=== PATIENT | male | born 1995 | race Caucasian/White ===

== ENCOUNTER → 2025-02-12 | Outpatient (CLI) | payer MEDICAID, SELFPAY ==
--- OUTSIDE RECORDS SUMMARY | 2025-02-12 21:30 | XMS RPT_ITS | CCD ---
Author Organization [facility] Care Team Providers Care Court Abstractor Name Role Phone Unavailable Primary Care Provider Unavailabl e Rachel SENIOR COMPLIANCE OFFICER.Jorg eLuis HANCOCK Primary Care Provide r Rachel SENIOR COMPLIANCE OFFICER.Jorge Luis HANCOCK Primary Care Provide r Rachel SENIOR COMPLIANCE OFFICER.Jorge Luis HANCOCK Primary Care Provide r JORGE LUIS STOUT Attending Unavailable JORGE LUIS STOUT Primary Care Unavailable JORGE LUIS STOUT Attending Unavailable JORGE LUIS STOUT Primary Care Unavailable JORGE LUIS STOUT Attending Unavailable JORGE LUIS STOUT Primary Care Unavailable JORGE LUIS STOUT Attending Unavailable JORGE LUIS STOUT Primary Care Unavailable JORGE LUIS STOUT Attending Unavailable Rachel SENIOR COMPLIANCE OFFICER.Jorge Luis HNACOCK Primary Care Provide r Unavailable Donna Us PA-C Primary Care Provider [phone] Donna Us PA-C Primary Care Provider [phone] Salvatore Mcgrath Attending Unavailable Town Doctor, Out of Referring Unavailable Town Doctor, Out of Primary Care Unavailable PCP, NONE Primary Care Unavailable TOMEKA RODRIGUEZ Attending Unavailable Donna Us PA-C Primary Care Provider DONNA [place] Primary Care Unavailable DONNA US Primary Care Unavailable DONNA US Attending Unavailable DONNA US R Primary Care Unavailable DONNA US R Primary Care Unavailable DONNA US R Attending Unavailable DONNA US R Primary Care Unavailable DONNA US R Primary Care Unavailable DONNA US R Primary Care Unavailable UMM MCGRATH Attending Unavailable DONNA US Primary Care Unavailable Allergies Allergy Classification Reported Allergen(s) Allergy Type Date of Onset Reaction(s) Facility (2 sources) Droperidol; Translations: [DROPERIDOL] Drug Allergy 02-09-2025 Intolerance [facility] Medications Current Medications Medication Drug Class(es) Dates Sig (Normalized) Sig (Original) ALPRAZolam 0.25 mg oral tablet (1 source) Benzodiazepine Start: 01-24-2023 End: 02-23-2023 take 1 tablet by mouth every twenty-four hours as needed ALPRAZolam (XANAX) 0.25 mg tablet Take 1 tablet by mouth at bedtime as needed (sleep) for up to 30 days. 30 tablet 0 01/24/2023 02/23/2023 Active Comment on above: Take 1 tablet by frantz th at bedtime as needed (sleep) for up to 30 days. bacitracin 0.5 unt/mg topical ointment (1 source) Start: 01-02-2025 End: 01-12-2025 bacitracin 500 unit/gram ointment Apply to affected area two times a day for 10 days. 14 g 01/02/2025 01/12/2025 Active 24 hr buPROPion hydrochloride 300 mg extended release oral tablet (20 sources) Aminoketone Start: 11-12-2023 End: 11-10-2024 take 1 tablet by mouth once daily buPROPion XL (WELLBUTRIN XL) 300 mg 24 hr tablet Indications: Depression, unspecified depression type Take 1 tablet by mouth once daily. 90 tablet 1 05/14/2024 11/10/2024 Active Start: 01-24-2023 End: 05-14-2024 buPROPion XL (WELLBUTRIN XL) 300 mg 24 hr tablet Indications: Depression, unspecified depression type Take 1 tablet by mouth once daily. Week 1 just take 1/2 tablet. Starting week 2 take a whole tablet 30 tablet 5 02/20/2023 05/14/2024 Discontinued (Other) Start: 08-09-2022 End: 12-08-2022 buPROPion XL (WELLBUTRIN XL) 150 mg 24 hr tablet Indications: Depression, unspecified depression type Take 1 tablet by mouth once daily. Week 1 just take 1/2 tablet. Starting week 2 take a whole tablet 30 tablet 5 11/08/2022 Active Comment on above: Take 1 tablet by frantz th once daily. Week 1 just take 1/2 tablet. Starting week 2 take a whole tablet Take 1 tablet by frantz once daily. clindamycin 300 mg oral capsule (1 source) Lincosamide Antibacterial Start: 05-14-20 End: 05-24-20 take 1 capsule by mouth four times daily clindamycin (CLEOCIN) 300 mg capsule Take 1 capsule by mouth four times daily for 10 days. 40 capsule 0 05/14/2023 05/24/2023 Active Comment on above: Take 1 capsule by mo [facility] four times daily for 10 days. doxepin 6 mg oral tablet (1 source) Tricyclic Antidepressant Start: 12-31-19 Doxepin 6 mg tab Indications: Chronic insomnia 1 tablet at night to help with sleep 30 tablet 2 12/30/2022 Active Start: 12-30-2022 Doxepin 6 mg t ab Indications: Chronic insomnia 1 tablet at night to help with sleep 30 tablet 2 12/30/2022 Active Comment on above: 1 tablet at night to help with sleep eszopiclone 2 mg oral tablet (5 sources) Start: 12-03-2022 End: 01-02-2023 take 1 tablet by mouth once daily at bedtime eszopiclone (LUNESTA) 2 mg Indications: Chronic insomnia Take 1 tablet by mouth daily at bedtime for 30 days. 30 tablet 0 12/03/2022 12/30/2022 Discontinued Start: 09-20-2022 End: 11-17-2022 take 1 tablet by mouth once daily at bedtime eszopiclone (LUNESTA) 2 mg Indications: Chronic insomnia Take 1 tablet by mouth daily at bedtime for 30 days. 30 tablet 0 10/18/2022 11/17/2022 Active Comment on above: Take 1 tablet by frantz daily at bedtime for 30 days. hydrOXYzine hydrochloride 25 mg oral tablet (1 source) Antihistamine Start: 08-09-20 End: 09-06-19 hydrOXYzine HCl (ATARAX) 25 mg tablet Indications: Chronic insomnia Take 1-2 tablets at night to help with sleep 60 tablet 5 08/09/2022 09/06/2022 Active Comment on above: Take 1-2 tablets at night to help with sleep methIMAzole 10 mg oral tablet (5 sources) Thyroid Hormone Synthesis Inhibitor Start: 12-04-19 take 4 tablets by mouth once daily methIMAzole (TAPAZOLE) 10 mg tablet Take 4 tablets by mouth once daily. 12/03/2024 Active 24 hr metoprolol succinate 50 mg extended release oral tablet (20 sources) beta-Adrenergic Ovidio Start: 11-12-19 take 1 tablet by mouth once daily metoprolol succinate ER (TOPROL XL) 50 mg 24 hr tablet Indications: Hypertension, essential Take 1 tablet by mouth once daily. 90 tablet 11/11/2024 Active Start: 05-08-2023 End: 11-10-2024 take 1 tablet by mouth once daily metoprolol succinate ER (TOPROL XL) 25 mg 24 hr tablet Indications: Hypertension, essential Take 1 tablet by mouth once daily. 90 tablet 1 05/14/2024 11/10/2024 Active Start: 03-19-2023 take 1 tablet by frantz th once daily metoprolol succinate ER (TOPROL XL) 25 mg 24 hr tablet Indications: Hypertension, essential TAKE 1 TABLET BY MOUTH EVERY DAY 30 tablet 5 03/19/2023 Active Start: 01-24-2023 End: 03-19-2023 take 1 tablet by mouth once daily metoprolol succinate ER (TOPROL XL) 25 mg 24 hr tablet Indications: Hypertension, essential Take 1 tablet by mouth once daily. 30 tablet 1 01/24/2023 03/19/2023 Discontinued Comment on above: Take 1 tablet by frantz th once daily. TAKE 1 TABLET BY FRANTZ TH EVERY DAY naproxen 500 mg oral tablet (3 sources) Nonsteroidal Anti-inflammatory Drug Start: 06-03-2023 End: 06-17-2023 take 1 tablet by mouth twice daily at mealtime for pain naproxen (NAPROSYN) 500 mg tablet TAKE 1 TABLET BY MOUTH TWICE DAILY WITH MEALS FOR 14 DAYS. FOR PAIN 28 tablet 0 06/03/2023 06/17/2023 Active Start: 05-14-2023 End: 05-28-2023 take 1 tablet by mouth twice daily at mealtime for pain naproxen (NAPROSYN) 500 mg tablet Take 1 tablet by mouth twice daily with meals for 14 days. For pain 28 tablet 0 05/14/2023 05/28/2023 Active Comment on above: Take 1 tablet by frantz th twice daily with meals for 14 days. For pain ondansetron 4 mg disintegrating oral tablet (1 source) Serotonin-3 Receptor Antagonist Start: 02-10-20 End: 02-17-20 take 1 tablet by mouth every six hours as needed ondansetron orally disintegrating (ZOFRAN ODT) 4 mg disintegrating tablet Take 1 tablet by mouth every 6 hours as needed for nausea/vomiting for up to 7 days. 20 tablet 02/09/2025 02/16/2025 Active pantoprazole 40 mg delayed release oral tablet (1 source) Proton Pump Inhibitor Start: 02-10-20 End: 03-11-20 take 1 tablet by mouth once daily pantoprazole DR (PROTONIX) 40 mg tablet Take 1 tablet by mouth once daily. 30 tablet 02/09/2025 03/11/2025 Active sucralfate 1000 mg oral tablet (1 source) Aluminum Complex Start: 02-10-20 End: 02-24-20 take 1 tablet by mouth four times daily sucralfate (CARAFATE) 1 gram tablet Take 1 tablet by mouth four times daily for 14 days. 56 tablet 02/09/2025 02/23/2025 Active Completed/Discontinued Medications Medication Drug Class(es) Dates Sig (Normalized) Sig (Original) bifidobacterium infantis 10.5 mg chewable tablet (10 sources) Start: 05-14-2023 End: 05-14-2024 Bifidobacterium infantis (ALIGN) 10.5 mg (10 million cell) chew 1 capsule daily 30 tablet 05/14/2023 05/14/2024 Discontinued (Other) Comment on above: 1 capsule daily famotidine 40 mg oral tablet (20 sources) Histamine-2 Receptor Antagonist Start: 06-13-2023 End: 05-02-2025 take 1 tablet by mouth once famotidine (PEPCID) 40 mg tablet Take 1 tablet by mouth every afternoon. 90 tablet 01/03/2025 01/31/2025 Discontinued Start: 01-24-2023 End: 04-24-2023 take 1 tablet by mouth once daily famotidine (PEPCID) 40 mg tablet Indications: GERD without esophagitis Take 1 tablet by mouth once daily. 90 tablet 1 01/24/2023 04/24/2023 Active Start: 10-18-2022 End: 11-17-2022 take 1 tablet by mouth twice daily famotidine (PEPCID) 40 mg tablet Take 1 tablet by mouth twice daily. 60 tablet 5 10/18/2022 11/17/2022 Active Start: 08-09-2022 End: 09-08-2022 take 1 tablet by mouth once daily famotidine (PEPCID) 40 mg tablet Indications: GERD without esophagitis Take 1 tablet by mouth once daily. 30 tablet 5 08/09/2022 09/08/2022 Active Comment on above: Take 1 tablet by frantz th once daily. Take 1 tablet by frantz th twice daily. ibuprofen/diphenhy dramine HCl (ADVIL PM LIQUI-GELS ORAL) (20 sources) End: 05-14-2024 take 1 tablet by mouth once daily at bedtime ibuprofen/diphenhydram ine HCl (ADVIL PM LIQUI-GELS ORAL) Take 1 tablet by mouth daily at bedtime. 05/14/2024 Discontinued (Other) take 1 tablet by frantz th once daily at bedtime ibuprofen/diphenhydramine HCl (ADVIL PM LIQUI-GELS ORAL) Take 1 tablet by mouth daily at bedtime. 0 Active Comment on above: Take 1 tablet by frantz th daily at bedtime. Magnesium Sulfate / potassium sulfate / sodium sulfate (7 sources) Start: 08-02-2021 End: 08-09-2022 sodium sulfate-potassium sulfate-magnesium sulfate (SUPREP BOWEL PREP KIT) 17.5-3.13-1.6 gram oral liquid Indications: RUQ pain , Right upper quadrant pain 1 bottle the night before and the second bottle 4 hours prior to the scheduled time of colonoscopy 1 Kit 0 08/02/2021 08/09/2022 Discontinued Start: 08-02-2021 sodium sulfate -potassium sulfate-magnesium sulfate (SUPREP BOWEL PREP KIT) 17.5-3.13-1.6 gram oral liquid Indications: RUQ pain , Right upper quadrant pain 1 bottle the night before and the second bottle 4 hours prior to the scheduled time of colonoscopy 1 Kit 0 08/02/2021 Active Comment on above: 1 bottle the night b efore and the second bottle 4 hours prior to the scheduled time of colonoscopy omeprazole 20 mg delayed release oral capsule (9 sources) Proton Pump Inhibitor Start: 2 End: 2 take 1 capsule by mouth once daily omeprazole (PRILOSEC) 20 mg capsule Indications: GERD without esophagitis TAKE 1 CAPSULE BY MOUTH ONCE DAILY 30 capsule 2 07/08/2022 08/09/2022 Discontinued Start: 10-10-2021 End: 02-02-2022 take 1 capsule by mouth once daily omeprazole (PRILOSEC) 20 mg capsule Indications: GERD without esophagitis TAKE 1 CAPSULE BY MOUTH ONCE DAILY 30 capsule 2 01/03/2022 Active Comment on above: TAKE 1 CAPSULE BY MO UTH ONCE DAILY Take 1 capsule by mo uth once daily. traZODone hydrochloride 100 mg oral tablet (10 sources) Serotonin Reuptake Inhibitor Start: End: take 1 tablet by mouth once daily at bedtime traZODone (DESYREL) 100 mg tablet Indications: RUQ abdominal pain , Nausea and vomiting TAKE 1 TABLET BY MOUTH EVERYDAY AT BEDTIME 30 tablet 0 07/12/2022 08/09/2022 Discontinued Start: 10-31-2021 End: 07-12-2022 take 1 tablet by mouth once daily at bedtime traZODone (DESYREL) 100 mg tablet Indications: RUQ abdominal pain , Nausea and vomiting TAKE 1 TABLET BY MOUTH EVERYDAY AT BEDTIME 30 tablet 2 04/09/2022 07/12/2022 Discontinued Comment on above: TAKE 1 TABLET BY FRANTZ TH EVERYDAY AT BEDTIME Problems Active Problems Problem Classification Problem Date Documented Da te Episodic/Chronic Abdominal pain (20 sources) Right upper quadrant pain; Translations: [Right upper quadrant pain] Onset: 1 08-02-2021 Episodic Anxiety disorders (20 sources) Mixed anxiety and depressive disorder; Translations: [Other specified anxiety disorders] Onset: 3 02-14-2023 Chronic Esophageal disorders (20 sources) Gastroesophageal reflux disease without esophagitis; Translations: [Gastro-esophageal reflux disease without esophagitis] Onset: 3 Chronic Essential hypertension (20 sources) Essential hypertension; Translations: [Essential (primary) hypertension] Onset: 3 02-14-2023 Chronic Miscellaneous mental health disorders (20 sources) Chronic insomnia; Translations: [Psychophysiologic insomnia] Onset: 3 Chronic Mood disorders (10 sources) Depressive disorder; Translations: [Depression, unspecified depression type] Onset: 3 Chronic Mood disorders (2 sources) Mood disorders; Translations: [Depression, unspecified depression type] Onset: 3 Nausea and vomiting (4 sources) Nausea and vomiting; Translations: [Nausea with vomiting, unspecified] Onset: 5 Episodic Open wounds of extremities (6 sources) Laceration of left little finger; Translations: [Laceration without foreign body of left little finger without damage to nail, initial encounter] Onset: 5 01-02-2025 Episodic Other aftercare (1 source) Encounter for removal of sutures; Translations: [Encounter for removal of sutures] Onset: 5 Episodic Other connective tissue disease (5 sources) Pain in finger of left hand; Translations: [Pain in left finger(s)] Onset: 5 01-02-2025 Episodic Other connective tissue disease (1 source) Pain in left finger(s); Translations: [Pain of finger of left hand] Onset: 5 Episodic Other gastrointestinal disorders (1 source) Diarrhea, unspecified; Translations: [Diarrhea, unspecified type] Onset: 5 Episodic Other nutritional; endocrine; and metabolic disorders (1 source) Obese class I; Translations: [Obesity, unspecified] Chronic Other nutritional; endocrine; and metabolic disorders (1 source) Body mass index 30+ - obesity; Translations: [Body mass index (BMI) 33.0-33.9, adult] Chronic Other nutritional; endocrine; and metabolic disorders (1 source) Obesity, unspecified; Translations: [Obesity, Class I, BMI 30-34.9] Onset: 3 Chronic Other nutritional; endocrine; and metabolic disorders (1 source) Weight gain; Translations: [Abnormal weight gain] Episodic Thyroid disorders (6 sources) Hyperthyroidism; Translations: [Thyrotoxicosis, unspecified without thyrotoxic crisis or storm] Onset: 5 11-12-2024 Chronic Unclassified (1 source) Transaminitis; Translations: [Transaminitis] Onset: 5 Viral infection (1 source) COVID-19; Translations: [COVID-19] Onset: 5 Past or Other Problems Problem Classification Problem Date Documented Da te Episodic/Chronic Cardiac dysrhythmias (4 sources) Palpitations; Translations: [Palpitations] Onset: 11-11-2024 11-12-2023 Episodic Immunizations and screening for infectious disease (4 sources) Patient encounter status; Translations: [Encounter for immunization] Onset: 05-14-2024 Episodic Malaise and fatigue (5 sources) Fatigue; Translations: [Other fatigue] Onset: 09-20-2022 Episodic Other nutritional; endocrine; and metabolic disorders (1 source) Abnormal weight gain; Translations: [Weight gain] Onset: 09-20-2022 Episodic Other screening for suspected conditions (not mental disorders or infectious disease) (2 sources) Other specified abnormal findings of blood chemistry; Translations: [Decreased thyroid stimulating hormone (TSH) level] Onset: 11-11-2024 Episodic Results Test Name Value Interpretation Reference Range Krysten wallis SANTIRoxane 02-10-[address] [facility] SOLOMON LAURA ([id number]) 1995 M Date Time Provider Department 02/10/25 DONNA US [facility] [place] During your visit today, we recorded the following information about you: Darlin Beck MA 02/10/2025 8:59 AM Signed Appt with Donna on 05/20 needs r/s to Zuleika's schedule. Left message for patient to call the office, number provided. Please transfer call to office. Darlin Beck MA Allergies As of Date: 02/10/2025 Noted Allergy Reaction DROPERIDOL 02/09/2025 5 - Intolerance Comments: Patient felt like skin was crawling and dizzy Date Reviewed: 02/09/2025 Reviewed by: Jurgen Cardenas, CT - Fully Assessed Reason for Visit: Appointment [[id number]] Prescriptions as of 02/10/2025 - ondansetron orally disintegrating (ZOFRAN ODT) 4 mg disintegrating tablet Take 1 tablet by mouth every 6 hours as needed for nausea/vomiting for up to 7 days. - pantoprazole DR (PROTONIX) 40 mg tablet Take 1 tablet by mouth once daily. - sucralfate (CARAFATE) 1 gram tablet Take 1 tablet by mouth four times daily for 14 days. - methIMAzole (TAPAZOLE) 10 mg tablet Take 4 tablets by mouth once daily. - metoprolol succinate ER (TOPROL XL) 50 mg 24 hr tablet Take 1 tablet by mouth once daily. Problem List As Of Date 02/10/2025 Noted Resolved RUQ pain [R10.11] 08/02/2021 Chronic insomnia [F51.04] 09/05/2022 GERD without esophagitis [K21.9] 09/05/2022 Anxiety with depression [F41.8] 09/05/2022 Hypertension, essential [I10] 02/14/2023 Pain of finger of left hand [M79.645] 01/02/2025 Laceration of left little finger without foreig*01/02/2025 Encounter Status:Closed by DARLIN BECK on 02/10/25 [facility] CBC W Auto Differential pane l (Bld)on 02-09-2025 Basophils (Bld) [#/Vol] 10*3/uL Normal <0.11 [facility] Comment on above: Order Comment: Speci men Type: BLOOD SPECIMEN Ordering Facility: [facility] [place] Address: [address] [place] [address] Performed By: #### 5 7021-8 #### [facility] CLIA [id number] [address] [place] [address] [place] Basophils/100 WBC (Bld) 0.2 % [facility] Comment on above: Order Comment: Speci men Type: BLOOD SPECIMEN Ordering Facility: [facility] [place] Address: [address] [place] [address] Performed By: #### 5 7021-8 #### [facility] CLIA [id number] [address] [place] [address] [place] Differential cell count method Nom (Bld) Auto [facility] Comment on above: Order Comment: Speci men Type: BLOOD SPECIMEN Ordering Facility: [facility] [place] Address: [address] [place] [address] Performed By: #### 5 7021-8 #### [facility] CLIA [id number] [address] [place] [address] [place] Eosinophils (Bld) [#/Vol] 10*3/uL Normal <0.46 [facility] Comment on above: Order Comment: Speci men Type: BLOOD SPECIMEN Ordering Facility: [facility] [place] Address: [address] [place] [address] Performed By: #### 5 7021-8 #### [facility] CLIA [id number] [address] [place] [address] [place] Eosinophils/100 WBC (Bld) 0.0 % Normal [facility] Comment on above: Order Comment: Speci men Type: BLOOD SPECIMEN Ordering Facility: [facility] [place] Address: [address] [place] [address] Performed By: #### 5 7021-8 #### [facility] CLIA [id number] [address] [place] [address] [place] Erythrocyte distribution width (RBC) [Ratio] 14.4 % Normal 11.5-15.0 [facility] Comment on above: Order Comment: Speci men Type: BLOOD SPECIMEN Ordering Facility: [facility] [place] Address: [address] [place] [address] Performed By: #### 5 7021-8 #### [facility] CLIA [id number] [address] [place] [address] [place] Hematocrit (Bld) [Volume fraction] 46.0 % Normal 39.0-51.0 [facility] Comment on above: Order Comment: Speci men Type: BLOOD SPECIMEN Ordering Facility: [facility] [place] Address: [address] [place] [address] Performed By: #### 5 7021-8 #### [facility] CLIA [id number] [address] [place] [address] [place] Hemoglobin (Bld) [Mass/Vol] 15.6 g/dL Normal 13.0-17.0 [facility] Comment on above: Order Comment: Speci men Type: BLOOD SPECIMEN Ordering Facility: [facility] [place] Address: [address] [place] [address] Performed By: #### 5 7021-8 #### [facility] CLIA [id number] [address] [place] [address] [place] Immature granulocytes (Bld) [#/Vol] 0.03 10*3/uL Normal <0.10 [facility] Comment on above: Order Comment: Speci men Type: BLOOD SPECIMEN Ordering Facility: [facility] [place] Address: [address] [place] [address] Performed By: #### 5 7021-8 #### [facility] CLIA [id number] [address] [place] [address] [place] Immature granulocytes/100 WBC (Bld) 0.3 % Normal [facility] Comment on above: Order Comment: Speci men Type: BLOOD SPECIMEN Ordering Facility: [facility] [place] Address: [address] [place] [address] Performed By: #### 5 7021-8 #### [facility] CLIA [id number] [address] [place] [address] [place] Lymphocytes (Bld) [#/Vol] 0.45 10*3/uL Low 1.00-4.00 [facility] Comment on above: Order Comment: Speci men Type: BLOOD SPECIMEN Ordering Facility: [facility] [place] Address: [address] [place] [address] Performed By: #### 5 7021-8 #### [facility] CLIA [id number] [address] [place] [address] [place] Lymphocytes/100 WBC (Bld) 4.8 % Normal [facility] Comment on above: Order Comment: Speci men Type: BLOOD SPECIMEN Ordering Facility: [facility] [place] Address: [address] [place] [address] Performed By: #### 5 7021-8 #### [facility] CLIA [id number] [address] [place] [address] [place] MCH (RBC) [Entitic mass] 29.7 pg Normal 26.0-34.0 [facility] Comment on above: Order Comment: Speci men Type: BLOOD SPECIMEN Ordering Facility: [facility] [place] Address: [address] [place] [address] Performed By: #### 5 7021-8 #### [facility] CLIA [id number] [address] [place] [address] [place] MCHC (RBC) [Mass/Vol] 33.9 g/dL Normal 30.5-36.0 [facility] Comment on above: Order Comment: Speci men Type: BLOOD SPECIMEN Ordering Facility: [facility] [place] Address: [address] [place] [address] Performed By: #### 5 7021-8 #### [facility] CLIA [id number] [address] [place] [address] [place] MCV (RBC) [Entitic vol] 87.6 fL Normal 80.0-100.0 [facility] Comment on above: Order Comment: Speci men Type: BLOOD SPECIMEN Ordering Facility: [facility] [place] Address: [address] [place] [address] Performed By: #### 5 7021-8 #### [facility] CLIA [id number] [address] [place] [address] [place] Monocytes (Bld) [#/Vol] 0.23 10*3/uL Normal <0.87 [facility] Comment on above: Order Comment: Speci men Type: BLOOD SPECIMEN Ordering Facility: [facility] [place] Address: [address] [place] [address] Performed By: #### 5 7021-8 #### [facility] CLIA [id number] [address] [place] [address] [place] Monocytes/100 WBC (Bld) 2.4 % Normal [facility] Comment on above: Order Comment: Speci men Type: BLOOD SPECIMEN Ordering Facility: [facility] [place] Address: [address] [place] [address] Performed By: #### 5 7021-8 #### [facility] CLIA [id number] [address] [place] [address] [place] Neutrophils (Bld) [#/Vol] 8.70 10*3/uL High 1.45-7.50 [facility] Comment on above: Order Comment: Speci men Type: BLOOD SPECIMEN Ordering Facility: [facility] [place] Address: [address] [place] [address] Performed By: #### 5 7021-8 #### [facility] CLIA [id number] [address] [place] [address] [place] Neutrophils/100 WBC (Bld) 92.3 % Normal [facility] Comment on above: Order Comment: Speci men Type: BLOOD SPECIMEN Ordering Facility: [facility] [place] Address: [address] [place] [address] Performed By: #### 5 7021-8 #### [facility] CLIA [id number] [address] [place] [address] [place] Nucleated RBC (Bld) [#/Vol] 10*3/uL Normal <0.01 [facility] Comment on above: Order Comment: Speci men Type: BLOOD SPECIMEN Ordering Facility: [facility] [place] Address: [address] [place] [address] Performed By: #### 5 7021-8 #### [facility] CLIA [id number] [address] [place] [address] [place] Nucleated RBC/100 WBC (Bld) [Ratio] 0.0 /100 WBC Normal [facility] Comment on above: Order Comment: Speci men Type: BLOOD SPECIMEN Ordering Facility: [facility] [place] Address: [address] [place] [address] Performed By: #### 5 7021-8 #### [facility] CLIA [id number] [address] [place] [address] [place] Platelet mean volume (Bld) [Entitic vol] 10.3 fL Normal 9.0-12.7 [facility] Comment on above: Order Comment: Speci men Type: BLOOD SPECIMEN Ordering Facility: [facility] [place] Address: [address] [place] [address] Performed By: #### 5 7021-8 #### [facility] CLIA [id number] [address] [place] [address] [place] Platelets (Bld) [#/Vol] 309 10*3/uL Normal 150-400 [facility] Comment on above: Order Comment: Speci men Type: BLOOD SPECIMEN Ordering Facility: [facility] [place] Address: [address] [place] [address] Performed By: #### 5 7021-8 #### [facility] CLIA [id number] [address] [place] [address] [place] RBC (Bld) [#/Vol] 5.25 10*6/uL Normal 4.20-6.00 [facility] Comment on above: Order Comment: Speci men Type: BLOOD SPECIMEN Ordering Facility: [facility] [place] Address: [address] [place] [address] Performed By: #### 5 7021-8 #### [facility] CLIA [id number] [address] [place] [address] [place] WBC (Bld) [#/Vol] 9.43 10*3/uL Normal 3.70-11.00 [facility] Comment on above: Order Comment: Speci men Type: BLOOD SPECIMEN Ordering Facility: [facility] [place] Address: [address] [place] [address] Performed By: #### 5 7021-8 #### [facility] CLIA [id number] [address] [place] [address] [place] CT ABD/PEL W IVCONon 25-[address] ABD/PEL W IVCON * * *Final Report* * * DATE OF EXAM: Feb 09 2025 8:00PM [facility] [place] ABD/PEL W IVCON / PROCEDURE REASON: Abdominal pain, acute, nonlocalized * * * * Physician Interpretation * * * * EXAMINATION: CT ABDOMEN AND PELVIS WITH IV CONTRAST CLINICAL HISTORY: Pain TECHNIQUE: CT of the abdomen and pelvis was performed using standard technique, scanning from just above the dome of the diaphragm to the symphysis pubis. MQ: CTAP_3 Contrast: IV: 100 ml of Omnipaque 350 : ml of CT Radiation dose: Integrated Dose-length product (DLP) for this visit = 507.1 mGy*cm. CT Dose Reduction Employed: Automated exposure control (AEC) COMPARISON: 12/11/2024. RESULT: Liver: No mass. Biliary: No bile duct dilation. Gallbladder is unremarkable. Spleen: No mass. No splenomegaly. Pancreas: No mass or duct dilation. Adrenals: No mass. Kidneys: No mass, calculus or hydronephrosis. GI tract: No dilation or wall thickening. Normal appendix. There is some fatty infiltration in the wall the colon, which may be related to prior inflammation or infection. Lymph nodes: No abdominal or pelvic lymphadenopathy. Mesentery/Peritoneum: No ascites or mass. Retroperitoneum: No mass. Vasculature: - Abdominal aorta and iliac arteries: No aneurysm. - Celiac and SMA: Patent without stenosis. - Portal venous system (SMV, splenic vein, portal vein and branches): Patent. - Hepatic veins: Patent. Pelvis: No mass, ascites or fluid collection. Bones/Soft Tissues: No significant finding. Lower thorax: Unremarkable. Localizer images: No additional findings. IMPRESSION: No acute findings in the abdomen or pelvis. Playground Aide: [facility] Transcribe Date/Time: Feb 09 2025 9:21P Dictated by : ELAN GEORGE MD This examination was interpreted and the report reviewed and electronically signed by: ELAN GEORGE MD on Feb 09 2025 9:33PM EST [id number] Normal [facility] Comprehensive metabolic 2000 panelon 02-09-2025 Albumin [Mass/Vol] 4.8 g/dL Normal 3.9-4.9 [facility] Comment on above: Order Comment: Yo will Type: BLOOD SPECIMEN Ordering Facility: [facility] [place] Address: [address] [place] [address] Performed By: #### 5 7021-8 #### [facility] CLIA [id number] [address] [place] [address] [place] ALP [Catalytic activity/Vol] 128 U/L High 38-113 [facility] Comment on above: Order Comment: Yo will Type: BLOOD SPECIMEN Ordering Facility: [facility] [place] Address: [address] [place] [address] Performed By: #### 5 7021-8 #### [facility] CLIA [id number] [address] [place] [address] [place] ALT [Catalytic activity/Vol] 44 U/L Normal 10-54 [facility] Comment on above: Order Comment: Speci men Type: BLOOD SPECIMEN Ordering Facility: [facility] [place] Address: [address] [place] [address] Performed By: #### 5 7021-8 #### [facility] CLIA [id number] [address] [place] [address] [place] Anion gap [Moles/Vol] 14 mmol/L Normal 8-15 [facility] Comment on above: Order Comment: Speci men Type: BLOOD SPECIMEN Ordering Facility: [facility] [place] Address: [address] [place] [address] Performed By: #### 5 7021-8 #### [facility] CLIA [id number] [address] [place] [address] [place] AST [Catalytic activity/Vol] 26 U/L Normal 14-40 [facility] Comment on above: Order Comment: Speci men Type: BLOOD SPECIMEN Ordering Facility: [facility] [place] Address: [address] [place] [address] Performed By: #### 5 7021-8 #### [facility] CLIA [id number] [address] [place] [address] [place] Bilirubin [Mass/Vol] 0.9 mg/dL Normal 0.2-1.3 [facility] Comment on above: Order Comment: Speci men Type: BLOOD SPECIMEN Ordering Facility: [facility] [place] Address: [address] [place] [address] Performed By: #### 5 7021-8 #### [facility] CLIA [id number] [address] [place] [address] [place] Calcium [Mass/Vol] 10.0 mg/dL Normal 8.5-10.2 [facility] Comment on above: Order Comment: Speci men Type: BLOOD SPECIMEN Ordering Facility: [facility] [place] Address: [address] [place] [address] Performed By: #### 5 7021-8 #### [facility] CLIA [id number] [address] [place] [address] [place] Chloride [Moles/Vol] 105 mmol/L Normal 98-107 [facility] Comment on above: Order Comment: Speci men Type: BLOOD SPECIMEN Ordering Facility: [facility] [place] Address: [address] [place] [address] Performed By: #### 5 7021-8 #### [facility] CLIA [id number] [address] [place] [address] [place] CO2 [Moles/Vol] 24 mmol/L Normal 22-30 [facility] Comment on above: Order Comment: Speci men Type: BLOOD SPECIMEN Ordering Facility: [facility] [place] Address: [address] [place] [address] Performed By: #### 5 7021-8 #### [facility] CLIA [id number] [address] [place] [address] [place] Creatinine [Mass/Vol] 1.01 mg/dL Normal 0.73-1.22 [facility] Comment on above: Order Comment: Speci men Type: BLOOD SPECIMEN Ordering Facility: [facility] [place] Address: [address] [place] [address] Performed By: #### 5 7021-8 #### [facility] CLIA [id number] [address] [place] [address] [place] Creatinine and Glomerular filtration rate.predicted panel (S/P/Bld) 102 mL/min/1.73m??? Normal >=60 [facility] Comment on above: Order Comment: Speci men Type: BLOOD SPECIMEN Ordering Facility: [facility] [place] Address: [address] [place] [address] Result Comment: Elsie mated Glomerular Filtration Rate (eGFR) is calculated using the 2020 CKD-EPI creatinine equation. This equation utilizes serum creatinine, sex, and age as parameters. The creatinine assay has traceable calibration to isotope dilution-mass spectrometry. Refer to KDIGO guidelines for clinical interpretation. In patients with unstable renal function, e.g. those with acute kidney injury, the eGFR may not accurately reflect actual GFR. Performed By: #### 5 7021-8 #### [facility] CLIA [id number] [address] [place] [address] [place] Glucose [Mass/Vol] 137 mg/dL High 74-99 [facility] Comment on above: Order Comment: Yo will Type: BLOOD SPECIMEN Ordering Facility: [facility] [place] Address: [address] [place] [address] Result Comment: The [place] Diabetes Association (ADA) provides guidance for cutoff values for fasting glucose and random glucose. The ADA defines fasting as no caloric intake for at least 8 hours. Fasting plasma glucose results between 100 to 125 mg/dL indicate increased risk for diabetes (prediabetes). Fasting plasma glucose results greater than or equal to 126 mg/dL meet the criteria for diagnosis of diabetes. In the absence of unequivocal hyperglycemia, results should be confirmed by repeat testing. In a patient with classic symptoms of hyperglycemia or hyperglycemic crisis, random plasma glucose results greater than or equal to 200 mg/dL meet the criteria for diagnosis of diabetes. Reference: Standards of Medical Care in Diabetes 2016, [place] [employer] Association. Diabetes Care. 2016.39(Suppl 1). Performed By: #### 5 7021-8 #### [facility] CLIA [id number] [address] [place] [address] [place] Potassium [Moles/Vol] 4.6 mmol/L Normal 3.7-5.1 [facility] Comment on above: Order Comment: Yo will Type: BLOOD SPECIMEN Ordering Facility: [facility] [place] Address: [address] [place] [address] Performed By: #### 5 7021-8 #### [facility] CLIA [id number] [address] [place] [address] [place] Protein [Mass/Vol] 8.0 g/dL Normal 6.3-8.0 [facility] Comment on above: Order Comment: Yo will Type: BLOOD SPECIMEN Ordering Facility: [facility] [place] Address: [address] [place], [place] [address] Performed By: #### 5 7021-8 #### [facility] CLIA [id number] [address] Sodium [Moles/Vol] 143 mmol/L Normal 136-144 [facility] Comment on above: Order Comment: Speci men Type: BLOOD SPECIMEN Ordering Facility: [facility] [place] Address: [address] [place], [place] [address] Performed By: #### 5 7021-8 #### [facility] CLIA [id number] [address] [place] [address] [place] Urea nitrogen [Mass/Vol] 10 mg/dL Normal 9-24 [facility] Comment on above: Order Comment: Speci men Type: BLOOD SPECIMEN Ordering Facility: [facility] [place] Address: [address] [place] [address] Performed By: #### 5 7021-8 #### [facility] CLIA [id number] [address] [place] [address] [place] [facility] ECG COMPLETEon 02-09-2025 ECG COMPLETE Ventricular Rate : 6 0 BPM Atrial Rate : 60 BPM P-R Interval : 130 ms QRS Duration : 90 ms Q-T Interval : 370 ms QTC Calculation(Bazett) : 370 ms Calculated P Barnhart : 32 degrees Calculated R Barnhart : -4 degrees Calculated T Barnhart : 16 degrees Normal sinus rhythm Normal ECG When compared with ECG of 11-Dec-2024 11:57, No significant change was found Confirmed by HUMBERTO WRIGHT MD ([id number]) on 02/11/2025 12:50:34 PM NAME : SOLOMON LAURA PID : [id number] : 1995 Gender : Male Race : ORD : [id number] Procedure Date : Feb 09 2025 18:13:08 Edit Date : Feb 11 2025 12:50:37 Diagnosis: Normal sinus rhythm Normal ECG When compared with ECG of 11-Dec-2024 11:57, No significant change was found Confirmed by HUMBERTO WRIGHT MD ([id number]) on 02/11/2025 12:50:34 PM Test Reason : HCS Location : 3 : ED ED Overread By : HUMBERTO WRIGHT MD Edited By : HUMBERTO WRIGHT MD Referred By : , Acquired by : MILLIE [facility] ED NOTEon 02-09-2025 ED NOTE HNO ID: [id number] Author: ADY VALVERDE RN Service: ? Author Type: Registered Nurse Type: ED Notes Filed: 02/09/2025 22:56 Note Text: Patient tolerated PO fine and wants to go home. [facility] ED NOTE HNO ID: [id number] Author: BETTINA CAMPBELL CT Service: ? Author Type: Clinical [employer] Spray Supervisor Type: ED Notes Filed: 02/09/2025 22:30 Note Text: Gave pt a glass of water per nurse for PO Challenge. STACIA Anderson [facility] ED NOTE HNO ID: [id number] Author: ADY VALVERDE, RN Service: ? Author Type: Registered Nurse Type: ED Notes Filed: 02/09/2025 20:05 Note Text: Patient requested ice chips - I provided him with them. [facility] ED NOTE HNO ID: [id number] Author: ADY VALVERDE RN Service: ? Author Type: Registered Nurse Type: ED Notes Filed: 02/09/2025 18:37 Note Text: Patient vomiting after PO meds. [facility] ED PROV NOTEon 02-09-2025 ED PROV NOTE HNO ID: [id number] Author: ESTELA SAM APRN.SANTI Service: Emergency Medicine Author Type: Nurse Practitioner Type: ED Provider Notes Filed: 02/09/2025 23:30 Note Text: ED Provider Note Patient Name: Solomon Laura : 1995 SERVICE DATE: 02/09/25 History Patient presents with: Abdominal Pain Nausea AND Vomiting: SINCE THIS AM Patient is a 29-year-old male with a history of GERD and hyperthyroidism who presents to the ER with 2-3 days of generalized abdominal pain, associated with nausea and vomiting. He reports approximately 20 episodes of emesis today, including dry heaving and vomiting of stomach acid and bile. He also endorses some diarrhea. Abdominal pain is most prominent in the left lower quadrant and epigastric region. He is prescribed Pepcid but has not been taking it for the past three weeks. History provided by: Patient PAST MEDICAL HISTORY Diagnosis Date RUQ pain PAST SURGICAL HISTORY Procedure Laterality Date COLONOSCOPY SCREENING 10/09/2021 Dr. Otto EGD 10/09/2021 Dr. Otto No family history on file. Social History Tobacco Use Smoking status: Never Smokeless tobacco: Never Vaping Use Vaping status: current everyday user Substances: Nicotine, THC Substance and Sexual Activity Alcohol use: Yes Comment: occasional Drug use: Never Sexual activity: Not on file ALLERGIES Allergen Reactions Droperidol Intolerance Patient felt like skin was crawling and dizzy Review of Systems Gastrointestinal: Positive for abdominal distention, abdominal pain, diarrhea, nausea and vomiting. All other systems reviewed and are negative. Physical Exam Vitals [02/09/25 1710] BP Pulse Temp Temp src Resp SpO2 Weight Height 146/88 60 36.2 ?C (97.2 ?F) Oral 20 98 % 94.9 kg (209 lb 3.5 oz) 1.803 m (5' 11) Physical Exam General: Well-appearing, in no acute distress. HEENT: Mucous membranes moist, no scleral icterus. Cardiovascular: Regular rate and rhythm, no murmurs. Respiratory: Lungs clear to auscultation bilaterally, no increased work of breathing. Abdomen: Soft, non-distended. Mild diffuse tenderness to palpation, most prominent in the epigastric and left lower quadrant. No rebound or guarding. Bowel sounds present. Neuro: Alert and oriented x3, no focal deficits. Skin: Warm, dry, no rash. Diagnostic Testing ED Labs Ordered and Reviewed URINALYSIS (WITH MICROSCOPIC) WITH CULTURE IF INDICATED - Abnormal; Notable for the following components: Result Value Ref Range Bilirubin, Urine 1+ (*) Negative Ketones, Urine Trace (*) Negative Protein, Urine 1+ (*) Negative Bacteria Rare (*) None Seen /HPF All other components within normal limits COMPLETE BLOOD COUNT AND DIFFERENTIAL - Abnormal; Notable for the following components: Abs Neut 8.70 (*) 1.45 - 7.50 k/uL Abs Lymph 0.45 (*) 1.00 - 4.00 k/uL All other components within normal limits COMPREHENSIVE METABOLIC PANEL - Abnormal; Notable for the following components: Alkaline Phosphatase 128 (*) 38 - 113 U/L Glucose 137 (*) 74 - 99 mg/dL All other components within normal limits LIPASE Procedures ED Course / Clinical Impression ED Course as of 02/09/252216 Estela Sam's Documentation FriFeb 09, [id number] Patient re-evaluated at bedside. Resting comfortably on his side, reports improved pain and resolution of nausea. Denies needing anything further at this time, requests lights off to rest. Awaiting CT results. Clinical Impressions as of 02/09/25 2217 Abdominal pain, unspecified abdominal location Nausea and vomiting, unspecified vomiting type MDM / Disposition / Plan 29-year-old male with history of GERD and hyperthyroidism presented with several days of diffuse abdominal pain, nausea, vomiting, and diarrhea. Symptoms were most pronounced in the epigastric and left lower quadrant regions. Patient experienced significant vomiting today, including bile and dry heaving. He had not been taking his prescribed Pepcid for several weeks. Labs revealed a normal CBC, normal lipase, and a reassuring CMP. Urinalysis was unremarkable aside from trace ketones and mild proteinuria. CT abdomen/pelvis showed no acute findings. ECG showed normal sinus rhythm without significant changes from prior. Patient was treated with IV fluids, antiemetics, and GI cocktail in the ED with some improvement. He was able to tolerate ice chips and remained hemodynamically stable. Given stable vital signs, reassuring imaging and labs, and symptom improvement, he is safe for discharge. Discharged home in stable condition with prescriptions for ondansetron, pantoprazole, and sucralfate. Advised to resume acid suppression therapy, avoid NSAIDs, and maintain oral hydration. Return precautions discussed. Follow up with primary care or GI as needed. Management Radiology Reports CT ABD/PEL W IVCON Final Result IMPRESSION: No acute findings in the abdomen or (more content not included)... Normal [facility] Lipase SerPl-cCncon 02-10-20 Lipase [Catalytic activity/Vol] 18 U/L Normal 16-61 [facility] Comment on above: Order Comment: Yo will Type: BLOOD SPECIMEN Ordering Facility: [facility] [place] Address: [address] [place] [address] Performed By: #### 5 7021-8 #### [facility] CLIA [id number] [address] [place] [address] [place] Urinalysis complete panel (U )on 02-09-2025 Bacteria LM.HPF (Urine sed) [#/Area] Rare Abnormal None Seen [facility] Comment on above: Order Comment: Speci men Type: URINE SPECIMENOrdering Facility: [facility] [place] Address: [address] [place] [address] Performed By: #### 2 4356-8 ####[facility] [id number] [place] [address] [place] Bilirubin Ql (U) 1+ Abnormal Negative [facility] Comment on above: Order Comment: Speci men Type: URINE SPECIMENOrdering Facility: [facility] [place] Address: [address] [place] [address] Result Comment: Sugg est correlation with clinical findings and serum bilirubin if clinically indicated. Performed By: #### 2 4356-8 ####[facility] [id number] [address] [place] Clarity (Unsp spec) Clear Normal Clear [facility] Comment on above: Order Comment: Speci men Type: URINE SPECIMENOrdering Facility: [facility] [place] Address: [address] [place] [address] Performed By: #### 2 4356-8 ####[facility] [id number] [place] [address] [place] Color (U) Yellow Normal Yellow [facility] Comment on above: Order Comment: Speci men Type: URINE SPECIMENOrdering Facility: [facility] [place] Address: [address] [place] [address] Performed By: #### 2 4356-8 ####[facility] [id number] [address] [place] Epithelial cells LM.HPF (Urine sed) [#/Area] Few Normal [facility] Comment on above: Order Comment: Speci men Type: URINE SPECIMENOrdering Facility: [facility] [place] Address: [address] [place] [address] Performed By: #### 2 4356-8 ####[facility] [id number] [place] [address] [place] Glucose Test strip (U) [Mass/Vol] Negative Normal Negative [facility] Comment on above: Order Comment: Speci men Type: URINE SPECIMENOrdering Facility: [facility] [place] Address: [address] [place] [address] Performed By: #### 2 4356-8 ####[facility] [id number] [place] [address] [place] Hemoglobin Ql (U) Negative Normal Negative [facility] Comment on above: Order Comment: Speci men Type: URINE SPECIMENOrdering Facility: [facility] [place] Address: [address] [place] [address] Performed By: #### 2 4356-8 ####[facility] [id number] [place] [address] [place] Ketones Ql (U) Trace Abnormal Negative [facility] Comment on above: Order Comment: Speci men Type: URINE SPECIMENOrdering Facility: [facility] [place] Address: [address] [place] [address] Performed By: #### 2 4356-8 ####[facility] [id number] [address] [place] Leukocyte esterase Test strip Ql (U) Negative Normal Negative [facility] Comment on above: Order Comment: Speci men Type: URINE SPECIMENOrdering Facility: [facility] [place] Address: [address] [place] [address] Performed By: #### 2 4356-8 ####[facility] [id number] [place] [address] [place] Nitrite Ql (U) Negative Normal Negative [facility] Comment on above: Order Comment: Speci men Type: URINE SPECIMENOrdering Facility: [facility] [place] Address: [address] [place] [address] Performed By: #### 2 4356-8 ####[facility] [id number] [place] [address] [place] pH (U) 7.0 [pH] Normal 5.0-8.0 [facility] Comment on above: Order Comment: Speci men Type: URINE SPECIMENOrdering Facility: [facility] [place] Address: [address] [place] [address] Performed By: #### 2 4356-8 ####[facility] [id number] [place] [address] [place] Protein (U) [Mass/Vol] 1+ Abnormal Negative [facility] Comment on above: Order Comment: Speci men Type: URINE SPECIMENOrdering Facility: [facility] [place] Address: [address] [place] [address] Performed By: #### 2 4356-8 ####[facility] [id number] [place] [address] [place] RBC LM.HPF (Urine sed) [#/Area] 0-3 /HPF Normal 0-3 /HPF [facility] Comment on above: Order Comment: Speci men Type: URINE SPECIMENOrdering Facility: [facility] [place] Address: [address] [place] [address] Performed By: #### 2 4356-8 ####[facility] [id number] [place] [address] [place] Specific gravity (U) [Rel density] 1.020 Normal 1.005-1.030 [facility] Comment on above: Order Comment: Speci men Type: URINE SPECIMENOrdering Facility: [facility] [place] Address: [address] [place] [address] Performed By: #### 2 4356-8 ####[facility] [id number] [address] [place] Urobilinogen Ql (U) 0.2 EU/dL Normal 0.2-1.0 EU/dL [facility] Comment on above: Order Comment: Speci men Type: URINE SPECIMENOrdering Facility: [facility] [place] Address: [address] [place] [address] Performed By: #### 2 4356-8 ####[facility] [id number] [place] [address] [place] WBC LM.HPF (Urine sed) [#/Area] 0-5 /HPF Normal 0-5 /HPF [facility] Comment on above: Order Comment: Speci men Type: URINE SPECIMENOrdering Facility: [facility] [place] Address: [address] [place] [address] Performed By: #### 2 4356-8 ####[facility] LABIA [id number] [place] [address] [facility] CNNURSEon 01-24-2025 [facility] (UPCN) SOLOMON LAURA ([id number]) 1995 M Date Time Provider Department 01/24/25 10:40 AM NURSE JULIAN LU [facility] During your visit today, we recorded the following information about you: Loren Mendez MA 01/24/2025 10:46 AM Signed Venipuncture performed to right antecubital. Number of tubes collected: 1 gold and 1 mint. Allergies As of Date: 01/24/2025 (No Known Allergies) Date Reviewed: 01/02/2025 Reviewed by: Duarte Jacinto, MIREILLE.PIANO STRINGER - Fully Assessed Reason for Visit: Phlebotomy [1172] Primary Visit Diagnosis:Hyperthyroidi sm [E05.90] Prescriptions as of 01/24/2025 - famotidine (PEPCID) 40 mg tablet Take 1 tablet by mouth every afternoon. - methIMAzole (TAPAZOLE) 10 mg tablet Take 4 tablets by mouth once daily. - metoprolol succinate ER (TOPROL XL) 50 mg 24 hr tablet Take 1 tablet by mouth once daily. Problem List As Of Date 01/24/2025 Noted Resolved RUQ pain [R10.11] 08/02/2021 Chronic insomnia [F51.04] 09/05/2022 GERD without esophagitis [K21.9] 09/05/2022 Anxiety with depression [F41.8] 09/05/2022 Hypertension, essential [I10] 02/14/2023 Pain of finger of left hand [M79.645] 01/02/2025 Laceration of left little finger without foreig*01/02/2025 Encounter Status:Closed by LOREN MENDEZ on 01/24/25 [facility] Free T3 [Mass/Vol]on 025 Interpretation and review of laboratory results Normal [facility] No Panel Informationon 01-24 [facility] T3, FREEon 01-24-2025 Free T3 [Mass/Vol] 3.4 pg/mL 2.3 - 4.1 pg/mL [facility] T3Free SerPl-mCncon 01-25-20 25 Free T3 [Mass/Vol] 3.4 pg/mL Normal 2.3-4.1 [facility] Comment on above: Order Comment: Specdannie will Type: BLOOD SPECIMENOrdering Facility: [facility] [place] Address: [address] [place] [address] Performed By: #### 3 051-0, 3024-7, 3016-3 ####[facility] [id number] [place] [address] [place] T4 Free [facility] 025 Free T4 [Mass/Vol] 0.4 ng/dL Low 0.9-1.7 [facility] Comment on above: Order Comment: Yo will Type: BLOOD SPECIMENOrdering Facility: [facility] [place] Address: [address] [place] [address] Performed By: #### 3 051-0, 3024-7, 3016-3 ####[facility] [id number] [place] [address] [place] THYROID PEROXIDASE ANTIBODYo n 01-24-2025 TPO Ab Qn 248.2 [IU]/mL High <5.6 [facility] Comment on above: Order Comment: Yo will Type: BLOOD SPECIMEN Ordering Facility: [facility] [place] Address: [address] [place] [address] Result Comment: Thyr oid Peroxidase Antibody test is used as an aid in diagnosis of autoimmune thyroid disease. Clinical correlation is required. Performed By: #### M ICRO #### [facility] CLIA [id number] [address] [place] [address] [place] THYROID STIMULATING HORMONEo n 01-24-2025 TSH Qn 25.16 m[IU]/L High [facility] TSH Qnon 01-24-2025 Interpretation and review of laboratory results Abnormal [facility] TSH SerPl-aCncon 01-24-2025 TSH Qn 25.160 m[IU]/L High 0.270-4.200 [facility] Comment on above: Order Comment: Speci men Type: BLOOD SPECIMENOrdering Facility: [facility] [place] Address: [address] [place] [address] [place] [address] Performed By: #### 3 051-0, 3024-7, 3016-3 ####[facility] [id number] [place] [address] [facility] ED NOTEon 01-02-2025 ED NOTE HNO ID: [id number] Author: JAZMÍN DASILVA Medic Service: ? Author Type: Travel Money Advisor and [employer] Spray Supervisor Type: ED Notes Filed: 01/03/2025 08:39 Note Text: Emergency Services: ED Call Back Questionnaire SERVICE DATE: 01/02/2025 Are you feeling better? Yes Any questions about discharge instructions and follow-up care? No Were you able to make a follow up appointment? Yes Do you have any further questions? No Is there anything that we could have done differently to improve your ED visit? No No there is no one I want to recognize that was involved with my care. SIGNATURE: Matti Chua PATIENT NAME: Solomon Laura DATE: January 03, 2025 TIME: 8:38 AM Normal [facility] ED PROV NOTEon 01-02-2025 ED PROV NOTE HNO ID: [id number] Author: DUARTE JACINTO APRN.CNP Service: Emergency Medicine Author Type: Nurse Practitioner Type: ED Provider Notes Filed: 01/02/2025 20:10 Note Text: ED Provider Note Patient Name: Solomon Laura : 1995 SERVICE DATE: 01/02/25 History Patient presents with: Laceration: L pinky. History provided by: Patient official court interpreter used: No 29-year-old male presented to the ED for evaluation of laceration to the left pinky finger which he sustained today while fishing. Patient states that he was trying to cut zip ties from his fishing gear when he accidentally cut his left pinky with a knife. States that the knife was brand-new. He is not up-to-date on tetanus vaccination. He complains of pain to the affected finger which is worsened by movements. He denies numbness or tingling to the left pinky finger. PAST MEDICAL HISTORY Diagnosis Date RUQ pain PAST SURGICAL HISTORY Procedure Laterality Date COLONOSCOPY SCREENING 10/09/2021 Dr. Otto EGD 10/09/2021 Dr. Otto No family history on file. Social History Tobacco Use Smoking status: Never Smokeless tobacco: Never Vaping Use Vaping status: current everyday user Substances: Nicotine, THC Substance and Sexual Activity Alcohol use: Yes Comment: occasional Drug use: Never Sexual activity: Not on file ALLERGIES No Known Allergies Review of Systems Musculoskeletal: Pain to the left pinky finger Skin: Positive for wound. Laceration to the left pinky finger. All other systems reviewed and are negative. Physical Exam Vitals [01/02/25 1643] BP Pulse Temp Temp src Resp SpO2 Weight Height 121/69 89 36.5 ?C (97.7 ?F) Temporal 16 99 % 100.3 kg (221 lb 1.9 oz) -- Physical Exam Vitals and nursing note reviewed. Constitutional: General: He is not in acute distress. Cardiovascular: Rate and Rhythm: Normal rate. Pulmonary: Effort: Pulmonary effort is normal. Musculoskeletal: Left wrist: Normal. Left hand: Tenderness present. Normal range of motion. Normal sensation. Normal capillary refill. Normal pulse. Comments: Small laceration to the lateral aspect of the left pinky finger. Full extension and flexion of the left pinky finger without difficulty. 5/5 strength of the left pinky finger. The left hand is neurovascularly intact. Neurological: Mental Status: He is alert and oriented to person, place, and time. Diagnostic Testing ED Labs Ordered and Reviewed - No data to display LAC REPAIR Date/Time: 01/02/2025 5:36 PM Performed by: Duarte Jacinto APRN.PIANO STRINGER Authorized by: Duarte Jacinto APRN.PIANO STRINGER Risks discussed: Infection, pain and poor wound healing Anesthesia (see MAR for exact dosages): Anesthesia method: Nerve block Block location: Digital block of left little finger Block needle gauge: 27 G Block anesthetic: Lidocaine 1% w/o epi Block technique: 3 sided block Block outcome: Anesthesia achieved Laceration details: Location: Finger Finger location: L small finger Length (cm): 1 Depth (mm): 3 Repair type: Repair type: Simple Pre-procedure details: Preparation: Patient was prepped and draped in usual sterile fashion Exploration: Hemostasis achieved with: Direct pressure Wound exploration: wound explored through full range of motion and entire depth of wound probed and visualized Wound extent: no foreign body, no tendon damage and no underlying fracture Contaminated: no Treatment: Area cleansed with: Betadine and saline Amount of cleaning: Standard Irrigation solution: Sterile saline Irrigation volume: 20 cc Irrigation method: Syringe Skin repair: Repair method: Sutures Suture size: 4-0 Suture material: Nylon (Ethilon) Suture technique: Simple interrupted Number of sutures: 5 Approximation: Approximation: Close Post-procedure details: Dressing: Antibiotic ointment (Band aid) Patient tolerance of procedure: Tolerated well, no immediate complications ED Course / Clinical Impression Clinical Impressions as of 01/02/252006 Laceration of left little finger without foreign body without damage to nail, initial encounter Pain of finger of left hand MDM / Disposition / Plan Management Meds Given During Visit ED Medication Administration from 01/02/2025 1630 to 01/02/2025 1832 Date/Time Order Dose Route Action 01/02/2025 1727 EDT lidocaine 10 mg/mL (1 %) 50 mg injection (XYLOCAINE) 50 mg INTRADERMAL Given 01/02/2025 1727 EDT bacitracin 500 unit/gram 1 packet 1 packet TOPICAL Given 01/02/2025 1726 EDT tetanus diphtheria pertussis Tdap vaccine (PF) 0.5 mL injection (ADACEL) 0.5 mL INTRAMUSCULAR Given Disposition The patient was discharged. 29-year-old male presented to the ED for evaluation of laceration to the left pinky finger. On exam, patient is noted to be in no acute distress. Differentials include but are not limited to laceration and fracture. Low suspicion for tendon involv (more content not included)... Normal [facility] XR DIGIT 3V FRONTAL/LAT/OBL LTon 01-02-2025 XR DIGIT 3V FRONTAL/LAT/OBL LT * * *Final Report* * * DATE OF EXAM: Jan 02 2025 5:40PM UDX 5318 - XR DIGIT 3V FRONTAL/LAT/OBL LT / PROCEDURE REASON: Other * * * * Physician Interpretation * * * * LEFT FIFTH FINGER X-RAY SERIES HISTORY: Other pain TECHNIQUE: AP, lateral and oblique. COMPARISON: None available. RESULT: No fracture, dislocation or radiopaque foreign body. Joint spaces and articular surfaces are preserved. No destructive or erosive changes. IMPRESSION: No acute fracture or dislocation. Playground Aide: FRANKLIN Transcribe Date/Time: Jan 02 2025 6:47P Dictated by : ELAN GEORGE MD This examination was interpreted and the report reviewed and electronically signed by: ELAN GEORGE MD on Jan 02 2025 6:48PM EST [id number] Normal [facility] CBC W Auto Differential pane l (Bld)on 12-11-2024 Basophils (Bld) [#/Vol] 0.03 10*3/uL Normal <0.11 [facility] Comment on above: Order Comment: Speci men Type: BLOOD SPECIMEN Ordering Facility: [facility] [place] Address: [address] [place] [address] Performed By: #### 3 024-7, 3016-3 #### [facility] CLIA [id number] [address] [place] [address] [place] Basophils/100 WBC (Bld) 0.3 % Normal [facility] Comment on above: Order Comment: Speci men Type: BLOOD SPECIMEN Ordering Facility: [facility] [place] Address: [address] [place] [address] Performed By: #### 3 024-7, 3016-3 #### [facility] CLIA [id number] [address] [place] [address] [place] Differential cell count method Nom (Bld) Auto Normal [facility] Comment on above: Order Comment: Speci men Type: BLOOD SPECIMEN Ordering Facility: [facility] [place] Address: [address] [place] [address] Performed By: #### 3 024-7, 3016-3 #### [facility] CLIA [id number] [address] [place] [address] [place] Eosinophils (Bld) [#/Vol] 0.04 10*3/uL Normal <0.46 [facility] Comment on above: Order Comment: Speci men Type: BLOOD SPECIMEN Ordering Facility: [facility] [place] Address: [address] [place] [address] Performed By: #### 3 024-7, 3016-3 #### [facility] CLIA [id number] [address] [place] [address] [place] Eosinophils/100 WBC (Bld) 0.4 % Normal [facility] Comment on above: Order Comment: Speci men Type: BLOOD SPECIMEN Ordering Facility: [facility] [place] Address: [address] [place] [address] Performed By: #### 3 024-7, 3016-3 #### [facility] CLIA [id number] [address] [place] [address] [place] Erythrocyte distribution width (RBC) [Ratio] 11.9 % Normal 11.5-15.0 [facility] Comment on above: Order Comment: Speci men Type: BLOOD SPECIMEN Ordering Facility: [facility] [place] Address: [address] [place] [address] Performed By: #### 3 024-7, 3016-3 #### [facility] CLIA [id number] [address] [place] [address] [place] Hematocrit (Bld) [Volume fraction] 45.1 % Normal 39.0-51.0 [facility] Comment on above: Order Comment: Speci men Type: BLOOD SPECIMEN Ordering Facility: [facility] [place] Address: [address] [place] [address] Performed By: #### 3 024-7, 3016-3 #### [facility] CLIA [id number] [address] [place] [address] [place] Hemoglobin (Bld) [Mass/Vol] 15.3 g/dL Normal 13.0-17.0 [facility] Comment on above: Order Comment: Speci men Type: BLOOD SPECIMEN Ordering Facility: [facility] [place] Address: [address] [place] [address] Performed By: #### 3 024-7, 3016-3 #### [facility] CLIA [id number] [address] [place] [address] [place] Immature granulocytes (Bld) [#/Vol] 0.03 10*3/uL Normal <0.10 [facility] Comment on above: Order Comment: Speci men Type: BLOOD SPECIMEN Ordering Facility: [facility] [place] Address: [address] [place] [address] Performed By: #### 3 024-7, 3016-3 #### [facility] CLIA [id number] [address] [place] [address] [place] Immature granulocytes/100 WBC (Bld) 0.3 % Normal [facility] Comment on above: Order Comment: Speci men Type: BLOOD SPECIMEN Ordering Facility: [facility] [place] Address: [address] [place] [address] Performed By: #### 3 024-7, 3016-3 #### [facility] CLIA [id number] [address] [place] [address] [place] Lymphocytes (Bld) [#/Vol] 1.21 10*3/uL Normal 1.00-4.00 [facility] Comment on above: Order Comment: Speci men Type: BLOOD SPECIMEN Ordering Facility: [facility] [place] Address: [address] [place] [address] Performed By: #### 3 024-7, 3016-3 #### [facility] CLIA [id number] [address] [place] [address] [place] Lymphocytes/100 WBC (Bld) 12.8 % Normal [facility] Comment on above: Order Comment: Speci men Type: BLOOD SPECIMEN Ordering Facility: [facility] [place] Address: [address] [place] [address] Performed By: #### 3 024-7, 3016-3 #### [facility] CLIA [id number] [address] [place] [address] [place] MCH (RBC) [Entitic mass] 28.9 pg Normal 26.0-34.0 [facility] Comment on above: Order Comment: Speci men Type: BLOOD SPECIMEN Ordering Facility: [facility] [place] Address: [address] [place] [address] Performed By: #### 3 024-7, 3016-3 #### [facility] CLIA [id number] [address] [place] [address] [place] MCHC (RBC) [Mass/Vol] 33.9 g/dL Normal 30.5-36.0 [facility] Comment on above: Order Comment: Speci men Type: BLOOD SPECIMEN Ordering Facility: [facility] [place] Address: [address] [place] [address] Performed By: #### 3 024-7, 3016-3 #### [facility] CLIA [id number] [address] [place] [address] [place] MCV (RBC) [Entitic vol] 85.3 fL Normal 80.0-100.0 [facility] Comment on above: Order Comment: Speci men Type: BLOOD SPECIMEN Ordering Facility: [facility] [place] Address: [address] [place] [address] Performed By: #### 3 024-7, 6-3 #### [facility] CLIA [id number] [address] [place] [address] [place] Monocytes (Bld) [#/Vol] 0.42 10*3/uL Normal <0.87 [facility] Comment on above: Order Comment: Speci men Type: BLOOD SPECIMEN Ordering Facility: [facility] [place] Address: [address] [place] [address] Performed By: #### 3 024-7, 3016-3 #### [facility] CLIA [id number] [address] [place] [address] [place] Monocytes/100 WBC (Bld) 4.5 % Normal [facility] Comment on above: Order Comment: Speci men Type: BLOOD SPECIMEN Ordering Facility: [facility] [place] Address: [address] [place] [address] Performed By: #### 3 024-7, 3016-3 #### [facility] CLIA [id number] [address] [place] [address] [place] Neutrophils (Bld) [#/Vol] 7.69 10*3/uL High 1.45-7.50 [facility] Comment on above: Order Comment: Speci men Type: BLOOD SPECIMEN Ordering Facility: [facility] [place] Address: [address] [place] [address] Performed By: #### 3 024-7, 301-3 #### [facility] CLIA [id number] [address] [place] [address] [place] Neutrophils/100 WBC (Bld) 81.7 % Normal [facility] Comment on above: Order Comment: Speci men Type: BLOOD SPECIMEN Ordering Facility: [facility] [place] Address: [address] [place] [address] Performed By: #### 3 024-7, 3015-3 #### [facility] CLIA [id number] [address] [place] [address] [place] Nucleated RBC (Bld) [#/Vol] 10*3/uL Normal <0.01 [facility] Comment on above: Order Comment: Speci men Type: BLOOD SPECIMEN Ordering Facility: [facility] [place] Address: [address] [place] [address] Performed By: #### 3 024-7, 3015-3 #### [facility] CLIA [id number] [address] [place] [address] [place] Nucleated RBC/100 WBC (Bld) [Ratio] 0.0 /100 WBC Normal [facility] Comment on above: Order Comment: Speci men Type: BLOOD SPECIMEN Ordering Facility: [facility] [place] Address: [address] [place] [address] Performed By: #### 3 024-7, 3015-3 #### [facility] CLIA [id number] [address] [place] [address] [place] Platelet mean volume (Bld) [Entitic vol] 10.0 fL Normal 9.0-12.7 [facility] Comment on above: Order Comment: Speci men Type: BLOOD SPECIMEN Ordering Facility: [facility] [place] Address: [address] [place] [address] Performed By: #### 3 024-7, 6-3 #### [facility] CLIA [id number] [address] [place] [address] [place] Platelets (Bld) [#/Vol] 282 10*3/uL Normal 150-400 [facility] Comment on above: Order Comment: Speci men Type: BLOOD SPECIMEN Ordering Facility: [facility] [place] Address: [address] [place] [address] Performed By: #### 3 024-7, 3016-3 #### [facility] CLIA [id number] [address] [place] [address] [place] RBC (Bld) [#/Vol] 5.29 10*6/uL Normal 4.20-6.00 [facility] Comment on above: Order Comment: Speci men Type: BLOOD SPECIMEN Ordering Facility: [facility] [place] Address: [address] [place] [address] Performed By: #### 3 024-7, 3016-3 #### [facility] CLIA [id number] [address] [place] [address] [place] WBC (Bld) [#/Vol] 9.42 10*3/uL Normal 3.70-11.00 [facility] Comment on above: Order Comment: Speci men Type: BLOOD SPECIMEN Ordering Facility: [facility] [place] Address: [address] [place] [address] Performed By: #### 3 024-7, 3016-3 #### [facility] CLIA [id number] [address] [place] [address] ABD/PEL W IVCONon 025 CT ABD/PEL W IVCON * * *Final Report* * * DATE OF EXAM: Dec 11 2024 2:35PM [facility] ABD/PEL W IVCON / PROCEDURE REASON: Abdominal abscess/infection suspected * * * * Physician Interpretation * * * * EXAMINATION: CT ABD/PEL W IVCON CLINICAL HISTORY: Abdominal abscess/infection suspected. Additional history of abdominal pain, vomiting and COVID positive. TECHNIQUE: CT of the abdomen and pelvis was performed using standard technique, scanning from just above the dome of the diaphragm to the symphysis pubis. MQ: CTAP_3 Contrast: IV: 100 ml of Omnipaque 350 CT Radiation dose: Integrated Dose-length product (DLP) for this visit = 523.6 mGy*cm. CT Dose Reduction Employed: Automated exposure control(AEC) and iterative recon COMPARISON: 07/18/2021 CT abdomen/pelvis. RESULT: Assessment of the solid abdominal organs show unremarkable appearance of the spleen, pancreas, adrenal glands, and kidneys. No visible hepatic mass. Grossly unremarkable appearance of the gallbladder in this modality. Under-distended urinary bladder, limiting assessment, but with possible nonspecific minimal circumferential wall thickening. Assessment of the gastrointestinal tract shows: Limited wall assessment (better assessed with endoscopy if any concern). Nonspecific upper normal caliber of a couple of small bowel loops (such as 6:57, jejunal) without abrupt caliber transition, and mild-moderate fluid and gaseous distention of some loops elsewhere. Suggested minimal colonic diverticulosis, without visible acute inflammatory signs. Overall minimal colorectal stool burden, and nonspecific, mostly moderate gaseous distention. Mild-moderate gas and fluid in the stomach. Unremarkable appendix (such as reference 6:105), with mild gaseous distention. Assessment of the vascular structures show a non-aneurysmal abdominal aorta. The celiac axis and SMA are patent. The portal vein and branches, splenic vein, and SMV appear patent. The hepatic veins are patent. Izzy assessment shows no lymphadenopathy by imaging size criteria. Subcentimeter in short axis lymph nodes are nonspecific, including in the mesentery, retroperitoneum and inguinal stations. Abdominopelvic wall assessment shows no sizable acute abnormality. Osseous assessment shows no gross acute abnormality or aggressive/destructive osseous lesion. Incidental transitional lumbosacral anatomy. Occasional degenerative spine changes with up to moderate-severe facet arthropathy on the RIGHT inferiorly, and probable minimal disc bulging, as well as few small Schmorl nodes, about couple of mild neural foraminal narrowings, and no visible high-grade spinal canal stenosis. The included lung bases show no significant focal consolidation. Suggested minimal small airways wall thickening/possible small airways disease-bronchitis. Office Machine Installer (topogram) images: Non-diagnostic. IMPRESSION: Contrast-enhanced abdominopelvic CT shows no clear evidence of an acute abdominopelvic abnormality. Underdistended urinary bladder, with suggested nonspecific mild circumferential wall thickening (amenable to clinical/urinalysis correlation). Nonspecific moderate gaseous distention of the colon and some small bowel loops. Other details above. Playground Aide: PSCB Transcribe Date/Time: Dec 11 2024 2:39P Dictated by : HUMAIRA JEFFERS MD This examination was interpreted and the report reviewed and electronically signed by: HUMAIRA JEFFERS MD on Dec 11 2024 2:51PM EST [id number] Normal [facility] Comprehensive metabolic 2000 panelon 12-11-2024 Albumin [Mass/Vol] 4.5 g/dL Normal 3.9-4.9 [facility] Comment on above: Order Comment: Speci men Type: BLOOD SPECIMEN Ordering Facility: [facility] [place] Address: [address] [place] [address] Performed By: #### 2 4323-8, , 3039-3 #### [facility] CLIA [id number] [address] [place] [address] [place] ALP [Catalytic activity/Vol] 114 U/L High 38-113 [facility] Comment on above: Order Comment: Speci men Type: BLOOD SPECIMEN Ordering Facility: [facility] [place] Address: [address] [place] [address] Performed By: #### 2 4323-8, , 3039-3 #### [facility] CLIA [id number] [address] [place] [address] [place] ALT [Catalytic activity/Vol] 282 U/L High 10-54 [facility] Comment on above: Order Comment: Speci men Type: BLOOD SPECIMEN Ordering Facility: [facility] [place] Address: [address] [place] [address] Performed By: #### 2 4323-8, , 3039-3 #### [facility] CLIA [id number] [address] [place] [address] [place] Anion gap [Moles/Vol] 9 mmol/L Normal 8-15 [facility] Comment on above: Order Comment: Speci men Type: BLOOD SPECIMEN Ordering Facility: [facility] [place] Address: [address] [place] [address] Performed By: #### 2 4323-8, , 3 #### [facility] CLIA [id number] [address] [place] [address] [place] AST [Catalytic activity/Vol] 148 U/L High 14-40 [facility] Comment on above: Order Comment: Speci men Type: BLOOD SPECIMEN Ordering Facility: [facility] [place] Address: [address] [place] [address] Performed By: #### 2 4323-8, , 3 #### [facility] CLIA [id number] [address] [place] [address] [place] Bilirubin [Mass/Vol] 1.0 mg/dL Normal 0.2-1.3 [facility] Comment on above: Order Comment: Speci men Type: BLOOD SPECIMEN Ordering Facility: [facility] [place] Address: [address] [place] [address] Performed By: #### 2 4328, , 3 #### [facility] CLIA [id number] [address] [place] [address] [place] Calcium [Mass/Vol] 9.3 mg/dL Normal 8.5-10.2 [facility] Comment on above: Order Comment: Speci men Type: BLOOD SPECIMEN Ordering Facility: [facility] [place] Address: [address] [place] [address] Performed By: #### 2 4323-8, , 3 #### [facility] CLIA [id number] [address] [place] [address] [place] Chloride [Moles/Vol] 103 mmol/L Normal 98-107 [facility] Comment on above: Order Comment: Speci men Type: BLOOD SPECIMEN Ordering Facility: [facility] [place] Address: [address] [place] [address] Performed By: #### 2 4323-8, , 3 #### [facility] CLIA [id number] [address] [place] [address] [place] CO2 [Moles/Vol] 26 mmol/L Normal 22-30 [facility] Comment on above: Order Comment: Speci men Type: BLOOD SPECIMEN Ordering Facility: [facility] [place] Address: [address] [place] [address] Performed By: #### 2 4323-8, , 3039-3 #### [facility] CLIA [id number] [address] [place] [address] [place] Creatinine [Mass/Vol] 1.11 mg/dL Normal 0.73-1.22 [facility] Comment on above: Order Comment: Speci men Type: BLOOD SPECIMEN Ordering Facility: [facility] [place] Address: [address] [place] [address] Performed By: #### 2 4323-8, , 3 #### [facility] CLIA [id number] [address] [place] [address] [place] Creatinine and Glomerular filtration rate.predicted panel (S/P/Bld) 91 mL/min/1.73m??? Normal >=60 [facility] Comment on above: Order Comment: Speci men Type: BLOOD SPECIMEN Ordering Facility: [facility] [place] Address: [address] [place] [address] Result Comment: Elsie mated Glomerular Filtration Rate (eGFR) is calculated using the 2020 CKD-EPI creatinine equation. This equation utilizes serum creatinine, sex, and age as parameters. The creatinine assay has traceable calibration to isotope dilution-mass spectrometry. Refer to KDIGO guidelines for clinical interpretation. In patients with unstable renal function, e.g. those with acute kidney injury, the eGFR may not accurately reflect actual GFR. Performed By: #### 2 4323-8, 30609-8, 3039-3 #### [facility] CLIA [id number] [address] [place] [address] [place] Glucose [Mass/Vol] 108 mg/dL High 74-99 [facility] Comment on above: Order Comment: Speci men Type: BLOOD SPECIMEN Ordering Facility: [facility] [place] Address: [address] [place] [address] Result Comment: The [place] Diabetes Association (ADA) provides guidance for cutoff values for fasting glucose and random glucose. The ADA defines fasting as no caloric intake for at least 8 hours. Fasting plasma glucose results between 100 to 125 mg/dL indicate increased risk for diabetes (prediabetes). Fasting plasma glucose results greater than or equal to 126 mg/dL meet the criteria for diagnosis of diabetes. In the absence of unequivocal hyperglycemia, results should be confirmed by repeat testing. In a patient with classic symptoms of hyperglycemia or hyperglycemic crisis, random plasma glucose results greater than or equal to 200 mg/dL meet the criteria for diagnosis of diabetes. Reference: Standards of Medical Care in Diabetes 2016, [place] [employer] Association. Diabetes Care. 2016.39(Suppl 1). Performed By: #### 2 4323-8, , 0-3 #### [facility] CLIA [id number] [address] [place] [address] [place] Potassium [Moles/Vol] 4.3 mmol/L Normal 3.7-5.1 [facility] Comment on above: Order Comment: Yo will Type: BLOOD SPECIMEN Ordering Facility: [facility] [place] Address: [address] [place] [address] Performed By: #### 2 4323-8, , 3039-3 #### [facility] CLIA [id number] [address] [place] [address] [place] Protein [Mass/Vol] 7.4 g/dL Normal 6.3-8.0 [facility] Comment on above: Order Comment: Earlenei nicolette Type: BLOOD SPECIMEN Ordering Facility: [facility] [place] Address: [address] [place] [address] Performed By: #### 2 4323-8, , 0-3 #### [facility] CLIA [id number] [address] [place] [address] [place] Sodium [Moles/Vol] 138 mmol/L Normal 136-144 [facility] Comment on above: Order Comment: Speci men Type: BLOOD SPECIMEN Ordering Facility: [facility] [place] Address: [address] [place] [address] Performed By: #### 2 4323-8, , 0-3 #### [facility] CLIA [id number] [address] [place] [address] [place] Urea nitrogen [Mass/Vol] 11 mg/dL Normal 05-11 [facility] Comment on above: Order Comment: Speci men Type: BLOOD SPECIMEN Ordering Facility: [facility] [place] Address: [address] [place] [address] Performed By: #### 2 4323-8, 35244-1, 3040-3 #### [facility] CLIA [id number] [address] [place] [address] [place] ECG COMPLETEon 12-11-2024 ECG COMPLETE Ventricular Rate : 5 3 BPM Atrial Rate : 53 BPM P-R Interval : 152 ms QRS Duration : 92 ms Q-T Interval : 410 ms QTC Calculation(Bazett) : 384 ms Calculated P Barnhart : 21 degrees Calculated R Barnhart : -11 degrees Calculated T Barnhart : 20 degrees Sinus bradycardia Otherwise normal ECG When compared with ECG of 03-Dec-2023 11:45, No significant change was found Confirmed by ROM TRINH MD ([id number]) on 12/13/2024 9:40:01 AM NAME : SOLOMON LAURA PID : [id number] : 1995 Gender : Male Race : ORD : [id number] Procedure Date : Dec 11 2024 11:57:22 Edit Date : Dec 13 2024 09:40:03 Diagnosis: Sinus bradycardia Otherwise normal ECG When compared with ECG of 03-Dec-2023 11:45, No significant change was found Confirmed by ROM TRINH MD ([id number]) on 12/13/2024 9:40:01 AM Test Reason : HCS Location : 3 : ED ED Overread By : ROM TRINH MD Edited By : ROM TRINH MD Referred By : , Acquired by : PR, [facility] ED NOTEon 12-11-2024 ED NOTE HNO ID: [id number] Author: GERMAINE DOLL, MARIANO Service: ? Author Type: Registered Nurse Type: ED Notes Filed: 12/11/2024 10:34 Note Text: NVD, sore throat, cough, fatigued, and body aches since before [place]. [facility] ED PROV NOTEon 12-11-2024 ED PROV NOTE HNO ID: [id number] Author: UMM MCGRATH MD Service: Emergency Medicine Author Type: Physician Type: ED Provider Notes Filed: 12/11/2024 14:59 Note Text: ED Provider Note Patient Name: Solomon Laura : 1995 SERVICE DATE: 12/11/24 History Patient presents with: Flu Like Symptoms 29-year-old male presents emergency department for evaluation of nausea vomiting abdominal pain. Patient states symptoms began 7 or 8 days ago initially as some myalgias and congestion. He reportedly was running fevers as well had a fever of 101.9 at urgent care last Friday. States that since this time he is had progressive nausea vomiting multiple episodes of loose watery diarrhea. He states in the last 24 hours he has had approximately 6 episodes of diarrhea. He has noted some blood whenever he wipes. He reports 4 episodes of vomiting has been unable to keep anything down. He states that he has diffuse abdominal pain seems to come and go in waves. He additionally endorses mild cough with sputum production and mild headache. He denies any sick contacts at home but states that what ever is affecting him his now has but to a lesser extent. He has a remote history of thyroid issues. He did previously have a colonoscopy and EGD done by Dr. Keller's 3 or 4 years ago was told that he had acid buildup. He denies any prior abdominal surgeries. History provided by: Patient official court interpreter used: No PAST MEDICAL HISTORY Diagnosis Date RUQ pain PAST SURGICAL HISTORY Procedure Laterality Date COLONOSCOPY SCREENING 10/09/2021 Dr. Otto EGD 10/09/2021 Dr. Otto No family history on file. Social History Tobacco Use Smoking status: Never Smokeless tobacco: Never Vaping Use Vaping status: current everyday user Substances: Nicotine, THC Substance and Sexual Activity Alcohol use: Yes Comment: occasional Drug use: Never Sexual activity: Not on file ALLERGIES No Known Allergies Review of Systems Constitutional: Positive for appetite change, chills, fatigue and fever. HENT: Positive for congestion and rhinorrhea. Eyes: Negative for visual disturbance. Respiratory: Positive for cough. Negative for chest tightness and shortness of breath. Cardiovascular: Negative for chest pain. Gastrointestinal: Positive for abdominal pain, diarrhea, nausea and vomiting. Endocrine: Negative for polyuria. Genitourinary: Negative for difficulty urinating. Musculoskeletal: Positive for arthralgias and myalgias. Negative for neck pain and neck stiffness. Skin: Negative for rash. Neurological: Positive for headaches. Negative for dizziness, light-headedness and numbness. Psychiatric/Behavioral: Negative for behavioral problems. Physical Exam Vitals [12/11/24 1034] BP Pulse Temp Temp src Resp SpO2 Weight Height 135/80 78 37.1 ?C (98.7 ?F) Oral 18 96 % 99.8 kg (220 lb 0.3 oz) 1.803 m (5' 11) Physical Exam Vitals and nursing note reviewed. Constitutional: General: He is not in acute distress. Appearance: He is well-developed. He is not diaphoretic. HENT: Head: Normocephalic and atraumatic. Right Ear: External ear normal. Left Ear: External ear normal. Nose: Congestion and rhinorrhea present. Mouth/Throat: Mouth: Mucous membranes are dry. Pharynx: No oropharyngeal exudate. Eyes: General: Right eye: No discharge. Left eye: No discharge. Conjunctiva/sclera: Conjunctivae normal. Pupils: Pupils are equal, round, and reactive to light. Neck: Thyroid: No thyromegaly. Trachea: No tracheal deviation. Cardiovascular: Rate and Rhythm: Normal rate and regular rhythm. Heart sounds: Normal heart sounds. No murmur heard. No friction rub. No gallop. Pulmonary: Effort: Pulmonary effort is normal. No respiratory distress. Breath sounds: Normal breath sounds. No stridor. Abdominal: General: There is no distension. Palpations: Abdomen is soft. There is no mass. Tenderness: There is abdominal tenderness. There is no guarding or rebound. Comments: Mild diffuse tenderness to palpation, no rebound or guarding. Musculoskeletal: General: No swelling or tenderness. Cervical back: Normal range of motion and neck supple. Right lower leg: No edema. Left lower leg: No edema. Lymphadenopathy: Cervical: No cervical adenopathy. Skin: General: Skin is warm. Capillary Refill: Capillary refill takes less than 2 seconds. Findings: No rash. Neurological: Mental Status: He is alert and oriented to person, place, and time. Diagnostic Testing ED Labs Ordered and Reviewed COMPREHENSIVE METABOLIC PANEL - Abnormal; Notable for the following components: Result Value Ref Range Alkaline Phosphatase 114 (*) 38 - 113 U/L AST 148 (*) 14 - 40 U/L ALT 282 (*) 10 - 54 U/L Glucose 108 (*) 74 - 99 mg/dL All other components within normal limits COMPLETE BLOOD COUNT AND DIFFERENTIAL - Abnormal; Notable for the following components: Abs Ne (more content not included)... Normal [facility] Lipase SerPl-cCncon 12-12-19 25 Lipase [Catalytic activity/Vol] 17 U/L Normal 16-61 [facility] Comment on above: Order Comment: Specdannie will Type: BLOOD SPECIMENOrdering Facility: [facility] [place] Address: [address] [place] [address] Performed By: #### 2 4323-8, 75777-5, 3040-3 ####[facility] [id number] [place] [address] [place] Magnesium SerPl-mCncon 12-11 Magnesium [Mass/Vol] 2.1 mg/dL Normal 1.7-2.3 [facility] Comment on above: Order Comment: Yo will Type: BLOOD SPECIMEN Ordering Facility: [facility] [place] Address: [address] [place] [address] Performed By: #### 2 4323-8, 07790-2, 3040-3 #### [facility] CLIA [id number] [address] [place] [address] [place] XR CHEST 1V FRONTAL PORTon 0 12-11-2024 XR CHEST 1V FRONTAL PORT * * *Final Report* * * DATE OF EXAM: Dec 11 2024 1:56PM UDX 5376 - XR CHEST 1V FRONTAL PORT / PROCEDURE REASON: Shortness of breath * * * * Physician Interpretation * * * * EXAMINATION: XR CHEST 1V FRONTAL PORT EXAM DATE/TIME: 12/11/2024 1:56 PM CLINICAL HISTORY: Shortness of breath. COMPARISON: None available. RESULT: Lines, tubes, and devices: Lungs and pleura: No visible focal airspace consolidation. No visible significant pleural effusion. No visible pneumothorax. Cardiomediastinal silhouette: Normal cardiomediastinal silhouette. IMPRESSION: No plain radiographic evidence of an acute cardiopulmonary abnormality. Other details above. Playground Aide: FRANKLIN Transcribe Date/Time: Dec 11 2024 1:58P Dictated by : HUMAIRA JEFFERS MD This examination was interpreted and the report reviewed and electronically signed by: HUMAIRA JEFFERS MD on Dec 11 2024 1:58PM EST [id number] [facility] Endocrinology Visit Reporton 12-03-2024 Endocrinology Visit Report [facility] [address] [place] [address] OFFICE VISIT Date of Service: 12/03/24 MR#: [id number] Acct: [id number] Name: SOLOMON LAURA Rep #: [id number] : 1995 Provider: Ute Martinez Age/Sex: 29/M Location: [facility] Status: Signed Intake Vital Signs 12/03/24 09:12 Height 5 ft 11 in Weight: 224 lb 8 oz BMI 31.3 BP 118/65 Blood Pressure Location Rt brachial Position Sitting Pulse 66 Pulse Source Monitor Pulse Oximetry (%) 95 Oxygen Delivery Method room air Intake Visit Reasons: Thyroid Chief Complaint: thyroid Is patient in pain?: No Allergies No Known Allergies Allergy (Verified 12/03/24 09:13) Medications ???Medication ???Instructions ???Recorded ???Confirmed ???Type famotidine 40 mg tablet 40 mg PO QDAY 12/03/24 12/03/24 Hi story methimazole 10 mg tablet 40 mg (4 x 10 mg) PO QDAY #120 tab s 12/03/24 12/03/24 Rx metoprolol succinate 25 mg 25 mg PO BID #60 tabs 12/03/24 Rx tablet,extended release 24 hr PFSH Medical History Thyrotoxicosis Family History Father Aneurysm Mother Liver failure Cancer Social History Electronic Cigarette Use: with nicotine alcohol intake: current substance use type: marijuana what type of physical activity do you participate in: none HPI HPI Chief Complaint: thyroid Details: SOLOMON CUTSHALL, is a 29 M who presents to the office today for evaluation and management of thyroid. He reports not feeling his best for 2 years. He started gaining weight and has had reduced exercise intolerance. It seems symptoms escalated about 3-4 months ago. Symptoms include palpitations, LOVE, trouble sleeping, short temper, body aches. No FMH of thyroid disease. July, TSH 1.36 November 04, 2024 TSH 0.07 T3 259 Free T4 2.9 He is taking metoprolol 25 mg daily, he doesn't notice a difference. ROS Const Constitutional: Positive for fatigue, weight change and abnormal sleep pattern; No change in appetite Eyes Eyes: No change in vision ENT ENT: Positive for dizziness/vertigo and sinus pressure; No difficulty swallowing Cardio Cardiology: Positive for chest pain at rest, chest pain with exertion, shortness of breath and palpitations Musc Musculoskeletal: Positive for myalgias; No abnormal gait, joint pain, numbness or tingling Neuro Neurology: No abnormal gait, memory loss, numbness or tingling Psych Psychiatric: Positive for abnormal sleep pattern, No change in appetite, Positive for irritability, No memory loss and No Thoughts of harming yourself/Others Resp Respiratory: No cough, chest congestion or shortness of breath Gastro GI: No abdominal pain, constipation, diarrhea or difficulty swallowing Genitourinary Male: No burning urination Skin Skin: No itchy eyes or wounds Endo Endocrine: Positive for fatigue and weight change Aller/Imm Allergy/Immunologic: No itchy eyes Exam Const General: cooperative, healthy appearing, comfortable, no acute distress, well developed and not cushingoid Nutritional Appearance: well nourished Orientation: alert, awake and oriented x3 HENMT Head: normal to inspection Ears: hearing grossly normal bilaterally Nose: external nose normal Mouth: oral mucosae normal Eyes General: appearance normal, both eyes and all related structures Alignment and Position: alignment normal Periorbital: periorbital findings normal Eyelids: eyelids normal Conjunctivae: conjunctivae normal Neck Neck: normal visual inspection Neck mass: No Thyroid: diffusely enlarged Carotids: no bruits Lymphatic: no lymphadenopathy noted Chest Chest palpation inspection: normal inspection of the chest Resp Effort Inspection: normal respiratory effort, able to speak in complete sentences, symmetric chest movement, no audible wheezes and no cough Auscultation: Bilateral: Clear to Auscultation Cardio Rate: regular rate Rhythm: regular rhythm Pulses: posterior tibial pulses present Skin General: no rashes or lesions noted Neuro General: patient alert, patient awake and patient oriented x3 Cranial Nerves: CN's II-XI intact bilaterally Cognition: normal cognition Speech: speech normal Gait: normal gait Motor: muscle tone normal throughout Extrem General: no edema Psych Appearance: grossly normal Mental Status: mental status grossly normal Mood: congruent mood Affect: normal affect Speech and Movement: speech and movement normal Attitude: cooperative Thought Process: normal Thought Content: normal Judgment: judgment good Assessment and Plan Assessme (more content not included)... Normal [facility] CNOVon 11-11-2024 CNOV Office Visit (FMUPCN ) SOLOMON LAURA ([id number]) 1995 M Date Time Provider Department 11/11/24 10:00 AM DONNA US [facility] During your visit today, we recorded the following information about you: Temperature Pulse Respiration Blood pressure 98.6 degrees 116/minute 16/minute 121/81 Weight Height 100 kg 1.727 m Loren Mendez MA 11/11/2024 11:32 AM Signed Venipuncture performed to right antecubital. Number of tubes collected: 2 mint. Donna Us PA-C 11/11/2024 11:30 AM Signed - Complete the scheduled blood work today to check T3 and T4 levels. - Increase Metoprolol dosage as prescribed to help manage heart rate and blood pressure. - Obtain a blood pressure cuff from a pharmacy or store and monitor your blood pressure twice daily. Record the readings and send them to your clinician through clickTRUE or by phone. - Wear the heart monitor for 2 weeks as scheduled. Follow the instructions provided for its use. - Follow up with an blister pack operator if your thyroid levels are high; your clinician will arrange this based on your blood work results. - Next follow-up appointment is scheduled for 6 months. Contact your clinician if symptoms do not improve or worsen before then. Donna Us PA-C 11/11/2024 11:32 AM Signed Tea Hauser is a 29-year-old male with a history of HTN, presenting for evaluation of fatigue, tachycardia, and weight gain. Fatigue: - Persistent fatigue impacting daily activities and quality of life. - Difficulty falling asleep; previously tried multiple sleep medications but discontinued due to excessive daytime somnolence. - Denies current use of sleep medications. Palpitations: - Reports episodes of tachycardia with minimal exertion, such as light jogging or walking. - Heart rate reached 185 bpm during a brisk walk. - Experiences palpitations, chest pain, and cephalic pulsations during episodes. - Describes irregular heartbeats, with quick thumps in a row or like two quick ones and then one pauses. - Episodes also occur at rest, with heart rate reaching 119-120 bpm. - Associated dyspnea with minimal exertion, such as climbing stairs. - Taking metoprolol but reports no significant difference in symptoms with or without medication. Weight Gain: - Unable to lose weight despite dietary modifications and exercise. - Weight has remained at 220 lbs for almost a year. - Gained 50 lbs over the course of a year, going from 170 lbs to 220 lbs. Decreased TSH: - Recent lab work showed low TSH levels. - Reports heat intolerance, keeping the house temperature between 55-60 degreeF. Elevated Testosterone: - Recent lab work showed elevated testosterone levels. - Previously suspected low testosterone due to fatigue. - Denies current use of testosterone supplements. Anxiety: - Discontinued Wellbutrin in May due to irritability. - Denies current anxiety or depression, stating he feels good other than issues with weight and exercise intolerance. Constitutional: (+) fatigue, (+) sleep disturbance Head: (+) headache Cardiovascular: (+) palpitations, (+) chest pain, (+) tachycardia Respiratory: (+) shortness of breath Psychiatric: (-) anxiety, (-) depression Endocrine: (+) heat intolerance Objective Blood pressure 121/81, pulse 116, temperature 37 ?C (98.6 ?F), temperature source Temporal, resp. rate 16, height 172.7 cm (5' 8), weight 100 kg (220 lb 6.4 oz), SpO2 96%. GENERAL: NAD, alert and oriented. SKIN: Unremarkable, no rash or skin lesions. HEAD: Normocephalic. EYES: PERRLA, EOMI, conjunctiva clear. EARS: External ears normal, canals clear, TM's normal. NOSE/SINUSES: Nares normal. Septum midline. OROPHARYNX: Lips, mucosa, and tongue normal, good dentition. No oral lesions noted. NECK: Supple, no lymphadenopathy, normal thyroid, no carotid bruits. LUNGS: Clear to auscultation bilaterally, no wheezes/rhonchi/rales. HEART: Regular rate and rhythm, no murmurs. No ectopy. EXTREMITIES: Normal, no deformities, no skin discoloration, no edema. NEURO: Awake, alert and oriented x3, cranial nerves II-XII grossly intact, normal gait, no involuntary motions. Labs: - TSH: Low - Testosterone: Elevated 1. Decreased thyroid stimulating hormone (TSH) level (R79.89) - Recent lab results indicate low TSH levels, suggestive of hyperthyroidism. - Ordered additional blood work to assess T3 and T4 levels. - Discussed potential symptoms of hyperthyroidism, including heat intolerance, sleep disturbances, and increased anxiety. - If T3 and T4 levels are elevated, will refer to endocrinology in [place] for further management. - Educated on potential treatments for hyperthyroidism, including medication and surgical options. - Follow-up in 6 months, but advised to report any worsening symptoms. 2. Hypertension, essential (I10) - Blood pressure initia (more content not included)... Normal [facility] T3 [Mass/Vol] 259 ng/dL High 79-165 [facility] Comment on above: Order Comment: Yo will Type: BLOOD SPECIMENOrdering Facility: [facility] [place] Address: [address] [place] [address] Performed By: #### 3 053-6 ####[facility] [id number] [place] [address] [place] T4 [facility] 025 Free T4 [Mass/Vol] 2.9 ng/dL High 0.9-1.7 [facility] Comment on above: Order Comment: Yo will Type: BLOOD SPECIMEN Ordering Facility: [facility] [place] Address: [address] [place] [address] Performed By: #### 3 024-7, 3016-3 #### [facility] CLIA [id number] [address] [place], [place] [address] [place] TSH SerPl-aCncon 11-11-2024 TSH Qn 0.005 m[IU]/L Low 0.270-4.200 [facility] Comment on above: Order Comment: Speci men Type: BLOOD SPECIMEN Ordering Facility: [facility] [place] Address: [address] [place] [address] Performed By: #### 3 024-7, 3016-3 #### [facility] CLIA [id number] [address] [place], [place] [address] [place] 25(OH)D3 SerPl-mCncon 2024 25-hydroxyvitamin D3 [Mass/Vol] 31.1 ng/mL Normal 31.0-80.0 [facility] Comment on above: Order Comment: Speci men Type: BLOOD SPECIMEN Ordering Facility: [facility] [place] Address: [address] [place] [address] Performed By: #### 5 7021-8 #### [facility] CLIA [id number] [address] [place], [place] [address] [place] Basic metabolic 2000 panelon 11-04-2024 Anion gap [Moles/Vol] 7 mmol/L Low 8 - 15 mmol/L [facility] Calcium [Mass/Vol] 9.8 mg/dL 8.5 - 10. 2 mg/dL [facility] Chloride [Moles/Vol] 107 mmol/L 98 - 107 mmol/L [facility] CO2 [Moles/Vol] 27 mmol/L 22 - 30 mmol/L [facility] Creatinine [Mass/Vol] 0.82 mg/dL 0.73 - 1.22 mg/dL [facility] GFR/1.73 sq M.predicted among non-blacks MDRD (S/P/Bld) [Vol rate/Area] 120 mL/min/{1.73_m2} - PINF [facility] Comment on above: Estimated Glomerular Filtration Rate (eGFR) is calculated using the 2020 CKD-EPI creatinine equation. This equation utilizes serum creatinine, sex, and age as parameters. The creatinine assay has traceable calibration to isotope dilution-mass spectrometry. Refer to KDIGO guidelines for clinical interpretation. In patients with unstable renal function, e.g. those with acute kidney injury, the eGFR may not accurately reflect actual GFR. Glucose [Mass/Vol] 101 mg/dL High 74 - 99 mg/dL [facility] Comment on above: The [place] Diabete s Association (ADA) provides guidance for cutoff values for fasting glucose and random glucose. The ADA defines fasting as no caloric intake for at least 8 hours. Fasting plasma glucose results between 100 to 125 mg/dL indicate increased risk for diabetes (prediabetes). Fasting plasma glucose results greater than or equal to 126 mg/dL meet the criteria for diagnosis of diabetes. In the absence of unequivocal hyperglycemia, results should be confirmed by repeat testing. In a patient with classic symptoms of hyperglycemia or hyperglycemic crisis, random plasma glucose results greater than or equal to 200 mg/dL meet the criteria for diagnosis of diabetes. Reference: Standards of Medical Care in Diabetes 2016, [place] Diabetes Association. Diabetes Care. 2016.39(Suppl 1). Interpretation and review of laboratory results Abnormal [facility] Potassium [Moles/Vol] 4.5 mmol/L 3.7 - 5.1 mmol/L [facility] Sodium [Moles/Vol] 141 mmol/L 136 - 144 mmol/L [facility] Urea nitrogen [Mass/Vol] 16 mg/dL 9 - 24 mg/dL [facility] Anion gap [Moles/Vol] 7 mmol/L Low 8-15 [facility] Comment on above: Order Comment: Yo will Type: BLOOD SPECIMEN Ordering Facility: [facility] [place] Address: [address] [place] [address] Performed By: #### 5 7021-8 #### [facility] CLIA [id number] [address] [place] [address] [place] Calcium [Mass/Vol] 9.8 mg/dL Normal 8.5-10.2 [facility] Comment on above: Order Comment: Yo will Type: BLOOD SPECIMEN Ordering Facility: [facility] [place] Address: [address] [place] [address] Performed By: #### 5 7021-8 #### [facility] CLIA [id number] [address] [place] [address] [place] Chloride [Moles/Vol] 107 mmol/L Normal 98-107 [facility] Comment on above: Order Comment: Speci men Type: BLOOD SPECIMEN Ordering Facility: [facility] [place] Address: [address] [place] [address] Performed By: #### 5 7021-8 #### [facility] CLIA [id number] [address] [place] [address] [place] CO2 [Moles/Vol] 27 mmol/L Normal 22-30 [facility] Comment on above: Order Comment: Speci men Type: BLOOD SPECIMEN Ordering Facility: [facility] [place] Address: [address] [place] [address] Performed By: #### 5 7021-8 #### [facility] CLIA [id number] [address] [place] [address] Creatinine [Mass/Vol] 0.82 mg/dL Normal 0.73-1.22 [facility] Comment on above: Order Comment: Speci men Type: BLOOD SPECIMEN Ordering Facility: [facility] [place] Address: [address] [place] [address] Performed By: #### 5 7021-8 #### [facility] CLIA [id number] [address] [place] [address] Creatinine and Glomerular filtration rate.predicted panel (S/P/Bld) 120 mL/min/1.73m??? Normal >=60 [facility] Comment on above: Order Comment: Speci men Type: BLOOD SPECIMEN Ordering Facility: [facility] [place] Address: [address] [place] [address] Result Comment: Elsie mated Glomerular Filtration Rate (eGFR) is calculated using the 2020 CKD-EPI creatinine equation. This equation utilizes serum creatinine, sex, and age as parameters. The creatinine assay has traceable calibration to isotope dilution-mass spectrometry. Refer to KDIGO guidelines for clinical interpretation. In patients with unstable renal function, e.g. those with acute kidney injury, the eGFR may not accurately reflect actual GFR. Performed By: #### 5 7021-8 #### [facility] CLIA [id number] [address] [place] [address] [place] Glucose [Mass/Vol] 101 mg/dL High 74-99 [facility] Comment on above: Order Comment: Yo will Type: BLOOD SPECIMEN Ordering Facility: [facility] [place] Address: [address] [place] [address] Result Comment: The [place] Diabetes Association (ADA) provides guidance for cutoff values for fasting glucose and random glucose. The ADA defines fasting as no caloric intake for at least 8 hours. Fasting plasma glucose results between 100 to 125 mg/dL indicate increased risk for diabetes (prediabetes). Fasting plasma glucose results greater than or equal to 126 mg/dL meet the criteria for diagnosis of diabetes. In the absence of unequivocal hyperglycemia, results should be confirmed by repeat testing. In a patient with classic symptoms of hyperglycemia or hyperglycemic crisis, random plasma glucose results greater than or equal to 200 mg/dL meet the criteria for diagnosis of diabetes. Reference: Standards of Medical Care in Diabetes 2016, [place] Diabetes Association. Diabetes Care. 2016.39(Suppl 1). Performed By: #### 5 7021-8 #### [facility] CLIA [id number] [address] [place] [address] [place] Potassium [Moles/Vol] 4.5 mmol/L Normal 3.7-5.1 [facility] Comment on above: Order Comment: Yo will Type: BLOOD SPECIMEN Ordering Facility: [facility] [place] Address: [address] [place], [place] [id number] Performed By: #### 5 7021-8 #### [facility] CLIA [id number] [address] [place] [address] [place] Sodium [Moles/Vol] 141 mmol/L Normal 136-144 [facility] Comment on above: Order Comment: Earlenei nicolette Type: BLOOD SPECIMEN Ordering Facility: [facility] [place] Address: [address] [place] [address] Performed By: #### 5 7021-8 #### [facility] CLIA [id number] [address] [place] [address] [place] Urea nitrogen [Mass/Vol] 16 mg/dL Normal 9-24 [facility] Comment on above: Order Comment: Earlenei men Type: BLOOD SPECIMEN Ordering Facility: [facility] [place] Address: [address] [place] [address] Performed By: #### 5 7021-8 #### [facility] CLIA [id number] [address] [place] [address] [place] CBC panel Auto (Bld)on 11-04 Erythrocyte distribution width (RBC) [Ratio] 12 % 11.5 - 15.0 % [facility] Hematocrit (Bld) [Volume fraction] 41.4 % 39.0 - 51.0 % [facility] Hemoglobin (Bld) [Mass/Vol] 13.9 g/dL 13.0 - 17.0 g/dL [facility] Interpretation and review of laboratory results Normal [facility] MCH (RBC) [Entitic mass] 29.6 pg 26.0 - 34.0 pg [facility] MCHC (RBC) [Mass/Vol] 33.6 g/dL 30.5 - 36.0 g/dL [facility] MCV (RBC) [Entitic vol] 88.3 fL 80.0 - 100.0 fL [facility] Nucleated RBC (Bld) [#/Vol] NINF [facility] Platelet mean volume (Bld) [Entitic vol] 10.1 fL 9.0 - 12.7 fL [facility] Platelets (Bld) [#/Vol] 303 10*3/uL [facility] RBC (Bld) [#/Vol] 4.69 10*6/uL 4.20 - 6.0 0 m/uL [facility] WBC (Bld) [#/Vol] 4.63 10*3/uL [facility] Erythrocyte distribution width (RBC) [Ratio] 12.0 % Normal 11.5-15.0 [facility] Comment on above: Order Comment: Speci men Type: BLOOD SPECIMEN Ordering Facility: [facility] [place] Address: [address] [place] [address] Performed By: #### 5 8410-2 #### [facility] CLIA [id number] [address] [place], [place] [address] [place] Hematocrit (Bld) [Volume fraction] 41.4 % Normal 39.0-51.0 [facility] Comment on above: Order Comment: Speci men Type: BLOOD SPECIMEN Ordering Facility: [facility] [place] Address: [address] [place] [address] Performed By: #### 5 8410-2 #### [facility] CLIA [id number] [address] [place] [address] [place] Hemoglobin (Bld) [Mass/Vol] 13.9 g/dL Normal 13.0-17.0 [facility] Comment on above: Order Comment: Speci men Type: BLOOD SPECIMEN Ordering Facility: [facility] [place] Address: [address] [place] [address] Performed By: #### 5 8410-2 #### [facility] CLIA [id number] [address] [place] [address] [place] MCH (RBC) [Entitic mass] 29.6 pg Normal 26.0-34.0 [facility] Comment on above: Order Comment: Speci men Type: BLOOD SPECIMEN Ordering Facility: [facility] [place] Address: [address] [place] [address] Performed By: #### 5 8410-2 #### [facility] CLIA [id number] [address] [place] [address] [place] MCHC (RBC) [Mass/Vol] 33.6 g/dL Normal 30.5-36.0 [facility] Comment on above: Order Comment: Speci men Type: BLOOD SPECIMEN Ordering Facility: [facility] [place] Address: [address] [place] [address] Performed By: #### 5 8410-2 #### [facility] CLIA [id number] [address] [place] [address] [place] MCV (RBC) [Entitic vol] 88.3 fL Normal 80.0-100.0 [facility] Comment on above: Order Comment: Speci men Type: BLOOD SPECIMEN Ordering Facility: [facility] [place] Address: [address] [place] [address] Performed By: #### 5 8410-2 #### [facility] CLIA [id number] [address] [place] [address] [place] Nucleated RBC (Bld) [#/Vol] 10*3/uL Normal <0.01 [facility] Comment on above: Order Comment: Speci men Type: BLOOD SPECIMEN Ordering Facility: [facility] [place] Address: [address] [place] [address] Performed By: #### 5 8410-2 #### [facility] CLIA [id number] [address] [place] [address] [place] Platelet mean volume (Bld) [Entitic vol] 10.1 fL Normal 9.0-12.7 [facility] Comment on above: Order Comment: Speci men Type: BLOOD SPECIMEN Ordering Facility: [facility] [place] Address: [address] [place] [address] Performed By: #### 5 8410-2 #### [facility] CLIA [id number] [address] [place] [address] [place] Platelets (Bld) [#/Vol] 303 10*3/uL Normal 150-400 [facility] Comment on above: Order Comment: Speci men Type: BLOOD SPECIMEN Ordering Facility: [facility] [place] Address: [address] [place] [address] Performed By: #### 5 8410-2 #### [facility] CLIA [id number] [address] [place] [address] [place] RBC (Bld) [#/Vol] 4.69 10*6/uL Normal 4.20-6.00 [facility] Comment on above: Order Comment: Speci men Type: BLOOD SPECIMEN Ordering Facility: [facility] [place] Address: [address] [place] [address] Performed By: #### 5 8410-2 #### [facility] CLIA [id number] [address] [place] [address] [place] WBC (Bld) [#/Vol] 4.63 10*3/uL Normal 3.70-11.00 [facility] Comment on above: Order Comment: Speci men Type: BLOOD SPECIMEN Ordering Facility: [facility] [place] Address: [address] [place] [address] Performed By: #### 5 8410-2 #### [facility] CLIA [id number] [address] [place] [address] [place] CNNURSEon 11-04-2024 [facility] Nurse Visit (UPCN) SOLOMON LAURA L ([id number]) 1995 M Date Time Provider Department 11/04/24 9:20 AM NURSE JULIAN LU [facility] During your visit today, we recorded the following information about you: Loren Mendez MA 11/04/2024 9:22 AM Signed Venipuncture performed to right antecubital. Number of tubes collected: 1 gold, 1 lavender, and 2 mint. Allergies As of Date: 11/04/2024 (No Known Allergies) Date Reviewed: 05/14/2024 Reviewed by: Darlin Beck MA - Fully Assessed Reason for Visit: Phlebotomy [1172] Visit Diagnosis:Fatigue, unspecified type [R53.83] Order(s):COMPLETE BLOOD COUNT [SQCBC] Order #: [id number]. #:[id number] BASIC METABOLIC PANEL [SQBMP] Order #: [id number]. #:[id number] FERRITIN [SQFERR] Order #: [id number]. #:[id number] IRON AND TIBC [SQIRON] Order #: [id number]. #:[id number] THYROID STIMULATING HORMONE [SQTSH] Order #: [id number]. #:[id number] TESTOSTERONE, TOTAL [SQTESTO] Order #: [id number]. #:[id number] LIPID PANEL BASIC [SQLIPB] Order #: [id number]. #:[id number] VITAMIN B12 [SQB12] Order #: [id number]. #:[id number] VITAMIN D 25 HYDROXY [SQVITD] Order #: [id number]. #:[id number] Prescriptions as of 11/04/2024 - famotidine (PEPCID) 40 mg tablet Take 1 tablet by mouth every afternoon. - buPROPion XL (WELLBUTRIN XL) 300 mg 24 hr tablet Take 1 tablet by mouth once daily. - metoprolol succinate ER (TOPROL XL) 25 mg 24 hr tablet Take 1 tablet by mouth once daily. Problem List As Of Date 11/04/2024 Noted Resolved RUQ pain [R10.11] 08/02/2021 Chronic insomnia [F51.04] 09/05/2022 GERD without esophagitis [K21.9] 09/05/2022 Anxiety with depression [F41.8] 09/05/2022 Hypertension, essential [I10] 02/14/2023 Encounter Status:Closed by LOREN MENDEZ on 11/04/24 Normal [facility] Cobalamin (Vitamin B12) [Mas s/Vol]on 11-04-2024 Interpretation and review of laboratory results Normal [facility] FERRITINon 11-04-2024 Ferritin [Mass/Vol] 253.1 ng/mL 30.3 - 5 65.7 ng/mL [facility] Ferritin SerPl-mCncon 2024 Ferritin [Mass/Vol] 253.1 ng/mL Normal 30.3-565.7 [facility] Comment on above: Order Comment: Speci men Type: BLOOD SPECIMEN Ordering Facility: [facility] [place] Address: [address] [place] [address] Performed By: #### 5 7021-8 #### [facility] CLIA [id number] [address] [place] [address] [place] Ferritin [Mass/Vol]on 2024 Interpretation and review of laboratory results Normal [facility] Iron and Iron binding capaci ty panelon 11-04-2024 Iron [Mass/Vol] 137 ug/dL Normal 41-186 [facility] Comment on above: Order Comment: Speci men Type: BLOOD SPECIMENOrdering Facility: [facility] [place] Address: [address] [place] [address] Performed By: #### 5 0190-8, 2131-9, 53756-2, 3016-3 ####[facility] [id number] [place] [address] [place] Iron binding capacity [Mass/Vol] 240 ug/dL Normal 232-386 [facility] Comment on above: Order Comment: Speci men Type: BLOOD SPECIMENOrdering Facility: [facility] [place] Address: [address] [place] [address] Performed By: #### 5 0190-8, 9, 30983-3, 3016-3 ####[facility] [id number] [place] [address] [facility] Iron/TIBC [Molar ratio] 57.1 % High 15.0-57.0 [facility] Comment on above: Order Comment: Speci men Type: BLOOD SPECIMENOrdering Facility: [facility] [place] Address: [address] [place] [address] Performed By: #### 5 0190-8, 9, 20307-8, 3016-3 ####[facility] [id number] [place] [address] [facility] [place] Lipid 1996 panelon 5 Cholesterol [Mass/Vol] 127 mg/dL NINF - 200 mg/dL [facility] Comment on above: <200 mg/dL, Desirabl e 200-239 mg/dL, Borderline high >239 mg/dL, High Cholesterol in HDL [Mass/Vol] 30 mg/dL Low 39 - PINF mg/dL [facility] Comment on above: 40-59 mg/dL, Accepta ble >59 mg/dL, High: Negative risk factor for coronary heart disease <40 mg/dL, Low: Positive risk factor for coronary heart disease Cholesterol in LDL [Mass/Vol] 81 mg/dL NINF - 100 mg/dL [facility] Comment on above: <100 mg/dL, Optimal 100-129 mg/dL, Near optimal/above optimal 130-159 mg/dL, Borderline high 160-189 mg/dL, High >189 mg/dL, Very high Secondary prevention optimal LDL Cholesterol levels are recommended to be < 70 mg/dL Cholesterol in LDL/Cholesterol in HDL [Mass ratio] 2.7 {ratio} High NINF - 2.54 [facility] Comment on above: Reference: 1. National Cholesterol Education Program ATP III Guideline At-A-Glance Quick Desk Reference: National Heart, Lung, [facility] [place] [facility]. National Institutes of Health. 2001: NIH Publication No. 01-3305. 2. An International Atherosclerosis Society position paper: global recommendations for the management of dyslipidemia: executive summary, Atherosclerosis. 2014: 232(2):410-413. Cholesterol in VLDL [Mass/Vol] 16 mg/dL NINF - 30 mg/dL [facility] Cholesterol non HDL [Mass/Vol] 97 mg/dL NINF - 130 mg/dL [facility] Comment on above: <130 mg/dL, Optimal 130-159 mg/dL, Near optimal/above optimal 160-189 mg/dL, Borderline high 190-219 mg/dL, High >219 mg/dL, Very high Secondary prevention optimal non HDL Cholesterol levels are recommended to be <100 mg/dL Cholesterol.total/C holesterol in HDL [Mass ratio] 4.23 {ratio} NINF - 5.10 [facility] Fasting Time yes hrs [facility] Interpretation and review of laboratory results Abnormal [facility] Triglyceride [Mass/Vol] 79 mg/dL NINF - 150 mg/dL [facility] Comment on above: <150 mg/dL, Normal 150-199 mg/dL, Borderline high 200-499 mg/dL, High >499 mg/dL, Very high Cholesterol [Mass/Vol] 127 mg/dL Normal <200 [facility] Comment on above: Order Comment: Yo will Type: BLOOD SPECIMENOrdering Facility: [facility] [place] Address: [address] [place] [address] Result Comment: <200 mg/dL, Desirable 200-239 mg/dL, Borderline high >239 mg/dL, High Performed By: #### 5 0190-8, 2132-9, 24185-3, 3016-3 ####[facility] LAB[facility]IA [id number] [address] STATES OF [facility] Cholesterol in HDL [Mass/Vol] 30 mg/dL Low >39 [facility] Comment on above: Order Comment: Yo will Type: BLOOD SPECIMENOrdering Facility: [facility] [place] Address: [address] [place] [address] Result Comment: 40-5 9 mg/dL, Acceptable >59 mg/dL, High: Negative risk factor for coronary heart disease <40 mg/dL, Low: Positive risk factor for coronary heart disease Performed By: #### 5 0190-8, 9, 17911-5, 3016-3 ####[facility] LABCLIA [id number] [place] [address] [place] Cholesterol in LDL [Mass/Vol] 81 mg/dL Normal <100 [facility] Comment on above: Order Comment: Speci men Type: BLOOD SPECIMENOrdering Facility: [facility] [place] Address: [address] [place] [address] Result Comment: <100 mg/dL, Optimal 100-129 mg/dL, Near optimal/above optimal 130-159 mg/dL, Borderline high 160-189 mg/dL, High >189 mg/dL, Very high Secondary prevention optimal LDL Cholesterol levels are recommended to be < 70 mg/dL Performed By: #### 5 0190-8, 9, 91710-1, 6-3 ####[facility] LABCLIA [id number] [place] [address] [place] Cholesterol in LDL/Cholesterol in HDL [Mass ratio] 2.70 {ratio} High <2.54 [facility] Comment on above: Order Comment: Speci men Type: BLOOD SPECIMENOrdering Facility: [facility] [place] Address: [address] [place] [address] Result Comment: Refe rence: 1. National Cholesterol Education Program ATP III Guideline At-A-Glance Quick Desk Reference: National Heart, Lung, [facility] [place] [facility]. National Institutes of Health. 2001: NIH Publication No. 01-3305. 2. An International Atherosclerosis Society position paper: global recommendations for the management of dyslipidemia: executive summary, Atherosclerosis. 2014: 232(2):410-413. Performed By: #### 5 0190-8, 9, 55449-2, 3016-3 ####[facility] LABCLIA [id number] [place] [address] [place] Cholesterol in VLDL [Mass/Vol] 16 mg/dL Normal <30 [facility] Comment on above: Order Comment: Speci men Type: BLOOD SPECIMENOrdering Facility: [facility] [place] Address: [address] [place] [address] Performed By: #### 5 0190-8, 2132-04, 77750-5, 3016-3 ####[facility]CLIA [id number] [place] [address] [place] Cholesterol non HDL [Mass/Vol] 97 mg/dL Normal <130 [facility] Comment on above: Order Comment: Speci men Type: BLOOD SPECIMENOrdering Facility: [facility] [place] Address: [address] [place] [address] Result Comment: <130 mg/dL, Optimal 130-159 mg/dL, Near optimal/above optimal 160-189 mg/dL, Borderline high 190-219 mg/dL, High >219 mg/dL, Very high Secondary prevention optimal non HDL Cholesterol levels are recommended to be <100 mg/dL Performed By: #### 5 0190-8, 2132-04, 72449-7, 6-3 ####[facility] LABIA [id number] [place] [address] [place] Cholesterol.total/C holesterol in HDL [Mass ratio] 4.23 {ratio} Normal <5.10 [facility] Comment on above: Order Comment: Speci men Type: BLOOD SPECIMENOrdering Facility: [facility] [place] Address: [address] [place] [address] Performed By: #### 5 0190-8, 2132-04, 96974-4, 3015-3 ####[facility] LABCLIA [id number] [place] [address] [place] FASTING TIME yes Normal [facility] Comment on above: Order Comment: Speci men Type: BLOOD SPECIMENOrdering Facility: [facility] [place] Address: [address] [place] [address] Performed By: #### 5 0190-8, 2132-04, 50534-8, 6-3 ####[facility] LABCLIA [id number] [place] [address] [place] Triglyceride [Mass/Vol] 79 mg/dL Normal <150 [facility] Comment on above: Order Comment: Speci men Type: BLOOD SPECIMENOrdering Facility: [facility] [place] Address: [address] [place] [address] Result Comment: <150 mg/dL, Normal 150-199 mg/dL, Borderline high 200-499 mg/dL, High >499 mg/dL, Very high Performed By: #### 5 0190-8, 9, 74235-8, 3016-3 ####[facility] LABCLIA [id number] [place] [address] [place] No Panel Informationon 11-04 [facility] THYROID STIMULATING HORMONEo n 11-04-2024 TSH Qn 0.007 m[IU]/L Low [facility] TSH Qnon 11-04-2024 Interpretation and review of laboratory results Abnormal [facility] TSH SerPl-aCncon 11-04-2024 TSH Qn 0.007 m[IU]/L Low 0.270-4.200 [facility] Comment on above: Order Comment: Speci men Type: BLOOD SPECIMENOrdering Facility: [facility] [place] Address: [address] [place] [address] Performed By: #### 5 0190-8, 9, 55847-6, 3016-3 ####[facility] LABIA [id number] [place] [address] [place] Testost SerPl-mCncon 025 Testosterone [Mass/Vol] 1023 ng/dL High 193-824 [facility] Comment on above: Order Comment: Speci men Type: BLOOD SPECIMEN Ordering Facility: [facility] [place] Address: [address] [place] [address] Result Comment: A te stosterone level in the 193-320 ng/dL range with associated clinical symptoms is considered low and may indicate hypogonadism (from [facility] 2010 363:123-135). Results >320 ng/dL are considered normal. Performed By: #### 2 986-8 #### [facility] CLIA [id number] [address] [place] [address] [place] [id number] [place] VITAMIN B12on 11-04-2024 Cobalamin (Vitamin B12) [Mass/Vol] 444 pg/mL 232 - 1245 pg/mL [facility] Vit B12 SerPl-mCncon 11-04-2 025 Cobalamin (Vitamin B12) [Mass/Vol] 444 pg/mL Normal 232-1245 [facility] Comment on above: Order Comment: Speci men Type: BLOOD SPECIMENOrdering Facility: [facility] [place] Address: [address] [place] [address] Performed By: #### 5 0190-8, 2132-9, 66569-6, 3016-3 ####[facility] LABCLIA [id number] [place] [id number] [place] CNOVon 05-14-2024 [facility] SOLOMON LAURA ([id number]) 1995 M Date Time Provider Department 05/14/24 10:00 AM DONNA US [facility] During your visit today, we recorded the following information about you: Temperature Pulse Respiration Blood pressure 98.4 degrees 94/minute 16/minute 122/80 Weight Height 100.7 kg 1.727 m Donna Us PA-C 05/14/2024 11:51 AM Signed Solomon Laura is a 29 year old male here today for an annual physical. I reviewed his past medical, surgical, social, and family histories today and updated chart. Allergies, chronic medications, and supplements were also reviewed and his list in the chart is now up to date. Concern(s) today include: Hypertension - BP 122/80 in clinic today. On metoprolol 25mg. Does not do home BP checks. States he gets short of breath and feels like his heart is pounding when he is lightly exercising. Has not been able to do much exercising due to the heat this summer. Goes for a few walks every week. Occasionally goes to the gym. No chest pain, dizziness, changes in vision. Anxiety and Depression - On wellbutrin 300mg daily. States this works well for him. States he feels his mood is where it needs to be. States he can focus better when he is off of it. Sleeping well, tried sleeping medications and made him too drowsy the next day. No SI/HI His medications were reviewed today and his list is now up to date. He is compliant on taking his medications :Yes He is tolerating his medication(s) without side effects: Yes He is following an appropriate diet for his medical problems: Yes He is getting some exercise in? Yes ACTIVE PROBLEM LIST Ruq Pain Chronic Insomnia Gerd Without Esophagitis Anxiety With Depression Hypertension, Essential PAST SURGICAL HISTORY Procedure Laterality Date COLONOSCOPY SCREENING 10/09/2021 Dr. Otto EGD 10/09/2021 Dr. Otto Social History Tobacco Use Smoking status: Never Smokeless tobacco: Never Vaping Use Vaping status: current everyday user Substance Use Topics Alcohol use: Yes Comment: occasional Drug use: Never Current Outpatient Medications on File Prior to Visit Medication Sig famotidine (PEPCID) 40 mg tablet Take 1 tablet by mouth every afternoon. Bifidobacterium infantis (ALIGN) 10.5 mg (10 million cell) chew 1 capsule daily buPROPion XL (WELLBUTRIN XL) 300 mg 24 hr tablet Take 1 tablet by mouth once daily. Week 1 just take 1/2 tablet. Starting week 2 take a whole tablet (Patient taking differently: Take 300 mg by mouth once daily.) ibuprofen/diphenhydrami ne HCl (ADVIL PM LIQUI-GELS ORAL) Take 1 tablet by mouth daily at bedtime. No current facility-administered medications on file prior to visit. History reviewed. No pertinent family history. ALLERGIES No Known Allergies Review of Systems Constitutional: Positive for fatigue. Negative for chills and fever. HENT: Negative for congestion and rhinorrhea. Eyes: Negative. Respiratory: Negative for cough, shortness of breath and wheezing. Cardiovascular: Negative for chest pain, palpitations and leg swelling. Gastrointestinal: Negative for diarrhea, nausea and vomiting. Endocrine: Negative. Genitourinary: Negative. Musculoskeletal: Negative for arthralgias and myalgias. Skin: Negative. Allergic/Immunologic: Negative. Neurological: Negative. Hematological: Negative. Psychiatric/Behavioral: Negative. BP 122/80 (BP Site: Left Arm, BP Position: Sitting, BP Cuff Size: Regular Adult) Pulse 94 Temp 36.9 ?C (98.4 ?F) (Temporal) Resp 16 Ht 172.7 cm (5' 8) Wt 100.7 kg (221 lb 14.4 oz) SpO2 97% BMI 33.74 kg/m? BMI 33.74 kg/(m2) Physical Exam Constitutional: General: He is not in acute distress. Appearance: Normal appearance. He is normal weight. He is not ill-appearing. HENT: Head: Normocephalic and atraumatic. Right Ear: External ear normal. Left Ear: External ear normal. Nose: Nose normal. No congestion or rhinorrhea. Mouth/Throat: Mouth: Mucous membranes are moist. Pharynx: Oropharynx is clear. Eyes: General: No scleral icterus. Right eye: No discharge. Left eye: No discharge. Extraocular Movements: Extraocular movements intact. Conjunctiva/sclera: Conjunctivae normal. Pupils: Pupils are equal, round, and reactive to light. Cardiovascular: Rate and Rhythm: Normal rate and regular rhythm. Pulses: Normal pulses. Heart sounds: Normal heart sounds. No murmur heard. No gallop. Pulmonary: Effort: Pulmonary effort is normal. No respiratory distress. Breath sounds: Normal breath sounds. No wheezing. Abdominal: General: Abdomen is flat. Palpations: Abdomen is soft. Skin: General: Skin is warm and dry. Neurological: General: No focal deficit present. Mental Status: He is alert and oriented to person, place, and time. Mental status is at baseline. Psychiatric: Mood and Affe (more content not included)... Normal [facility] CBC W Auto Differential pane l (Bld)on 11-12-2023 Basophils (Bld) [#/Vol] 0.05 10*3/uL <0.11 k/uL [facility] Basophils/100 WBC (Bld) 0.7 % [facility] Differential cell count method Nom (Bld) Auto [facility] Eosinophils (Bld) [#/Vol] 0.13 10*3/uL <0.46 k/uL [facility] Eosinophils/100 WBC (Bld) 1.8 % [facility] Erythrocyte distribution width (RBC) [Ratio] 12.2 % 11.5 - 15.0 % [facility] Hematocrit (Bld) [Volume fraction] 46.4 % 39.0 - 51.0 % [facility] Hemoglobin (Bld) [Mass/Vol] 16.1 g/dL 13.0 - 17.0 g/dL [facility] Immature granulocytes (Bld) [#/Vol] 0.03 10*3/uL <0.10 k/uL [facility] Immature granulocytes/100 WBC (Bld) 0.4 % [facility] Lymphocytes (Bld) [#/Vol] 1.84 10*3/uL 1.00 - 4.00 k/uL [facility] Lymphocytes/100 WBC (Bld) 25.6 % [facility] MCH (RBC) [Entitic mass] 31.0 pg 26.0 - 34.0 pg [facility] MCHC (RBC) [Mass/Vol] 34.7 g/dL 30.5 - 36.0 g/dL [facility] MCV (RBC) [Entitic vol] 89.2 fL 80.0 - 100.0 fL [facility] Monocytes (Bld) [#/Vol] 0.59 10*3/uL <0.87 k/uL [facility] Monocytes/100 WBC (Bld) 8.2 % [facility] Neutrophils (Bld) [#/Vol] 4.55 10*3/uL 1.45 - 7.50 k/uL [facility] Neutrophils/100 WBC (Bld) 63.3 % [facility] Nucleated RBC (Bld) [#/Vol] <0.01 k/uL [facility] Nucleated RBC/100 WBC (Bld) [Ratio] 0.0 /100 WBC [facility] Platelet mean volume (Bld) [Entitic vol] 10.4 fL 9.0 - 12.7 fL [facility] Platelets (Bld) [#/Vol] 301 10*3/uL 150 - 400 k/uL [facility] RBC (Bld) [#/Vol] 5.20 10*6/uL 4.20 - 6.0 0 m/uL [facility] WBC (Bld) [#/Vol] 7.19 10*3/uL 3.70 - 11. 00 k/uL [facility] Comprehensive metabolic 2000 panelon 11-12-2023 Albumin [Mass/Vol] 4.6 g/dL 3.9 - 4.9 g/dL [facility] ALP [Catalytic activity/Vol] 100 U/L 38 - 113 U/L [facility] ALT [Catalytic activity/Vol] 26 U/L 10 - 54 U/L [facility] Anion gap [Moles/Vol] 10 mmol/L 9 - 18 mmol/L [facility] AST [Catalytic activity/Vol] 23 U/L 14 - 40 U/L [facility] Bilirubin [Mass/Vol] 0.9 mg/dL 0.2 - 1.3 mg/dL [facility] Calcium [Mass/Vol] 9.6 mg/dL 8.5 - 10. 2 mg/dL [facility] Chloride [Moles/Vol] 104 mmol/L 97 - 105 mmol/L [facility] CO2 [Moles/Vol] 27 mmol/L 22 - 30 mmol/L [facility] Creatinine [Mass/Vol] 1.18 mg/dL 0.73 - 1.22 mg/dL [facility] Estimated Glomerular Filtration Rate 85 mL/min/1.73m >=60 mL/min/1.73m [facility] Glucose [Mass/Vol] 106 mg/dL High 74 - 99 mg/dL [facility] Potassium [Moles/Vol] 4.9 mmol/L 3.7 - 5.1 mmol/L [facility] Protein [Mass/Vol] 7.5 g/dL 6.3 - 8.0 g/dL [facility] Sodium [Moles/Vol] 141 mmol/L 136 - 144 mmol/L [facility] Urea nitrogen [Mass/Vol] 15 mg/dL 9 - 24 mg/dL [facility] Lipid 1996 panelon Cholesterol [Mass/Vol] 167 mg/dL <200 mg/dL [facility] Cholesterol in HDL [Mass/Vol] 40 mg/dL >39 mg/dL [facility] Cholesterol in LDL [Mass/Vol] 110 mg/dL High <100 mg/dL [facility] Cholesterol in LDL/Cholesterol in HDL [Mass ratio] 2.75 {ratio} High <2.54 [facility] Cholesterol in VLDL [Mass/Vol] 17 mg/dL <30 mg/dL [facility] Cholesterol non HDL [Mass/Vol] 127 mg/dL <130 mg/dL [facility] Cholesterol.total/C holesterol in HDL [Mass ratio] 4.18 {ratio} <5.10 [facility] Fasting Time yes [facility] Triglyceride [Mass/Vol] 84 mg/dL <150 mg/dL [facility] CNOVon 01-24-2023 CNOV Office Visit ([facility] ) SOLOMON LAURA ([id number]) 1995 M Date Time Provider Department 01/24/23 10:00 AM JORGE LUIS STOUT [facility] During your visit today, we recorded the following information about you: Pulse Blood pressure Weight Height 70/minute 152/104 97.1 kg 1.727 m Jorge Luis Stout APRN.[employer]O [employer]ER 01/24/2023 10:23 AM Signed Solomon Avril Laura is a 27 year old male who presents Patient presents with: Insomnia GERD Overview Notes of Problems Addressed This Visit Neurology Chronic insomnia - Primary Failed hydroxyzine, lunesta, and trazodone. Doxepin not approved by insurance. 01/03/2023 ambien was started. He is compliant with taking it every night before bed, and he denies side effects to it. States he has been able to fall asleep and stay asleep. However, this makes him very drowsy the next day. He even tried taking 1/2 tablet. States he did try taking a xanax natural extract and he did sleep good and it did not make hims sleepy the next day. Sleep hygiene reviewed: avoiding caffeine and alcohol. Negative sleep apnea questionnaire. Gastrointestinal GERD without esophagitis History of being on omeprazole. Was switched to pepcid earlier this year due to symptoms being well controlled. Today states symptoms continue to be good. Symptoms not including acid reflux or heartburn as long as he takes medication daily and avoids trigger foods. denies acid brash sensation, belching, blood in stool, painful swallowing, difficulty swallowing, or hoarseness. Patient is not taking NSAID's. Patient does not eat late, avoids caffeine intake. Relevant Medications famotidine (PEPCID) 40 mg tablet Psychiatry Depression Earlier this year patient had an appointment for initial complaints of fatigue, depression, low motivation, weight gain of 50 pounds in 7 months. Lab work up was all negative. I started him on wellbutrin. He declined counseling. Today patient states he is tolerating medication without side effects and states it seems to be helping all symptoms. He has been feeling happier, more motivation. He has felt less hungry. No longer going to the gym. Less fatigue. Has been feeling more irritable. Snapping easier. No SI. No anxiety. Relevant Medications buPROPion XL (WELLBUTRIN XL) 300 mg 24 hr tablet Other Visit Diagnoses Obesity, Class I, BMI 30-34.9 BMI 32.0-32.9,adult Hypertension, essential Relevant Medications metoprolol succinate ER (TOPROL XL) 25 mg 24 hr tablet Anxiety REVIEW OF SYSTEMS See HPI BP 152/104[manual[ Pulse 70 Ht 5' 8 (1.73m) Wt 214 lb (97.1kg) SpO2 98% BMI 32.55 kg/(m2). Physical Exam General: Cooperative, no acute distress, alert, well nourished, well developed. Integumentary: No rashes, color normal, normal moisture. Head and Neck: No lymphadenopathy, neck supple, no thyroid enlargement or nodules, non-tender. Chest and Lungs: Respirations easy and non-labored. No use of accessory muscles. Auscultation reveals clear lung sounds: no wheezes, rhonchi, or crackles Cardiovascular: Normal heart sounds, regular rate and rhythm, no murmurs. No carotid bruit bilaterally. Psychosocial: mood and affect normal. ASSESSMENT/PLAN: 1. Chronic insomnia - ICD9: 780.52, ICD10: F51.04 (primary diagnosis) Failed ambien. Try xanax. PDMP website checked and validated. All prescriptions have been APPROPRIATELY filled. No suspicious activity was identified. 01/24/2023 by Jorge Luis Stout APRN.[employer]ER Discussed the risk of long-term benzodiazepine use which includes: risk of sedation, dependency, cognitive impairment, cognitive decline, falls, motor vehicle accidents, rebound insomnia, worsening anxiety, overdose, (especially when used in conjunction with narcotics.) 2. GERD without esophagitis - ICD9: 530.81, ICD10: K21.9 - Discussed lifestyle modifications including losing weight, limiting caffeine, no meals three hours before sleep, and head of bed elevation - FAMOTIDINE 40 MG TABLET 3. Depression, unspecified depression type - ICD9: 311, ICD10: F32.A Increase wellbutrin - BUPROPION XL 300 MG 24 HR TAB 4. Obesity, Class I, BMI 30-34.9 - ICD9: 278.00, ICD10: E66.9 Diet and exercise education given. Patient aware of importance of maintaining a healthy weight. 5. BMI 32.0-32.9,adult - ICD9: V85.32, ICD10: Z68.32 6. Hypertension, essential - ICD9: 401.9, ICD10: I10 - New diagnosis - Start metoprolol succinate - Newly diagnosed hypertension workup ordered: CBC, BMP (fasting), TSH, and Lipid profile-all done in July - Recommend home blood pressure monitoring, to bring results to next visit - Encouraged sodium restriction, DASH or Mediterranean diet - Recommend regular aerobic exercise - METOPROLOL SUCCINATE ER 25 MG TABLET,EXTENDED RELEASE 24 HR 7. Anxiety - ICD9: 300.00, ICD10: F41.9 Increase wellbutrin, add xanax to night Jorge Luis Morales (more content not included)... Normal [facility] 01-02-[address] [facility] SOLOMON LAURA ([id number]) 1995 M Date Time Provider Department 01/02/23 JORGE LUIS STOUT [facility] During your visit today, we recorded the following information about you: Martin Samson 01/02/2023 7:31 AM Signed Received e-mail from [facility] that auth needs completed; Auth has been completed and is pending Martin Samson 01/03/2023 9:34 AM Signed Per fax from [facility], the request has been denied. The patient must first try and fail the preferred medications: Estazolam, Temazepam 15 and 30 mg, Zaleplon, and Zolpidem Martin Stout, MIREILLE.PI[employer]O STRINGER 01/03/2023 11:23 AM Signed Please let patient know insurance not approving doxepin. Need to try ambien first. Sent it in Cesia Cohn MA 01/03/2023 12:01 PM Signed LMOM for patient to call the office back. Cesia Cohn MA Chica Castilloacho 01/03/2023 12:04 PM Signed Patient had called in and was notified of Jorge Luis's message. Allergies As of Date: 01/02/2023 (No Known Allergies) Date Reviewed: 10/18/2022 Reviewed by: Chastity Agee MA - Fully Assessed Reason for Visit: Doxepin prior auth [Other] Primary Visit Diagnosis:Chronic insomnia [F51.04] Order(s):zolpidem (AMBIEN) 5 mg tabletTake 1 tablet by mouth at bedtime as needed for up to 30 days. For sleep.Disp: 30 tabletRfl: 0 Prescriptions as of 01/03/2023 - zolpidem (AMBIEN) 5 mg tablet Take 1 tablet by mouth at bedtime as needed for up to 30 days. For sleep. - buPROPion XL (WELLBUTRIN XL) 150 mg 24 hr tablet Take 1 tablet by mouth once daily. Week 1 just take 1/2 tablet. Starting week 2 take a whole tablet - ibuprofen/diphenhydrami ne HCl (ADVIL PM LIQUI-GELS ORAL) Take 1 tablet by mouth daily at bedtime. Problem List As Of Date 01/02/2023 Noted Resolved RUQ pain [R10.11] 08/02/2021 Chronic insomnia [F51.04] 09/05/2022 GERD without esophagitis [K21.9] 09/05/2022 Depression [F32.A] 09/05/2022 Prescriptions ordered this encounter Disp Refills Start End ZOLPIDEM 5 MG TABLET 30 t* 0 01/03/2023 02/02/2023 Route: ORAL Sig: Take 1 tablet by mouth at bedtime as needed for up to 30 days. For sleep. Medications Discontinued During This Encounter Prescriptions - Doxepin 6 mg tab (Discontinued) 1 tablet at night to help with sleep Encounter Status:Closed by CHICA RODRIGUEZ on 01/03/23 Normal [facility] CNOVon 10-18-2022 CNOV Office Visit ([facility] ) SOLOMON LAURA ([id number]) 1995 M Date Time Provider Department 10/18/22 10:00 AM JORGE LUIS STOUT [facility] During your visit today, we recorded the following information about you: Pulse Blood pressure Weight Height 82/minute 135/72 95.3 kg 1.727 m Jorge Luis Stout APRN.[employer]ER 10/18/2022 10:22 AM Signed Solomon Laura is a 27 year old male who presents Patient presents with: Insomnia Overview Notes of Problems Addressed This Visit Neurology Chronic insomnia - Primary Failed hydroxyzine and trazodone in the past. 1 month ago patient was started on lunesta. He is compliant with taking it every night before bed, and he denies side effects to it. States he has been able to fall asleep and stay asleep. No daytime drowsiness or fatigue the next day as long as he takes it 8 hours before he plans to wake up. Sleep hygiene reviewed: avoiding caffeine and alcohol. Negative sleep apnea questionnaire. Relevant Medications eszopiclone (LUNESTA) 2 mg REVIEW OF SYSTEMS See HPI BP 135/72 Pulse 82 Ht 5' 8 (1.73m) Wt 210 lb (95.3kg) SpO2 98% BMI 31.94 kg/(m2). Physical Exam General: Cooperative, no acute distress, alert, well nourished, well developed. Integumentary: No rashes, color normal, normal moisture. Head and Neck: No lymphadenopathy, neck supple, no thyroid enlargement or nodules, non-tender. Chest and Lungs: Respirations easy and non-labored. No use of accessory muscles. Auscultation reveals clear lung sounds: no wheezes, rhonchi, or crackles Cardiovascular: Normal heart sounds, regular rate and rhythm, no murmurs. No carotid bruit bilaterally. ASSESSMENT/PLAN: 1. Chronic insomnia - ICD9: 780.52, ICD10: F51.04 Doing very well with lunesta. Sleep hygiene reviewed. PDMP website checked and validated. All prescriptions have been APPROPRIATELY filled. No suspicious activity was identified. 10/18/2022 by Jorge Luis Stout APRN.PIANO STRINGER - ESZOPICLONE 2 MG TABLET Jorge Luis Stout I reviewed his past medical, surgical, social, and family histories today and updated chart. Allergies, chronic medications, and supplements were also reviewed and the list is now up to date. Health maintenance has been discussed. Referring Provider: SELF [[id number]] Allergies As of Date: 10/18/2022 (No Known Allergies) Date Reviewed: 10/18/2022 Reviewed by: Chastity Agee MA - Fully Assessed Reason for Visit: Insomnia [3844] Primary Visit Diagnosis:Chronic insomnia [F51.04] Order(s):famotidine (PEPCID) 40 mg tabletTake 1 tablet by mouth twice daily.Disp: 60 tabletRfl: 5 eszopiclone (LUNESTA) 2 mgTake 1 tablet by mouth daily at bedtime for 30 days.Disp: 30 tabletRfl: 0 Prescriptions as of 10/18/2022 - famotidine (PEPCID) 40 mg tablet Take 1 tablet by mouth twice daily. - eszopiclone (LUNESTA) 2 mg Take 1 tablet by mouth daily at bedtime for 30 days. - buPROPion XL (WELLBUTRIN XL) 150 mg 24 hr tablet Take 1 tablet by mouth once daily. Week 1 just take 1/2 tablet. Starting week 2 take a whole tablet - ibuprofen/diphenhydrami ne HCl (ADVIL PM LIQUI-GELS ORAL) Take 1 tablet by mouth daily at bedtime. Problem List As Of Date 10/18/2022 Noted Resolved RUQ pain [R10.11] 08/02/2021 Chronic insomnia [F51.04] 09/05/2022 GERD without esophagitis [K21.9] 09/05/2022 Depression [F32.A] 09/05/2022 Prescriptions ordered this encounter Disp Refills Start End FAMOTIDINE 40 MG TABLET 60 t* 5 10/18/2022 11/17/2022 Route: ORAL Sig: Take 1 tablet by mouth twice daily. ESZOPICLONE 2 MG TABLET 30 t* 0 10/18/2022 11/17/2022 Route: ORAL Sig: Take 1 tablet by mouth daily at bedtime for 30 days. Medications Discontinued During This Encounter Prescriptions - famotidine (PEPCID) 40 mg tablet (Discontinued) Take 1 tablet by mouth once daily. - eszopiclone (LUNESTA) 2 mg (Discontinued) Take 1 tablet by mouth daily at bedtime for 30 days. Disposition: Return in about 3 months (around 01/18/2023). Follow-up and Disposition History for Encounter Date Provider Department Center 10/18/2022 [id number][facility] Status:Closed by JORGE LUIS STOUT on 10/18/22 [facility] CNOVon 09-20-2022 [facility] Office Visit (UPC[facility] ) SOLOMON LAURA ([id number]) 1995 M Date Time Provider Department 09/20/22 10:00 AM JORGE LUIS STOUT [facility] During your visit today, we recorded the following information about you: Pulse Blood pressure Weight Height 83/minute 126/83 97.1 kg 1.727 m Jorge Luis Stout APRN.[facility] 09/20/2022 10:32 AM Addendum Solomon Laura is a 27 year old male who presents Patient presents with: GERD Insomnia Overview Notes of Problems Addressed This Visit Neurology Chronic insomnia 6 weeks ago trazodone was discontinued due to weight gain. Hydroxyzine was started instead. No improvement in sleep with hydroxyzine. Negative sleep apnea questionnaire. Relevant Medications eszopiclone (LUNESTA) 2 mg Gastrointestinal GERD without esophagitis - Primary History of being on omeprazole. Was switched to pepcid 6 weeks ago due to symptoms being well controlled. Today states symptoms continue to be good. Symptoms not including acid reflux or heartburn as long as he takes medication daily and avoids trigger foods. denies acid brash sensation, belching, blood in stool, painful swallowing, difficulty swallowing, or hoarseness. Patient is not taking NSAID's. Patient does not eat late, avoids caffeine intake. Psychiatry Depression Patient had an appointment 6 weeks ago for complaints of fatigue, depression, low motivation, weight gain of 50 pounds in 7 months. Lab work up was all negative. I started him on wellbutrin. He declined counseling. Today patient states he is tolerating medication without side effects and states it seems to be helping all symptoms. He has been feeling happier, more motivation. He has felt less hungry. Has been going to the gym and eating healthier. Is down some weight: 5 pounds. Less fatigue. No SI. No anxiety. Other Visit Diagnoses Weight gain Fatigue, unspecified type REVIEW OF SYSTEMS See HPI BP 126/83 Pulse 83 Ht 5' 8 (1.73m) Wt 214 lb (97.1kg) SpO2 98% BMI 32.55 kg/(m2). Physical Exam General: Cooperative, no acute distress, alert, well nourished, well developed. Integumentary: No rashes, color normal, normal moisture. Head and Neck: No lymphadenopathy, neck supple, no thyroid enlargement or nodules, non-tender. Chest and Lungs: Respirations easy and non-labored. No use of accessory muscles. Auscultation reveals clear lung sounds: no wheezes, rhonchi, or crackles Cardiovascular: Normal heart sounds, regular rate and rhythm, no murmurs. No carotid bruit bilaterally. Psychosocial: mood and affect normal. ASSESSMENT/PLAN: 1. GERD without esophagitis - ICD9: 530.81, ICD10: K21.9 (primary diagnosis) - Discussed lifestyle modifications including losing weight, limiting caffeine, no meals three hours before sleep, and head of bed elevation 2. Chronic insomnia - ICD9: 780.52, ICD10: F51.04 Failed OTC agents, trazodone, and hydroxyzine. Try lunesta. Controlled substance contract signed. PDMP website checked and validated. All prescriptions have been APPROPRIATELY filled. No suspicious activity was identified. 09/20/2022 by Jorge Luis Stout APRN.PIANO STRINGER - ESZOPICLONE 2 MG TABLET 3. Weight gain - ICD9: 783.1, ICD10: R63.5 4. Depression, unspecified depression type - ICD9: 311, ICD10: F32.A Doing well 5. Fatigue, unspecified type - ICD9: 780.79, ICD10: R53.83 Improved. Continue plan to go to gym at least 3 days a week. Make healthier food choices. Jorge Luis Stout I reviewed his past medical, surgical, social, and family histories today and updated chart. Allergies, chronic medications, and supplements were also reviewed and the list is now up to date. Health maintenance has been discussed. Referring Provider: SELF [200] Allergies As of Date: 09/20/2022 (No Known Allergies) Date Reviewed: 09/20/2022 Reviewed by: Chastity Agee MA - Fully Assessed Reason for Visit: GERD [548] Insomnia [3844] Primary Visit Diagnosis:GERD without esophagitis [K21.9] Other Visit Diagnoses:Chronic insomnia [F51.04] Weight gain [R63.5] Depression, unspecified depression type [F32.A] Fatigue, unspecified type [R53.83] Order(s):eszopiclone (LUNESTA) 2 mgTake 1 tablet by mouth daily at bedtime for 30 days.Disp: 30 tabletRfl: 0 Prescriptions as of 09/20/2022 - eszopiclone (LUNESTA) 2 mg Take 1 tablet by mouth daily at bedtime for 30 days. - famotidine (PEPCID) 40 mg tablet Take 1 tablet by mouth once daily. - buPROPion XL (WELLBUTRIN XL) 150 mg 24 hr tablet Take 1 tablet by mouth once daily. Week 1 just take 1/2 tablet. Starting week 2 take a whole tablet - ibuprofen/diphenhydrami ne HCl (ADVIL PM LIQUI-GELS ORAL) Take 1 tablet by mouth daily at bedtime. Problem List As Of Date 09/20/2022 Noted Resolved RUQ pain [R10.11] 08/02/2021 Chronic insomnia [F51.04] 09/05/2022 GERD without esophagitis [K21.9] 09/05/2022 Depression [F32.A] 0 (more content not included)... Normal [facility] NATALIE REFLEXon 08-14-2022 NATALIE REFLEX Negative Normal . [facility] Comment on above: Result Comment: Nega tive <1:80 Borderline 1:80 Positive >1:80 ICAP nomenclature: AC-0 For more information about Hep-2 cell patterns use ANApatterns.org, the official website for the International Consensus on Antinuclear Antibody (NATALIE) Patterns (ICAP). Performed at: [facility] [address] [id number] Cattle Sprayer: Tono Jiang PhD, Phone: [phone] Performed By: #### L 100.0005, L304.0297, L100.0040, L304.0162, L100.0470, L304.0200, L304.0140, L304.0480 #### [facility] [address] [place], [place] [id number] NATALIE W/REFLEX ([facility])on NATALIE REFLEX Negative [facility] HCV ANTIBODY RFX TO QUANT PC Stan 08-14-2022 HCV Ab IA Ql [facility] HCV Ab Signal/Cutoff IA [Rel units/Vol] 0.2 s/co% 0.0 - 0.9 s/co% [facility] HCV Ab Rflxon 08-14-2022 HCV AB 0.2 s/co% Normal 0.0-0.9 [facility] Comment on above: Result Comment: INFC E Result Units: s/co ratio Performed By: #### L 100.0005, L304.0297, L100.0040, L304.0162, L100.0470, L304.0200, L304.0140, L304.0480 #### [facility] [address] [place] [address] Interpretation Normal [facility] Comment on above: Result Comment: Nega tive Not infected with HCV, unless recent infection is suspected or other evidence exists to indicate HCV infection. Performed at: [facility] [address] [id number] Cattle Sprayer: Tono Jiang PhD, Phone: [phone] THIS IS A CORRECTED REPORT 08/14/22 0306: Interpretation previously reported as: Performed By: #### L 100.0005, L304.0297, L100.0040, L304.0162, L100.0470, L304.0200, L304.0140, L304.0480 #### ML [facility] [address] [place] [address]185 HIV RAPIDon 08-10-2022 RAPID HIV Non-Reactive Normal NONREACTIVE [facility] Comment on above: Result Comment: NEGA TIVE FOR HIV-1 AND HIV-2 ANTIBODIES. A NON-REACTIVE RESULT DOES NOT PRECLUDE THE POSSIBILITY OF EXPOSURE TO HIV OR INFECTION WITH HIV. AN ANTIBODY RESPONSE TO RECENT EXPOSURE MAY TAKE SEVERAL WEEKS TO REACH DETECTABLE LEVELS WITH THIS ASSAY. Performed By: #### L 300.0500 #### [facility] [address] [place] [address]241 25-hydroxyvitamin D3 [Mass/V ol]on 08-09-2022 VITAMIN D 30.6 ng/mL 30 - 100 ng/mL [facility] C-REACTIVE PROTon 08-09-2022 C-REACTIVE PROT <0.30 Normal 0.00-0.90 [facility] Comment on above: Result Comment: STAT ED NORMAL RANGE IS FOR ADULTS ONLY. NO NORMAL RANGE HAS BEEN ESTABLISHED FOR CHILDREN. Performed By: #### L 100.0005, L304.0297, L100.0040, L304.0162, L100.0470, L304.0200, L304.0140, L304.0480 #### [facility] [address] [place] [address] 88804 CBCon 08-09-2022 BASO# 0.20 x10(3) High 0.00-0.10 [facility] Comment on above: Performed By: #### L 200.0010, L200.1500 #### [facility] - [facility] [address] [place] [address] 07592 Basophils/100 WBC (Bld) 2.2 % High 0.0-1.0 [facility] Comment on above: Performed By: #### L 200.0010, L200.1500 #### [facility] [address] [place] [address] 74353 EOS# 0.10 x10(3) Normal 0.00-0.54 [facility] Comment on above: Performed By: #### L 200.0010, L200.1500 #### [facility] [address] [place] [address] 50689 Eosinophils/100 WBC (Bld) 1.0 % Normal 0.5-4.9 [facility] Comment on above: Performed By: #### L 200.0010, L200.1500 #### [facility] [address] [place] [address] 70366 Erythrocyte distribution width (RBC) [Ratio] 13.2 % Normal 12.7-15.3 [facility] Comment on above: Performed By: #### L 200.0010, L200.1500 #### [facility] [address] [place] [address] 35420 Hematocrit (Bld) [Volume fraction] 47.3 % Normal 42.0-51.0 [facility] Comment on above: Performed By: #### L 200.0010, L200.1500 #### [facility] [address] [place] [address] 76381 Hemoglobin (Bld) [Mass/Vol] 15.8 g/dL Normal 14.0-17.2 [facility] Comment on above: Performed By: #### L 200.0010, L200.1500 #### [facility] [address] [place] [address] 92651 LYMPH# 1.10 x10(3) Normal 1.00-3.50 [facility] Comment on above: Performed By: #### L 200.0010, L200.1500 #### [facility] [address] [place] [address] 26681 Lymphocytes/100 WBC (Bld) 13.9 % Low 16.0-48.0 [facility] Comment on above: Performed By: #### L 200.0010, L200.1500 #### [facility] [address] [place] [address] 49391 MCH (RBC) [Entitic mass] 30.5 pg Normal 28.8-32.2 [facility] Comment on above: Performed By: #### L 200.0010, L200.1500 #### [facility] [address] [place] [address] 25446 MCHC (RBC) [Mass/Vol] 33.4 g/dL Normal 33.0-36.0 [facility] Comment on above: Performed By: #### L 200.0010, L200.1500 #### [facility] [address] [place] [address] 78340 MCV (RBC) [Entitic vol] 91.3 fL Normal 80.0-94.0 [facility] Comment on above: Performed By: #### L 200.0010, L200.1500 #### [facility] [address] [place] [address] 02606 MONO# 0.50 x10(3) Normal 0.30-0.80 [facility] Comment on above: Performed By: #### L 200.0010, L200.1500 #### [facility] [address] [place] [address] 55225 Monocytes/100 WBC (Bld) 6.0 % Normal 4.3-11.2 [facility] Comment on above: Performed By: #### L 200.0010, L200.1500 #### [facility] [address] [place] [address] 65263 NEUT# 6.00 x10(3) Normal 1.40-6.50 [facility] Comment on above: Performed By: #### L 200.0010, L200.1500 #### [facility] [address] [place] [address] 48504 Neutrophils/100 WBC (Bld) 76.9 % High 45.0-73.0 [facility] Comment on above: Performed By: #### L 200.0010, L200.1500 #### [facility] [address] [place] [address] 00572 Platelet mean volume (Bld) [Entitic vol] 8.7 fL Normal 7.4-9.2 [facility] Comment on above: Performed By: #### L 200.0010, L200.1500 #### [facility] [address] [place] [address] 54039 PLT 272 X10(3) Normal 150-450 [facility] Comment on above: Performed By: #### L 200.0010, L200.1500 #### [facility] [address] [place] [address] 83944 RBC 5.18 x10(6) Normal 4.80-5.50 [facility] Comment on above: Performed By: #### L 200.0010, L200.1500 #### [facility] [address] [place] [address] 03310 WBC 7.9 x10(3) Normal 4.5-10.0 [facility] Comment on above: Performed By: #### L 200.0010, L200.1500 #### [facility] [address] [place] [address] 83980 CBC W Auto Differential pane l (Bld)on 08-09-2022 BASO ABS 0.20 x10(3) High 0.00 - 0.10 x10(3) [facility] Basophils/100 WBC (Bld) 2.2 % High 0.0 - 1.0 % [facility] EOS ABS 0.10 x10(3) 0.00 - 0.54 x10(3) [facility] Eosinophils/100 WBC (Bld) 1.0 % 0.5 - 4.9 % [facility] Erythrocyte distribution width (RBC) [Ratio] 13.2 % 12.7 - 15.3 % [facility] Hematocrit (Bld) [Volume fraction] 47.3 % 42.0 - 51.0 % [facility] Hemoglobin (Bld) [Mass/Vol] 15.8 g/dL 14.0 - 17.2 g/dL [facility] LYMPH ABS 1.10 x10(3) 1.00 - 3.50 x10(3) [facility] Lymphocytes/100 WBC (Bld) 13.9 % Low 16.0 - 48.0 % [facility] MCH (RBC) [Entitic mass] 30.5 pg 28.8 - 32.2 pg [facility] MCHC (RBC) [Mass/Vol] 33.4 g/dL 33.0 - 36.0 g/dL [facility] MCV (RBC) [Entitic vol] 91.3 fL 80.0 - 94.0 fl [facility] MONO ABS 0.50 x10(3) 0.30 - 0.80 x10(3) [facility] Monocytes/100 WBC (Bld) 6.0 % 4.3 - 11.2 % [facility] Neutrophil Ab 6.00 x10(3) 1.40 - 6.50 x10(3) [facility] Neutrophils/100 WBC (Bld) 76.9 % High 45.0 - 73.0 % [facility] Platelet mean volume (Bld) [Entitic vol] 8.7 fL 7.4 - 9.2 fl [facility] Platelets (Bld) [#/Vol] 272 X10(3) 150 - 450 X10(3) [facility] RBC (Bld) [#/Vol] 5.18 x10(6) 4.80 - 5.5 0 x10(6) [facility] WBC (Bld) [#/Vol] 7.9 x10(3) 4.5 - 10.0 x10(3) [facility] CMPon 08-09-2022 A:G RATIO 2.08 Normal 1.1-2.5 [facility] Comment on above: Performed By: #### L 100.0005, L304.0297, L100.0040, L304.0162, L100.0470, L304.0200, L304.0140, L304.0480 #### [facility] [address] [place] [address] 17460 Albumin [Mass/Vol] 5.2 g/dL Normal 3.5-5.2 [facility] Comment on above: Performed By: #### L 100.0005, L304.0297, L100.0040, L304.0162, L100.0470, L304.0200, L304.0140, L304.0480 #### [facility] [address] [place] [address] 72457 ALK. PHOS 84 U/L Normal 40-130 [facility] Comment on above: Performed By: #### L 100.0005, L304.0297, L100.0040, L304.0162, L100.0470, L304.0200, L304.0140, L304.0480 #### [facility] [address] [place] [address] 90376 ALT [Catalytic activity/Vol] 27 U/L Normal 5-41 [facility] Comment on above: Performed By: #### L 100.0005, L304.0297, L100.0040, L304.0162, L100.0470, L304.0200, L304.0140, L304.0480 #### [facility] [address] [place] [address] 41194 Anion gap [Moles/Vol] 13.7 mmol/L Low 15-22 [facility] Comment on above: Performed By: #### L 100.0005, L304.0297, L100.0040, L304.0162, L100.0470, L304.0200, L304.0140, L304.0480 #### [facility] [address] [place] [address] 30683 AST [Catalytic activity/Vol] 19 U/L Normal 5-40 [facility] Comment on above: Performed By: #### L 100.0005, L304.0297, L100.0040, L304.0162, L100.0470, L304.0200, L304.0140, L304.0480 #### [facility] [address] [place] [address] 71226 Bilirubin [Mass/Vol] 0.8 mg/dL Normal 0.2-1.2 [facility] Comment on above: Performed By: #### L 100.0005, L304.0297, L100.0040, L304.0162, L100.0470, L304.0200, L304.0140, L304.0480 #### - [facility] [address] [place] [address] 64613 Calcium [Mass/Vol] 9.6 mg/dL Normal 8.6-10.0 [facility] Comment on above: Performed By: #### L 100.0005, L304.0297, L100.0040, L304.0162, L100.0470, L304.0200, L304.0140, L304.0480 #### [facility] [address] [place] [address] 96589 Chloride [Moles/Vol] 102 mmol/L Normal 98-107 [facility] Comment on above: Performed By: #### L 100.0005, L304.0297, L100.0040, L304.0162, L100.0470, L304.0200, L304.0140, L304.0480 #### [facility] [address] [place] [address] 34220 CO2 [Moles/Vol] 28 mmol/L Normal 22-29 [facility] Comment on above: Performed By: #### L 100.0005, L304.0297, L100.0040, L304.0162, L100.0470, L304.0200, L304.0140, L304.0480 #### [facility] [address] [place] [address] 35778 Creatinine [Mass/Vol] 0.93 mg/dL Normal 0.70-1.20 [facility] Comment on above: Performed By: #### L 100.0005, L304.0297, L100.0040, L304.0162, L100.0470, L304.0200, L304.0140, L304.0480 #### [facility] [address] [place] [address] 42126 eGFR if AFR MASHA > 60 ml/min/1.73m2 Normal U [facility] Comment on above: Result Comment: eGFR >= 60 Indicates normal kidney function. * eGFR IS AN ESTIMATE * (AFR MASHA = ) (non-AFR AM = NON-) MDRD calculation used in the eGFR should not be used to dose medications. For further limitations of the eGFR please refer to the Physician Website or the National Kidney Disease Education Program website (www.nkdep.nih.gov). Performed By: #### L 100.0005, L304.0297, L100.0040, L304.0162, L100.0470, L304.0200, L304.0140, L304.0480 #### - [facility] [address] [place] [address] 40136 eGFR nonAFR Masha > 60 ml/Min/1.73m2 Normal U [facility] Comment on above: Performed By: #### L 100.0005, L304.0297, L100.0040, L304.0162, L100.0470, L304.0200, L304.0140, L304.0480 #### [facility] [address] [place] [address] 44271 Globulin (S) [Mass/Vol] 2.5 g/dL Normal 1.5-4.5 [facility] Comment on above: Performed By: #### L 100.0005, L304.0297, L100.0040, L304.0162, L100.0470, L304.0200, L304.0140, L304.0480 #### [facility] [address] [place] [address] 05317 Glucose [Mass/Vol] 95 mg/dL Normal 74-106 [facility] Comment on above: Performed By: #### L 100.0005, L304.0297, L100.0040, L304.0162, L100.0470, L304.0200, L304.0140, L304.0480 #### [facility] - [facility] [address] [place] [address] 17537 Potassium [Moles/Vol] 4.7 mmol/L Normal 3.5-5.0 [facility] Comment on above: Performed By: #### L 100.0005, L304.0297, L100.0040, L304.0162, L100.0470, L304.0200, L304.0140, L304.0480 #### [facility] [address] [place] [address] 47088 Protein [Mass/Vol] 7.7 g/dL Normal 6.4-8.3 [facility] Comment on above: Performed By: #### L 100.0005, L304.0297, L100.0040, L304.0162, L100.0470, L304.0200, L304.0140, L304.0480 #### [facility] [address] [place] [address] 05609 Sodium [Moles/Vol] 139 mmol/L Normal 135-145 [facility] Comment on above: Performed By: #### L 100.0005, L304.0297, L100.0040, L304.0162, L100.0470, L304.0200, L304.0140, L304.0480 #### [facility] [address] [place] [address] 31580 Urea nitrogen [Mass/Vol] 18 mg/dL Normal 6-20 [facility] Comment on above: Performed By: #### L 100.0005, L304.0297, L100.0040, L304.0162, L100.0470, L304.0200, L304.0140, L304.0480 #### [facility] [address] [place] [address] 53049 Jack 08-09-2022 CNOV Office Visit ([facility] ) SOLOMON LAURA ([id number]) 1995 M Date Time Provider Department 08/09/22 10:40 AM JORGE LUIS STOUT UPCN During your visit today, we recorded the following information about you: Temperature Pulse Blood pressure Weight 98.6 degrees 83/minute 138/88 99.3 kg Jorge Luis Stout APRN.[facility] 08/09/2022 11:30 AM Signed Solomon Laura is a 27 year old male here today for an annual physical. Concern(s) today include: none. Takes trazodone every night to help him sleep. He is able to fall asleep but not maintain sleep. He has been very tired during the day. Takes omeprazole for GERD. He did stop this due to weight gain. He thought it might have been causing his weight gain. As long as he avoids trigger foods he has no symptoms. Was seeing general surgeon in the past for this. States he has gained a significant amount of weight the past 7 months has put on 50 pounds. He did start exercising without success. Sometimes feels down, low motivation. Overview Notes of Problems Addressed This Visit None Visit Diagnoses Wellness examination - Primary Relevant Orders CBC + DIFF COMP METABOLIC PANEL LIPID PANEL BASIC TSH BLD VITAMIN D 25 HYDROXY VITAMIN B12 BLOOD T3 FREE BLD T4 FREE/FREE THYROX HIV-1/0/2 AG/AB 4TH GEN ([facility]) HEP C AB IA W/CONF SCRN TESTOSTERONE TOTAL GERD without esophagitis Relevant Medications famotidine (PEPCID) 40 mg tablet Chronic insomnia Relevant Medications hydrOXYzine HCl (ATARAX) 25 mg tablet Encounter for immunization Relevant Orders INFLUENZA VACCINE QUADRIVALENT 6 MO - 64 YRS IM Weight gain Relevant Orders TESTOSTERONE TOTAL Depression, unspecified depression type Relevant Medications buPROPion XL (WELLBUTRIN XL) 150 mg 24 hr tablet Fatigue, unspecified type Relevant Orders SED RATE WESTERGREN C-REACTIVE PROTEIN (CRP) NATALIE BLOOD TESTOSTERONE TOTAL Obesity, Class I, BMI 30-34.9 BMI 33.0-33.9,adult His medications were reviewed today and his list is now up to date. He is following an appropriate diet for his medical problems: No He is getting some exercise in? Yes Social History Tobacco Use Smoking status: Never Smokeless tobacco: Never Substance Use Topics Alcohol use: Yes Comment: occasional Drug use: Never Review of Systems General: Denies fever. Positive weight gain and fatigue. Skin: Denies rashes, itching, lesions HEENT: Denies visual disturbances, sore throat, runny nose, congestion, ear pain Respiratory: Denies cough, wheezing, SOB Cardiovascular: Denies chest pain, edema, heart palpitations Gastrointestinal: Denies abdominal pain, nausea, vomiting, diarrhea, constipation, blood in stools Genitourinary: Negative for dysuria, frequency and incontinence. No testicular pain, lumps, or swelling. No penile discharge. Musculoskeletal: Denies joint pain, joint swelling, or muscle pain Neurological: Denies dizziness, confusion, vision changes, headache Endocrine: Denies cold intolerance, excessive sweating, excessive thirst, excessive urination, hair changes BP 138/88 (BP Site: Right Arm, BP Position: Sitting, BP Cuff Size: Extra Large Adult) Pulse 83 Temp 37 ?C (98.6 ?F) (Oral) Wt 99.3 kg (219 lb) SpO2 97% BMI 33.30 kg/m? BMI 33.30 kg/(m2) Physical Exam General: Cooperative, no acute distress, alert, well nourished, well developed. Integumentary: No rashes, color normal, normal moisture. Head and Neck: No lymphadenopathy, neck supple, no thyroid enlargement or nodules, non-tender. Chest and Lungs: Respirations easy and non-labored. No use of accessory muscles. Auscultation reveals clear lung sounds: no wheezes, rhonchi, or crackles Cardiovascular: Normal heart sounds, regular rate and rhythm, no murmurs. No carotid bruit bilaterally. Abdomen: Inspection normal. Palpation: soft, non-tender. No rebound tenderness, rigidity, or guarding. No masses. No hepatosplenomegaly. Auscultation reveals normal bowel sounds in all 4 quadrants. Musculoskeletal: Strength 5/5 to upper and lower extremities. No swelling, deformity, erythema, warmth, or tenderness to joints. Peripheral Vascular: Inspection to bilateral lower extremities normal. Palpation: bilateral posterior tibial pulses 2+. Temperature normal. No edema bilaterally. Neurologic: Oriented x 3. Extraocular eye movements intact. Pupils round, equal, reactive to light, and accomodation. Patellar reflexes 2+ bilaterally. ASSESSMENT/PLAN: 1. Wellness examination - ICD9: V70.0, ICD10: Z00.00 (primary diagnosis) - Counseled on healthy diet and regular exercise - Discussed need for and benefit of weight loss. BMI 33.30 kg/(m2) - CBC + DIFF - COMP METABOLIC PANEL - LIPID PANEL BASIC - TSH BLD - VITAMIN D 25 HYDROXY - VITAMIN B12 BLOOD - T3 FREE BLD - T4 FREE/FREE THYROX - HIV-1/0/2 AG/AB 4TH GEN ([facility]) - (more content not included)... Normal [facility] CRP [Mass/Vol]on 08-09-2022 CRP High sensitivity method (Bld) [Mass/Vol] <0.30 0.00 - 0.90 mg/dL [facility] Comprehensive metabolic 2000 panelon 08-09-2022 Albumin [Mass/Vol] 5.2 g/dL 3.5 - 5.2 g/dL [facility] Albumin/Globulin [Mass ratio] 2.08 {ratio} 1.1 - 2.5 [facility] ALP [Catalytic activity/Vol] 84 U/L 40 - 130 U/L [facility] ALT [Catalytic activity/Vol] 27 U/L 5 - 41 U/L [facility] Anion gap [Moles/Vol] 13.7 mmol/L Low 15 - 22 mmol/L [facility] AST [Catalytic activity/Vol] 19 U/L 5 - 40 U/L [facility] Bilirubin [Mass/Vol] 0.8 mg/dL 0.2 - 1.2 mg/dL [facility] Calcium [Mass/Vol] 9.6 mg/dL 8.6 - 10. 0 mg/dL [facility] Chloride [Moles/Vol] 102 mmol/L 98 - 107 mmol/L [facility] CO2 [Moles/Vol] 28 mmol/L 22 - 29 mmol/L [facility] Creatinine [Mass/Vol] 0.93 mg/dL 0.70 - 1.20 mg/dL [facility] eGFR-All Other Races > 60 ml/Min/1.73m2 [facility] GFR/1.73 sq M.predicted among blacks MDRD (S/P/Bld) [Vol rate/Area] mL/min/{1.73_m2} [facility] Globulin (S) [Mass/Vol] 2.5 g/dL 1.5 - 4.5 g/dL [facility] Glucose [Mass/Vol] 95 mg/dL 74 - 106 mg/dL [facility] Potassium [Moles/Vol] 4.7 mmol/L 3.5 - 5.0 mmol/L [facility] Protein [Mass/Vol] 7.7 g/dL 6.4 - 8.3 g/dL [facility] Sodium [Moles/Vol] 139 mmol/L 135 - 145 mmol/L [facility] Urea nitrogen [Mass/Vol] 18 mg/dL 6 - 20 mg/dL [facility] ESRon 08-09-2022 ESR (Bld) [Velocity] 2 mm/h Normal 0-15 [facility] Comment on above: Performed By: #### L 100.0005, L304.0297, L100.0040, L304.0162, L100.0470, L304.0200, L304.0140, L304.0480 #### [facility] - LABORATORY [address] [place] [address] ESR Westergren method (Bld) [Velocity]on 08-09-2022 Erythro Sed Rate 2 MM/HR 0 - 15 MM/HR [facility] FREE T3on 08-09-2022 Free T3 [Mass/Vol] 3.8 pg/mL Normal 2.0-4.4 [facility] Comment on above: Performed By: #### L 100.0005, L304.0297, L100.0040, L304.0162, L100.0470, L304.0200, L304.0140, L304.0480 #### [facility] - [facility] [address] [place] [address] Free T4on 08-09-2022 Free T4 [Mass/Vol] 1.12 ng/dL Normal 0.93-1.7 [facility] Comment on above: Performed By: #### L 100.0005, L304.0297, L100.0040, L304.0162, L100.0470, L304.0200, L304.0140, L304.0480 #### [facility] - [facility] [address] [place] [address] 58374 HIV RAPID (ALMOND)on 08-09-20 Rapid HIV Ab Non-Reactive NONREACTIVE [facility] LIPID PANELon 08-09-2022 Cholesterol [Mass/Vol] 180 mg/dL Normal 130-200 [facility] Comment on above: Performed By: #### L 100.0005, L304.0297, L100.0040, L304.0162, L100.0470, L304.0200, L304.0140, L304.0480 #### [facility] - LABORATORY [address] [place] [address] Cholesterol in HDL [Mass/Vol] 46 mg/dL Normal [facility] Comment on above: Result Comment: Luly onal Cholesterol Education Program (NCEP) guidelines: <40 mg/dL: Low HDL-Cholesterol(major risk factor for CHD) > or = 60 mg/dL: High HDL-Cholesterol(negative risk factor for CHD) HDL-cholesterol is affected by a number of factors, e.g., smoking, exercise, hormones, sex, and age. 4th Generation Test; Results may be approximately 7% lower than previous values. Performed By: #### L 100.0005, L304.0297, L100.0040, L304.0162, L100.0470, L304.0200, L304.0140, L304.0480 #### [facility] [address] [place] [address] Cholesterol in LDL [Mass/Vol] 89 mg/dL Normal [facility] Comment on above: Result Comment: LDL: OPTIMAL FOR PEOPLE AT VERY HIGH RISK <70 OPTIMAL <100 NEAR OPTIMAL 100-129 BORDERLINE HIGH 130-159 HIGH 160-189 VERY HIGH >=190 Source: 2009 NCEP ATP III, ADA Guidelines Reviewed: November, Performed By: #### L 100.0005, L304.0297, L100.0040, L304.0162, L100.0470, L304.0200, L304.0140, L304.0480 #### [facility] - LABORATORY [address] [place] [address] Cholesterol in VLDL [Mass/Vol] 45 mg/dL High 6-40 [facility] Comment on above: Performed By: #### L 100.0005, L304.0297, L100.0040, L304.0162, L100.0470, L304.0200, L304.0140, L304.0480 #### [facility] - [facility] [address] [place] [address] 27625 LDL/HDL RATIO 1.9 Normal [facility] Comment on above: Performed By: #### L 100.0005, L304.0297, L100.0040, L304.0162, L100.0470, L304.0200, L304.0140, L304.0480 #### [facility] - [facility]ORY [address] [place] [address] Triglyceride [Mass/Vol] 226 mg/dL Normal [facility] Comment on above: Result Comment: TRIG : DESIRABLE: <150 mg/dL Performed By: #### L 100.0005, L304.0297, L100.0040, L304.0162, L100.0470, L304.0200, L304.0140, L304.0480 #### [facility] [address] [place] [address] 48603 Lipid 1996 panelon Cholesterol [Mass/Vol] 180 mg/dL 130 - 200 mg/dL [facility] Cholesterol in HDL [Mass/Vol] 46 mg/dL [facility] Cholesterol in LDL [Mass/Vol] 89 mg/dL [facility] LDL:HDL Ratio 1.9 [facility] Triglyceride [Mass/Vol] 226 mg/dL [facility] VLDL Cholesterol 45 mg/dL High 6 - 40 mg/dL [facility] T3 FREE BLDon 08-09-2022 Free T3 [Mass/Vol] 3.8 pg/mL 2.0 - 4.4 pg/mL [facility] T4 FREE/FREE THYROXon 2021 Free T4 [Mass/Vol] 1.12 ng/dL 0.93 - 1. 7 ng/dL [facility] TESTOSTERONE TOon 08-09-2022 TESTOSTERONE TO 458.4 ng/dL Normal 249-836 [facility] Comment on above: Performed By: #### L 100.0005, L304.0297, L100.0040, L304.0162, L100.0470, L304.0200, L304.0140, L304.0480 #### [facility] [address] [place] [address] 68058 TESTOSTERONE TOTALon 022 Testosterone [Mass/Vol] 458.4 ng/dL 249 - 836 ng/dL [facility] TSHon 08-09-2022 TSH 1.36 uIU/mL Normal 0.270-4.200 [facility] Comment on above: Performed By: #### L 100.0005, L304.0297, L100.0040, L304.0162, L100.0470, L304.0200, L304.0140, L304.0480 #### [facility] - [facility] [address] [place] [address] 81880 TSH BLDon 08-09-2022 TSH Qn 1.36 uIU/mL 0.270 - 4.200 uIU/mL [facility] VIT. B12on 08-09-2022 Cobalamin (Vitamin B12) [Mass/Vol] 542.0 pg/mL Normal 232-1245 [facility] Comment on above: Performed By: #### L 100.0005, L304.0297, L100.0040, L304.0162, L100.0470, L304.0200, L304.0140, L304.0480 #### [facility] [address] [place] [address] 48399 VITAMIN B12 BLOODon 08-09-20 22 Cobalamin (Vitamin B12) [Mass/Vol] 542.0 pg/mL 232 - 1,245 pg/mL [facility] VITAMIN Don 08-09-2022 VITAMIN D 30.6 ng/mL Normal 30-100 [facility] Comment on above: Performed By: #### L 100.0005, L304.0297, L100.0040, L304.0162, L100.0470, L304.0200, L304.0140, L304.0480 #### [facility] - [facility] [address] [place] [address] OPERATIVE REPORT[place] [address] HEALTH INFORMATION MANAGEMENT OPERATIVE REPORT Patient: SOLOMON LAURA PHOENIX OTTO M.D. [id number] 93 28 M Status: [facility] DATE OF SURGERY: 10/09/2021 SURGEON: Phoenix Otto MD PREOPERATIVE DIAGNOSES: Abdominal pain, nausea, vomiting. POSTOPERATIVE DIAGNOSES: Gastritis and duodenitis. PROCEDURE: Esophagogastroduodenosc opy with biopsies of the duodenum and antrum. ANESTHESIA: IV general. PROCEDURE SUMMARY: The patient was brought to the endoscopy room and placed on the table in the left lateral position. Given IV general anesthetic. Bite block was put in place. The endoscope advanced through the oropharynx, esophagus and the gastric lumen. There was erythema and linear erosions in the pre-pyloric antrum that also extended down into the duodenal bulb and second portion of the duodenum. The mucosa appeared to have some loss of microvilli. Multiple biopsies were obtained of the duodenum. Biopsies were obtained of the antrum for pathology and for CLOtest. There was no magen ulceration, no mass. The gastric body, cardia and fundus were normal. The EG junction was normal. Esophagus was normal. Scope was removed. He tolerated the procedure well. OPERATIVE FINDINGS: Gastritis, duodenitis. RECOMMENDATION: Review biopsy results. Resume Prilosec and we will add Carafate. Avoid nonsteroidal anti- inflammatories and alcohol. Follow up with me in the office to review biopsy results. Report#: Dict ID [id number] / Int ID [id number] 10/13/21 0800 PHOENIX OTTO M.D. cc: PHOENIX OTTO M.D. << Signature on File>> Reported By: PHOENIX OTTO M.D. Signed By: PHOENIX OTTO M.D. Tests performed at: [address] [id number] Normal [facility] [place] [address] HEALTH INFORMATION MANAGEMENT OPERATIVE REPORT Patient: SOLOMON LAURA PHOENIX OTTO M.D. [id number] M Status: [facility] AMB DATE OF SURGERY: 10/09/2021 SURGEON: Phoenix Otto MD PREOPERATIVE DIAGNOSES: Abdominal pain, diarrhea. POSTOPERATIVE DIAGNOSIS: Grossly normal colonoscopy to the terminal ileum. PROCEDURE: Colonoscopy with random biopsies. ANESTHESIA: IV general. PROCEDURE SUMMARY: The patient was brought to the endoscopy room and placed on the table in the left lateral position under IV general anesthetic. Digital rectal exam was performed. There were no masses in the anal canal, distal rectum. Colonoscope advanced to the cecum. Cecal position confirmed, identification of appendiceal orifice and ileocecal junction. The terminal ileum was then entered. This grossly appeared normal. Biopsy of the terminal ileum was obtained as the scope was withdrawn. Random biopsies were obtained in the ascending, transverse, descending, and rectosigmoid area. There was no ulceration, mass, or inflammatory change grossly. The scope was removed. He tolerated the procedure well. OPERATIVE FINDINGS: Grossly normal colonoscopy. RECOMMENDATION: Follow up with me in the office to review biopsy results. Report#: Dict ID [id number] / Int ID [id number] 10/13/21 0800 PHOENIX OTTO M.D. cc: PHOENIX OTTO M.D. << Signature on File>> Reported By: PHOENIX OTTO M.D. Signed By: PHOENIX OTTO M.D. Tests performed at: [address] [address] Normal [facility] SURGICALon 10-09-2021 SURGICAL OTHER - H PYLORI BX ANTRUM - Duodenum - TERMINAL ILEUM - COLON, RANDOM BIOPSY - FINAL DIAGNOSIS: A. DESIGNATED H. PYLORI, BIOPSY: MILD CHRONIC GASTRITIS, SEE COMMENT. Comment: An immunohistochemical stain performed and interpreted at [facility] is negative for Helicobacter organisms. No ulceration, intestinal metaplasia, or malignancy identified. B. STOMACH, ANTRUM, BIOPSY: GASTRIC ANTRAL MUCOSA WITH MILD CHRONIC GASTRITIS, SEE COMMENT. Comment: No intestinal metaplasia, ulceration, or malignancy is identified. C. DUODENUM, BIOPSY: DUODENAL MUCOSA, NO PATHOLOGICAL DIAGNOSIS, SEE COMMENT. Comment: Villous architecture is preserved; no parasites are identified. D. TERMINAL ILEUM, BIOPSY: ILEAL MUCOSA, NO PATHOLOGICAL DIAGNOSIS, SEE COMMENT. Comment: Villous architecture is preserved. No ulceration, active inflammation, or granulomas identified. E. COLON, RANDOM BIOPSIES: COLONIC MUCOSA, NO PATHOLOGICAL DIAGNOSIS, SEE COMMENT. Comment: No microscopic colitis, granulomas, cryptitis or crypt abscess identified. Known positive results were tested with each antibody and examined to ensure positivity. Internal positive controls react appropriately, when present. The performance characteristics of the immunohistochemical stains were determined by the testing laboratory. They may not have been cleared or approved by the U. S. Food and Drug Administration (FDA). The FDA has determined that such clearance or approval is not necessary. These tests are used for clinical purposes. They should not be regarded as investigational or for research. This laboratory is certified under the Clinical Laboratory Improvement Amendments of 1988 (CLIA) as qualified to perform highly complex clinical laboratory testing. Dictated by: KING SYLVESTER M.D. MICROSCOPIC DESCRIPTION: SLIDE(S) EXAMINED. [facility] 10/11/2021 GROSS DESCRIPTION: A. Labeled Helicobacter pylori. Received in formalin is a single biopsy measuring 0.3 x 0.2 x 0.2 cm. The specimen is submitted in toto in one cassette. B. Labeled antral biopsy. Received in formalin is a single biopsy measuring 0.3 x 0.3 x GROSS DESCRIPTION: (Continued) 0.2 cm. The specimen is submitted in toto in one cassette. C. Labeled biopsy of duodenum. Received in formalin are multiple biopsies consisting of three fragments measuring 0.4 x 0.4 x 0.2 cm in aggregate. The specimen is submitted in toto in one cassette. D. Labeled biopsy terminal ileum. Received in formalin is a single biopsy measuring 0.4 x 0.3 x 0.2 cm. The specimen is submitted in toto in one cassette. E. Labeled random colon biopsy. Received in formalin are multiple biopsies consisting of four fragments measuring 0.6 x 0.6 x 0.2 cm in aggregate. The specimen is submitted in toto in one cassette. [facility] 10/10/2021 CLINICAL DATA: PROCEDURE: EGD with biopsy, Colonoscopy with biopsy PRE-OP: RUQ pain POST-OP: Gastritis, duodenitis, normal colon HISTORY: N/A Signed *Electronically Signed* KING SYLVESTER M.D. 10/11/21 1321 [facility] Comment on above: Performed By: #### P -S #### [facility] [address] [place] [address] ED REPORTon 09-15-2021 [place] [address] HEALTH INFORMATION MANAGEMENT EMERGENCY DEPARTMENT REPORT Patient: SOLOMON LAURA ETTA NAIR as dictated by VINCE GRANADOS [id number] 89 28 M Status: DEP ER ED Date of Service: 07/18/21 ADDENDUM: REVIEW OF SYSTEMS: 10-point organ review of systems completed and negative other than stated in previous. SOCIAL HISTORY: He is single. He does admit to smoking marijuana with rare use of alcohol. PAST SURGICAL HISTORY: None reported. PAST MEDICAL HISTORY: None reported. MEDICATIONS: No home medications. There is no family physician. ALLERGIES: He has no known drug allergies. PHYSICAL EXAMINATION: VITAL SIGNS: Blood pressure is 158/77, temperature is 99.5, pulse 76, respirations 20, and oxygen saturation 98%. GENERAL: The patient is alert and oriented, he is in no distress. He is non toxic, non-ill appearing. HEENT: Head is atraumatic and normocephalic. Sclerae are white. Pupils are equal and round. He has moist oral mucosa. Trachea midline. Good facial symmetry. No rhinorrhea. LUNGS: Clear to auscultation bilaterally. No wheezes, rales, or rhonchi noted. No cough. No dyspnea. HEART: Regular rate and rhythm. No murmurs, rubs, or gallops noted. No lower extremity edema. ABDOMEN: Nondistended. Positive bowel sounds. MUSCULOSKELETAL: He has good overall strength that is symmetrical. He ambulates with a steady gait. NEUROLOGIC: No focal deficits noted. SKIN: Warm, dry, normal color for ethnicity. EMERGENCY DEPARTMENT COURSE: We did discuss his symptoms with his abdominal concerns have been off and on for the last 8 months, and from the patient's standpoint he has seen other providers for this in specialty that he has followed up with. He did have a CAT scan done about 4 months ago, but he was unclear about the findings of that, so with that in his visit here tonight in the ER due to the severity, we did go ahead and order a CT of the abdomen and pelvis along with blood work. He is aware that there are no rooms available in the ER, and he will be evaluated and seen here in triage. He verbalizes understanding of this and is in agreement to go ahead and get the process started despite not having a room in the ER. Addendum to follow. Report#: Dict ID [id number] / Int ID [id number] 09/15/21 2244 ETTA MCGREGOR cc: ETTA MCGREGOR; No Physician << Signature on File>> Reported By: ETTA MCGREGOR Signed By: ETTA MCGREGOR Tests performed at: [address] [address] [facility] EMERGENCY DEPARTMENTon 08-08 EMERGENCY DEPARTMENT [place] [id number] HEALTH INFORMATION MANAGEMENT EMERGENCY DEPARTMENT : [id number] Signed Patient: SOLOMON LAURA Acct:[id number] MRUN: [id number] : 1995 Sex: M Loc: ED ADM Date: Room/Bed: DISC Date: 08/06/21 History of Present Illness - General Chief Complaint: Vomiting Stated Complaint: VOMITING NAUSEA DIARRHEA DEHYDRATED Symptom onset: ongoing abdominal pain vomiting for a few months HPI: has been seen here [facility] for this pain and nausea , was supposed to have an upper and lower scope tomorrow but cancelled due to not being able to do the prep. stated he had a normal gall bladder scan , normal scan of rt kidney and of pancreas last week . pt stated he has had chills no fever , has had decreased output and intermittent diarrhea. Denies any travelling history/sick contacts/recent use of antibiotics/Covid exposure. No cough/congestion/fever/ rash. No blood in stool/vomitus or urine. NO LOC/Dizziness/Syncope. No headache/neck pain/dyspnea/chest pain. No speech or vision problems. No numbness/tingling or paresthesia. No unilateral weakness in face or extremities Time Seen by Provider: 08/06/21 14:39 Mode of Transport: Ambulatory - Related Data Home Medications Medication Instructions Recorded Confirmed NK 07/20/21 07/20/21 Allergies Allergy/AdvReac Type Severity Reaction Status Date / Time No Known Allergies Allergy Verified 07/20/21 09:59 Review of System - Constitutional Constitutional: Present: see HPI, Well developed, Well nourished, Non-toxic, chills. Absent: fever, malaise, weakness, Lethargic - Nose,Throat,Mouth Nose (ROS): Present: no symptoms reported. Absent: pain Throat: Present: no symptoms reported. Absent: pain, swelling, discharge Mouth: Present: no symptoms reported. Absent: pain, swelling - Respiratory Respiratory: Present: no symptoms reported. Absent: cough, short of breath, wheezing - CV Cardiology: Present: no symptoms reported. Absent: chest pain, edema - GI Gastrointestinal/Abdomi nal: Present: see HPI, abdominal pain, diarrhea, nausea, vomiting - Genitourinary Symptoms: Present: no symptoms reported. Absent: dysuria - Neuro Neurological: Present: no symptoms reported. Absent: headache, weakness - Muskuloskeletal Musculoskeletal: Present: no symptoms reported. Absent: back pain, joint pain, joint swelling - Integumentary Skin: Present: no symptoms reported. Absent: lesions, rash - Allergic/Immunologic Immunological/Allergic: Present: no symptoms reported - Hematologic Hematologic/Lymphatic: Absent: easy bleeding, easy bruising, swollen glands - Endocrine Endocrine: Present: no symptoms reported - Psychiatric Psychiatric: Present: Normal Affect, Normal Mood. Absent: Depressed - All Others/Exceptions All Other Systems: Reviewed and Negative Except Where Noted in Documentation ED PMH/Social HX/Family HX - Respiratory Hx Respiratory Disorders: No - Cardiovascular Hx Cardiac Disorders: No - Neurological Hx Neurological Disorder: No - Endocrine Hx Endocrine Disorders: No - Gastrointestinal Hx Gastrointestinal Disorders: No - Genitourinary Hx Genitourinary Disorders: No - Musculoskeletal Hx Musculoskeletal Disorders: No - Reproductive Hx Reproductive Disorders: No - Psychological Hx Psychosocial Problems: No - HEENT Hx Ear, Nose Throat Disorders: No - Cancer Hx Cancer: No - Communicable Diseases Other Communicable Diseases PMH: Strep - Social History Highest Educational Level: High School Able to Read: Yes Able to Write: Yes Smoking Status: Never Smoked Hx Chewing Tobacco Use: No Alcohol Use: Rarely Any recreational drug use reported?: Yes (marijuanna) Feels Threatened In Home Environment: No Feels Threatened In a Relationship: No - [place]/Gender ID What is your current Gender Identity? Choose all that Apply: Male Define your Sexual Orientation?: Straight/Heterosexual - [place]-Suicide Severity Rating Scale 1) Wish to be :: No 2) Suicidal Thoughts:: No 6) Suicidal Behavior Question (A): LIFETIME: No 6) Suicidal Behavior Question (B): PAST 3 MONTHS: No General Exam - General Limitations: Complains of: no limitations Constitutional: Present: Well developed, Well nourished, well hydrated, Non-toxic. Absent: chills, diaphoresis, fever, malaise, weakness, Lethargic - Head Head exam: Present: atraumatic, normocephalic, normal inspection - Eye Eye exam: Present: normal apperance, normal accomodation, EOMI Pupils: Present: PERRL - ENT ENT exam: Present: normal orophraynx, mucous membranes moist, TMs clear w/ good light reflex, normal external ear exam, No Nasal Dis (more content not included)... Normal [facility] Amylaseon 08-06-2021 Amylase [Catalytic activity/Vol] 61 U/L Normal 25-115 [facility] Comment on above: Performed By: #### A MY #### [place] [id number] [place] [address] CBC w/Auto Differentialon Basophils Abs. # 0.04 K/uL Normal 0.00-0.10 [facility] Comment on above: Performed By: #### C BCS #### [facility] [address] [place] [address] Basophils/100 WBC (Bld) 0.3 % Normal 0.2-1.0 [facility] Comment on above: Performed By: #### C BCS #### [facility] [address] [place] [address] Eosinophils (Bld) [#/Vol] 0.00 10*3/uL Normal 0.00-0.20 [facility] Comment on above: Performed By: #### C BCS #### [facility] [address] [place] [address] Eosinophils/100 WBC (Bld) 0.1 % Low 0.9-2.9 [facility] Comment on above: Performed By: #### C BCS #### [facility] [address] [place] [address] Erythrocyte distribution width (RBC) [Ratio] 12.8 % Normal 11.5-14.5 [facility] Comment on above: Performed By: #### C BCS #### [facility] [address] [place] [address] Hematocrit (Bld) [Volume fraction] 48.6 % Normal 36.7-50.6 [facility] Comment on above: Performed By: #### C BCS #### [facility] [address] [place] [address] Hemoglobin (Bld) [Mass/Vol] 16.2 g/dL Normal 12.4-17.3 [facility] Comment on above: Performed By: #### C BCS #### [id number] [place] [address] Imm Grans % 0.20 % Normal 0.00-1.00 [facility] Comment on above: Performed By: #### C BCS #### [facility] [address] [place] [address] Imm Grans Absolute # 0.02 K/uL Normal 0.00-0.10 [facility] Comment on above: Performed By: #### C BCS #### [id number] [place] [id number] Lymphocytes (Bld) [#/Vol] 0.90 10*3/uL Low 1.30-2.90 [facility] Comment on above: Performed By: #### C BCS #### [address] [place] [address] Lymphocytes/100 WBC (Bld) 7.0 % Low 17.0-45.5 [facility] Comment on above: Performed By: #### C BCS #### [address] [place] [address] MCH (RBC) [Entitic mass] 30.7 pg Normal 27.0-31.0 [facility] Comment on above: Performed By: #### C BCS #### [facility] [address] [place] [address] MCHC (RBC) [Mass/Vol] 33.3 g/dL Normal 33.0-37.0 [facility] Comment on above: Performed By: #### C BCS #### [facility] [address] [place] [address] MCV (RBC) [Entitic vol] 92.0 fL Normal 80.0-94.0 [facility] Comment on above: Performed By: #### C BCS #### [facility] [address] [place] [address] Monocytes (Bld) [#/Vol] 0.50 10*3/uL Normal 0.30-0.80 [facility] Comment on above: Performed By: #### C BCS #### [facility] [address] [place] [address] Monocytes/100 WBC (Bld) 3.6 % Low 5.5-11.7 [facility] Comment on above: Performed By: #### C BCS #### [facility] [address] [place] [address] Neutrophils Abs. # 10.96 K/uL High 2.20-4.80 [facility] Comment on above: Performed By: #### C BCS #### [facility] [address] [place] [address] Neutrophils/100 WBC (Bld) 88.8 % High 43.0-65.0 [facility] Comment on above: Performed By: #### C BCS #### [facility] [address] [place] [address] Platelet mean volume (Bld) [Entitic vol] 10.0 fL Normal 7.4-10.4 [facility] Comment on above: Performed By: #### C BCS #### [facility] [address] [place] [address] Platelets (Bld) [#/Vol] 314 10*3/uL Normal 148-402 [facility] Comment on above: Performed By: #### C BCS #### [facility] [address] [place] [address] RBC (Bld) [#/Vol] 5.28 10*6/uL Normal 4.13-5.69 [facility] Comment on above: Performed By: #### C BCS #### [facility] [address] [place] [address] WBC (Bld) [#/Vol] 12.3 10*3/uL High 3.6-10.8 [facility] Comment on above: Performed By: #### C BCS #### [facility] [address] [place] [address] CT ABD/PELVIS Won 08-06-2021 CT ABD/PELVIS W EXAMINATION: CT OF THE ABDOMEN AND PELVIS WITH CONTRAST 08/06/2021 4:40 pm TECHNIQUE: CT of the abdomen and pelvis was performed with the administration of intravenous contrast. Multiplanar reformatted images are provided for review. Dose modulation, iterative reconstruction, and/or weight based adjustment of the mA/kV was utilized to reduce the radiation dose to as low as reasonably achievable. COMPARISON: CT abdomen and pelvis 03/02/2021 HISTORY: ORDERING SYSTEM PROVIDED HISTORY: abd pain/vomiting FINDINGS: The liver, spleen, pancreas, adrenal glands, and kidneys are unremarkable. The gallbladder is intact without evidence of biliary ductal dilatation. There is no evidence of bowel obstruction, pneumoperitoneum, or ascites. Again noted is mild thickening of urinary bladder wall, stable. The appendix is unremarkable in appearance. The lung bases are clear. IMPRESSION: No acute abnormality. RECOMMENDATIONS: Unavailable Normal [facility] Comprehensive Metabolic Pane bessy 08-06-2021 Albumin [Mass/Vol] 4.8 g/dL Normal 3.4-5.0 [facility] Comment on above: Performed By: #### C MP #### [facility] [address] [place] [address] Albumin/Globulin [Mass ratio] 1.4 {ratio} Normal 1.1-2.5 [facility] Comment on above: Performed By: #### C MP #### [facility] [address] [place] [address] ALP [Catalytic activity/Vol] 79 U/L Normal 54-112 [facility] Comment on above: Performed By: #### C MP #### [facility] [address] [place] [address] ALT [Catalytic activity/Vol] 26 U/L Normal 13-66 [facility] Comment on above: Performed By: #### C MP #### [facility] [address] [place] [address] Anion gap [Moles/Vol] 16.2 mmol/L High 8.0-16.0 [facility] Comment on above: Performed By: #### C MP #### [facility] [address] [place] [address] AST [Catalytic activity/Vol] 15 U/L Normal 3-39 [facility] Comment on above: Performed By: #### C MP #### [facility] [address] [place] [address] Bilirubin [Mass/Vol] 1.35 mg/dL High 0.00-0.99 [facility] Comment on above: Performed By: #### C MP #### [facility] [address] [place] [address] Calcium [Mass/Vol] 9.2 mg/dL Normal 8.2-10.0 [facility] Comment on above: Performed By: #### C MP #### [facility] [address] [place] [address] Chloride [Moles/Vol] 103 mmol/L Normal 94-110 [facility] Comment on above: Performed By: #### C MP #### [facility] [address] [place] [address] CO2 [Moles/Vol] 26 mmol/L Normal 21-34 [facility] Comment on above: Performed By: #### C MP #### [facility] [address] [place] [address] Creatinine [Mass/Vol] 0.90 mg/dL Normal 0.50-1.17 [facility] Comment on above: Performed By: #### C MP #### [facility] [address] [place] [address] EGFR Other Races >60 Normal >60 [facility] Comment on above: Performed By: #### C MP #### [facility] [address] [place] [address] GFR/1.73 sq M.predicted among blacks MDRD (S/P/Bld) [Vol rate/Area] mL/min/{1.73_m2} Normal >60 [facility] Comment on above: Result Comment: Tightener danika Kidney Disease less than 60 mL/min/1.73 m2 Kidney Failure less than 15 mL/min/1.73 m2 Average estimated GFR by age: 20-29 years 116 mL/min/1.73 m2 Performed By: #### C MP #### [facility] [place] [address] [facility] [place] [address] Globulin (S) [Mass/Vol] 3.4 g/dL Normal 1.5-4.5 [facility] Comment on above: Performed By: #### C MP #### [facility] [place] [address] [facility] [place] [address] Glucose [Mass/Vol] 98 mg/dL Normal 65-100 [facility] Comment on above: Performed By: #### C MP #### [facility] [place] [address] [facility] [place] [address] Potassium [Moles/Vol] 4.2 mmol/L Normal 3.3-5.1 [facility] Comment on above: Performed By: #### C MP #### [facility] [place] [address] [facility] [place] [address] Protein [Mass/Vol] 8.2 g/dL Normal 6.1-8.2 [facility] Comment on above: Performed By: #### C MP #### [facility] [place] [address] [place] [address] Sodium [Moles/Vol] 141 mmol/L Normal 132-145 [facility] Comment on above: Performed By: #### C MP #### [facility] [place] [address] [facility] [place] [address] Urea nitrogen [Mass/Vol] 20.1 mg/dL Normal 3.2-26.9 [facility] Comment on above: Performed By: #### C MP #### [facility] [place] [address] [facility] [place] [address] Urea nitrogen/Creatinine [Mass ratio] 22 mg/mg High 6-20 [facility] Comment on above: Performed By: #### C MP #### [facility] [address] [place] [address] High Sensitivity TNIon 08-06 High Sensitivity TNI <4 Normal 0-76 [facility] Comment on above: Result Comment: Inte rpretation comment: High-sensitivity troponin I (hsTnI) assay can reliably detect low troponin concentrations relative to conventional troponin assays. It is the preferred marker of myocardial necrosis as recommended by the Fourth [place] Definition of Myocardial Infarction Guidelines. The diagnosis of acute myocardial infarction (AMI) is made based on a rise or fall of troponin with at least one measurement exceeding the laboratory's upper limit of normal (indicating myocardial injury), in the context of reasonable suspicion for coronary ischemia (e.g. typical symptoms, changes on ECG, evidence for loss of myocardial infarction or demonstration of obstructive coronary artery disease). Note: Although abnormal hsTnI values reflect injury to myocardial cells, an elevated hsTnI does not indicate the cause of injury (i.e. ischemia versus non-ischemic disease). In some cases, myocardial injury is chronic and relatively stable such that hsTnI values remain elevated but do not change substantially over hours to days (examples include chronic kidney disease, heart failure or advanced patient age). When determining whether there has been a significant rise or fall of troponin on serial sampling, absolute change in troponin concentration has greater diagnostic accuracy for AMI then relative change criteria. A change of >7 ng/L over a 2-hour interval or a change of >10 ng/L over a 3-hour interval is suggested as a significant change. If the initial hsTnI is below or at the 99th percentile upper reference limit, a 50% change from the baseline is considered significant. If the initial hsTnI is above the 99th percentile upper reference limit, a 20% change from the baseline value is considered significant. Performed By: #### C BCS #### [facility] [address] [place], [place] [id number] Lipaseon 5 Lipase [Catalytic activity/Vol] 78 U/L Normal 65-230 [facility] Comment on above: Performed By: #### L IPAS #### [facility] [address] [place] [address] US ABD LTD SINGLE ORGANon US ABD LTD SINGLE ORGAN [address] [address] Name: SOLOMON LAURA Phys: STOUTJORGE LUIS BARROSO Avril Smith : [birth year] Age: 26 Sex: M Acct: [id number] Loc: RAD US Exam Date: 08/02/21 Status: REG CLI Radiology No.: Unit Number: [id number] Exam # Type/Exam [id number] US / US ABD LTD SINGLE ORGAN EXAMINATION: RIGHT UPPER QUADRANT ULTRASOUND 08/02/2021 9:09 am COMPARISON: CT abdomen pelvis 07/18/2021. HISTORY: ORDERING SYSTEM PROVIDED HISTORY: TECHNOLOGIST PROVIDED HISTORY: Reason for Exam: RUQ ABD PAIN FINDINGS: LIVER: The liver demonstrates normal echogenicity without evidence of intrahepatic biliary ductal dilatation. No parenchymal mass is evident. A normal hepatic contour is demonstrated. BILIARY SYSTEM: Gallbladder is unremarkable without evidence of pericholecystic fluid, wall thickening or stones. Sonographic Osuna sign was stated as negative. Common bile duct is within normal limits measuring 3 mm. RIGHT KIDNEY: The right kidney is grossly unremarkable without evidence of hydronephrosis. Right kidney measures 10.3 x 4.3 x 4.0 cm. PANCREAS: Visualized portions of the pancreas are unremarkable, with the tail not well visualized due to overlying bowel gas. OTHER: No evidence of right upper quadrant ascites. IMPRESSION: 1. Unremarkable examination. Electronically signed By Sergei Dunn DO 08/02/2021 9:43:38 AM EST Workstation ID : [id number] < > Reported By: SERGEI DUNN D.O. Signed In Fluency By: SERGEI DUNN D.O. << Signature on File>> Reported By: SERGEI DUNN D.O. Signed By: SERGEI DUNN D.O. Tests performed at: [address] [address] Normal [facility] CBC w/Auto Differentialon Basophils Abs. # 0.10 K/uL Normal 0.00-0.10 [facility] Comment on above: Result Comment: CO RRECTED REPORT: Previous result was 0.03 at 12:44 on 07/20/21 Performed By: #### C BCS #### [facility] [place] [address] [facility] [place] [address] Basophils/100 WBC (Bld) 1.0 % Normal 0.2-1.0 [facility] Comment on above: Result Comment: CO RRECTED REPORT: Previous result was 0.3 at 11:12 on 07/20/21 Performed By: #### C BCS #### [facility] [place] [address] [facility] [place] [address] Eosinophils (Bld) [#/Vol] 0.00 10*3/uL Normal 0.00-0.20 [facility] Comment on above: Performed By: #### C BCS #### [facility] [place] [address] [facility] [place] [address] Eosinophils/100 WBC (Bld) 0.0 % Low 0.9-2.9 [facility] Comment on above: Result Comment: CO RRECTED REPORT: Previous result was 0.1 at 11:12 on 07/20/21 Performed By: #### C BCS #### [facility] [address] [facility] [place] [address] Erythrocyte distribution width (RBC) [Ratio] 12.5 % Normal 11.5-14.5 [facility] Comment on above: Performed By: #### C BCS #### [facility] [place] [address] [facility] [place] [address] Hematocrit (Bld) [Volume fraction] 43.3 % Normal 36.7-50.6 [facility] Comment on above: Performed By: #### C BCS #### [facility] [address] [facility] [place] [address] Hemoglobin (Bld) [Mass/Vol] 14.6 g/dL Normal 12.4-17.3 [facility] Comment on above: Performed By: #### C BCS #### [facility] [address] [place] [address] Imm Grans % 0.00 % Normal 0.00-1.00 [facility] Comment on above: Result Comment: CO RRECTED REPORT: Previous result was 0.10 at 12:44 on 07/20/21 Performed By: #### C BCS #### [facility] [address] [place] [address] Imm Grans Absolute # 0.00 K/uL Normal 0.00-0.10 [facility] Comment on above: Result Comment: CO RRECTED REPORT: Previous result was 0.01 at 12:44 on 07/20/21 Performed By: #### C BCS #### [facility] [address] [place] [address] Lymphocytes (Bld) [#/Vol] 0.40 10*3/uL Low 1.30-2.90 [facility] Comment on above: Result Comment: CO RRECTED REPORT: Previous result was 0.50 at 12:44 on 07/20/21 Performed By: #### C BCS #### [facility] [address] [place] [address] Lymphocytes/100 WBC (Bld) 4.0 % Low 17.0-45.5 [facility] Comment on above: Result Comment: CO RRECTED REPORT: Previous result was 4.6 at 11:12 on 07/20/21 Performed By: #### C BCS #### [facility] [address] [place] [address] MCH (RBC) [Entitic mass] 30.6 pg Normal 27.0-31.0 [facility] Comment on above: Performed By: #### C BCS #### [facility] [place] [address] [facility] [place] [address] MCHC (RBC) [Mass/Vol] 33.7 g/dL Normal 33.0-37.0 [facility] Comment on above: Performed By: #### C BCS #### [facility] [address] [facility] [place] [address] MCV (RBC) [Entitic vol] 90.8 fL Normal 80.0-94.0 [facility] Comment on above: Performed By: #### C BCS #### [facility] [address] [facility] [place] [address] Monocytes (Bld) [#/Vol] 0.40 10*3/uL Normal 0.30-0.80 [facility] Comment on above: Result Comment: CO RRECTED REPORT: Previous result was 0.30 at 11:12 on 07/20/21 Performed By: #### C BCS #### [facility] [address] [place] [address] Monocytes/100 WBC (Bld) 4.0 % Low 5.5-11.7 [facility] Comment on above: Result Comment: CO RRECTED REPORT: Previous result was 3.4 at 11:12 on 07/20/21 Performed By: #### C BCS #### [facility] [address] [facility] [place] [address] Neutrophils Abs. # 8.92 K/uL High 2.20-4.80 [facility] Comment on above: Result Comment: CO RRECTED REPORT: Previous result was 8.97 at 12:44 on 07/20/21 Performed By: #### C BCS #### [facility] [address] [facility] [place] [address] Neutrophils/100 WBC (Bld) 91.0 % High 43.0-65.0 [facility] Comment on above: Result Comment: CO RRECTED REPORT: Previous result was 91.5 at 11:12 on 07/20/21 Performed By: #### C BCS #### [facility] [address] [place] [address] Platelet mean volume (Bld) [Entitic vol] 10.0 fL Normal 7.4-10.4 [facility] Comment on above: Performed By: #### C BCS #### [facility] [address] [facility] [place] [address] Platelets (Bld) [#/Vol] 256 10*3/uL Normal 148-402 [facility] Comment on above: Performed By: #### C BCS #### [facility] [address] [facility] [place] [address] RBC (Bld) [#/Vol] 4.77 10*6/uL Normal 4.13-5.69 [facility] Comment on above: Performed By: #### C BCS #### [facility] [address] [facility] [place] [address] WBC (Bld) [#/Vol] 9.8 10*3/uL Normal 3.6-10.8 [facility] Comment on above: Performed By: #### C BCS #### [facility] [address] [place] [address] Comprehensive Metabolic Pane bessy 07-20-2021 Albumin [Mass/Vol] 4.2 g/dL Normal 3.4-5.0 [facility] Comment on above: Performed By: #### C MP #### [facility] [address] [facility] [place] [address] Albumin/Globulin [Mass ratio] 1.4 {ratio} Normal 1.1-2.5 [facility] Comment on above: Performed By: #### C MP #### [facility] [place] [address] [facility] [place] [address] ALP [Catalytic activity/Vol] 74 U/L Normal 54-112 [facility] Comment on above: Performed By: #### C MP #### [facility] [address] [facility] [place] [address] ALT [Catalytic activity/Vol] 20 U/L Normal 13-66 [facility] Comment on above: Performed By: #### C MP #### [facility] [place] [address] [facility] [place] [address] Anion gap [Moles/Vol] 13.6 mmol/L Normal 8.0-16.0 [facility] Comment on above: Performed By: #### C MP #### [facility] [address] [facility] [place] [address] AST [Catalytic activity/Vol] 9 U/L Normal 3-39 [facility] Comment on above: Performed By: #### C MP #### [facility] [place] [address] [facility] [place] [address] Bilirubin [Mass/Vol] 1.24 mg/dL High 0.00-0.99 [facility] Comment on above: Performed By: #### C MP #### [facility] [place] [address] [facility] [place] [address] Calcium [Mass/Vol] 8.2 mg/dL Normal 8.2-10.0 [facility] Comment on above: Performed By: #### C MP #### [facility] [place] [address] [facility] [place] [address] Chloride [Moles/Vol] 109 mmol/L Normal 94-110 [facility] Comment on above: Performed By: #### C MP #### [facility] [address] [place] [address] CO2 [Moles/Vol] 28 mmol/L Normal 21-34 [facility] Comment on above: Performed By: #### C MP #### [facility] [address] [place] [address] Creatinine [Mass/Vol] 0.92 mg/dL Normal 0.50-1.17 [facility] Comment on above: Performed By: #### C MP #### [facility] [address] [place] [address] EGFR Other Races >60 Normal >60 [facility] Comment on above: Performed By: #### C MP #### [facility] [address] [place] [address] GFR/1.73 sq M.predicted among blacks MDRD (S/P/Bld) [Vol rate/Area] mL/min/{1.73_m2} Normal >60 [facility] Comment on above: Result Comment: Tightener danika Kidney Disease less than 60 mL/min/1.73 m2 Kidney Failure less than 15 mL/min/1.73 m2 Average estimated GFR by age: 20-29 years 116 mL/min/1.73 m2 Performed By: #### C MP #### [facility] [address] [place] [address] Globulin (S) [Mass/Vol] 3.0 g/dL Normal 1.5-4.5 [facility] Comment on above: Performed By: #### C MP #### [facility] [address] [place] [address] Glucose [Mass/Vol] 104 mg/dL High 65-100 [facility] Comment on above: Performed By: #### C MP #### [facility] [address] [place] [address] Potassium [Moles/Vol] 4.6 mmol/L Normal 3.3-5.1 [facility] Comment on above: Performed By: #### C MP #### [facility] [address] [place] [address] Protein [Mass/Vol] 7.2 g/dL Normal 6.1-8.2 [facility] Comment on above: Performed By: #### C MP #### [facility] [address] [place] [address] Sodium [Moles/Vol] 146 mmol/L High 132-145 [facility] Comment on above: Performed By: #### C MP #### [facility] [address] [place] [address] Urea nitrogen [Mass/Vol] 15.0 mg/dL Normal 3.2-26.9 [facility] Comment on above: Performed By: #### C MP #### [facility] [address] [place] [address] Urea nitrogen/Creatinine [Mass ratio] 16 mg/mg Normal 6-20 [facility] Comment on above: Performed By: #### C MP #### [facility] [address] [place] [address] Differential Manualon 2020 Anisocytosis ROSIN BARREL FILLER Normal [facility] Comment on above: Performed By: #### L IPAS #### [facility] [address] [place] [address] Basophilic Stippling ROSIN BARREL FILLER Normal [facility] Comment on above: Performed By: #### L IPAS #### [facility] [address] [place] [address] Basophils 1 % Normal 0-1 [facility] Comment on above: Performed By: #### L IPAS #### [facility] [place] [address] [place] [address] Blast. ROSIN BARREL FILLER Normal 0-0 [facility] Comment on above: Performed By: #### L IPAS #### [facility] [place] [address] [place] [address] [place] Cell ROSIN BARREL FILLER [facility] Comment on above: Performed By: #### L IPAS #### [facility] [place] [address] [place] [address] [place] Rings ROSIN BARREL FILLER [facility] Comment on above: Performed By: #### L IPAS #### [facility] [place] [address] [place] [address] Crenated Cells ROSIN BARREL FILLER Normal [facility] Comment on above: Performed By: #### L IPAS #### [facility] [place] [address] [place] [address] Dohle Bodies ROSIN BARREL FILLER [facility] Comment on above: Performed By: #### L IPAS #### [facility] [place] [address] [place] [address] Eosinophils 0 % Low 1-3 [facility] Comment on above: Performed By: #### L IPAS #### [facility] [place] [address] [place] [address] Fragmented Cells ROSIN BARREL FILLER Normal [facility] Comment on above: Performed By: #### L IPAS #### [facility] [place] [address] [place] [address] [place] Bodies ROSIN BARREL FILLER [facility] Comment on above: Performed By: #### L IPAS #### [facility] [place] [address] [place] [address] [place] Bodies ROSIN BARREL FILLER Normal [facility] Comment on above: Performed By: #### L IPAS #### [facility] [place] [address] [place] [address] Hyperchromia ROSIN BARREL FILLER Normal [facility] Comment on above: Performed By: #### L IPAS #### [facility] [place] [address] [place] [address] Hypochromia ROSIN BARREL FILLER Normal [facility] Comment on above: Performed By: #### L IPAS #### [facility] [place] [address] [facility] [place] [address] Immature Cells ROSIN BARREL FILLER Normal [facility] Comment on above: Performed By: #### L IPAS #### [facility] [place] [address] [facility] [place] [address] Lymphocytes 4 % Low 17-46 [facility] Comment on above: Performed By: #### L IPAS #### [facility] [place] [address] [facility] [place] [address] Lymphocytes Atypical ROSIN BARREL FILLER Normal [facility] Comment on above: Performed By: #### L IPAS #### [facility] [place] [address] [facility] [place] [address] Lymphocytes Reactive ROSIN BARREL FILLER [facility] Comment on above: Performed By: #### L IPAS #### [facility] [place] [address] [place] [address] Macrocytosis ROSIN BARREL FILLER [facility] Comment on above: Performed By: #### L IPAS #### [facility] [place] [address] [place] [address] Metamyelocytes ROSIN BARREL FILLER Normal 0-0 [facility] Comment on above: Performed By: #### L IPAS #### [facility] [place] [address] [place] [address] Microcytic ROSIN BARREL FILLER [facility] Comment on above: Performed By: #### L IPAS #### [facility] [place] [address] [place] [address] Monoblasts ROSIN BARREL FILLER [facility] Comment on above: Performed By: #### L IPAS #### [facility] [place] [address] [place] [address] Monocytes 4 % Low 6-12 [facility] Comment on above: Performed By: #### L IPAS #### [facility] [place] [address] [place] [address] Myeloblasts ROSIN BARREL FILLER [facility] Comment on above: Performed By: #### L IPAS #### [facility] [place] [address] [place] [address] Myelocytes ROSIN BARREL FILLER Normal 0-0 [facility] Comment on above: Performed By: #### L IPAS #### [facility] [place] [address] [place] [address] Neutrophils 91 % High 43-65 [facility] Comment on above: Performed By: #### L IPAS #### [facility] [place] [address] [place] [address] Nucleated RBC ROSIN BARREL FILLER Normal 0-0 [facility] Comment on above: Performed By: #### L IPAS #### [facility] [place] [address] [place] [address] Ovalocytes ROSIN BARREL FILLER [facility] Comment on above: Performed By: #### L IPAS #### [facility] [place] [address] [place] [address] Platelet Slide Review ROSIN BARREL FILLER [facility] Comment on above: Performed By: #### L IPAS #### [facility] [place] [address] [place] [address] Poikilocytosis ROSIN BARREL FILLER [facility] Comment on above: Performed By: #### L IPAS #### [facility] [place] [address] [place] [address] Polychromasia ROSIN BARREL FILLER [facility] Comment on above: Performed By: #### L IPAS #### [facility] [place] [address] [place] [address] Promyelocyte ROSIN BARREL FILLER Normal 0-0 [facility] Comment on above: Performed By: #### L IPAS #### [facility] [place] [address] [place] [address] Schistocytes ROSIN BARREL FILLER [facility] Comment on above: Performed By: #### L IPAS #### [facility] [place] [address] [place] [address] Sickle Cells ROSIN BARREL FILLER [facility] Comment on above: Performed By: #### L IPAS #### [facility] [place] [address] [place] [address] Smudge Cells ROSIN BARREL FILLER [facility] Comment on above: Performed By: #### L IPAS #### [facility] [place] [address] [place] [address] Spherocytes ROSIN BARREL FILLER [facility] Comment on above: Performed By: #### L IPAS #### [facility] [place] [address] [place] [address] Target Cells ROSIN BARREL FILLER [facility] Comment on above: Performed By: #### L IPAS #### [facility] [place] [address] [place] [address] Tear Drop Cells ROSIN BARREL FILLER [facility] Comment on above: Performed By: #### L IPAS #### [facility] [address] [place], [place] [id number] Toxic Granulation ROSIN BARREL FILLER Normal [facility] Comment on above: Performed By: #### L IPAS #### [facility] [address] [place], [place] [id number] EMERGENCY DEPARTMENTon 07-20 [place] [address] HEALTH INFORMATION MANAGEMENT EMERGENCY DEPARTMENT : [phone] Signed Patient: SOLOMON LAURA Acct:[id number] MRUN: [id number] : 1995 Sex: M Loc: ED ADM Date: Room/Bed: DISC Date: History of Present Illness - General Chief complaint: Vomiting Stated complaint: vomiting Symptom onset: 3 days HPI: [facility] with vomting and abdomen pain. they did some testing from triage but he was unable to wait and went home. he is still vomiting. Time Seen by Provider: 07/20/21 09:47 Mode of Transport: Ambulatory - History of Present Illness Initial comments: Patient presents with nausea vomiting abdominal pain that began 3 days ago. He states that he gets that is once every few months. He admits to smoking marijuana at least 3-4 times a week. No other modifying factors. He denies any chest pain, shortness of breath, fevers. No other associated symptoms. Mild severity. - Related Data Home Medications Medication Instructions Recorded Confirmed NK 07/20/21 07/20/21 Allergies Allergy/AdvReac Type Severity Reaction Status Date / Time No Known Allergies Allergy Verified 07/20/21 09:59 Review of System - All Others/Exceptions All Other Systems: Reviewed and Negative Except Where Noted in Documentation ED PMH/Social HX/Family HX - Respiratory Hx Respiratory Disorders: No - Cardiovascular Hx Cardiac Disorders: No - Neurological Hx Neurological Disorder: No - Endocrine Hx Endocrine Disorders: No - Gastrointestinal Hx Gastrointestinal Disorders: No - Genitourinary Hx Genitourinary Disorders: No - Musculoskeletal Hx Musculoskeletal Disorders: No - Reproductive Hx Reproductive Disorders: No - Psychological Hx Psychosocial Problems: No - HEENT Hx Ear, Nose Throat Disorders: No - Cancer Hx Cancer: No - Communicable Diseases Other Communicable Diseases PMH: Strep - Social History Highest Educational Level: High School Able to Read: Yes Able to Write: Yes Smoking Status: Never Smoked Hx Chewing Tobacco Use: No Alcohol Use: Never Any recreational drug use reported?: No Feels Threatened In Home Environment: No Feels Threatened In a Relationship: No - [place]/Gender ID What is your current Gender Identity? Choose all that Apply: Male Define your Sexual Orientation?: Straight/Heterosexual - [place]-Suicide Severity Rating Scale 1) Wish to be :: No 2) Suicidal Thoughts:: No 6) Suicidal Behavior Question (A): LIFETIME: No 6) Suicidal Behavior Question (B): PAST 3 MONTHS: No General Exam - General Limitations: Complains of: no limitations Constitutional: Present: Well developed, Well nourished, well hydrated, Non-toxic - Head Head exam: Present: atraumatic, normocephalic, normal inspection - Eye Eye exam: Present: normal apperance, normal accomodation, EOMI Pupils: Present: PERRL - ENT ENT exam: Present: normal orophraynx, mucous membranes moist, TMs clear w/ good light reflex, normal external ear exam, No Nasal Discharge, Posterior Pharynx Non-erethemetous - Expanded ENT Exam Ear exam: Present: normal external inspection Mouth exam: Present: normal external inspection Teeth exam: Present: normal inspection Throat exam: normal inspection - Neck Neck exam: Present: full ROM, Supple. Absent: tenderness, meningismus, Posterior Lymphadenopathy, Anterior Lymphadenopathy - Respiratory Respiratory exam: Present: lungs clear and equal bilaterally. Absent: respiratory distress, wheezes, rales, rhonchi, accessory muscle use - Cardiovascular Cardiovascular Exam: Present: regular rate, normal rhythm, normal heart sounds. Absent: murmur, rubs, gallop, clicks - GI/Abdominal GI/Abdominal exam: Present: soft, non tender, normal bowel sounds. Absent: guarding, rebound, rigid, mass, bruit - Extremities Exam Extremities exam: Present: normal inspection, full ROM, neurovascularly intact - Back Exam Back exam: Present: normal inspection, full ROM. Absent: tenderness - Neurological Exam Neurological exam: Present: alert, oriented X3, CN II-XII intact - Expanded Neurological Exam Patient oriented to: Present: person, place, time Speech: Present: fluid speech - Psychiatric Psychiatric exam: Present: normal affect, normal mood - Skin Skin Color: Present: Normal, Ai Skin exam: Present: warm, dry - Expanded Skin Exam Type of lesion: Absent: rash - Vital Signs Vital Signs 07/20/21 09:43 Temperature 98.6 F Pulse Rate [ 80 Pulse Ox] Respiratory 16 Rate Blood Pressure 159/57 [Left Arm Sitting] O2 Sat by Pulse 96 Oximetry(%) Med (more content not included)... [facility] Lipaseon 07-20-2021 Lipase [Catalytic activity/Vol] 174 U/L Normal 65-230 [facility] Comment on above: Performed By: #### L IPAS #### [facility] [address] [address] EMERGENCY DEPARTMENT REPORTo n 07-19-2021 [place] [address] HEALTH INFORMATION MANAGEMENT EMERGENCY DEPARTMENT REPORT Patient: SOLOMON LAURA NASRINAIDA Flex LABOY [id number] [age] M Status: DEP ER ED Date of Service: 07/18/21 Please see Etta Mcgregor nurse practitioner's original dictation for this patient. I am following up with him. Unfortunately, the patient is still unable to be seen in our traditional emergency department room and so I am reviewing him in triage. The patient's lab work results show a mild elevation in his white blood cell count, but the patient states that is not unusual for him during these episodes. The rest of his lab work and CT of his abdomen and pelvis are unremarkable. The patient states he has taken Zofran in the past that has been beneficial. I explained that ideally we would like to see him placed in an emergency department room so that he could receive IV fluids, but I do not know when that is going to happen. I have concerned that he has been here for 7-1/2 hours and it could be just as long until he could see a room. The patient states he would like to go home at this time, try Zofran which has helped in the past and try to see if he can tolerate fluids and slowly advance his diet. He has been seen at a number of different hospitals for this, but never followed up with a GI specialist. I strongly urged him to make an appointment. He is from [place] and would prefer [facility], which is closer to him, so I am going to give him a referral for GI specialist closer to home. He will call tomorrow. The patient admits to marijuana use, so I am giving him information on discharge regarding nausea, vomiting, but also cyclic vomiting syndrome as that is a potential cause here. The patient is encouraged to return to the emergency department if Zofran is not helping and he feels the IV fluids are going to be the only way he can get some fluids and keep his medications down, but at this time, his heart rate is within normal limits. The patient is stable and going to be discharged home. IMPRESSION: Nausea, vomiting. Report#: Dict ID [id number] / Int ID [id number] 07/31/21 1823 AIDA ALEXANDRA PA-C cc: No Physician; AIDA ALEXANDRA PA-C << Signature on File>> Reported By: AIDA ALEXANDRA PA-C Signed By: AIDA ALEXANDRA PA-C Tests performed at: [address] [address] Normal [facility] CBCon 07-18-2021 BASO# 0.00 x10(3) Normal 0.00-0.10 [facility] Comment on above: Performed By: #### L 200.0010 #### [facility] [address] [place] [address] Basophils/100 WBC (Bld) 0.1 % Normal 0.0-1.0 [facility] Comment on above: Performed By: #### L 200.0010 #### [facility] [address] [place] [address] EOS# 0.00 x10(3) Normal 0.00-0.54 [facility] Comment on above: Performed By: #### L 200.0010 #### [facility] [address] [place] [address] Eosinophils/100 WBC (Bld) 0.0 % Low 0.5-4.9 [facility] Comment on above: Performed By: #### L 200.0010 #### [facility] [address] [place] [address] Erythrocyte distribution width (RBC) [Ratio] 13.3 % Normal 12.7-15.3 [facility] Comment on above: Performed By: #### L 200.0010 #### [facility] [address] [place] [address] Hematocrit (Bld) [Volume fraction] 44.8 % Normal 42.0-51.0 [facility] Comment on above: Performed By: #### L 200.0010 #### [facility] [address] [place] [address] Hemoglobin (Bld) [Mass/Vol] 15.1 g/dL Normal 14.0-17.2 [facility] Comment on above: Performed By: #### L 200.0010 #### [facility] [address] [place] [address] LYMPH# 0.40 x10(3) Low 1.00-3.50 [facility] Comment on above: Performed By: #### L 200.0010 #### [facility] [address] [place] [address] Lymphocytes/100 WBC (Bld) 2.7 % Low 16.0-48.0 [facility] Comment on above: Performed By: #### L 200.0010 #### [facility] [address] [place] [address]642 MCH (RBC) [Entitic mass] 30.8 pg Normal 28.8-32.2 [facility] Comment on above: Performed By: #### L 200.0010 #### [facility] [address] [place] [address]10 MCHC (RBC) [Mass/Vol] 33.7 g/dL Normal 33.0-36.0 [facility] Comment on above: Performed By: #### L 200.0010 #### [facility] [address] [place] [address]27 MCV (RBC) [Entitic vol] 91.4 fL Normal 80.0-94.0 [facility] Comment on above: Performed By: #### L 200.0010 #### [facility] [address] [place] [address] MONO# 0.30 x10(3) Normal 0.30-0.80 [facility] Comment on above: Performed By: #### L 200.0010 #### [facility] [address] [place] [address] 135[address] Monocytes/100 WBC (Bld) 1.9 % Low 4.3-11.2 [facility] Comment on above: Performed By: #### L 200.0010 #### [facility] [address] [place] [address] 7[address]67 NEUT# 14.30 x10(3) High 1.40-6.50 [facility] Comment on above: Performed By: #### L 200.0010 #### [facility] [address] [place] [address] 8[address] Neutrophils/100 WBC (Bld) 95.3 % High 45.0-73.0 [facility] Comment on above: Performed By: #### L 200.0010 #### [facility] [address] [place] [address]49 Platelet mean volume (Bld) [Entitic vol] 8.5 fL Normal 7.4-9.2 [facility] Comment on above: Performed By: #### L 200.0010 #### [facility] [address] [place] [address] PLT 275 X10(3) Normal 150-450 [facility] Comment on above: Performed By: #### L 200.0010 #### [facility] [address] [place] [address] RBC 4.90 x10(6) Normal 4.80-5.50 [facility] Comment on above: Performed By: #### L 200.0010 #### [facility] [address] [place] [address] WBC 15.0 x10(3) High 4.5-10.0 [facility] Comment on above: Performed By: #### L 200.0010 #### [facility] [address] [place] [address] CBC W Auto Differential pane l (Bld)on 07-18-2021 BASO ABS 0.00 x10(3) 0.00 - 0.10 x10(3) [facility] Basophils/100 WBC (Bld) 0.1 % 0.0 - 1.0 % [facility] EOS ABS 0.00 x10(3) 0.00 - 0.54 x10(3) [facility] Eosinophils/100 WBC (Bld) 0.0 % Low 0.5 - 4.9 % [facility] Erythrocyte distribution width (RBC) [Ratio] 13.3 % 12.7 - 15.3 % [facility] Hematocrit (Bld) [Volume fraction] 44.8 % 42.0 - 51.0 % [facility] Hemoglobin (Bld) [Mass/Vol] 15.1 g/dL 14.0 - 17.2 g/dL [facility] LYMPH ABS 0.40 x10(3) Low 1.00 - 3.50 x10(3) [facility] Lymphocytes/100 WBC (Bld) 2.7 % Low 16.0 - 48.0 % [facility] MCH (RBC) [Entitic mass] 30.8 pg 28.8 - 32.2 pg [facility] MCHC (RBC) [Mass/Vol] 33.7 g/dL 33.0 - 36.0 g/dL [facility] MCV (RBC) [Entitic vol] 91.4 fL 80.0 - 94.0 fl [facility] MONO ABS 0.30 x10(3) 0.30 - 0.80 x10(3) [facility] Monocytes/100 WBC (Bld) 1.9 % Low 4.3 - 11.2 % [facility] Neutrophil Ab 14.30 x10(3) High 1.40 - 6.50 x10(3) [facility] Neutrophils/100 WBC (Bld) 95.3 % High 45.0 - 73.0 % [facility] Platelet Count 275 X10(3) 150 - 450 X10(3) [facility] Platelet mean volume (Bld) [Entitic vol] 8.5 fL 7.4 - 9.2 fl [facility] RBC 4.90 x10(6) 4.80 - 5.50 x10(6) [facility] WBC 15.0 x10(3) High 4.5 - 10.0 x10(3) [facility] CMPon 07-18-2021 A:G RATIO 1.71 Normal 1.1-2.5 [facility] Comment on above: Performed By: #### M 500.0000 #### [place] [address] Albumin [Mass/Vol] 5.5 g/dL High 3.5-5.2 [facility] Comment on above: Performed By: #### M 500.0000 #### [place] [address] ALK. PHOS 78 U/L Normal 40-130 [facility] Comment on above: Performed By: #### M 500.0000 #### [place] [address] ALT [Catalytic activity/Vol] 13 U/L Normal 5-41 [facility] Comment on above: Performed By: #### M 500.0000 #### [place] [address] Anion gap [Moles/Vol] 19.3 mmol/L Normal 15-22 [facility] Comment on above: Performed By: #### M 500.0000 #### [place] [address] AST [Catalytic activity/Vol] 17 U/L Normal 5-40 [facility] Comment on above: Performed By: #### M 500.0000 #### [place] [address] Bilirubin [Mass/Vol] 1.1 mg/dL Normal 0.2-1.2 [facility] Comment on above: Performed By: #### M 500.0000 #### [place] [address] Calcium [Mass/Vol] 10.0 mg/dL Normal 8.6-10.0 [facility] Comment on above: Performed By: #### M 500.0000 #### [place] [address] Chloride [Moles/Vol] 99 mmol/L Normal 98-107 [facility] Comment on above: Performed By: #### M 500.0000 #### [place] [address] CO2 [Moles/Vol] 23 mmol/L Normal 22-29 [facility] Comment on above: Performed By: #### M 500.0000 #### [place] [address] Creatinine [Mass/Vol] 0.83 mg/dL Normal 0.70-1.20 [facility] Comment on above: Performed By: #### M 500.0000 #### [place] [address] eGFR if AFR MASHA > 60 ml/min/1.73m2 Normal U [facility] Comment on above: Result Comment: eGFR >= 60 Indicates normal kidney function. * eGFR IS AN ESTIMATE * (AFR MASHA = ) (non-AFR AM = NON-) MDRD calculation used in the eGFR should not be used to dose medications. For further limitations of the eGFR please refer to the Physician Website or the National Kidney Disease Education Program website (www.nkdep.nih.gov). Performed By: #### M 500.0000 #### [place] [address] eGFR nonAFR Masha > 60 ml/Min/1.73m2 Normal U [facility] Comment on above: Performed By: #### M 500.0000 #### [place] [address] Globulin (S) [Mass/Vol] 3.2 g/dL Normal 1.5-4.5 [facility] Comment on above: Performed By: #### M 500.0000 #### [place] [address] Glucose [Mass/Vol] 121 mg/dL High 74-106 [facility] Comment on above: Performed By: #### M 500.0000 #### [place] [address] Potassium [Moles/Vol] 4.3 mmol/L Normal 3.5-5.0 [facility] Comment on above: Performed By: #### M 500.0000 #### [place] [address] Protein [Mass/Vol] 8.7 g/dL High 6.4-8.3 [facility] Comment on above: Performed By: #### M 500.0000 #### [place] [address] Sodium [Moles/Vol] 137 mmol/L Normal 135-145 [facility] Comment on above: Performed By: #### M 500.0000 #### [place] [address] Urea nitrogen [Mass/Vol] 16 mg/dL Normal 6-20 [facility] Comment on above: Performed By: #### M 500.0000 #### [place] [address] CT ABD/PEL WO CONTRASTon CT ABD/PEL WO CONTRAST [place] [address] Name: SOLOMON LAURA Phys: MCGREGOR ROSIN BARREL FILLER-C : [birth year] Age: 26 Sex: M Acct: [id number] Loc: ED Exam Date: 07/18/21 Status: REG ER Radiology No.: [id number] Unit Number: [id number] Exam # Type/Exam [id number] CT / CT ABD/PEL WO CONTRAST EXAMINATION: CT OF THE ABDOMEN AND PELVIS WITHOUT QEUAKGAM49/1/2021 4:[address] ABDOMEN/PELVIS WITHOUT CONTRAST EXAM DESCRIPTION: TECHNIQUE: CT of the abdomen and pelvis was performed without the administration of intravenous contrast. Multiplanar reformatted images are provided for review. Dose modulation, iterative reconstruction, and/or weight based adjustment of the mA/kV was utilized to reduce the radiation dose to as low as reasonably achievable. Routine helical CT images were obtained from the lung bases through the pelvis without the use of IV or oral contrast. Coronal and sagittal reformats were obtained. Dose lowering techniques were utilized to include automated exposure control, adjustment of the mA and/or kV according to patient size, and use of iterative reconstruction technique. HISTORY: ORDERING SYSTEM PROVIDED HISTORY: TECHNOLOGIST PROVIDED HISTORY: Reason for Exam: VOMITING FINDINGS: The size, density, and morphology of the liver, spleen, adrenals, kidneys, pancreas and unopacified loops of bowel are unremarkable. The unopacified aorta demonstrates normal size and morphology without aneurysmal dilation or dissection. There are no enlarged lymph nodes by pathologic size criteria. Appendix is normal. There is no free fluid within the pelvis. The bladder and pelvic organs have an unremarkable CT appearance. The osseous structures are without gross lytic or sclerotic lesion. The lung bases are clear. IMPRESSION: No acute intra-abdominal or intrapelvic pathology. Electronically signed By Mely Barton MD 07/18/2021 6:38:21 PM EST Workstation ID : [id number] < > Reported By: MELY BARTON M.D. Signed In Fluency By: MELY BARTON M.D. << Signature on File>> Reported By: MELY BARTON M.D. Signed By: MELY BARTON M.D. Tests performed at: [address] [address] Normal [facility] CT ABD/PEL WO IVCONon 2020 [facility] Comprehensive metabolic 2000 panelon 07-18-2021 Albumin [Mass/Vol] 5.5 g/dL High 3.5 - 5.2 g/dL [facility] Albumin/Globulin [Mass ratio] 1.71 {ratio} 1.1 - 2.5 [facility] ALP [Catalytic activity/Vol] 78 U/L 40 - 130 U/L [facility] ALT [Catalytic activity/Vol] 13 U/L 5 - 41 U/L [facility] Anion gap [Moles/Vol] 19.3 mmol/L 15 - 22 mmol/L [facility] AST [Catalytic activity/Vol] 17 U/L 5 - 40 U/L [facility] Bilirubin [Mass/Vol] 1.1 mg/dL 0.2 - 1.2 mg/dL [facility] Calcium [Mass/Vol] 10.0 mg/dL 8.6 - 10. 0 mg/dL [facility] Chloride [Moles/Vol] 99 mmol/L 98 - 107 mmol/L [facility] CO2 [Moles/Vol] 23 mmol/L 22 - 29 mmol/L [facility] Creatinine [Mass/Vol] 0.83 mg/dL 0.70 - 1.20 mg/dL [facility] eGFR-All Other Races > 60 ml/Min/1.73m2 [facility] GFR/1.73 sq M.predicted among blacks MDRD (S/P/Bld) [Vol rate/Area] mL/min/{1.73_m2} [facility] Globulin (S) [Mass/Vol] 3.2 g/dL 1.5 - 4.5 g/dL [facility] Glucose [Mass/Vol] 121 mg/dL High 74 - 106 mg/dL Cl [facility] Potassium [Moles/Vol] 4.3 mmol/L 3.5 - 5.0 mmol/L [facility] Protein [Mass/Vol] 8.7 g/dL High 6.4 - 8.3 g/dL Cl [facility] Sodium [Moles/Vol] 137 mmol/L 135 - 145 mmol/L [facility] Urea nitrogen [Mass/Vol] 16 mg/dL 6 - 20 mg/dL [facility] ED REPORTon 07-18-2021 ED REPORT [place] [place] [address] HEALTH INFORMATION MANAGEMENT EMERGENCY DEPARTMENT REPORT Patient: SOLOMON LAURA ETTA NAIR as dictated by VNICE GRANADOS [id number] [age] M Status: DEP ER ED Date of Service: 07/18/21 This is a triage note. The patient comes in to the ER today with reports of having abdominal pain and vomiting and diarrhea intermittently for the last 8 to 9 months. He states 4 months ago, he had a CAT scan and he was very unclear and vague with the findings. He has not had any followup with that and states that since 2 o'clock this morning, he cannot keep anything down. He states that he sometimes will have black stools and that it is soft. He states his pain is epigastric area to the left upper quadrant and some in the left lower quadrant for his pain. He states the intensity is what brought him to the ER today. He has no fever, chills. He has not done anything different. No injury. He denies alcohol use. He states even if he has 2 or 3 beers that it will cause his epigastric and left-sided pain to get worse, so he states that he just does not drink anymore. I will go ahead and order blood work that has been drawn in triage. A CBC, CMP, lipase, and a urinalysis as well as a CT abdomen and pelvis as the patient is waiting for a room in the ER due to the critical nursing shortage that we have with staff. The patient will get started with these tests and then we will continue to evaluate as test results return. The patient is aware that if he has any worsening symptoms or questions, he is to let staff know. Addendum to follow. Report#: Dict ID [id number] / Int ID [id number] 07/19/21 1405 ETTA MCGREGOR ROSIN BARREL FILLER-C cc: ETTA MCGREGOR ROSIN BARREL FILLER-C; No Physician << Signature on File>> Reported By: ETTA MCGREGOR ROSIN BARREL FILLER-C Signed By: ETTA MCGREGOR ROSIN BARREL FILLERErik Tests performed at: [address] [address] Normal [facility] LIPASEon 07-18-2021 Lipase [Catalytic activity/Vol] 21 U/L Normal 13-60 [facility] Comment on above: Performed By: #### M 500.0000 #### [place] [address] LIPASE BLDon 07-18-2021 Lipase [Catalytic activity/Vol] 21 U/L 13 - 60 U/L [facility] UA W/C&Son 07-18-2021 Bilirubin Ql (U) SMALL Normal NEGATIVE [facility] Comment on above: Order Comment: Urine Specimen Source+ CLEAN CATCH Performed By: #### L 200.3001, L200.3190 #### [facility] [address] [place] [address] Color (U) YELLOW Normal YELLOW [facility] Comment on above: Order Comment: Urine Specimen Source+ CLEAN CATCH Performed By: #### L 200.3001, L200.3190 #### [facility] - [facility] [address] [place] [address] Glucose Ql (U) Negative Normal NEGATIVE [facility] Comment on above: Order Comment: Urine Specimen Source+ CLEAN CATCH Performed By: #### L 200.3001, L200.3190 #### [facility] - [facility] [address] [place] [address] 66869 Hemoglobin Ql (U) Negative Normal NEGATIVE [facility] Comment on above: Order Comment: Urine Specimen Source+ CLEAN CATCH Performed By: #### L 200.3001, L200.3190 #### [facility] - [facility] [address] [place] [address]457 Leukocyte esterase Test strip Ql (U) Negative Normal NEGATIVE [facility] Comment on above: Order Comment: Urine Specimen Source+ CLEAN CATCH Performed By: #### L 200.3001, L200.3190 #### [facility] - [facility] [address] [place] [address] Nitrite Ql (U) Negative Normal NEGATIVE [facility] Comment on above: Order Comment: Urine Specimen Source+ CLEAN CATCH Performed By: #### L 200.3001, L200.3190 #### [facility] - [facility] [address] [place] [address]81 pH (U) 5.5 [pH] Normal 5.0-8.0 [facility] Comment on above: Order Comment: Urine Specimen Source+ CLEAN CATCH Performed By: #### L 200.3001, L200.3190 #### [facility] - [facility] [address] [place] [address] Protein Ql (U) TRACE Normal NEGATIVE [facility] Comment on above: Order Comment: Urine Specimen Source+ CLEAN CATCH Performed By: #### L 200.3001, L200.3190 #### [facility] - [facility] [address] [place] [address] URINE APPEARANC SL CLOUDY Normal CLEAR [facility] Comment on above: Order Comment: Urine Specimen Source+ CLEAN CATCH Performed By: #### L 200.3001, L200.3190 #### [facility] - [facility] [address] [place] [address] URINE KETONE 40 MG/DL Normal NEGATIVE [facility] Comment on above: Order Comment: Urine Specimen Source+ CLEAN CATCH Performed By: #### L 200.3001, L200.3190 #### [facility] - LABORATORY [address] [place] [address] URINE SPECIFIC >=1.030 Normal 1.001-1.035 [facility] Comment on above: Order Comment: Urine Specimen Source+ CLEAN CATCH Performed By: #### L 200.3001, L200.3190 #### [facility] - LABORATORY [address] [place] [address] URINE UROBILINO 0.2 EU/DL Normal 0.2-1.0 [facility] Comment on above: Order Comment: Urine Specimen Source+ CLEAN CATCH Performed By: #### L 200.3001, L200.3190 #### [facility] - [facility] [address] [place] [address] UA WITH CULTURE IF INDICATED on 07-18-2021 Appearance (U) SL CLOUDY CLEAR [facility] Bilirubin, Urine SMALL NEGATIVE [facility] Blood, Urine Negative NEGATIVE [facility] Color (U) YELLOW YELLOW [facility] Glucose Ql (U) Negative NEGATIVE MG/DL [facility] Ketones Ql (U) 40 MG/DL NEGATIVE MG/DL [facility] Leukocytes [facility] Nitrites Urine Negative NEGATIVE [facility] pH (U) 5.5 [pH] 5.0 - 8.0 [facility] Protein.monoclonal (U) [Mass/Vol] TRACE NEGATIVE MG/DL [facility] Specific [place], Ur >=1.030 1.001 - 1.035 [facility] Urobilinogen, Urine 0.2 EU/DL 0.2 - 1.0 EU/DL [facility] URINE CULTUREon 07-18-2021 Bacteria identified Cx Nom (U) Final report Mixed urogenital landen 10,000-25,000 colony forming units per mL Performed at: [facility] [address] [id number] Cattle Sprayer: Tono Jiang PhD, Phone: [phone] [facility] Comment on above: Performed By: #### M 500.0000 #### [place] [address] URINE MICROSCOPon 07-18-2021 Mucus Ql (Urine sed) 4+ Normal NEGATIVE [facility] Comment on above: Order Comment: Urine Specimen Source+ CLEAN CATCH Performed By: #### L 200.3001, L200.3190 #### [facility] - [facility] [address] [place] [address] SQUAMOUS RARE Normal NEGATIVE [facility] Comment on above: Order Comment: Urine Specimen Source+ CLEAN CATCH Performed By: #### L 200.3001, L200.3190 #### [facility] - [facility] [address] [place] [address] URINE RBC 1-3 Normal 0-2 [facility] Comment on above: Order Comment: Urine Specimen Source+ CLEAN CATCH Performed By: #### L 200.3001, L200.3190 #### [facility] [address] [place] [address] URINE WBC 1-3 Normal 0-5 [facility] Comment on above: Order Comment: Urine Specimen Source+ CLEAN CATCH Performed By: #### L 200.3001, L200.3190 #### [facility] [address] [place] [address]26 Urinalysis complete panel (U )on 07-18-2021 RBC, Urine 1-3 0 - 2 [facility] Squamous Epithelial Cells RARE NEGATIVE [facility] Ur Mucous 4+ NEGATIVE [facility] WBC, Urine 1-3 0 - 5 [facility] ACUTE ABDOMENon 05-17-2021 ACUTE ABDOMEN EXAMINATION: TWO XRAY VIEWS OF THE ABDOMEN AND SINGLE XRAY VIEW OF THE CHEST 05/17/2021 4:57 pm COMPARISON: None. HISTORY: ORDERING SYSTEM PROVIDED HISTORY: Nausea vomiting, COVID-19 test positive sore throa FINDINGS: Supine and upright AP views the abdomen were obtained as well as PA view of the chest on 4 images. Heart, mediastinum, and pulmonary vasculature are within normal limits. Lungs and pleural spaces are clear. There is no evidence of free intraperitoneal air. There is no abnormal gaseous intestinal distention. Soft tissue planes are preserved. No evidence of organomegaly. No evidence of abnormal calcification along the expected course of the biliary or urinary tracts. A calcification in the right hemipelvis likely represents phlebolith. IMPRESSION: 1. No active cardiopulmonary disease. 2. No significant intra-abdominal plain film abnormality. Normal [facility] CBC w/Auto Differentialon Basophils Abs. # 0.01 K/uL Normal 0.00-0.10 [facility] Comment on above: Performed By: #### C BCS #### [facility] [address] [place] [address] Basophils/100 WBC (Bld) 0.2 % Normal 0.2-1.0 [facility] Comment on above: Performed By: #### C BCS #### [facility] [address] [place] [address] Eosinophils (Bld) [#/Vol] 0.00 10*3/uL Normal 0.00-0.20 [facility] Comment on above: Performed By: #### C BCS #### [facility] [address] [place] [address] Eosinophils/100 WBC (Bld) 0.0 % Low 0.9-2.9 [facility] Comment on above: Performed By: #### C BCS #### [facility] [address] [place] [address] Erythrocyte distribution width (RBC) [Ratio] 11.8 % Normal 11.5-14.5 [facility] Comment on above: Performed By: #### C BCS #### [facility] [address] [place] [address] Hematocrit (Bld) [Volume fraction] 49.9 % Normal 36.7-50.6 [facility] Comment on above: Performed By: #### C BCS #### [facility] [address] [place] [address] Hemoglobin (Bld) [Mass/Vol] 16.7 g/dL Normal 12.4-17.3 [facility] Comment on above: Performed By: #### C BCS #### [facility] [address] [place] [address] Imm Grans % 0.00 % Normal 0.00-1.00 [facility] Comment on above: Performed By: #### C BCS #### [facility] [address] [place] [address] Imm Grans Absolute # 0.00 K/uL Normal 0.00-0.10 [facility] Comment on above: Performed By: #### C BCS #### [facility] [address] [place] [address] Lymphocytes (Bld) [#/Vol] 0.90 10*3/uL Low 1.30-2.90 [facility] Comment on above: Performed By: #### C BCS #### [facility] [address] [place] [address] Lymphocytes/100 WBC (Bld) 16.5 % Low 17.0-45.5 [facility] Comment on above: Performed By: #### C BCS #### [facility] [address] [place] [address] MCH (RBC) [Entitic mass] 30.8 pg Normal 27.0-31.0 [facility] Comment on above: Performed By: #### C BCS #### [facility] [address] [place] [address] MCHC (RBC) [Mass/Vol] 33.5 g/dL Normal 33.0-37.0 [facility] Comment on above: Performed By: #### C BCS #### [facility] [address] [place] [address] MCV (RBC) [Entitic vol] 91.9 fL Normal 80.0-94.0 [facility] Comment on above: Performed By: #### C BCS #### [facility] [place] [address] [place] [address] Monocytes (Bld) [#/Vol] 0.80 10*3/uL Normal 0.30-0.80 [facility] Comment on above: Performed By: #### C BCS #### [facility] [place] [address] [facility] [address] Monocytes/100 WBC (Bld) 15.8 % High 5.5-11.7 [facility] Comment on above: Performed By: #### C BCS #### [facility] [place] [address] [facility] [place] [address] Neutrophils Abs. # 3.47 K/uL Normal 2.20-4.80 [facility] Comment on above: Performed By: #### C BCS #### [facility] [place] [address] [facility] [place] [address] Neutrophils/100 WBC (Bld) 67.5 % High 43.0-65.0 [facility] Comment on above: Performed By: #### C BCS #### [facility] [place] [address] [facility] [place] [address] Platelet mean volume (Bld) [Entitic vol] 10.6 fL High 7.4-10.4 [facility] Comment on above: Performed By: #### C BCS #### [facility] [place] [address] [facility] [place] [address] Platelets (Bld) [#/Vol] 271 10*3/uL Normal 148-402 [facility] Comment on above: Performed By: #### C BCS #### [facility] [place] [address] [place] [address] RBC (Bld) [#/Vol] 5.43 10*6/uL Normal 4.13-5.69 [facility] Comment on above: Performed By: #### C BCS #### [address] [address] WBC (Bld) [#/Vol] 5.1 10*3/uL Normal 3.6-10.8 [facility] Comment on above: Performed By: #### C BCS #### [address] [id number] CBLDon 05-17-2021 CBLD Patient: SOLOMON LAURAUN [id number] Location: [facility] Aount: [id number] : 1995 Age: 26 Sex M Lab NumbEr [id number] Requested by: KRISTI RESENDIZ Admitdate: 05/17/21 Source: BLOOD Collected: 05/17/21 17:25 Site: [facility] Received : 05/17/21 22:13 OE C O M M E N T S LAB.PORT; Does the Patient have a central line to draw blood from?; N; SHANNAN.SITE1; Shannan Site; blood Culture, Blood FINAL 05/18/21 06:41 05/18/21 Sent to [place] for workup Culture, Blood (ELOH Workup) PLATED Normal [facility] Comment on above: Performed By: #### M IC2 #### [address] [id number] CBLD Patient: SOLOMON LAURA MRUN [id number] Location: [facility] Aount: [id number] : 1995 Age: 26 Sex M Lab NumbEr [id number] Requested by: KRISTI RESENDIZ Admitdate: 05/17/21 Source: BLOOD Collected: 05/17/21 15:38 Site: [facility] Received : 05/17/21 22:12 OE C O Ute Unger E N T S LAB.PORT; Does the Patient have a central line to draw blood from?; N; SHANNAN.SITE1; Shannan Site; blood Culture, Blood FINAL 05/18/21 06:40 05/18/21 Sent to [place] for workup Culture, Blood (ELOH Workup) PLATED Normal [facility] Comment on above: Performed By: #### C BCS #### [address] [address] CXBLPon 05-17-2021 CXBLP Patient: SOLOMON LAURA [id number] Location: [facility] Aount: [id number] : 1995 Age: 26 Sex M Lab NumbEr [id number] Requested by: KRISTI RESENDIZ Admitdate: 05/17/21 Source: BLOOD Collected: 05/17/21 17:25 Site: [facility] Received : 05/17/21 22:13 OE Ashlyn O Ute M E N T S LAB.PORT; Does the Patient have a central line to draw blood from?; N; SHANNAN.SITE1; Shannan Site; blood Culture, Blood FINAL 05/18/21 06:41 05/18/21 Sent to [place] for workup Culture, Blood (ELOH Workup) FINAL 05/23/21 11:32 05/20/21 AEROBIC CULTURE RESULTS: NO BACTERIAL GROWTH ANAEROBIC CULTURE RESULT: NO BACTERIAL GROWTH Normal [facility] Comment on above: Performed By: #### C MP #### [address] [address] CXBLP Patient: SOLOMON LAURA MRUN [id number] Location: [facility] Aount: [id number] : 1995 Age: 26 Sex M Lab NumbEr [id number] Requested by: KRISTI RESENDIZ Admitdate: 05/17/21 Source: BLOOD Collected: 05/17/21 15:38 Site: [facility] Received : 05/17/21 22:12 GILBERTO Goldberg O M M E N T S LAB.PORT; Does the Patient have a central line to draw blood from?; N; SHANNAN.SITE1; Shannan Site; blood Culture, Blood FINAL 05/18/21 06:40 05/18/21 Sent to [place] for workup Culture, Blood (ELOH Workup) FINAL 05/23/21 11:32 05/20/21 AEROBIC CULTURE RESULTS: NO BACTERIAL GROWTH ANAEROBIC CULTURE RESULT: NO BACTERIAL GROWTH Normal [facility] Comment on above: Performed By: #### C BCS #### [place] [address] Comprehensive Metabolic Pane bessy 05-17-2021 Albumin [Mass/Vol] 4.7 g/dL Normal 3.4-5.0 [facility] Comment on above: Performed By: #### C BCS #### [address] [place] [address] Albumin/Globulin [Mass ratio] 1.2 {ratio} Normal 1.1-2.5 [facility] Comment on above: Performed By: #### C BCS #### [address] [place] [address] ALP [Catalytic activity/Vol] 95 U/L Normal 54-112 [facility] Comment on above: Performed By: #### C BCS #### [address] [place] [address] ALT [Catalytic activity/Vol] 37 U/L Normal 13-66 [facility] Comment on above: Performed By: #### C BCS #### [address] [place] [address] Anion gap [Moles/Vol] 12.8 mmol/L Normal 8.0-16.0 [facility] Comment on above: Performed By: #### C BCS #### [facility] [place] [address] [place] [address] AST [Catalytic activity/Vol] 36 U/L Normal 3-39 [facility] Comment on above: Performed By: #### C BCS #### [facility] [place] [address] [place] [address] Bilirubin [Mass/Vol] 1.04 mg/dL High 0.00-0.99 [facility] Comment on above: Performed By: #### C BCS #### [facility] [place] [address] [place] [address] Calcium [Mass/Vol] 9.0 mg/dL Normal 8.2-10.0 [facility] Comment on above: Performed By: #### C BCS #### [facility] [place] [address] [place] [address] Chloride [Moles/Vol] 101 mmol/L Normal 94-110 [facility] Comment on above: Performed By: #### C BCS #### [facility] [place] [address] [place] [address] CO2 [Moles/Vol] 31 mmol/L Normal 21-34 [facility] Comment on above: Performed By: #### C BCS #### [facility] [place] [address] [place] [address] Creatinine [Mass/Vol] 0.86 mg/dL Normal 0.50-1.17 [facility] Comment on above: Performed By: #### C BCS #### [facility] [place] [address] [place] [address] EGFR Other Races >60 Normal >60 [facility] Comment on above: Performed By: #### C BCS #### [facility] [address] [place] [address] GFR/1.73 sq M.predicted among blacks MDRD (S/P/Bld) [Vol rate/Area] mL/min/{1.73_m2} Normal >60 [facility] Comment on above: Result Comment: Tightener danika Kidney Disease less than 60 mL/min/1.73 m2 Kidney Failure less than 15 mL/min/1.73 m2 Average estimated GFR by age: 20-29 years 116 mL/min/1.73 m2 Performed By: #### C BCS #### [facility] [address] [place] [address] Globulin (S) [Mass/Vol] 3.8 g/dL Normal 1.5-4.5 [facility] Comment on above: Performed By: #### C BCS #### [facility] [address] [place] [address] Glucose [Mass/Vol] 96 mg/dL Normal 65-100 [facility] Comment on above: Performed By: #### C BCS #### [facility] [address] [place] [address] Potassium [Moles/Vol] 3.8 mmol/L Normal 3.3-5.1 [facility] Comment on above: Performed By: #### C BCS #### [facility] [address] [place] [address] Protein [Mass/Vol] 8.5 g/dL High 6.1-8.2 [facility] Comment on above: Performed By: #### C BCS #### [facility] [address] [place] [address] Sodium [Moles/Vol] 141 mmol/L Normal 132-145 [facility] Comment on above: Performed By: #### C BCS #### [facility] [address] [place], [place] [id number] Urea nitrogen [Mass/Vol] 11.3 mg/dL Normal 3.2-26.9 [facility] Comment on above: Performed By: #### C BCS #### [facility] [address] [place], [place] [id number] Urea nitrogen/Creatinine [Mass ratio] 13 mg/mg Normal 6-20 [facility] Comment on above: Performed By: #### C BCS #### [facility] [address] [place], [place] [id number] EMERGENCY DEPARTMENTon 05-17 EMERGENCY DEPARTMENT [place] [id number] HEALTH INFORMATION MANAGEMENT EMERGENCY DEPARTMENT : [phone] Signed Patient: SOLOMON LAURA Acct:[id number] MRUN: [id number] : 1995 Sex: M Loc: ED ADM Date: Room/Bed: DISC Date: History of Present Illness - General Chief Complaint: Vomiting Stated Complaint: VOMITING COVID + Symptom onset: 2 DAYS HPI: PATIENT STATES FOR 2 DAYS HE HAS NOT BEEN ABLE TO KEEP ANYTHING DOWN DUE TO NAUSEA AND VOMITING. PATIENT TESTED POSITIVE FOR COVID AT [facility] ON 05/15/21. PATIENT WAS GIVEN DECADRON PO FOR 7 DAYS AND 4 ZOFRAN TABS BUT IT HAS NOT HELPED AT ALL. Emergency room physician note: History of present illness: Patient with COVID-19 positive diagnosed on 05/15/2021 has been having nausea vomiting unable to keep anything down and decided come to ER for evaluation. Denies any chest pain or short of breath. Denies vomiting blood blood in stool or black stool. Patient feels feverish. Time Seen by Provider: 05/17/21 15:23 Nurses Notes Reviewed and Agreed With?: Yes EMS Run Sheet Reviewed: Not available @ present Source: Patient Mode of Transport: Ambulatory - History of Present Illness MD Complaint: other (Nausea and vomiting) -: days(s) Improves With: nothing Associated Symptoms: nausea, vomiting, chills. denies: diarrhea, fever, constipation, steatorrhea, mucous, dysuria, hematemesis, hematochezia, melena, hematuria, anorexia - Related Data Home Medications Medication Instructions Recorded Confirmed Dexamethasone 1.5 tab PO QAM 05/17/21 05/17/21 Allergies Allergy/AdvReac Type Severity Reaction Status Date / Time No Known Allergies Allergy Verified 05/17/21 14:56 Review of System - Constitutional Constitutional: Present: see HPI, Well developed, Well nourished, chills, malaise, weakness. Absent: Non-toxic, diaphoresis, fever, Obese, Morbidly Obese, other, Cachectic, Malnourished, Lethargic, Dry/Cracked lips, Dry Mucous Membranes, Poor Skin Turgor, Sunken Eyes - Nose,Throat,Mouth Nose (ROS): Present: no symptoms reported Throat: Present: no symptoms reported Mouth: Present: no symptoms reported - Respiratory Respiratory: Present: no symptoms reported, cough. Absent: short of breath, stridor, night sweats - CV Cardiology: Present: no symptoms reported, see HPI. Absent: chest pain, edema, palpitations, syncope, pleuritic CP - GI Gastrointestinal/Abdomi nal: Present: nausea, vomiting. Absent: abdominal pain, constipation, diarrhea, rectal urgency, incontinent of stool - Genitourinary Symptoms: Present: no symptoms reported. Absent: burning, discharge, frequency, flank pain, hematuria, incontinence, urgency - Neuro Neurological: Present: no symptoms reported - Muskuloskeletal Musculoskeletal: Present: no symptoms reported, muscle pain, muscle stiffness. Absent: back pain, gout, joint pain, joint swelling, neck pain - Integumentary Skin: Present: no symptoms reported. Absent: change in color, lesions, rash - Allergic/Immunologic Immunological/Allergic: Present: no symptoms reported - Hematologic Hematologic/Lymphatic: Present: no symptoms reported - Endocrine Endocrine: Present: no symptoms reported - Psychiatric Psychiatric: Present: SEE HPI ED PMH/Social HX/Family HX - Respiratory Hx Respiratory Disorders: No - Cardiovascular Hx Cardiac Disorders: No - Neurological Hx Neurological Disorder: No - Endocrine Hx Endocrine Disorders: No - Gastrointestinal Hx Gastrointestinal Disorders: No - Genitourinary Hx Genitourinary Disorders: No - Musculoskeletal Hx Musculoskeletal Disorders: No - Reproductive Hx Reproductive Disorders: No - Psychological Hx Psychosocial Problems: No - HEENT Hx Ear, Nose Throat Disorders: No - Cancer Hx Cancer: No - Communicable Diseases Other Communicable Diseases PMH: Strep - Social History Highest Educational Level: High School Able to Read: Yes Able to Write: Yes Smoking Status: Never Smoked Hx Chewing Tobacco Use: No Alcohol Use: Never Any recreational drug use reported?: Yes (MARIJUANA) Feels Threatened In Home Environment: No Feels Threatened In a Relationship: No - [place]/Gender ID What is your current Gender Identity? Choose all that Apply: Male Define your Sexual Orientation?: Straight/Heterosexual - [place]-Suicide Severity Rating Scale 1) Wish to be :: No 2) Suicidal Thoughts:: No 6) Suicidal Behavior Question (A): LIFETIME: No 6) Suicidal Behavior Question (B): PAST 3 MONTHS: No General Exam - General Limitations: Complains of: no limitations Constitutional: Present: see HPI, Well developed, Well nourished, Non-toxic, malaise, weakness. Absent: chills, sridevi (more content not included)... Normal [facility] Lipaseon 05-17-2021 Lipase [Catalytic activity/Vol] 75 U/L Normal 65-230 [facility] Comment on above: Performed By: #### C MP #### [facility] [address] [place] [address] PTTon 05-17-2021 aPTT Coag (Bld) [Time] 27.2 s Normal 19.5-32.1 [facility] Comment on above: Result Comment: New Reference Ranges effective 2018. Performed By: #### C MP #### [facility] [address] [place] [address] Prothrombin Timeon INR Coag (PPP) [Relative time] 0.94 {INR} Normal [facility] Comment on above: Result Comment: 2.0 - 3.0 Group A 2.5 - 3.5 Group B Group A indications: Prophylaxis and treatment of venous thrombosis. Treatment of pulmonary embolism. Prevention of systemic embolism. Tissue heart valves. Acute myocardial infarction. Valvular heart disease. Atrial fibrillation. Group B indications: Mechanical prosthetic valves. . Performed By: #### C BCS #### [facility] [address] [place] [address] PT Coag (PPP) [Time] 9.5 s Normal 8.9-12.2 [facility] Comment on above: Result Comment: New Reference Ranges effective 2018. Performed By: #### C BCS #### [facility] [address] [place] [address] PHYSICIAN NOTEon 03-04-2021 PHYSICIAN NOTE [address] [id number] HEALTH INFORMATION MANAGEMENT PHYSICIAN NOTE : [phone] Signed Patient: SOLOMON LAURA Acct:[id number] MRUN: [id number] : 1995 Sex: M Loc: 4TH FLOOR ADM Date: 03/02/21 Room/Bed: 432-B DISC Date: Progress Note Date of Service: 03/04/21 Discharge progress note S/ Patient reports that his pain is remarkably less, no nausea, urinating well O/ afebrile WBC normalized awake, alert, non-toxic abdomen soft, non-distended non-tender A/P Abdominal pain, gastroenteritis, resolving Dehydration resolved advance diet Decrease IV fluids Home today No medications needed at home other than Tylenol prn Electronically Generated By: ADELITA WOODS MD Generated Date/Time: 03/04/21 0941 Electronically Signed By: ADELITA WOODS MD Signed Date/Time 03/04/21943 Co Signed Electronically By: Co Signed Date/Time: CC: Normal [facility] 2019 Novel Coronavirus (CoVI D-19), NAAon 03-03-2021 SARS-CoV-2 (COVID-19) RNA MILES+probe Ql (Unsp spec) Not detected Normal Not Detected [facility] Comment on above: Result Comment: This nucleic acid amplification test was developed and its performance characteristics determined by [employer]. Nucleic acid amplification tests include RT-PCR and TMA. This test has not been FDA cleared or approved. This test has been authorized by FDA under an Emergency Use Authorization (EUA). This test is only authorized for the duration of time the declaration that circumstances exist justifying the authorization of the emergency use of in vitro diagnostic tests for detection of SARS-CoV-2 virus and/or diagnosis of COVID-19 infection under section 564(b)(1) of the Act, 21 U.S.C. 360bbb-3(b) (1), unless the authorization is terminated or revoked sooner. When diagnostic testing is negative, the possibility of a false negative result should be considered in the context of a patient's recent exposures and the presence of clinical signs and symptoms consistent with COVID-19. An individual without symptoms of COVID-19 and who is not shedding SARS-CoV-2 virus would expect to have a negative (not detected) result in this assay. Performed at: [address] [id number] Cattle Sprayer: Tono Jiang PhD, Phone: [phone] Performed By: #### C BCS #### [facility] [address] Bilirubin Confirmationon Bilirubin Confirmation Negative Normal Negative [facility] Comment on above: Performed By: #### C BCS #### [facility] [address] CBC No Differentialon 2020 Erythrocyte distribution width (RBC) [Ratio] 13.4 % Normal 11.5-14.5 [facility] Comment on above: Performed By: #### C P #### [facility] [address] [place] [address] Hematocrit (Bld) [Volume fraction] 38.5 % Normal 36.7-50.6 [facility] Comment on above: Performed By: #### C P #### [facility] [address] [place] [address] Hemoglobin (Bld) [Mass/Vol] 13.2 g/dL Normal 12.4-17.3 [facility] Comment on above: Performed By: #### C P #### [facility] [address] [place] [address] MCH (RBC) [Entitic mass] 31.1 pg High 27.0-31.0 [facility] Comment on above: Performed By: #### C P #### [facility] [address] [place] [address] MCHC (RBC) [Mass/Vol] 34.3 g/dL Normal 33.0-37.0 [facility] Comment on above: Performed By: #### C P #### [facility] [address] [place] [address] MCV (RBC) [Entitic vol] 90.6 fL Normal 80.0-94.0 [facility] Comment on above: Performed By: #### C P #### [facility] [address] [place] [address] Platelet mean volume (Bld) [Entitic vol] 9.9 fL Normal 7.4-10.4 [facility] Comment on above: Performed By: #### C P #### [facility] [address] [place] [address] Platelets (Bld) [#/Vol] 206 10*3/uL Normal 148-402 [facility] Comment on above: Performed By: #### C P #### [facility] [address] [place] [address] RBC (Bld) [#/Vol] 4.25 10*6/uL Normal 4.13-5.69 [facility] Comment on above: Performed By: #### C P #### [facility] [address] [place] [address] WBC (Bld) [#/Vol] 9.5 10*3/uL Normal 3.6-10.8 [facility] Comment on above: Performed By: #### C P #### [facility] [address] [place] [address] CT ABD/PELVIS Won 03-03-2021 CT ABD/PELVIS W EXAMINATION: CT of the abdomen/pelvis with IV contrast. 03/02/2021 8:44 pm TECHNIQUE: After the intravenous administration of Omnipaque 300 iodinated contrast, contiguous axial CT images were obtained through the abdomen/pelvis. Sagittal and coronal reformats were created. Osseous structures of the abdomen/pelvis are intact. Dose modulation, iterative reconstruction, and/or weight based adjustment of the mA/kV was utilized to reduce the radiation dose to as low as reasonably achievable. COMPARISON: None. HISTORY: Right lower quadrant pain, nausea and vomiting. FINDINGS: The heart is not enlarged. No sizable pericardial effusion. The abdominal aorta is normal in caliber, without evidence of dissection. The kidneys are symmetric in size and enhancement. No solid renal mass or evidence of obstructive uropathy. There is moderate fluid density in the stomach. No calcified gallstones or secondary findings of acute cholecystitis. No abnormal dilation of the biliary tree. The portal vein is patent. The included lower lungs are clear. The adrenal glands, spleen, pancreas, and liver are unremarkable. There is mild diffuse wall thickening of the urinary bladder. No abnormally dilated bowel segments or free intraperitoneal air. No abdominal/pelvic ascites or adenopathy. Small bilateral scrotal hydroceles, nonspecific. Scattered patchy wall thickening of the colon may be due to lack of distention. No convincing evidence of acute appendicitis. There are scattered fluid-filled segments of small bowel in the abdomen/pelvis. Moderate fluid is present in the proximal duodenum, which may be due to peristalsis or contraction. There is a small bowel/small bowel intussusception in a proximal upper right abdominal small bowel segment on image 82 series 3 and image 36 of the coronal reformats, without evidence of bowel obstruction or discrete mass. IMPRESSION: There are few scattered fluid-filled small bowel segments in the abdomen/pelvis. This could be due to nonspecific viral gastroenteritis. There is also patchy scattered wall thickening of the colon, which may be due to peristalsis/contraction , with early/mild colitis not entirely excluded. There is a small bowel/small bowel intussusception involving a proximal small bowel segment in the right upper abdomen. These are typically transient in an adult patient, without evidence of bowel obstruction at this time. No convincing evidence of acute appendicitis. Non-specific mild diffuse wall thickening of the urinary bladder. No radiopaque bladder calculus. Suggest correlation with urinalysis. Nonspecific small bilateral scrotal hydroceles. Normal [facility] EMERGENCY DEPARTMENTon 03-03 EMERGENCY DEPARTMENT [place] [id number] HEALTH INFORMATION MANAGEMENT EMERGENCY DEPARTMENT : [id number] Signed Patient: SOLOMON LAURA Acct:[id number] MRUN: [id number] : 1995 Sex: M Loc: ED ADM Date: Room/Bed: DISC Date: History of Present Illness - General Chief Complaint: Abdominal/GI Complaints Stated Complaint: ABD PAIN Symptom onset: 0900 HPI: PT HAS A FEW BEERS LAST NIGHT AND HITS GROIN AREA ON GAS TANK OF 4 HUNTER, PT WAKES UP THIS MORNING WITH LOWER ABDOMINAL PAIN, NAUSEA AND VOMITING AND DIARRHEA. Time Seen by Provider: 03/02/21 19:32 Nurses Notes Reviewed and Agreed With?: Yes Source: Patient Mode of Transport: Ambulatory - History of Present Illness Initial Comments: Woke up with lower abdominal pain this morning and has been vomiting off and on all day, and sweating. Feels dehydrated as a result. Occasional loose nonbloody diarrhea. He states last night he ate tacos, then he drank some beers and went riding around on a 4 hunter. At one point he had a bump really hard that forced him up into the gas tank, injuring his inguinal area bilaterally as well as his genitalia although he states it was relatively mild and he does not have any genital p ain or bleeding when he urinates or other urinary issues this morning, but he did not know if this w as related to his abdominal pain and vomiting today. MD Complaint: abdominal pain - Related Data Home Medications Medication Instructions Recorded Confirmed Cyclobenzaprine HCl [Flexeril 10 10 mg PO TID 10 Days #30 tablet 12/30/20 mg Tablet] Hydrocodone Bit/Acetaminophen 1 each PO Q6H 3 Days #12 tablet 12/30/20 [[place] 5/325 mg Tablet] Allergies Allergy/AdvReac Type Severity Reaction Status Date / Time No Known Allergies Allergy Verified 03/02/21 17:26 Review of System - Recent travel Recent travel outside [place] No reported travel outside [place] (Also denies any recent sick contacts, suspicious undercooked foods or those sitting out in the sun, antibiotics recently, or history of C. difficile) - Constitutional Constitutional: Present: malaise. Absent: chills, fever - Nose,Throat,Mouth Nose (ROS): Absent: congestion, pain Throat: Absent: pain, swelling, discharge Mouth: Absent: pain, swelling - Respiratory Respiratory: Absent: cough, short of breath, wheezing - CV Cardiology: Absent: chest pain, edema, palpitations - GI Gastrointestinal/Abdomi nal: Present: see HPI, abdominal pain, diarrhea, nausea, vomiting - Genitourinary Symptoms: Absent: dysuria - Neuro Neurological: Absent: headache, numbness, weakness - Muskuloskeletal Musculoskeletal: Absent: back pain, joint pain, joint swelling - Integumentary Skin: Absent: lesions, rash - Allergic/Immunologic Immunological/Allergic: Present: no symptoms reported - Hematologic Hematologic/Lymphatic: Absent: easy bleeding, easy bruising, swollen glands - Endocrine Endocrine: Present: no symptoms reported - Psychiatric Psychiatric: Absent: Depressed, Suicidal Thoughts - All Others/Exceptions All Other Systems: Reviewed and Negative Except Where Noted in Documentation ED PMH/Social HX/Family HX - Respiratory Hx Respiratory Disorders: No - Cardiovascular Hx Cardiac Disorders: No - Neurological Hx Neurological Disorder: No - Endocrine Hx Endocrine Disorders: No - Gastrointestinal Hx Gastrointestinal Disorders: No - Genitourinary Hx Genitourinary Disorders: No - Musculoskeletal Hx Musculoskeletal Disorders: No - Reproductive Hx Reproductive Disorders: No - Psychological Hx Psychosocial Problems: No - HEENT Hx Ear, Nose Throat Disorders: No - Cancer Hx Cancer: No - Social History Able to Read: Yes Able to Write: Yes Smoking Status: Never Smoked Hx Chewing Tobacco Use: No Alcohol Use: Occasionally Any recreational drug use reported?: Yes (MARIJUANA) Hx Substance Use Treatment: No Feels Threatened In Home Environment: No Feels Threatened In a Relationship: No Hx Physical Abuse: No Hx Emotional Abuse: No Hx Suspected Abuse: No - [place]/Gender ID What is your current Gender Identity? Choose all that Apply: Male - [place]-Suicide Severity Rating Scale 1) Wish to be :: No 2) Suicidal Thoughts:: No 6) Suicidal Behavior Question (A): LIFETIME: No 6) Suicidal Behavior Question (B): PAST 3 MONTHS: No General Exam - General Limitations: Complains of: no limitations Constitutional: Present: Well developed, Well nourished, well hydrated, Non-toxic - Head Head exam: Present: atraumatic, normocephalic, normal inspection - Eye Eye exam: Present: normal apperance, normal accomodation, EOMI Pupils: Present: PERRL (more content not included)... Normal [facility] PHYSICIAN NOTEon 03-03-2021 PHYSICIAN NOTE [place] [id number] HEALTH INFORMATION MANAGEMENT PHYSICIAN NOTE : [id number] Signed Patient: SOLOMON LAURA Acct:[id number] MRUN: [id number] : 1995 Sex: M Loc: 4TH FLOOR ADM Date: 03/02/21 Room/Bed: 432-B DISC Date: Progress Note Date of Service: 03/03/21 General Surgery Chief complaint: Abdominal pain, nausea/vomiting HxPI: Patient is a otherwise healthy 25 year old gentleman with a 24 history of crampy lower abdominal pain associated with nausea and vomiting. He vomited multiple times yesterday. Bowels have worked but less often over the past day. He has not experienced fevers/chills. Urination has been somewhat decreased. He notes that he has had prior symptoms in this area almost on a monthly basis, but this has been the most severe. He also relates striking his lower abdomen on an object on when moving around a 4-hunter. ER evaluation included labs and a CT that showed leukocytosis and small bowel loops that are fluid-filled, patchy colon thickening in ascending region, bladder thickening, bilateral hydroceles as well as a small bowel intussusception. Images were reviewed. This morning, he feels better. He's not nauseated. Pain is better. 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 Family Hx: Father with possible abdominal aortic aneurysm Review of systems: General: slight weight loss recently, no night sweats/fevers CV: no cardiac problems Resp: no asthma/emphysema GI: no known problems Liver: no known disease : no known kidney/bladder disease Neuro: no strokes/seizures Heme: no bleeding disorders Exam Temp 97.3 Resp 16 BP 123/65 HR 66 Gen: healthy-appearing 25 year old male, non-toxic Skin: multiple tattoos, no jaundice CV: regular, no murmurs Resp: clear bilaterally Abd: soft, non-distended, no hernias liver/spleen not palpable non-tender Ext: no edema, warm, well-perfused Labs: H/H 16.5/48.2 WBC 21.7 BUN/Cr 17/1.1 Impression: Crampy abdominal pain, nausea, vomiting that's improved Intussusception likely transient and a non-issue Hydroceles asymptomatic Patient clinically dehydrated likely from vomiting Suspect gastroenteritis Plan: Will rehydrate Observe Electronically Generated By: ADELITA WOODS MD Generated Date/Time: 03/03/21 1031 Electronically Signed By: ADELITA WOODS MD Signed Date/Time 03/03/21 1049 Co Signed Electronically By: Co Signed Date/Time: CC: Normal [facility] SARS Antigen (Rapid)on 03-03 SARS Antigen Negative Normal Negative [facility] Comment on above: Result Comment: The Mulu 2 SARS Antigen SHAMA is a lateral flow immunofluorescent sandwich assay that is used with the Mulu 2 instrument intended for the qualitative detection of the nucleocapsid protein antigen from SARS-CoV-2 in nasopharyngeal (ROSIN BARREL FILLER) and nasal (NS) swab specimens directly or after the swabs have been added to viral transport media from individuals who are suspected of COVID-19 by their healthcare provider. Testing is limited to laboratories certified under the Clinical Laboratory Improvement Amendments of 1988 (CLIA), 42 U.S.C. ?263a, that meet the requirements to perform moderate, high or waived complexity tests. This test is authorized for use at the Point of Care (POC), i.e., in patient care settings operating under a CLIA Certificate of Waiver, Certificate of Compliance, or Certificate of Accreditation. The SARS Antigen SHAMA does not differentiate between SARS-CoV and SARS-CoV-2. Results are for the identification of SARS-CoV-2 nucleocapsid protein antigen. Antigen is generally detectable in upper respiratory specimens during the acute phase of infection. Positive results indicate the presence of viral antigens, but clinical correlation with patient history and other diagnostic information is necessary to determine infection status. Positive results do not rule out bacterial infection or co-infection with other viruses. The agent detected may not be the definite cause of disease. Negative results should be treated as presumptive and confirmed with a molecular assay, if necessary for patient management. Negative results do not rule out COVID-19 and should not be used as the sole basis for treatment or patient management decisions, including infection control decisions. Negative results should be considered in the context of a patient?s recent exposures, history and the presence of clinical signs and symptoms consistent with COVID-19. Performed By: #### C BCS #### [facility] [place] [address] [place] [place] [address] UA w/reflex microscopic exam inationon 03-03-2021 Appearance (U) CLEAR Normal Clear [facility] Comment on above: Performed By: #### C MP #### [facility] [place] [address] [place] [place] [address] Bilirubin Ql (U) 1 Abnormal Negative [facility] Comment on above: Performed By: #### C MP #### [facility] [place] [address] [place] [place] [address] Color (U) rylee Normal Yellow [facility] Comment on above: Performed By: #### C MP #### [facility] [place] [address] [place] [place] [address] Glucose Ql (U) NORMAL Normal Negative [facility] Comment on above: Performed By: #### C MP #### [facility] [place] [address] [place] [place] [address] Hemoglobin Ql (U) Negative Normal Negative [facility] Comment on above: Performed By: #### C MP #### [facility] [place] [address] [place] [place] [address] Ketones Ql (U) 3+ Abnormal Negative [facility] Comment on above: Performed By: #### C MP #### [facility] [place] [address] [place] [place] [address] Leukocytes Esterase TRACE Abnormal Negative [facility] Comment on above: Performed By: #### C MP #### [facility] [place] [address] [facility] [place] [address] Nitrite Ql (U) Negative Normal Negative [facility] Comment on above: Performed By: #### C MP #### [facility] [place] [address] [place] [place] [address] pH (U) 5 [pH] Normal [facility] Comment on above: Performed By: #### C MP #### [facility] [place] [address] [place] [place] [address] Protein Ql (U) 75 Normal Negative [facility] Comment on above: Performed By: #### C MP #### [facility] [place] [address] [facility] [place] [address] Specific gravity (U) [Rel density] 1.010 Low 1.015-1.025 [facility] Comment on above: Performed By: #### C MP #### [facility] [place] [address] [facility] [place] [address] Urobilinogen NORMAL Normal Normal-1.0 [facility] Comment on above: Performed By: #### C MP #### [facility] [place] [address] [facility] [place] [address] Urine Microscopicon 03-03-20 21 Bacteria ROSIN BARREL FILLER Normal 0 - 1+ [facility] Comment on above: Performed By: #### C BCS #### [facility] [place] [address] [facility] [place] [address] Casts ROSIN BARREL FILLER Normal [facility] Comment on above: Performed By: #### C BCS #### [facility] [place] [address] [place] [place] [address] Casts. ROSIN BARREL FILLER Normal [facility] Comment on above: Performed By: #### C BCS #### [facility] [place] [address] [place] [place] [address] Crystals LM Nom (Urine sed) ROSIN BARREL FILLER Normal [facility] Comment on above: Performed By: #### C BCS #### [facility] [place] [address] [place] [address] Crystals. ROSIN BARREL FILLER Normal [facility] Comment on above: Performed By: #### C BCS #### [facility] [place] [address] [place] [address] Epithelial cells LM Ql (Urine sed) 0-2 Normal 0 - [address] [place] [address] Comment on above: Performed By: #### C BCS #### [facility] [place] [address] [place] [address] Mucus Ql (Urine sed) 1+ /lpf Normal [facility] Comment on above: Performed By: #### C BCS #### [facility] [place] [address] [place] [address] RBC None Seen Normal 0 - 2 [facility] Comment on above: Performed By: #### C BCS #### [facility] [place] [address] [place] [address] Trichomonas ROSIN BARREL FILLER Normal [facility] Comment on above: Performed By: #### C BCS #### [facility] [place] [address] [place] [address] WBC None Seen Normal 0 - 6 [facility] Comment on above: Performed By: #### C BCS #### [facility] [place] [address] [place] [address] Yeast ROSIN BARREL FILLER Normal [facility] Comment on above: Performed By: #### C BCS #### [facility] [place] [address] [place] [address] Other ROSIN BARREL FILLER Normal [facility] Comment on above: Performed By: #### C BCS #### [facility] [place] [address] [place] [address] CBC w/Auto Differentialon Basophils Abs. # 0.00 K/uL Normal 0.00-0.10 [facility] Comment on above: Result Comment: CO RRECTED REPORT: Previous result was 0.03 at 22:24 on 03/02/21 Performed By: #### C BCS #### [facility] [address] [place] [address] Basophils/100 WBC (Bld) 0.0 % Low 0.2-1.0 [facility] Comment on above: Result Comment: CO RRECTED REPORT: Previous result was 0.1 at 20:04 on 03/02/21 Performed By: #### C BCS #### [facility] [address] [place] [address] Eosinophils (Bld) [#/Vol] 0.00 10*3/uL Normal 0.00-0.20 [facility] Comment on above: Performed By: #### C BCS #### [facility] [address] [place] [address] Eosinophils/100 WBC (Bld) 0.0 % Low 0.9-2.9 [facility] Comment on above: Performed By: #### C BCS #### [facility] [address] [place] [address] Erythrocyte distribution width (RBC) [Ratio] 13.0 % Normal 11.5-14.5 [facility] Comment on above: Performed By: #### C BCS #### [facility] [place] [address] Hematocrit (Bld) [Volume fraction] 48.2 % Normal 36.7-50.6 [facility] Comment on above: Performed By: #### C BCS #### [facility] [address] [place] [address] Hemoglobin (Bld) [Mass/Vol] 16.5 g/dL Normal 12.4-17.3 [facility] Comment on above: Performed By: #### C BCS #### [facility] [address] [place] [address] Imm Grans % 0.00 % Normal 0.00-1.00 [facility] Comment on above: Result Comment: CO RRECTED REPORT: Previous result was 0.20 at 22:24 on 03/02/21 Performed By: #### C BCS #### [facility] [address] [place] [address] Imm Grans Absolute # 0.00 K/uL Normal 0.00-0.10 [facility] Comment on above: Result Comment: CO RRECTED REPORT: Previous result was 0.05 at 22:24 on 03/02/21 Performed By: #### C BCS #### [facility] [address] [place] [address] Lymphocytes (Bld) [#/Vol] 1.30 10*3/uL Normal 1.30-2.90 [facility] Comment on above: Result Comment: CO RRECTED REPORT: Previous result was 0.50 at 22:24 on 03/02/21 Performed By: #### C BCS #### [facility] [address] [place] [address] Lymphocytes/100 WBC (Bld) 6.0 % Low 17.0-45.5 [facility] Comment on above: Result Comment: CO RRECTED REPORT: Previous result was 2.2 at 20:04 on 03/02/21 Performed By: #### C BCS #### [facility] [address] [place] [address] MCH (RBC) [Entitic mass] 30.6 pg Normal 27.0-31.0 [facility] Comment on above: Performed By: #### C BCS #### [facility] [address] [place] [address] MCHC (RBC) [Mass/Vol] 34.2 g/dL Normal 33.0-37.0 [facility] Comment on above: Performed By: #### C BCS #### [facility] [address] [place] [address] MCV (RBC) [Entitic vol] 89.4 fL Normal 80.0-94.0 [facility] Comment on above: Performed By: #### C BCS #### [facility] [address] [place] [address] Monocytes (Bld) [#/Vol] 0.00 10*3/uL Low 0.30-0.80 [facility] Comment on above: Result Comment: CO RRECTED REPORT: Previous result was 1.00 at 20:04 on 03/02/21 Performed By: #### C BCS #### [facility] [address] [place] [address] Monocytes/100 WBC (Bld) 0.0 % Low 5.5-11.7 [facility] Comment on above: Result Comment: CO RRECTED REPORT: Previous result was 4.6 at 20:04 on 03/02/21 Performed By: #### C BCS #### [facility] [address] [place] [address] Neutrophils Abs. # 20.40 K/uL High 2.20-4.80 [facility] Comment on above: Result Comment: CO RRECTED REPORT: Previous result was 20.14 at 22:24 on 03/02/21 Performed By: #### C BCS #### [facility] [place] [address] [facility] [place] [address] Neutrophils/100 WBC (Bld) 94.0 % High 43.0-65.0 [facility] Comment on above: Result Comment: CO RRECTED REPORT: Previous result was 92.9 at 20:04 on 03/02/21 Performed By: #### C BCS #### [facility] [place] [address] [facility] [place] [address] Platelet mean volume (Bld) [Entitic vol] 9.7 fL Normal 7.4-10.4 [facility] Comment on above: Performed By: #### C BCS #### [facility] [place] [address] [facility] [place] [address] Platelets (Bld) [#/Vol] 308 10*3/uL Normal 148-402 [facility] Comment on above: Performed By: #### C BCS #### [facility] [place] [address] [facility] [place] [address] RBC (Bld) [#/Vol] 5.39 10*6/uL Normal 4.13-5.69 [facility] Comment on above: Performed By: #### C BCS #### [facility] [place] [address] [facility] [place] [address] WBC (Bld) [#/Vol] 21.7 10*3/uL High 3.6-10.8 [facility] Comment on above: Performed By: #### C BCS #### [facility] [place] [address] [place] [address] Comprehensive Metabolic Pane bessy 03-02-2021 Albumin [Mass/Vol] 5.5 g/dL High 3.4-5.0 [facility] Comment on above: Performed By: #### C MP #### [facility] [place] [address] [facility] [place] [address] Albumin/Globulin [Mass ratio] 1.4 {ratio} Normal 1.1-2.5 [facility] Comment on above: Performed By: #### C MP #### [facility] [place] [address] [facility] [place] [address] ALP [Catalytic activity/Vol] 119 U/L High 54-112 [facility] Comment on above: Performed By: #### C MP #### [facility] [place] [address] [facility] [place] [address] ALT [Catalytic activity/Vol] 28 U/L Normal 13-66 [facility] Comment on above: Performed By: #### C MP #### [facility] [address] [facility] [place] [address] Anion gap [Moles/Vol] 16.3 mmol/L High 8.0-16.0 [facility] Comment on above: Performed By: #### C MP #### [facility] [address] [facility] [place] [address] AST [Catalytic activity/Vol] 18 U/L Normal 3-39 [facility] Comment on above: Performed By: #### C MP #### [facility] [place] [address] [facility] [place] [address] Bilirubin [Mass/Vol] 2.68 mg/dL High 0.00-0.99 [facility] Comment on above: Performed By: #### C MP #### [facility] [place] [address] [facility] [place] [address] Calcium [Mass/Vol] 9.8 mg/dL Normal 8.2-10.0 [facility] Comment on above: Performed By: #### C MP #### [facility] [place] [address] [facility] [place] [address] Chloride [Moles/Vol] 99 mmol/L Normal 94-110 [facility] Comment on above: Performed By: #### C MP #### [facility] [address] [place] [address] CO2 [Moles/Vol] 29 mmol/L Normal 21-34 [facility] Comment on above: Performed By: #### C MP #### [facility] [address] [place] [address] Creatinine [Mass/Vol] 1.11 mg/dL Normal 0.50-1.17 [facility] Comment on above: Performed By: #### C MP #### [facility] [address] [place] [address] EGFR Other Races >60 Normal >60 [facility] Comment on above: Performed By: #### C MP #### [facility] [address] [place] [address] GFR/1.73 sq M.predicted among blacks MDRD (S/P/Bld) [Vol rate/Area] mL/min/{1.73_m2} Normal >60 [facility] Comment on above: Result Comment: Tightener danika Kidney Disease less than 60 mL/min/1.73 m2 Kidney Failure less than 15 mL/min/1.73 m2 Average estimated GFR by age: 20-29 years 116 mL/min/1.73 m2 Performed By: #### C MP #### [facility] [address] [place] [address] Globulin (S) [Mass/Vol] 3.8 g/dL Normal 1.5-4.5 [facility] Comment on above: Performed By: #### C MP #### [facility] [address] [place] [address] Glucose [Mass/Vol] 163 mg/dL High 65-100 [facility] Comment on above: Performed By: #### C MP #### [facility] [place] [address] [facility] [place] [address] Potassium [Moles/Vol] 4.3 mmol/L Normal 3.3-5.1 [facility] Comment on above: Performed By: #### C MP #### [facility] [place] [address] [facility] [place] [address] Protein [Mass/Vol] 9.3 g/dL High 6.1-8.2 [facility] Comment on above: Performed By: #### C MP #### [facility] [place] [address] [facility] [place] [address] Sodium [Moles/Vol] 140 mmol/L Normal 132-145 [facility] Comment on above: Performed By: #### C MP #### [facility] [address] [facility] [place] [address] Urea nitrogen [Mass/Vol] 17.1 mg/dL Normal 3.2-26.9 [facility] Comment on above: Performed By: #### C MP #### [facility] [place] [address] [facility] [place] [address] Urea nitrogen/Creatinine [Mass ratio] 15 mg/mg Normal 6-20 [facility] Comment on above: Performed By: #### C MP #### [facility] [place] [address] [facility] [place] [address] Differential Manualon 2020 Anisocytosis ROSIN BARREL FILLER Normal [facility] Comment on above: Performed By: #### L IPAS #### [facility] [place] [address] [facility] [place] [address] Basophilic Stippling ROSIN BARREL FILLER Normal [facility] Comment on above: Performed By: #### L IPAS #### [facility] [place] [address] [place] [address] Basophils 0 % Normal 0-1 [facility] Comment on above: Performed By: #### L IPAS #### [facility] [place] [address] [place] [address] Blast. ROSIN BARREL FILLER Normal 0-0 [facility] Comment on above: Performed By: #### L IPAS #### [facility] [place] [address] [place] [address] [place] Cell ROSIN BARREL FILLER [facility] Comment on above: Performed By: #### L IPAS #### [facility] [place] [address] [place] [address] [place] Rings ROSIN BARREL FILLER Normal [facility] Comment on above: Performed By: #### L IPAS #### [facility] [place] [address] [place] [address] Crenated Cells ROSIN BARREL FILLER Normal [facility] Comment on above: Performed By: #### L IPAS #### [facility] [place] [address] [place] [address] Dohle Bodies ROSIN BARREL FILLER Normal [facility] Comment on above: Performed By: #### L IPAS #### [facility] [place] [address] [place] [address] Eosinophils 0 % Low 1-3 [facility] Comment on above: Performed By: #### L IPAS #### [facility] [place] [address] [place] [address] Fragmented Cells ROSIN BARREL FILLER Normal [facility] Comment on above: Performed By: #### L IPAS #### [facility] [place] [address] [place] [address] [place] Bodies ROSIN BARREL FILLER Normal [facility] Comment on above: Performed By: #### L IPAS #### [facility] [place] [address] [facility] [place] [address] [place] Bodies ROSIN BARREL FILLER Normal [facility] Comment on above: Performed By: #### L IPAS #### [facility] [place] [address] [facility] [place] [address] Hyperchromia ROSIN BARREL FILLER Normal [facility] Comment on above: Performed By: #### L IPAS #### [facility] [place] [address] [facility] [place] [address] Hypochromia ROSIN BARREL FILLER Normal [facility] Comment on above: Performed By: #### L IPAS #### [facility] [place] [address] [facility] [place] [address] Immature Cells ROSIN BARREL FILLER Normal [facility] Comment on above: Performed By: #### L IPAS #### [facility] [place] [address] [facility] [place] [address] Lymphocytes 6 % Low 17-46 [facility] Comment on above: Performed By: #### L IPAS #### [facility] [place] [address] [facility] [place] [address] Lymphocytes Atypical ROSIN BARREL FILLER Normal [facility] Comment on above: Performed By: #### L IPAS #### [facility] [place] [address] [facility] [place] [address] Lymphocytes Reactive ROSIN BARREL FILLER Normal [facility] Comment on above: Performed By: #### L IPAS #### [facility] [place] [address] [facility] [place] [address] Macrocytosis ROSIN BARREL FILLER Normal [facility] Comment on above: Performed By: #### L IPAS #### [facility] [place] [address] [place] [address] Metamyelocytes ROSIN BARREL FILLER Normal 0-0 [facility] Comment on above: Performed By: #### L IPAS #### [facility] [place] [address] [place] [address] Microcytic ROSIN BARREL FILLER Normal [facility] Comment on above: Performed By: #### L IPAS #### [facility] [place] [address] [place] [address] Monoblasts ROSIN BARREL FILLER Normal [facility] Comment on above: Performed By: #### L IPAS #### [facility] [place] [address] [place] [address] Monocytes 0 % Low 6-12 [facility] Comment on above: Performed By: #### L IPAS #### [facility] [place] [address] [place] [address] Myeloblasts ROSIN BARREL FILLER Normal [facility] Comment on above: Performed By: #### L IPAS #### [facility] [place] [address] [place] [address] Myelocytes ROSIN BARREL FILLER Normal 0-0 [facility] Comment on above: Performed By: #### L IPAS #### [facility] [place] [address] [place] [address] Neutrophils 94 % High 43-65 [facility] Comment on above: Performed By: #### L IPAS #### [facility] [place] [address] [place] [address] Nucleated RBC ROSIN BARREL FILLER Normal 0-0 [facility] Comment on above: Performed By: #### L IPAS #### [facility] [place] [address] [place] [address] Ovalocytes ROSIN BARREL FILLER Normal [facility] Comment on above: Performed By: #### L IPAS #### [facility] [place] [address] [place] [address] Platelet Slide Review ROSIN BARREL FILLER Normal [facility] Comment on above: Performed By: #### L IPAS #### [facility] [place] [address] [place] [address] Poikilocytosis ROSIN BARREL FILLER [facility] Comment on above: Performed By: #### L IPAS #### [facility] [place] [address] [facility] [place] [address] Polychromasia ROSIN BARREL FILLER [facility] Comment on above: Performed By: #### L IPAS #### [facility] [place] [address] [facility] [place] [address] Promyelocyte ROSIN BARREL FILLER Normal 0-0 [facility] Comment on above: Performed By: #### L IPAS #### [facility] [place] [address] [facility] [place] [address] Schistocytes ROSIN BARREL FILLER [facility] Comment on above: Performed By: #### L IPAS #### [facility] [place] [address] [place] [address] Sickle Cells ROSIN BARREL FILLER [facility] Comment on above: Performed By: #### L IPAS #### [facility] [place] [address] [facility] [place] [address] Smudge Cells ROSIN BARREL FILLER [facility] Comment on above: Performed By: #### L IPAS #### [facility] [place] [address] [facility] [place] [address] Spherocytes ROSIN BARREL FILLER [facility] Comment on above: Performed By: #### L IPAS #### [facility] [place] [address] [place] [address] Target Cells ROSIN BARREL FILLER Normal [facility] Comment on above: Performed By: #### L IPAS #### [facility] [place] [address] [facility] [address] Tear Drop Cells ROSIN BARREL FILLER Normal [facility] Comment on above: Performed By: #### L IPAS #### [facility] [place] [address] [place] [address] Toxic Granulation ROSIN BARREL FILLER Normal [facility] Comment on above: Performed By: #### L IPAS #### [facility] [place] [address] [facility] [place] [address] Vital Signs Date Time Vital Sign Value Performing Clinician Facility 05-14-2024 10:10-0400 Body height 172.7 cm Donna FireBlade PA-C Work Phone: [facility] 05-14-2024 10:10-0400 Body mass index (BMI) [Ratio] 33.74 kg/m2 Donna FireBlade PA-C Work Phone: [facility] 05-14-2024 10:10-0400 Body temperature 98.4 [degF] Donna FireBlade PA-C Work Phone: [facility] 05-14-2024 10:10-0400 Body weight 100.65 kg Donna Us PA-C Work Phone: [facility] 05-14-2024 10:10-0400 Diastolic blood pressure 80 mm[Hg] Donna FireBlade PA-C Work Phone: [facility] Comment on above: manual 05-14-2024 10:10-0400 Heart rate 94 /min Donna FireBlade PA-C Work Phone: [facility] 05-14-2024 10:10-0400 Respiratory rate 16 /min Donna FireBlade PA-C Work Phone: [facility] 05-14-2024 10:10-0400 SaO2% (BldA) [Mass fraction] 97 % Donna FERNANDEZ-C Work Phone: [facility] 05-14-2024 10:10-0400 Systolic blood pressure 122 mm[Hg] Donna Us PA-C Work Phone: [facility] Comment on above: manual 11-12-2023 08:59-0400 Body height 172.7 cm Ella Gisel SENIOR COMPLIANCE OFFICER.PIANO STRINGER Work Phone: [facility] 11-12-2023 08:59-0400 Body weight 99.34 kg Ella Gisel SENIOR COMPLIANCE OFFICER.PIANO STRINGER Work Phone: [facility] 11-12-2023 08:59-0400 Diastolic blood pressure 81 mm[Hg] Ella Gisel SENIOR COMPLIANCE OFFICER.PIANO STRINGER Work Phone: [facility] 11-12-2023 08:59-0400 Heart rate 76 /min Ella Gisel SENIOR COMPLIANCE OFFICER.PIANO STRINGER Work Phone: [facility] 11-12-2023 08:59-0400 SaO2% (BldA) [Mass fraction] 97 % Ella Gisel SENIOR COMPLIANCE OFFICER.PIANO STRINGER Work Phone: [facility] 11-12-2023 08:59-0400 Systolic blood pressure 127 mm[Hg] Ella Gisel SENIOR COMPLIANCE OFFICER.PIANO STRINGER Work Phone: [facility] 10-18-2022 10:05-0500 Body height 172.7 cm Jorge Luis Stout SENIOR COMPLIANCE OFFICER.PIANO STRINGER Work Phone: [facility] 10-18-2022 10:05-0500 Body weight 95.25 kg Jorge Luis Stout SENIOR COMPLIANCE OFFICER.PIANO STRINGER Work Phone: [facility] 10-18-2022 10:05-0500 Diastolic blood pressure 72 mm[Hg] Jorge Luis Amayaler SENIOR COMPLIANCE OFFICER.PIANO STRINGER Work Phone: [facility] 10-18-2022 10:05-0500 Heart rate 82 /min Jorge Luis Stout SENIOR COMPLIANCE OFFICER.PIANO STRINGER Work Phone: [facility] 10-18-2022 10:05-0500 SaO2% (BldA) [Mass fraction] 98 % Jorge Luis Stout APRN.PIANO STRINGER Work Phone: [facility] 10-18-2022 10:05-0500 Systolic blood pressure 135 mm[Hg] Jorge Luis Stout APRN.PIANO STRINGER Work Phone: [facility] 08-09-2022 10:29-0500 Body temperature 98.6 [degF] Jorge Luis Stout APRN.PIANO STRINGER Work Phone: [facility] 08-09-2022 10:29-0500 Body weight 99.34 kg Jorge Luis Stout APRN.PIANO STRINGER Work Phone: [facility] 08-09-2022 10:29-0500 Diastolic blood pressure 88 mm[Hg] Jorge Luis Stout APRN.PIANO STRINGER Work Phone: [facility] 08-09-2022 10:29-0500 Heart rate 83 /min Jorge Luis Stout APRN.PIANO STRINGER Work Phone: [facility] 08-09-2022 10:29-0500 SaO2% (BldA) [Mass fraction] 97 % Jorge Luis Stout APRN.PIANO STRINGER Work Phone: [facility] 08-09-2022 10:29-0500 Systolic blood pressure 138 mm[Hg] Jorge Luis Stout APRN.PIANO STRINGER Work Phone: [facility] Encounters Encounter Date Encounter Type Care Provider Facility Start: 02-10-2025 End: 02-10-2025 Telephone encounter Donna Us PA-C [facility] Comment on above: Appointment Start: 02-09-2025 End: 02-09-2025 Emergency department patient visit DONNA US Facility:[id number] Start: 01-31-2025 End: 02-01-2025 Refill Donna sU PA-C Work Phone: [facility] Comment on above: Refill Request Start: 01-24-2025 End: 01-24-2025 Transcribe Orders Salvatore Mcgrath MD Work Phone: [facility] Comment on above: Pretibial myxedema ( Primary Dx) Hyperthyroidism (Yojana jim Dx) Start: 01-11-2025 End: 01-11-2025 ambulatory NONE [facility] Start: 01-03-2025 End: 01-03-2025 Refill Donna Us PA-C Work Phone: [facility] Comment on above: Refill Request Start: 01-02-2025 End: 01-02-2025 Emergency department patient visit DONNA R NADIRA Facility:[id number] Start: 12-11-2024 End: 12-11-2024 Emergency department patient visit DONNA Kate NADIRA Facility:[id number] Start: 12-03-2024 End: 12-03-2024 ambulatory Salvatore Mcgrath Facility:[facility] Start: 11-22-2024 End: 11-22-2024 Refill Donna Us PA-C Work Phone: [facility] Comment on above: Refill Request Start: 11-16-2024 ambulatory DONNA US Facility: [id number] Start: 11-16-2024 End: 11-16-2024 Subsequent hospital visit by physician Holter/Event Monitor [facility] Comment on above: Arrived Start: 11-12-2024 End: 11-12-2024 Follow-up encounter Donna Us PA-C Work Phone: [facility] Start: 11-11-2024 End: 11-11-2024 ambulatory DONNA Kate US Facility:[id number] Start: 11-04-2024 End: 11-04-2024 Nursing evaluation of patient and report Nurse Julian Lu Work Phone: [facility] Comment on above: Fatigue, unspecified type Start: 11-04-2024 End: 11-04-2024 ambulatory DONNA Kate US Facility:[id number] Start: 05-14-2024 End: 05-14-2024 Patient encounter procedure Donna Us PA-C Work Phone: [facility] Comment on above: Wellness examination (Primary Dx); Depression, unspecified depression type; Hypertension, essential; Fatigue, unspecified type Start: 05-14-2024 End: 05-14-2024 Patient encounter status Donna Us PA-C Work Phone: [facility] Start: 05-14-2024 End: 05-14-2024 ambulatory DONNA US Facility:[id number] Start: 12-09-2023 Telephone encounter Jorge Luis Stout APRN.SANTI [facility] Comment on above: Appointment Start: 12-03-2023 Telephone encounter Jorge Luis Stout APRN.CNP [facility] Comment on above: Results Start: 12-03-2023 End: 12-03-2023 Nursing evaluation of patient and report Nurse Julian Lu Work Phone: [facility] Comment on above: Palpitations (Primar y Dx) Start: 11-18-2023 Telephone encounter Ella salas APRN.CNP Work Phone: [facility] Comment on above: Results Start: 11-12-2023 End: 11-12-2023 Office outpatient visit 15 minutes Ella Barragan APRN.PIANO STRINGER Work Phone: [facility] Comment on above: Hypertension, essent ial (Primary Dx); Palpitations; Depression, unspecified depression type; GERD without esophagitis; Screening for lipid disorders Start: 11-11-2023 Refill Jorge Luis Reyna But ler SENIOR COMPLIANCE OFFICER.PIANO STRINGER Work Phone: [facility] Comment on above: Refill Request Start: 06-13-2023 Refill Jorge Luiskodi Barnesn But ler SENIOR COMPLIANCE OFFICER.PIANO STRINGER Work Phone: [facility] Start: 06-03-2023 Refill Jorge Luis Reyna But ler SENIOR COMPLIANCE OFFICER.PIANO STRINGER Work Phone: [facility] Comment on above: Refill Request Start: 05-16-2023 Telephone encounter Jorge Luis Stout APRN.PIANO STRINGER Work Phone: [facility] Comment on above: Missed Appointment ( 05/16/23) Start: 03-19-2023 Refill Jorge Luis Reyna But ler SENIOR COMPLIANCE OFFICER.PIANO STRINGER Work Phone: [facility] Comment on above: Refill Request Start: 02-15-2023 Refill Jorge Luis Orellana But ler SENIOR COMPLIANCE OFFICER.PIANO STRINGER Work Phone: [facility] Comment on above: Refill Request Start: 01-24-2023 End: 01-24-2023 ambulatory JORGE LUIS STOUT Facility:[facility] Start: 12-30-2022 Orders Only Jorge Luis Reyna But ler SENIOR COMPLIANCE OFFICER.PIANO STRINGER Work Phone: [facility] Comment on above: Chronic insomnia (Pr imary Dx) Start: 12-09-2022 Refill Jorge Luis Orellana But ler SENIOR COMPLIANCE OFFICER.PIANO STRINGER Work Phone: [facility] Start: 11-08-2022 Refill Jorge Luis Orellana But ler SENIOR COMPLIANCE OFFICER.PIANO STRINGER Work Phone: [facility] Start: 10-18-2022 End: 10-18-2022 ambulatory JORGE LUIS STOUT Facility:[facility] Start: 10-18-2022 End: 10-18-2022 Patient encounter procedure Jorge Luis Stout SENIOR COMPLIANCE OFFICER.PIANO STRINGER Work Phone: [facility] Comment on above: Chronic insomnia (Pr imary Dx) Start: 09-20-2022 End: 09-20-2022 ambulatory JORGE LUIS STOUT Facility:[facility] Start: 08-09-2022 End: 08-09-2022 ambulatory JORGE LUIS STOUT Facility:[facility] Start: 08-09-2022 Encounter for genera l adult medical examination without abnormal findings JORGE LUIS STOUT [facility] Start: 08-09-2022 End: 08-09-2022 Subsequent hospital visit by physician Provider [facility] Start: 08-09-2022 End: 08-09-2022 Patient encounter procedure Jorge Luis Stout SENIOR COMPLIANCE OFFICER.PIANO STRINGER Work Phone: [facility] Comment on above: Wellness examination (Primary Dx); GERD without esophagitis; Chronic insomnia; Encounter for immunization; Weight gain; Depression, unspecified depression type; Fatigue, unspecified type; Obesity, Class I, BMI 30-34.9; BMI 33.0-33.9,adult; Need for influenza vaccination Start: 08-09-2022 End: 08-09-2022 Patient encounter status Jorge Luis Barnesnoel Stout SENIOR COMPLIANCE OFFICER.PIANO STRINGER Work Phone: [facility] Start: 07-11-2022 Refill Jorge Luis Barnesn But ler SENIOR COMPLIANCE OFFICER.PIANO STRINGER Work Phone: [facility] Comment on above: Refill Request Start: 07-08-2022 Refill Gege Wong SENIOR COMPLIANCE OFFICER.PIANO STRINGER Work Phone: [facility] Comment on above: Refill Request (Omep razole ) Start: 04-09-2022 Refill Jorge Luis Barnesn But ler SENIOR COMPLIANCE OFFICER.PIANO STRINGER Work Phone: [facility] Comment on above: Refill Request Start: 04-06-2022 Refill Jorge Luis Reyna But ler SENIOR COMPLIANCE OFFICER.PIANO STRINGER Work Phone: [facility] Comment on above: Refill Request Start: 02-06-2022 Refill Gege Warneres SENIOR COMPLIANCE OFFICER.PIANO STRINGER Work Phone: [facility] Comment on above: Refill Request Start: 01-03-2022 Refill Jorge Luis Barnesn But ler SENIOR COMPLIANCE OFFICER.PIANO STRINGER Work Phone: [facility] Comment on above: Refill Request Start: 07-18-2021 End: 07-18-2021 Subsequent hospital visit by physician Provider [facility] Comment on above: VOMITING Procedures Date Procedure Procedure Detail Performing Clinician Start: 11-04-2024 Basic metabolic pane l calcium total Donna Us PA-C Work Phone: Start: 11-04-2024 Lipid panel Donna love PA-C Work Phone: Start: 12-03-2023 Ecg routine ecg w/le ast 12 lds i&r only Ella Barragan APRN.PIANO STRINGER Work Phone: Start: 11-12-2023 Blood count complete auto&auto difrntl wbc Ella Barragan APRN.PIANO STRINGER Work Phone: Start: 11-12-2023 Lipid panel Ella Q uillen SENIOR COMPLIANCE OFFICER.PIANO STRINGER Work Phone: Start: 08-09-2022 C-reactive protein Dasha e Reyna Stout APRN.PIANO STRINGER Work Phone: Start: 08-09-2022 CBC + DIFF Jorge Luis Stout APRN.PIANO STRINGER Work Phone: Start: 08-09-2022 Comprehensive metabo lic 2000 panel - Serum or Plasma Jorge Luis Stout APRN.PIANO STRINGER Work Phone: Start: 08-09-2022 HCV ANTIBODY RFX TO QUANT PCR Jorge Luis Stout APRN.PIANO STRINGER Work Phone: Start: 08-09-2022 HIV RAPID (UNION) Jorge Luis Stout APRN.PIANO STRINGER Work Phone: Start: 08-09-2022 LIPID PANEL BASIC Jorge Luis Stout APRN.PIANO STRINGER Work Phone: Start: 08-09-2022 Nuclear Ab [Presence ] in Serum Jorge Luis Stout APRN.[employer]O [employer]ER Work Phone: Start: 08-09-2022 SED RATE WESTERGREN Rey kodi Stout APRN.PIANO STRINGER Work Phone: Start: 08-09-2022 T3 FREE BLD Jorge Luis Stout APRN.[employer]O [employer]INGER Work Phone: Start: 08-09-2022 T4 FREE/FREE THYROX Rey kodi Stout APRN.[employer]O [employer]ER Work Phone: Start: 08-09-2022 Testosterone [Mass/v olume] in Serum or Plasma Jorge Luis Stout APRN.[employer]O [employer]INGER Work Phone: Start: 08-09-2022 TSH BLD Jorge Luis Stout APRN.[employer]O [employer]INGER Work Phone: Start: 08-09-2022 VITAMIN B12 BLOOD Jorge Luis Stout APRN.[employer]O [employer]INGER Work Phone: Start: 08-09-2022 VITAMIN D 25 HYDROXY Ja justin Stout SENIOR COMPLIANCE OFFICER.[employer] Work Phone: Start: 08-09-2022 INFLUENZA VAC 4 DORY NT PSRV FREE 6 MO-64 YRS IM Jorge Luis Stout SENIOR COMPLIANCE OFFICER.[employer] Work Phone: Start: 07-26-2021 Adult depression scr eening assessment Jorge Luis Stout SENIOR COMPLIANCE OFFICER.[employer] Work Phone: Start: 07-18-2021 Ct abdomen & pelvis w/o contrast material November Mcgregor SENIOR COMPLIANCE OFFICER.[employer] Work Phone: Start: 07-18-2021 UA WITH CULTURE IF INDICATED November Puma SENIOR COMPLIANCE OFFICER.[employer] Work Phone: Start: 07-18-2021 URINALYSIS, WITH MICROSCOPIC November Puma SENIOR COMPLIANCE OFFICER.[employer] Work Phone: Start: 07-18-2021 CBC + DIFF November Luis Alfredo nazario SENIOR COMPLIANCE OFFICER.[employer] Work Phone: Start: 07-18-2021 Comprehensive metabo lic 2000 panel - Serum or Plasma November Puma SENIOR COMPLIANCE OFFICER.[employer] Work Phone: Start: 07-18-2021 LIPASE BLD November Luis Alfredo nazario SENIOR COMPLIANCE OFFICER.[employer]O [employer]ER Work Phone: Plan of Treatment Date Care Activity Detail Author Start: 01-02-2035 Urine microalbumin profile DTa P,Tdap,Td Vaccine (7 - Td or Tdap) [facility] Start: 11-11-2025 Annual PCP Team Tightener danika Disease Visit Annual PCP Team Chronic Disease Visit [facility] Start: 05-20-2025 End: 05-20-2025 Patient encounter procedure 05/20/2025 8:00 AM EDT Office Visit [facility] [address] [place] [address] Donna Us PA-C [address] [place], [place] [id number] 6 month follow up [facility] Comment on above: 6 month follow up Start: 05-14-2025 Annual PCP Team Tightener danika Disease Visit Annual PCP Team Chronic Disease Visit [facility] Start: 05-14-2025 Covid-19 Vaccine ( season) Covid-19 Vaccine ( season) [facility] Comment on above: Postponed from 04/18 (Declined at this time) Start: 04-18-2025 Influenza vaccination Influenz a Vaccine (Season Ended) [facility] Start: 03-03-2025 Urine microalbumin profile [facility] Start: 02-14-2025 Influenza vaccination Influenza Vacc ine (#1) [facility] Comment on above: Postponed from 04/18 (Declined at this time) Start: 01-24-2025 End: 04-25-2025 THYROID PEROXIDASE ANTIBODY [facility] Work Phone: Comment on above: Expected: 01/24/2025 , Expires: 04/25/2025 Start: 11-16-2024 End: 11-16-2024 Patient encounter procedure 11/16/2024 1:00 PM EDT Appointment [facility] [address] [place] [id number] 14 days duration [facility] Comment on above: 14 days duration Start: 11-11-2024 End: 02-10-2025 25-hydroxyvitamin D3 [Mass/volume] in Serum or Plasma VITAMIN D 25 HYDROXY Lab Routine Fatigue, unspecified type Expected: 11/11/2024 (Approximate), Expires: 02/10/2025 [facility] Comment on above: Expected: 11/11/2024 (Approximate), Expires: 02/10/2025 Start: 11-11-2024 Annual PCP Team Tightener danika Disease Visit Annual PCP Team Chronic Disease Visit [facility] Start: 11-11-2024 End: 02-10-2025 Basic metabolic 2000 panel - Serum or Plasma BASIC METABOLIC PANEL Lab Routine Fatigue, unspecified type Expected: 11/11/2024 (Approximate), Expires: 02/10/2025 [facility] Comment on above: Expected: 11/11/2024 (Approximate), Expires: 02/10/2025 Start: 11-11-2024 End: 02-10-2025 CBC panel - Blood by Automated count COMPLETE BLOOD COUNT Lab Routine Fatigue, unspecified type Expected: 11/11/2024 (Approximate), Expires: 02/10/2025 [facility] Work Phone: Comment on above: Expected: 11/11/2024 (Approximate), Expires: 02/10/2025 Start: 11-11-2024 End: 02-10-2025 Cobalamin (Vitamin B12) [Mass/volume] in Serum or Plasma VITAMIN B12 Lab Routine Fatigue, unspecified type Expected: 11/11/2024 (Approximate), Expires: 02/10/2025 [facility] Comment on above: Expected: 11/11/2024 (Approximate), Expires: 02/10/2025 Start: 11-11-2024 Covid-19 Vaccine () Covid-19 Vaccine () [facility] Comment on above: Postponed from 04/18 (Declined at this time) Start: 11-11-2024 End: 02-10-2025 Ferritin [Mass/volume] in Serum or Plasma FERRITIN Lab Routine Fatigue, unspecified type Expected: 11/11/2024 (Approximate), Expires: 02/10/2025 [facility] Comment on above: Expected: 11/11/2024 (Approximate), Expires: 02/10/2025 Start: 11-11-2024 End: 02-10-2025 Iron and Iron binding capacity panel - Serum or Plasma IRON AND TIBC Lab Routine Fatigue, unspecified type Expected: 11/11/2024 (Approximate), Expires: 02/10/2025 [facility] Comment on above: Expected: 11/11/2024 (Approximate), Expires: 02/10/2025 Start: 11-11-2024 End: 02-10-2025 Lipid 1996 panel - Serum or Plasma LIPID PANEL BASIC Lab Routine Fatigue, unspecified type Expected: 11/11/2024 (Approximate), Expires: 02/10/2025 [facility] Comment on above: Expected: 11/11/2024 (Approximate), Expires: 02/10/2025 Start: 11-11-2024 End: 02-10-2025 Testosterone [Mass/volume] in Serum or Plasma TESTOSTERONE, TOTAL Lab Routine Fatigue, unspecified type Expected: 11/11/2024 (Approximate), Expires: 02/10/2025 [facility] Comment on above: Expected: 11/11/2024 (Approximate), Expires: 02/10/2025 Start: 11-11-2024 End: 02-10-2025 Thyrotropin [Units/volume] in Serum or Plasma THYROID STIMULATING HORMONE Lab Routine Fatigue, unspecified type Expected: 11/11/2024 (Approximate), Expires: 02/10/2025 [facility] Comment on above: Expected: 11/11/2024 (Approximate), Expires: 02/10/2025 Start: 11-11-2024 End: 11-11-2024 Patient encounter procedure [facility] Comment on above: 6 month follow up Start: 11-04-2024 End: 11-04-2024 Nursing evaluation of patient and report 11/04/2024 9:20 AM EDT Nurse Visit [facility] [address] [place], [place] [phone] [place], Nurse [facility] [address] [place], [place] [phone] labs [facility] Comment on above: labs Start: 05-14-2024 End: 05-14-2024 Patient encounter procedure 05/14/2024 10:00 AM EDT Office Visit [facility] [address] [place], [place] [phone] Donna Us PA-C [address] [place], [place] [id number] 6 month follow up [facility] Comment on above: 6 month follow up Start: 04-18-2024 Influenza vaccination [facility] Start: 02-15-2024 Influenza vaccination Influenza Vacc ine (#1) [facility] Comment on above: Postponed from 04/18 (Declined at this time) Start: 01-25-2024 ANNUAL PCP TEAM SAMPLE EXAMINER DANIKA DISEASE VISIT ANNUAL PCP TEAM CHRONIC DISEASE VISIT [facility] Start: 08-09-2023 COVID-19 VACCINE (#1) COVID-19 VACCI NE (#1) [facility] Comment on above: Postponed from 10/02 (Declined at this time) Start: 04-18-2023 Covid-19 Vaccine () Covid-19 Vaccine () [facility] Start: 04-18-2023 Influenza vaccination [facility] Start: 02-07-2023 End: 04-09-2023 HIV-1/0/2 AG/AB 4TH GEN ([facility]) HIV-1/0/2 AG/AB 4TH GEN ([facility]) Lab Routine Wellness examination Expected: 02/07/2023, Expires: 04/09/2023 [facility] Work Phone: Comment on above: Expected: 02/07/2023 , Expires: 04/09/2023 Start: 08-09-2022 End: 10-09-2022 25-hydroxyvitamin D3 [Mass/volume] in Serum or Plasma VITAMIN D 25 HYDROXY Lab Routine Wellness examination Expected: 08/09/2022, Expires: 10/09/2022 [facility] Work Phone: Comment on above: Expected: 08/09/2022 , Expires: 10/09/2022 Start: 08-09-2022 End: 10-09-2022 C reactive protein [Mass/volume] in Serum or Plasma C-REACTIVE PROTEIN (CRP) Lab Routine Fatigue, unspecified type Expected: 08/09/2022, Expires: 10/09/2022 [facility] Work Phone: Comment on above: Expected: 08/09/2022 , Expires: 10/09/2022 Start: 08-09-2022 End: 10-09-2022 CBC W Auto Differential panel - Blood CBC + DIFF Lab Routine Wellness examination Expected: 08/09/2022, Expires: 10/09/2022 [facility] Work Phone: Comment on above: Expected: 08/09/2022 , Expires: 10/09/2022 Start: 08-09-2022 End: 10-09-2022 Cobalamin (Vitamin B12) [Mass/volume] in Serum or Plasma VITAMIN B12 BLOOD Lab Routine Wellness examination Expected: 08/09/2022, Expires: 10/09/2022 [facility] Work Phone: Comment on above: Expected: 08/09/2022 , Expires: 10/09/2022 Start: 08-09-2022 End: 10-09-2022 Comprehensive metabolic 2000 panel - Serum or Plasma COMP METABOLIC PANEL Lab Routine Wellness examination Expected: 08/09/2022, Expires: 10/09/2022 [facility] Work Phone: Comment on above: Expected: 08/09/2022 , Expires: 10/09/2022 Start: 08-09-2022 End: 10-09-2022 Erythrocyte sedimentation rate SED RATE WESTERGREN Lab Routine Fatigue, unspecified type Expected: 08/09/2022, Expires: 10/09/2022 [facility] Work Phone: Comment on above: Expected: 08/09/2022 , Expires: 10/09/2022 Start: 08-09-2022 End: 10-09-2022 Hepatitis C virus Ab [Presence] in Serum HEP C AB IA W/CONF SCRN Lab Routine Wellness examination Expected: 08/09/2022, Expires: 10/09/2022 [facility] Work Phone: Comment on above: Expected: 08/09/2022 , Expires: 10/09/2022 Start: 08-09-2022 End: 10-09-2022 Lipid 1996 panel - Serum or Plasma LIPID PANEL BASIC Lab Routine Wellness examination Expected: 08/09/2022, Expires: 10/09/2022 [facility] Work Phone: Comment on above: Expected: 08/09/2022 , Expires: 10/09/2022 Start: 08-09-2022 End: 10-09-2022 Nuclear Ab [Presence] in Serum by Immunoassay NATALIE BLOOD Lab Routine Fatigue, unspecified type Expected: 08/09/2022, Expires: 10/09/2022 [facility] Work Phone: Comment on above: Expected: 08/09/2022 , Expires: 10/09/2022 Start: 08-09-2022 End: 10-09-2022 Testosterone [Mass/volume] in Serum or Plasma TESTOSTERONE TOTAL Lab Routine Wellness examination Weight gain Fatigue, unspecified type Expected: 08/09/2022, Expires: 10/09/2022 [facility] Work Phone: Comment on above: Expected: 08/09/2022 , Expires: 10/09/2022 Start: 08-09-2022 End: 10-09-2022 Thyrotropin [Units/volume] in Serum or Plasma TSH BLD Lab Routine Wellness examination Expected: 08/09/2022, Expires: 10/09/2022 [facility] Work Phone: Comment on above: Expected: 08/09/2022 , Expires: 10/09/2022 Start: 08-09-2022 End: 10-09-2022 Thyroxine (T4) free [Mass/volume] in Serum or Plasma T4 FREE/FREE THYROX Lab Routine Wellness examination Expected: 08/09/2022, Expires: 10/09/2022 [facility] Work Phone: Comment on above: Expected: 08/09/2022 , Expires: 10/09/2022 Start: 08-09-2022 End: 10-09-2022 Triiodothyronine (T3) Free [Mass/volume] in Serum or Plasma T3 FREE BLD Lab Routine Wellness examination Expected: 08/09/2022, Expires: 10/09/2022 [facility] Work Phone: Comment on above: Expected: 08/09/2022 , Expires: 10/09/2022 Start: 07-26-2022 Adult depression scr eening assessment DEPRESSION SCREENING [facility] Start: 07-26-2022 COVID-19 VACCINE (#1) COVID-19 VACCI NE (#1) [facility] Comment on above: Postponed from 04/01 (Declined at this time) Postponed from 10/02 (Declined at this time) Start: 04-18-2022 Influenza vaccination [facility] Start: 08-18-2021 DEPRESSION ASSESSMENT DEPRESSION ASS ESSMENT [facility] Start: 2011 BP CONTROLLED (<130/80) BP CON TROLLED (<130/80) [facility] Start: 2011 HEPATITIS C SCREENING HEPATITIS C [facility] Start: 2011 HIV SCREENING [facility] 25-hydroxyvitamin D3 [Mass/volume] in Serum or Plasma VITAMIN D 25 HYDROXY Lab Routine Fatigue, unspecified type 11/04/2024 9:19 AM EDT [facility] ECG COMPLETE ECG COMPLETE ECG Routine Palpitations Ordered: 11/18/2023 [facility] Work Phone: Comment on above: Ordered: 11/18/2023 ECG COMPLETE ECG COMPLETE ECG Routine Palpitations 12/03/2023 11:45 AM EDT [facility] Work Phone: Iron and Iron bindin g capacity panel - Serum or Plasma IRON AND TIBC Lab Routine Fatigue, unspecified type 11/04/2024 9:19 AM EDT [facility] Work Phone: Testosterone [Mass/v olume] in Serum or Plasma TESTOSTERONE, TOTAL Lab Routine Fatigue, unspecified type 11/04/2024 9:[address] [facility] Immunizations Immunization Date Immunization Notes Care Provider Mandie najera 01-02-2025 tetanus toxoid, redu sandro diphtheria toxoid, and acellular pertussis vaccine, adsorbed Donna Us PA-C Work Phone: [facility] 08-09-2022 influenza, injectabl e, quadrivalent, preservative free Jorge Luis Stout APRN.PIANO STRINGER Work Phone: [facility] 08-09-2022 influenza virus vacc ine, unspecified formulation Jorge Luis Stout SENIOR COMPLIANCE OFFICER.[employer]O STRINGER Work Phone: [facility] 09-20-2019 Influenza, injectabl e, Madin [place] Canine Kidney, preservative free, quadrivalent Jorge Luis Stout SENIOR COMPLIANCE OFFICER.[employer]ANO STRINGER Work Phone: [facility] 03-03-2015 tetanus toxoid, redu sandro diphtheria toxoid, and acellular pertussis vaccine, adsorbed Jorge Luis Stout SENIOR COMPLIANCE OFFICER.[employer]ANO STRINGER Work Phone: [facility] 08-13-2000 TD(adult) unspecifie d formulation Jorge Luis Stout SENIOR COMPLIANCE OFFICER.PIANO STRINGER Work Phone: [facility] 05-29-1999 diphtheria, tetanus toxoids and acellular pertussis vaccine, unspecified formulation Jorge Luis Stout SENIOR COMPLIANCE OFFICER.PIANO STRINGER Work Phone: [facility] 05-29-1999 measles, mumps and rubella virus vaccine Jorge Luis Stout SENIOR COMPLIANCE OFFICER.[employer]O STRINGER Work Phone: [facility] 05-29-1999 trivalent poliovirus vaccine, live, oral Jorge Luis Stout SENIOR COMPLIANCE OFFICER.PIANO STRINGER Work Phone: [facility] 06-26-1998 diphtheria, tetanus toxoids and acellular pertussis vaccine, unspecified formulation Jorge Luis Stout SENIOR COMPLIANCE OFFICER.PIANO STRINGER Work Phone: [facility] 06-26-1998 trivalent poliovirus vaccine, live, oral Jorge Luis Stout SENIOR COMPLIANCE OFFICER.PIANO STRINGER Work Phone: [facility] 06-26-1998 varicella virus vaccine Dasha Stout SENIOR COMPLIANCE OFFICER.PIANO STRINGER Work Phone: [facility] 06-24-1996 DTP-Haemophilus influenzae type b conjugate vaccine Jorge Luis Stout SENIOR COMPLIANCE OFFICER.[employer]O STRINGER Work Phone: [facility] 06-24-1996 hepatitis B vaccine, pediatric or pediatric/adolescent dosage Jorge Luis Stout SENIOR COMPLIANCE OFFICER.[employer]O STRINGER Work Phone: [facility] 06-24-1996 measles, mumps and rubella virus vaccine Jorge Luis Stout SENIOR COMPLIANCE OFFICER.PIANO STRINGER Work Phone: [facility] 06-24-1996 trivalent poliovirus vaccine, live, oral Jorge Luis Stout SENIOR COMPLIANCE OFFICER.PIANO STRINGER Work Phone: [facility] 1993 hepatitis B vaccine, pediatric or pediatric/adolescent dosage Jorge Luis Stout SENIOR COMPLIANCE OFFICER.PIANO STRINGER Work Phone: [facility] 1993 hepatitis B vaccine, pediatric or pediatric/adolescent dosage Jorge Luis Stout SENIOR COMPLIANCE OFFICER.PIANO STRINGER Work Phone: [facility] Payers Date Payer Category Payer Self-pay 2022 Unknown [id number] 2020 Medicaid [facility] [facility] [id number] 2020-Present [phone] [address] [place] [address] Medicaid [id number] 2020 Medicaid [id number] 2020 Unknown [id number] 1993 Unknown [id number] Unknown [id number] Unknown [id number] Social History Date Type Detail Facility Tobacco smoking stat [facility] Tobacco smoking consumption unknown [facility] Start: 1995 Sex Assigned At Not on file [facility] Start: 08-02-2021 End: 08-09-2022 Tobacco smoking status PRIS Never smoked tobacco [facility] Start: 08-02-2021 End: 08-09-2022 Tobacco use and exposure Smokeless tobacco non-user [facility] Start: 10-17-2021 Alcohol intake Ex-drinker (finding) [facility] Start: 08-09-2022 End: 01-02-2025 Alcohol intake Current drinker of alcohol (finding) [facility] Start: 08-09-2022 Alcohol [facility] Start: 01-24-2023 End: 12-03-2023 History of Social function [facility] Work Phone: Start: 01-24-2023 End: 12-03-2023 Tobacco use panel [facility] Work Phone: Adult Depression Screening Assessment 0 [facility] Work Phone: Has the [place], or [employer] threatened to shut off services in your home in past 12Mo No [facility] How often to you hav e a drink containing alcohol? Monthly or less [facility] How many standard drinks containing alcohol do you have on a typical day? 1 or 2 [facility] How often do you hav e 6 or more drinks on 1 occasion? Less than monthly [facility] How hard is it for y ou to pay for the very basics like food, housing, medical care, and heating Not very hard [facility] (I/We) worried whemicheal er (my/our) food would run out before (I/we) got money to buy more. Never true [facility] Goals Date Patient Goal Desired Activity /State Personal health goal Clinical Notes 01-03-2022 to 02-10-2025 Telephone Encounter - Darlin Beck MA - 02/10/2025 8:59 AM EDTTelephone Encounter - Darlin Beck MA - 02/10/2025 8:59 AM EDTTelephone Encounter - Zohra Solares MA - 02/01/2025 6:50 AM EDT Note Date & Type Note Facility 02-10-2025 Telephone encounter Note Appt with Donna on 05/20 needs r/s to Zuleika's schedule. Left message for patient to call the office, number provided. Please transfer call to office. Darlin Beck MA [facility] 02-10-2025 Miscellaneous Notes Appt with Donna on 05/20 needs r/s to Zuleika's schedule. Left message for patient to call the office, number provided. Please transfer call to office. Darlin Beck MA documented in this encounter [facility] 02-09-2025 Note HNO ID: [id number] Author: JURGEN CARDENAS CT Service: ? Author Type: Clinical [employer] Spray Supervisor Type: Progress Notes Filed: 02/09/2025 20:01 Note Text: Radiology Service Progress Note DATE OF SERVICE: February 09, 2025 TIME: 8:00 PM PATIENT IDENTITY VERIFICATION COMPLETED USING TWO (2) STANDARD IDENTIFIERS: Name and Date of confirmed by patient verbally and Name and Date of confirmed by identification band. FALL SCREENING: Has the patient had 2 falls in the last year or 1 fall with injury or currently using an Ambulatory Assistive Device (Walker, Cane, Wheelchair, Crutches, etc.)? Emergency Room Patient: Screened in ED PATIENT GENDER DATA: Assigned male at PATIENT RELEVANT IMPLANT DATA REVIEWED: Not Applicable PATIENT PRESENTS WITH AN IMPLANTABLE OR ATTACHED BODY SHOP MECHANIC: No ALLERGIES: Reviewed and unchanged CONTRAST ALLERGY: NO. EXAM: CT -CONTRAST INDUCED NEPHROPATHY RISK FACTORS: Not applicable CREATININE: Creatinine Date Value Ref Range Status 02/09/2025 1.01 0.73 - 1.22 mg/dL Final 12/11/2024 1.11 0.73 - 1.22 mg/dL Final 11/04/2024 0.82 0.73 - 1.22 mg/dL Final Estimated Glomerular Filtration Rate Date Value Ref Range Status 02/09/2025 102 >=60 mL/min/1.73m? Final Comment: Estimated Glomerular Filtration Rate (eGFR) is calculated using the 2020 CKD-EPI creatinine equation. This equation utilizes serum creatinine, sex, and age as parameters. The creatinine assay has traceable calibration to isotope dilution-mass spectrometry. Refer to KDIGO guidelines for clinical interpretation. In patients with unstable renal function, e.g. those with acute kidney injury, the eGFR may not accurately reflect actual GFR. eGFR- Date Value Ref Range Status 08/09/2022 > 60 ml/min/1.73m2 Final Comment: eGFR >= 60 Indicates normal kidney function. * eGFR IS AN ESTIMATE * (AFR MASHA = ) (non-AFR AM = NON-) MDRD calculation used in the eGFR should not be used to dose medications. For further limitations of the eGFR please refer to the Physician Website or the National Kidney Disease Education Program website (www.nkdep.nih.gov). P.O.C.T. RESULTS: POC done: Yes, See Lab Tab February 09, 2025 TREATMENT: N/A and No Hydration needed. PERIPHERAL IV DATA: Ambulatory: A peripheral IV was started in the Left antecubital site with a Angio cath: 20 gauge. RADIOLOGY DEPARTMENT: CT; Exam(s) Completed: Abdomen/Pelvis SIGNATURE: STACIA Arreaga, CT PATIENT NAME: Solomon Laura DATE: February 09, 2025 TIME: 8:00 PM [facility] 02-01-2025 Miscellaneous Notes Prescription Refill Information The patient has been identified by name and date of : Yes Caregiver verified no other encounters exist for this prescription request: Yes Caregiver confirmed with patient/requestor that no other refills are due, in the near future, with this provider at this time: Yes The last office visit in the department: 11/11/2024 Does the patient have a future office visit with this provider/department: Yes Requested Prescriptions Pending Prescriptions Disp Refills famotidine (PEPCID) 40 mg tablet 90 tablet 0 Sig: Take 1 tablet by mouth every afternoon. Zohra Solares MA February 01, 2025 6:50 AM documented in this encounter [facility] 02-01-2025 Telephone encounter Note Prescription Refill Information The patient has been identified by name and date of : Yes Caregiver verified no other encounters exist for this prescription request: Yes Caregiver confirmed with patient/requestor that no other refills are due, in the near future, with this provider at this time: Yes The last office visit in the department: 11/11/2024 Does the patient have a future office visit with this provider/department: Yes Requested Prescriptions Pending Prescriptions Disp Refills famotidine (PEPCID) 40 mg tablet 90 tablet 0 Sig: Take 1 tablet by mouth every afternoon. Zohra Solares MA February 01, 2025 6:50 AM [facility] 01-24-2025 Note HNO ID: [id number] Author: LOREN MENDEZ MA Service: ? Author Type: Oceanographer Geological Type: Progress Notes Filed: 01/24/2025 10:46 Note Text: Venipuncture performed to right antecubital. Number of tubes collected: 1 gold and 1 mint. [facility] 01-24-2025 History of Presen t illness Narrative Venipuncture performed to right antecubital. Number of tubes collected: 1 gold and 1 mint. documented in this encounter [facility] 01-03-2025 Telephone encounter Note Prescription Refill Information The patient has been identified by name and date of : Yes Caregiver verified no other encounters exist for this prescription request: Yes Caregiver confirmed with patient/requestor that no other refills are due, in the near future, with this provider at this time: Yes The last office visit in the department: 11/11/2024 Does the patient have a future office visit with this provider/department: Yes Requested Prescriptions Pending Prescriptions Disp Refills famotidine (PEPCID) 40 mg tablet 90 tablet 0 Sig: Take 1 tablet by mouth every afternoon. Zohra Solares MA January 03, 2025 8:19 AM [facility] 01-03-2025 Miscellaneous Notes Prescription Refill Information The patient has been identified by name and date of : Yes Caregiver verified no other encounters exist for this prescription request: Yes Caregiver confirmed with patient/requestor that no other refills are due, in the near future, with this provider at this time: Yes The last office visit in the department: 11/11/2024 Does the patient have a future office visit with this provider/department: Yes Requested Prescriptions Pending Prescriptions Disp Refills famotidine (PEPCID) 40 mg tablet 90 tablet 0 Sig: Take 1 tablet by mouth every afternoon. Zohra Solares MA January 03, 2025 8:19 AM documented in this encounter [facility] 12-24-2024 Note HNO ID: [id number] Author: VANCE EDWARDS, ? Service: ? 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 November 16 at 1:13 PM tired sinus tach at 133 2. November 17 at 7:27 AM tired sinus tach at 133 3. November 17 at 7:55 AM lightheaded sinus tach at 116 4. November 17 at 11:56 AM passed out sinus tach at 117 5. November 22 at 6:30 PM chest pain sinus rhythm at 74 It should be noted that this monitor is capable of making automatic recordings for bradycardia, tachycardia, or even atrial fibrillation with a controlled ventricular response. There were no recordings of atrial fibrillation documented. Current Outpatient Medications: methIMAzole (TAPAZOLE) 10 mg tablet, Take 4 tablets by mouth once daily., Disp: , Rfl: famotidine (PEPCID) 40 mg tablet, Take 1 tablet by mouth every afternoon., Disp: 90 tablet, Rfl: 0 metoprolol succinate ER (TOPROL XL) 50 mg 24 hr tablet, Take 1 tablet by mouth once daily., Disp: 90 tablet, Rfl: 0 No current facility-administered medications for this visit. SUMMARY: Patient completed event monitor secondary to palpitations. Monitor demonstrates underlying sinus rhythm. Heart rate variability ranged from 41 - 161 with the average of 77. No evidence atrial fibrillation. Patient had multiple symptomatologies with no arrhythmias. Patient said he passed out with no evidence of any arrhythmias. Roby Wright, DO December 24, 2024 [facility] 12-11-2024 Note HNO ID: [id number] Author: NITESH ARCE RT(R) Service: ? Author Type: Technologist Type: Progress Notes Filed: 12/11/2024 13:57 Note Text: Radiology Service Progress Note PATIENT NAME: Solomon Laura DATE OF SERVICE: December 11, 2024 TIME: 1:56 PM PATIENT IDENTITY VERIFICATION COMPLETED USING TWO (2) IDENTIFIERS: Name and Date of confirmed by patient verbally. FALL SCREENING: Has the patient had 2 falls in the last year or 1 fall with injury or currently using an Ambulatory Assistive Device (Walker, Cane, Wheelchair, Crutches, etc.)? Emergency Room Patient: Screened in ED PATIENT GENDER DATA: Assigned male at PATIENT RELEVANT IMPLANT DATA REVIEWED: Not Applicable PATIENT PRESENTS WITH AN IMPLANTABLE OR ATTACHED BODY SHOP MECHANIC: No RADIOLOGY DEPARTMENT: General X-ray: Exam(s) Completed: Chest X-Ray PERIPHERAL IV DATA: Not applicable SIGNED BY: RT Rasheed(R) December 11, 2024 1:56 PM [facility] 12-11-2024 Note SARS-COV-2 (AGENT OF COVID-19) RNA: Detected INFLUENZA A RNA: Not detected INFLUENZA B RNA: Not detected RESPIRATORY SYNCYTIAL VIRUS (RSV) RNA: Not detected [facility] Comment on above: Performed By: #### 3 [id number], [id number] #### [facility] CLIA [id number] [address] [place] [address] OF [facility] 11-22-2024 Telephone encounter Note Prescription Refill Information The patient has been identified by name and date of : Yes Caregiver verified no other encounters exist for this prescription request: Yes Caregiver confirmed with patient/requestor that no other refills are due, in the near future, with this provider at this time: Yes The last office visit in the department: 11/11/2024 Does the patient have a future office visit with this provider/department: Yes Requested Prescriptions Pending Prescriptions Disp Refills famotidine (PEPCID) 40 mg tablet 90 tablet 0 Sig: Take 1 tablet by mouth every afternoon. Xochitl Quigley MA November 22, 2024 1:42 PM [facility] 11-22-2024 Miscellaneous Notes Prescription Refill Information The patient has been identified by name and date of : Yes Caregiver verified no other encounters exist for this prescription request: Yes Caregiver confirmed with patient/requestor that no other refills are due, in the near future, with this provider at this time: Yes The last office visit in the department: 11/11/2024 Does the patient have a future office visit with this provider/department: Yes Requested Prescriptions Pending Prescriptions Disp Refills famotidine (PEPCID) 40 mg tablet 90 tablet 0 Sig: Take 1 tablet by mouth every afternoon. Xochitl Quigley MA November 22, 2024 1:42 PM documented in this encounter [facility] 11-16-2024 History of Presen t illness Narrative EVENT MONITOR DISPOSABLE PATCH INSTRUCTIONS [facility] [id number] Skin prepped and cleansed Patch secured to prepped area Monitor Activated Serial #: [id number] Patient Instructed: Prescribed order timeframe Bathing guidelines Usage of event button and diary documentation Return of monitor at the end of prescribed order Call [employer] with problems Patient expresses a good understanding of instructions Vance Edwards documented in this encounter [facility] 11-16-2024 Note HNO ID: [id number] Author: VANCE EDWARDS, ? Service: Cardiovascular Testing Author Type: Technologist Type: Progress Notes Filed: 11/16/2024 13:25 Note Text: EVENT MONITOR DISPOSABLE PATCH INSTRUCTIONS [facility]: [id number] Skin prepped and cleansed Patch secured to prepped area Monitor Activated Serial #: [id number] Patient Instructed: Prescribed order timeframe Bathing guidelines Usage of event button and diary documentation Return of monitor at the end of prescribed order Call [employer] with problems Patient expresses a good understanding of instructions Vance Edwards [facility] 11-12-2024 Telephone encounter Note Left message for patient to call. Phone number was provided [facility] 11-12-2024 Miscellaneous Notes Left message for patient to call. Phone number was provided Please notify the patient that his T3 and T4 were both elevated, which indicates hyperthyroidism. I would like for him to see an blister pack operator for further treatment and evaluation as we discussed yesterday. Consult placed, please schedule. documented in this encounter [facility] 11-12-2024 Telephone encounter Note Please notify the patient that his T3 and T4 were both elevated, which indicates hyperthyroidism. I would like for him to see an blister pack operator for further treatment and evaluation as we discussed yesterday. Consult placed, please schedule. [facility] 11-11-2024 Note HNO ID: [id number] Author: DONNA US PA-C Service: ? Author Type: Physician Paid Search Marketing Strategist Type: Progress Notes Filed: 11/11/2024 11:32 Note Text: Tea Hauser is a 29-year-old male with a history of HTN, presenting for evaluation of fatigue, tachycardia, and weight gain. Fatigue: - Persistent fatigue impacting daily activities and quality of life. - Difficulty falling asleep; previously tried multiple sleep medications but discontinued due to excessive daytime somnolence. - Denies current use of sleep medications. Palpitations: - Reports episodes of tachycardia with minimal exertion, such as light jogging or walking. - Heart rate reached 185 bpm during a brisk walk. - Experiences palpitations, chest pain, and cephalic pulsations during episodes. - Describes irregular heartbeats, with quick thumps in a row or like two quick ones and then one pauses. - Episodes also occur at rest, with heart rate reaching 119-120 bpm. - Associated dyspnea with minimal exertion, such as climbing stairs. - Taking metoprolol but reports no significant difference in symptoms with or without medication. Weight Gain: - Unable to lose weight despite dietary modifications and exercise. - Weight has remained at 220 lbs for almost a year. - Gained 50 lbs over the course of a year, going from 170 lbs to 220 lbs. Decreased TSH: - Recent lab work showed low TSH levels. - Reports heat intolerance, keeping the house temperature between 55-60 degreeF. Elevated Testosterone: - Recent lab work showed elevated testosterone levels. - Previously suspected low testosterone due to fatigue. - Denies current use of testosterone supplements. Anxiety: - Discontinued Wellbutrin in May due to irritability. - Denies current anxiety or depression, stating he feels good other than issues with weight and exercise intolerance. Constitutional: (+) fatigue, (+) sleep disturbance Head: (+) headache Cardiovascular: (+) palpitations, (+) chest pain, (+) tachycardia Respiratory: (+) shortness of breath Psychiatric: (-) anxiety, (-) depression Endocrine: (+) heat intolerance Objective Blood pressure 121/81, pulse 116, temperature 37 ?C (98.6 ?F), temperature source Temporal, resp. rate 16, height 172.7 cm (5' 8), weight 100 kg (220 lb 6.4 oz), SpO2 96%. GENERAL: NAD, alert and oriented. SKIN: Unremarkable, no rash or skin lesions. HEAD: Normocephalic. EYES: PERRLA, EOMI, conjunctiva clear. EARS: External ears normal, canals clear, TM's normal. NOSE/SINUSES: Nares normal. Septum midline. OROPHARYNX: Lips, mucosa, and tongue normal, good dentition. No oral lesions noted. NECK: Supple, no lymphadenopathy, normal thyroid, no carotid bruits. LUNGS: Clear to auscultation bilaterally, no wheezes/rhonchi/rales. HEART: Regular rate and rhythm, no murmurs. No ectopy. EXTREMITIES: Normal, no deformities, no skin discoloration, no edema. NEURO: Awake, alert and oriented x3, cranial nerves II-XII grossly intact, normal gait, no involuntary motions. Labs: - TSH: Low - Testosterone: Elevated 1. Decreased thyroid stimulating hormone (TSH) level (R79.89) - Recent lab results indicate low TSH levels, suggestive of hyperthyroidism. - Ordered additional blood work to assess T3 and T4 levels. - Discussed potential symptoms of hyperthyroidism, including heat intolerance, sleep disturbances, and increased anxiety. - If T3 and T4 levels are elevated, will refer to endocrinology in [place] for further management. - Educated on potential treatments for hyperthyroidism, including medication and surgical options. - Follow-up in 6 months, but advised to report any worsening symptoms. 2. Hypertension, essential (I10) - Blood pressure initially recorded at 154/86 mmHg, rechecked and noted at 121/81 mmHg. - Current medication: Metoprolol. - Discussed potential increase in Metoprolol dosage to better manage blood pressure and palpitations. - Advised to monitor blood pressure at home twice daily; recommended purchasing a blood pressure cuff. - Educated on ideal blood pressure readings (120/80 mmHg). - Will reassess blood pressure management based on home readings. 3. Palpitations (R00.2) - Reports episodes of tachycardia with minimal exertion, heart rates reaching 185 bpm. - Describes irregular heart rhythms and sensations of chest pain and head throbbing. - Ordered a 2-week director prospect to evaluate heart rhythm during symptomatic episodes. 4. Anxiety with depression (F41.8) - Discontinued Wellbutrin in May due to adverse effects. - Currently not experiencing increased anxiety or depression. - No further psychiatric intervention required at this time. 5. Elevated testosterone level (R79.89) - Recent lab results indicate elevated testosterone levels. - Discussed potential link between hyperthyroidism and elevated testosterone. - Will consider endocrinology referral based on follo (more content not included)... [facility] 11-11-2024 Note HNO ID: [id number] Author: LOREN MENDEZ MA Service: ? Author Type: Oceanographer Geological Type: Progress Notes Filed: 11/11/2024 11:32 Note Text: Venipuncture performed to right antecubital. Number of tubes collected: 2 mint. [facility] 11-04-2024 Note HNO ID: [id number] Author: LOREN MENDEZ MA Service: ? Author Type: Oceanographer Geological Type: Progress Notes Filed: 11/04/2024 09:22 Note Text: Venipuncture performed to right antecubital. Number of tubes collected: 1 gold, 1 lavender, and 2 mint. [facility] 11-04-2024 History of Presen t illness Narrative Venipuncture performed to right antecubital. Number of tubes collected: 1 gold, 1 lavender, and 2 mint. documented in this encounter [facility] 05-14-2024 Note HNO ID: [id number] Author: DONNA US PA-C Service: ? Author Type: Physician Paid Search Marketing Strategist Type: Progress Notes Filed: 05/14/2024 11:51 Note Text: Solomon Laura is a 29 year old male here today for an annual physical. I reviewed his past medical, surgical, social, and family histories today and updated chart. Allergies, chronic medications, and supplements were also reviewed and his list in the chart is now up to date. Concern(s) today include: Hypertension - BP 122/80 in clinic today. On metoprolol 25mg. Does not do home BP checks. States he gets short of breath and feels like his heart is pounding when he is lightly exercising. Has not been able to do much exercising due to the heat this summer. Goes for a few walks every week. Occasionally goes to the gym. No chest pain, dizziness, changes in vision. Anxiety and Depression - On wellbutrin 300mg daily. States this works well for him. States he feels his mood is where it needs to be. States he can focus better when he is off of it. Sleeping well, tried sleeping medications and made him too drowsy the next day. No SI/HI His medications were reviewed today and his list is now up to date. He is compliant on taking his medications :Yes He is tolerating his medication(s) without side effects: Yes He is following an appropriate diet for his medical problems: Yes He is getting some exercise in? Yes ACTIVE PROBLEM LIST Ruq Pain Chronic Insomnia Gerd Without Esophagitis Anxiety With Depression Hypertension, Essential PAST SURGICAL HISTORY Procedure Laterality Date COLONOSCOPY SCREENING 10/09/2021 Dr. Otto EGD 10/09/2021 Dr. Otto Social History Tobacco Use Smoking status: Never Smokeless tobacco: Never Vaping Use Vaping status: current everyday user Substance Use Topics Alcohol use: Yes Comment: occasional Drug use: Never Current Outpatient Medications on File Prior to Visit Medication Sig famotidine (PEPCID) 40 mg tablet Take 1 tablet by mouth every afternoon. Bifidobacterium infantis (ALIGN) 10.5 mg (10 million cell) chew 1 capsule daily buPROPion XL (WELLBUTRIN XL) 300 mg 24 hr tablet Take 1 tablet by mouth once daily. Week 1 just take 1/2 tablet. Starting week 2 take a whole tablet (Patient taking differently: Take 300 mg by mouth once daily.) ibuprofen/diphenhydramine HCl (ADVIL PM LIQUI-GELS ORAL) Take 1 tablet by mouth daily at bedtime. No current facility-administered medications on file prior to visit. History reviewed. No pertinent family history. ALLERGIES No Known Allergies Review of Systems Constitutional: Positive for fatigue. Negative for chills and fever. HENT: Negative for congestion and rhinorrhea. Eyes: Negative. Respiratory: Negative for cough, shortness of breath and wheezing. Cardiovascular: Negative for chest pain, palpitations and leg swelling. Gastrointestinal: Negative for diarrhea, nausea and vomiting. Endocrine: Negative. Genitourinary: Negative. Musculoskeletal: Negative for arthralgias and myalgias. Skin: Negative. Allergic/Immunologic: Negative. Neurological: Negative. Hematological: Negative. Psychiatric/Behavioral: Negative. BP 122/80 (BP Site: Left Arm, BP Position: Sitting, BP Cuff Size: Regular Adult) Pulse 94 Temp 36.9 ?C (98.4 ?F) (Temporal) Resp 16 Ht 172.7 cm (5' 8) Wt 100.7 kg (221 lb 14.4 oz) SpO2 97% BMI 33.74 kg/m? BMI 33.74 kg/(m2) Physical Exam Constitutional: General: He is not in acute distress. Appearance: Normal appearance. He is normal weight. He is not ill-appearing. HENT: Head: Normocephalic and atraumatic. Right Ear: External ear normal. Left Ear: External ear normal. Nose: Nose normal. No congestion or rhinorrhea. Mouth/Throat: Mouth: Mucous membranes are moist. Pharynx: Oropharynx is clear. Eyes: General: No scleral icterus. Right eye: No discharge. Left eye: No discharge. Extraocular Movements: Extraocular movements intact. Conjunctiva/sclera: Conjunctivae normal. Pupils: Pupils are equal, round, and reactive to light. Cardiovascular: Rate and Rhythm: Normal rate and regular rhythm. Pulses: Normal pulses. Heart sounds: Normal heart sounds. No murmur heard. No gallop. Pulmonary: Effort: Pulmonary effort is normal. No respiratory distress. Breath sounds: Normal breath sounds. No wheezing. Abdominal: General: Abdomen is flat. Palpations: Abdomen is soft. Skin: General: Skin is warm and dry. Neurological: General: No focal deficit present. Mental Status: He is alert and oriented to person, place, and time. Mental status is at baseline. Psychiatric: Mood and Affect: Mood normal. Behavior: Behavior normal. Thought Content: Thought content normal. Judgment: Judgment normal. ASSESSMENT/PLAN: 1. Wellness examination - ICD9: V70.0, ICD10: Z00.00 (primary diagnosis) - Counseled on healthy diet and regular exercise - Discussed need for and benefit of weight (more content not included)... [facility] 05-14-2024 History of Presen t illness Narrative Solomon Laura is a 29 year old male here today for an annual physical. I reviewed his past medical, surgical, social, and family histories today and updated chart. Allergies, chronic medications, and supplements were also reviewed and his list in the chart is now up to date. Concern(s) today include: Hypertension - BP 122/80 in clinic today. On metoprolol 25mg. Does not do home BP checks. States he gets short of breath and feels like his heart is pounding when he is lightly exercising. Has not been able to do much exercising due to the heat this summer. Goes for a few walks every week. Occasionally goes to the gym. No chest pain, dizziness, changes in vision. Anxiety and Depression - On wellbutrin 300mg daily. States this works well for him. States he feels his mood is where it needs to be. States he can focus better when he is off of it. Sleeping well, tried sleeping medications and made him too drowsy the next day. No SI/HI His medications were reviewed today and his list is now up to date. He is compliant on taking his medications :Yes He is tolerating his medication(s) without side effects: Yes He is following an appropriate diet for his medical problems: Yes He is getting some exercise in? Yes ACTIVE PROBLEM LIST Ruq Pain Chronic Insomnia Gerd Without Esophagitis Anxiety With Depression Hypertension, Essential PAST SURGICAL HISTORY Procedure Laterality Date COLONOSCOPY SCREENING 10/09/2021 Dr. Otto EGD 10/09/2021 Dr. Otto Social History Tobacco Use Smoking status: Never Smokeless tobacco: Never Vaping Use Vaping status: current everyday user Substance Use Topics Alcohol use: Yes Comment: occasional Drug use: Never Current Outpatient Medications on File Prior to Visit Medication Sig famotidine (PEPCID) 40 mg tablet Take 1 tablet by mouth every afternoon. Bifidobacterium infantis (ALIGN) 10.5 mg (10 million cell) chew 1 capsule daily buPROPion XL (WELLBUTRIN XL) 300 mg 24 hr tablet Take 1 tablet by mouth once daily. Week 1 just take 1/2 tablet. Starting week 2 take a whole tablet (Patient taking differently: Take 300 mg by mouth once daily.) ibuprofen/diphenhydramine HCl (ADVIL PM LIQUI-GELS ORAL) Take 1 tablet by mouth daily at bedtime. No current facility-administered medications on file prior to visit. History reviewed. No pertinent family history. ALLERGIES No Known Allergies Review of Systems Constitutional: Positive for fatigue. Negative for chills and fever. HENT: Negative for congestion and rhinorrhea. Eyes: Negative. Respiratory: Negative for cough, shortness of breath and wheezing. Cardiovascular: Negative for chest pain, palpitations and leg swelling. Gastrointestinal: Negative for diarrhea, nausea and vomiting. Endocrine: Negative. Genitourinary: Negative. Musculoskeletal: Negative for arthralgias and myalgias. Skin: Negative. Allergic/Immunologic: Negative. Neurological: Negative. Hematological: Negative. Psychiatric/Behavioral: Negative. BP 122/80 (BP Site: Left Arm, BP Position: Sitting, BP Cuff Size: Regular Adult) Pulse 94 Temp 36.9 C (98.4 F) (Temporal) Resp 16 Ht 172.7 cm (5' 8) Wt 100.7 kg (221 lb 14.4 oz) SpO2 97% BMI 33.74 kg/m BMI 33.74 kg/(m^2) Physical Exam Constitutional: General: He is not in acute distress. Appearance: Normal appearance. He is normal weight. He is not ill-appearing. HENT: Head: Normocephalic and atraumatic. Right Ear: External ear normal. Left Ear: External ear normal. Nose: Nose normal. No congestion or rhinorrhea. Mouth/Throat: Mouth: Mucous membranes are moist. Pharynx: Oropharynx is clear. Eyes: General: No scleral icterus. Right eye: No discharge. Left eye: No discharge. Extraocular Movements: Extraocular movements intact. Conjunctiva/sclera: Conjunctivae normal. Pupils: Pupils are equal, round, and reactive to light. Cardiovascular: Rate and Rhythm: Normal rate and regular rhythm. Pulses: Normal pulses. Heart sounds: Normal heart sounds. No murmur heard. No gallop. Pulmonary: Effort: Pulmonary effort is normal. No respiratory distress. Breath sounds: Normal breath sounds. No wheezing. Abdominal: General: Abdomen is flat. Palpations: Abdomen is soft. Skin: General: Skin is warm and dry. Neurological: General: No focal deficit present. Mental Status: He is alert and oriented to person, place, and time. Mental status is at baseline. Psychiatric: Mood and Affect: Mood normal. Behavior: Behavior normal. Thought Content: Thought content normal. Judgment: Judgment normal. ASSESSMENT/PLAN: 1. Wellness examination - ICD9: V70.0, ICD10: Z00.00 (primary diagnosis) - Counseled on healthy diet and regular exercise - Discussed need for and benefit of weight loss. BMI 33.74 kg/(m^2) - Follow up for annual exam in one year - Will get flu vaccine at [facility] 2. Depression, unspecified depression type - ICD9: 311, ICD10: F32.A - Well controlled at this time. Continue current treatment plan - BUPROPION XL 300 MG 24 HR TAB 3. Hypertension, essential - ICD9: 401.9, ICD10: I10 - Controlled - Continue current medications - Recommend home blood pressure monitoring, to bring results to next visit - Encouraged sodium restriction, DASH or Mediterranean diet - Recommend regular aerobic exercise - METOPROLOL SUCCINATE ER 25 MG TABLET,EXTENDED RELEASE 24 HR 4. Fatigue, unspecified type - ICD9: 780.79, ICD10: R53.83 - Would like to do labs before next visit in 6 months. - COMPLETE BLOOD COUNT - BASIC METABOLIC PANEL - FERRITIN - IRON AND TIBC - THYROID STIMULATING HORMONE - TESTOSTERONE, TOTAL - LIPID PANEL BASIC - VITAMIN B12 - VITAMIN D 25 HYDROXY Donna Us PA-C Follow Up: Return in about 6 months (around 11/11/2024). Voice recognition software utilized. Minor grammatical and/or spelling errors may exist. Portions of this note have been entered by ancillary staff. I have reviewed and when necessary edited, so that they are an adequate record of my encounter with this patient. documented in this encounter [facility] 12-09-2023 Telephone encounter Note Scheduled [facility] 12-09-2023 Miscellaneous Notes Scheduled Voicemail left with number to return call Jorge Luis Stout's replacement Donna Us is here and his schedule is open, patient is due for a 6 month follow up end of Apr, please schedule and change PCP documented in this encounter [facility] 12-09-2023 Telephone encounter Note Voicemail left with number to return call Jorge Luis Stout's replacement Donna Us is here and his schedule is open, patient is due for a 6 month follow up end of Apr, please schedule and change PCP [facility] 12-03-2023 Miscellaneous Notes Please let patient know his EKG came back normal and was normal sinus rhythm. Thanks, Ella Barragan APRN.PIANO STRINGER Pt came in for EKG per earlier message. See results in chart. documented in this encounter [facility] 11-18-2023 Miscellaneous Notes Patient scheduled to do the EKG in the office. I have ordered one. Is patient able to come into office to get this done or do I need to order it a different way? Let me know, thanks, Ella Barragan APRN.PIANO STRINGER Patient had called in and was notified of your message. He is agreeable to having the EKG, he says that his palpitations seem to ''be okay so far. Please Advise Thank you Called number multiple times, states call could not be completed. Will attempt to call later. Sent my chart message for patient to call the office. Darlin Beck MA Please let Solomon know overall his labwork looks good. Fasting blood sugar is up a tiny bit but not diagnostic of diabetes. How is his palpitations? Any more thought to an EKG or holter monitor? Thanks, Ella Barragan APRN.SANTI documented in this encounter [facility] 11-12-2023 Miscellaneous Notes Addended by: ELLA BARRAGAN on: 11/12/2023 10:25 AM Modules accepted: Level of Service documented in this encounter [facility] 11-12-2023 Nurse Note Venipuncture performed to right antecubital. Number of tubes collected: 1 lavender and 1 mint. documented in this encounter [facility] 11-12-2023 History of Presen t illness Narrative November 12, 2023 Subjective Chief Complaint: No chief complaint on file. HPI: Solomon Laura is a 28 year old male who presents today for check up on his medical problems. GERD- Doing well. Taking Pepcid 40mg daily. Trying to watch what he eats to ensure no flairs. Depression- Doing well on wellbutrin 300mg. Last visit with Jorge Luis this was increased to 300mg. States it is working much better and he feels good mentally. No side effects from medication. HTN- doesn't check his bp's at home. Last visit in January patient was started on Metoprolol due to elevated blood pressure. He was to return in 1 mo but did not return since then. Reports no side effects from medication. Only concern today is that he is noticing an increase of feeling out of shape with physical activity. Reports will get heavy heart beats only when he is more active, not at rest. States he is unsure if this is just because he has gained some weight and is out of shape. States he is not currently working out and used to be more active. Reports he will get little twinges of chest pain randomly for a second but it is not associated with activity, prolonged, or located to his left side exclusively. No family hx of sudden cardiac under age 50. PAST MEDICAL HISTORY Diagnosis Date RUQ pain PAST SURGICAL HISTORY Procedure Laterality Date COLONOSCOPY SCREENING 10/09/2021 Dr. Otto EGD 10/09/2021 Dr. Otto History reviewed. No pertinent family history. Social History Tobacco Use Smoking status: Never Smokeless tobacco: Never Vaping Use Vaping Use: current everyday user Substance Use Topics Alcohol use: Yes Comment: occasional Drug use: Never ALLERGIES No Known Allergies Immunization History Administered Date(s) Administered diphtheria tetanus pertussis (DTaP) vaccine, unspecified formulation 06/26/1998 05/29/1999 diphtheria tetanus pertussis-Haemophilus influenzae b (DTP-Hib) vaccine (TETRAMUNE) 06/24/1996 hepatitis B (HepB) vaccine, 3-dose series, age 0 yr - 19 yr (ENGERIX B-PEDS, RECOMBIVAX HB-PEDS) 1993 1993 06/24/1996 influenza (IIV4) vaccine, age 6 mo - 64 yr, quadrivalent, PF (AFLURIA, FLUARIX, FLULAVAL, FLUZONE) 08/09/2022 influenza (ccIIV4) vaccine, age 6+ mo, quadrivalent, PF (FLUCELVAX) 09/20/2019 measles mumps rubella (MMR) vaccine (M-M-R II, PRIORIX) 06/24/1996 05/29/1999 poliovirus (OPV) vaccine, trivalent, live, oral (ORIMUNE) 06/24/1996 06/26/1998 05/29/1999 tetanus diphtheria (Td) vaccine, adult, unspecified formulation 08/13/2000 tetanus diphtheria pertussis (Tdap) vaccine, age 7+ yr (ADACEL, BOOSTRIX) 03/03/2015 varicella (JACKY) vaccine (VARIVAX) 06/26/1998 Current Medications: famotidine (PEPCID) 40 mg tablet Take 1 tablet by mouth once daily. metoprolol succinate ER (TOPROL XL) 25 mg 24 hr tablet Take 1 tablet by mouth once daily. buPROPion XL (WELLBUTRIN XL) 300 mg 24 hr tablet Take 1 tablet by mouth once daily. Week 1 just take 1/2 tablet. Starting week 2 take a whole tablet (Patient taking differently: Take 300 mg by mouth once daily.) Bifidobacterium infantis (ALIGN) 10.5 mg (10 million cell) chew 1 capsule daily (Patient not taking: Reported on 11/12/2023) buPROPion XL (WELLBUTRIN XL) 300 mg 24 hr tablet Take 1 tablet by mouth once daily. Week 1 just take 1/2 tablet. Starting week 2 take a whole tablet (Patient not taking: Reported on 11/12/2023) ibuprofen/diphenhydramine HCl (ADVIL PM LIQUI-GELS ORAL) Take 1 tablet by mouth daily at bedtime. (Patient not taking: Reported on 11/12/2023) Review of Systems Constitutional: Negative for fever and malaise/fatigue. Eyes: Negative for double vision. Respiratory: Positive for shortness of breath. Negative for cough. Cardiovascular: Positive for palpitations. Negative for chest pain and leg swelling. Gastrointestinal: Negative for abdominal pain and nausea. Musculoskeletal: Negative for joint pain. Skin: Negative for rash. Neurological: Negative for dizziness and headaches. Psychiatric/Behavioral: The patient does not have insomnia. All other systems reviewed and are negative. Objective BP 127/81 Pulse 76 Ht 5' 8 (1.73m) Wt 219 lb (99.3kg) SpO2 97% BMI 33.31 kg/(m^2). Physical Exam Vitals and nursing note reviewed. Constitutional: Appearance: Normal appearance. HENT: Head: Normocephalic and atraumatic. Mouth/Throat: Mouth: Mucous membranes are moist. Cardiovascular: Rate and Rhythm: Normal rate and regular rhythm. Pulmonary: Effort: Pulmonary effort is normal. Breath sounds: Normal breath sounds. Musculoskeletal: Cervical back: Neck supple. Right lower leg: No edema. Left lower leg: No edema. Skin: General: Skin is warm and dry. Neurological: General: No focal deficit present. Mental Status: He is alert and oriented to person, place, and time. Psychiatric: Mood and Affect: Mood normal. ASSESSMENT/PLAN: 1. Hypertension, essential - ICD9: 401.9, ICD10: I10 (primary diagnosis) - Controlled - Continue current medications - Recommend home blood pressure monitoring, to bring results to next visit - Encouraged sodium restriction, DASH or Mediterranean diet - Recommend regular aerobic exercise - METOPROLOL SUCCINATE ER 25 MG TABLET,EXTENDED RELEASE 24 HR - COMP METABOLIC PANEL - CBC + DIFF 2. Palpitations - ICD9: 785.1, ICD10: R00.2 - Discussion that the best way to investigate his symptoms would be with a work up including a stress test and/or Holter monitor given his diagnosis of hypertension at a young age. Patient declines testing at this time and will monitor symptoms and keep me updated if new or worsening. This could also be due to him being out of shape. We dicussed him gradually increasing physical activity as tolerated and to keep me updated. Recommend weight loss. 3. Depression, unspecified depression type - ICD9: 311, ICD10: F32.A - Doing well on meds - BUPROPION XL 300 MG 24 HR TAB - COMP METABOLIC PANEL 4. GERD without esophagitis - ICD9: 530.81, ICD10: K21.9 - Continue treatment with Pepcid 40 mg QD - FAMOTIDINE 40 MG TABLET - COMP METABOLIC PANEL - CBC + DIFF 5. Screening for lipid disorders - ICD9: V77.91, ICD10: Z13.220 - LIPID PANEL BASIC No problem-specific Assessment & Plan notes found for this encounter. documented in this encounter [facility] 11-11-2023 Miscellaneous Notes Pt scheduled for 11/12/2023 with Hugo at 9am Patient calls requesting refill: Requested Prescriptions Pending Prescriptions Disp Refills famotidine (PEPCID) 40 mg tablet 90 tablet 1 Sig: Take 1 tablet by mouth once daily. metoprolol succinate ER (TOPROL XL) 25 mg 24 hr tablet 30 tablet 3 Sig: Take 1 tablet by mouth once daily. buPROPion XL (WELLBUTRIN XL) 300 mg 24 hr tablet 90 tablet 0 Sig: Take 1 tablet by mouth once daily. Week 1 just take 1/2 tablet. Starting week 2 take a whole tablet Date of last visit01/24/2023 Patient will call back in December to schedule with new provider Phone #: [phone] (home) [phone] (cell) The patients preferred pharmacy has been captured for this encounter? yes documented in this encounter [facility] 06-03-2023 Miscellaneous Notes Pharmacy faxes requesting refill: Requested Prescriptions Pending Prescriptions Disp Refills naproxen (NAPROSYN) 500 mg tablet [Pharmacy Med Name: NAPROXEN 500 MG TABLET] 28 tablet 0 Sig: TAKE 1 TABLET BY MOUTH TWICE DAILY WITH MEALS FOR 14 DAYS. FOR PAIN Date of last visit:01/24/2023 Phone #: [phone] (home) [phone] (cell) The patients preferred pharmacy has been captured for this encounter? yes documented in this encounter [facility] 05-16-2023 Miscellaneous Notes Tried to call patient regarding missed appointment but unable to complete call. No show letter #1 mailed. documented in this encounter [facility] 03-19-2023 Miscellaneous Notes Pharmacy faxes requesting refill: Requested Prescriptions Pending Prescriptions Disp Refills metoprolol succinate ER (TOPROL XL) 25 mg 24 hr tablet [Pharmacy Med Name: METOPROLOL SUCC ER 25 MG TAB] 30 tablet 1 Sig: TAKE 1 TABLET BY MOUTH EVERY DAY Date of last visit 01/24/2023 Phone #: [phone] (home) [phone] (cell) The patients preferred pharmacy has been captured for this encounter? yes documented in this encounter [facility] 02-20-2023 Miscellaneous Notes Patient advised. Thanks Left vm for pt to cb phone number provided. Maureen Munson MA Wellbutrin increased to 300mg Patient calls back stating he does take the medication daily and would like it to be increased Left message on patients voicemail for patient to call our office. Phone number has been provided. Left vm for pt to cb phone number provided. Maureen Munson MA See if patient needs the wellbutrin. Looks like discontinued by Jorge Luis, but pharmacy faxing refill request. Is patient taking the medicine and does he needs a refill? Pharmacy faxes requesting refill: Requested Prescriptions Pending Prescriptions Disp Refills buPROPion XL (WELLBUTRIN XL) 150 mg 24 hr tablet [Pharmacy Med Name: BUPROPION HCL XL 150 MG TABLET] 30 tablet 5 Sig: TAKE 1 TABLET BY MOUTH ONCE DAILY. WEEK 1 JUST TAKE 1/2 TABLET. STARTING WEEK 2 TAKE A WHOLE TABLET Date of last visit:01/24/2023 Phone #: [phone] (home) [phone] (cell) The patients preferred pharmacy has been captured for this encounter? yes documented in this encounter [facility] 01-24-2023 Note HNO ID: [id number] Author: Jorge Luis Stout APRN.PIANO STRINGER Service: ? Author Type: Nurse Practitioner Type: Progress Notes Filed: 01/24/2023 10:23 AM Note Text: Solomon Laura is a 27 year old male who presents Patient presents with: Insomnia GERD Overview Notes of Problems Addressed This Visit Neurology Chronic insomnia - Primary Failed hydroxyzine, lunesta, and trazodone. Doxepin not approved by insurance. 01/03/2023 ambien was started. He is compliant with taking it every night before bed, and he denies side effects to it. States he has been able to fall asleep and stay asleep. However, this makes him very drowsy the next day. He even tried taking 1/2 tablet. States he did try taking a xanax natural extract and he did sleep good and it did not make hims sleepy the next day. Sleep hygiene reviewed: avoiding caffeine and alcohol. Negative sleep apnea questionnaire. Gastrointestinal GERD without esophagitis History of being on omeprazole. Was switched to pepcid earlier this year due to symptoms being well controlled. Today states symptoms continue to be good. Symptoms not including acid reflux or heartburn as long as he takes medication daily and avoids trigger foods. denies acid brash sensation, belching, blood in stool, painful swallowing, difficulty swallowing, or hoarseness. Patient is not taking NSAID's. Patient does not eat late, avoids caffeine intake. Relevant Medications famotidine (PEPCID) 40 mg tablet Psychiatry Depression Earlier this year patient had an appointment for initial complaints of fatigue, depression, low motivation, weight gain of 50 pounds in 7 months. Lab work up was all negative. I started him on wellbutrin. He declined counseling. Today patient states he is tolerating medication without side effects and states it seems to be helping all symptoms. He has been feeling happier, more motivation. He has felt less hungry. No longer going to the gym. Less fatigue. Has been feeling more irritable. Snapping easier. No SI. No anxiety. Relevant Medications buPROPion XL (WELLBUTRIN XL) 300 mg 24 hr tablet Other Visit Diagnoses Obesity, Class I, BMI 30-34.9 BMI 32.0-32.9,adult Hypertension, essential Relevant Medications metoprolol succinate ER (TOPROL XL) 25 mg 24 hr tablet Anxiety REVIEW OF SYSTEMS See HPI BP 152/104[manual[ Pulse 70 Ht 5' 8 (1.73m) Wt 214 lb (97.1kg) SpO2 98% BMI 32.55 kg/(m2). Physical Exam General: Cooperative, no acute distress, alert, well nourished, well developed. Integumentary: No rashes, color normal, normal moisture. Head and Neck: No lymphadenopathy, neck supple, no thyroid enlargement or nodules, non-tender. Chest and Lungs: Respirations easy and non-labored. No use of accessory muscles. Auscultation reveals clear lung sounds: no wheezes, rhonchi, or crackles Cardiovascular: Normal heart sounds, regular rate and rhythm, no murmurs. No carotid bruit bilaterally. Psychosocial: mood and affect normal. ASSESSMENT/PLAN: 1. Chronic insomnia - ICD9: 780.52, ICD10: F51.04 (primary diagnosis) Failed ambien. Try xanax. PDMP website checked and validated. All prescriptions have been APPROPRIATELY filled. No suspicious activity was identified. 01/24/2023 by Jorge Luis Stout APRN.PIANO STRINGER Discussed the risk of long-term benzodiazepine use which includes: risk of sedation, dependency, cognitive impairment, cognitive decline, falls, motor vehicle accidents, rebound insomnia, worsening anxiety, overdose, (especially when used in conjunction with narcotics.) 2. GERD without esophagitis - ICD9: 530.81, ICD10: K21.9 - Discussed lifestyle modifications including losing weight, limiting caffeine, no meals three hours before sleep, and head of bed elevation - FAMOTIDINE 40 MG TABLET 3. Depression, unspecified depression type - ICD9: 311, ICD10: F32.A Increase wellbutrin - BUPROPION XL 300 MG 24 HR TAB 4. Obesity, Class I, BMI 30-34.9 - ICD9: 278.00, ICD10: E66.9 Diet and exercise education given. Patient aware of importance of maintaining a healthy weight. 5. BMI 32.0-32.9,adult - ICD9: V85.32, ICD10: Z68.32 6. Hypertension, essential - ICD9: 401.9, ICD10: I10 - New diagnosis - Start metoprolol succinate - Newly diagnosed hypertension workup ordered: CBC, BMP (fasting), TSH, and Lipid profile-all done in July - Recommend home blood pressure monitoring, to bring results to next visit - Encouraged sodium restriction, DASH or Mediterranean diet - Recommend regular aerobic exercise - METOPROLOL SUCCINATE ER 25 MG TABLET,EXTENDED RELEASE 24 HR 7. Anxiety - ICD9: 300.00, ICD10: F41.9 Increase wellbutrin, add xanax to night Jorge Luis Stout I reviewed his past medical, surgical, social, and family histories today and updated chart. Allergies, chronic medications, and supplements were also reviewed and the list is now up to date. Health maintenance has been discussed. [facility] 10-18-2022 Note HNO ID: [id number] Author: Jorge Luis Stout APRN.PIANO STRINGER Service: ? Author Type: Nurse Practitioner Type: Progress Notes Filed: 10/18/2022 10:22 AM Note Text: Solomon Laura is a 27 year old male who presents Patient presents with: Insomnia Overview Notes of Problems Addressed This Visit Neurology Chronic insomnia - Primary Failed hydroxyzine and trazodone in the past. 1 month ago patient was started on lunesta. He is compliant with taking it every night before bed, and he denies side effects to it. States he has been able to fall asleep and stay asleep. No daytime drowsiness or fatigue the next day as long as he takes it 8 hours before he plans to wake up. Sleep hygiene reviewed: avoiding caffeine and alcohol. Negative sleep apnea questionnaire. Relevant Medications eszopiclone (LUNESTA) 2 mg REVIEW OF SYSTEMS See HPI BP 135/72 Pulse 82 Ht 5' 8 (1.73m) Wt 210 lb (95.3kg) SpO2 98% BMI 31.94 kg/(m2). Physical Exam General: Cooperative, no acute distress, alert, well nourished, well developed. Integumentary: No rashes, color normal, normal moisture. Head and Neck: No lymphadenopathy, neck supple, no thyroid enlargement or nodules, non-tender. Chest and Lungs: Respirations easy and non-labored. No use of accessory muscles. Auscultation reveals clear lung sounds: no wheezes, rhonchi, or crackles Cardiovascular: Normal heart sounds, regular rate and rhythm, no murmurs. No carotid bruit bilaterally. ASSESSMENT/PLAN: 1. Chronic insomnia - ICD9: 780.52, ICD10: F51.04 Doing very well with lunesta. Sleep hygiene reviewed. PDMP website checked and validated. All prescriptions have been APPROPRIATELY filled. No suspicious activity was identified. 10/18/2022 by Jorge Luis Stout APRN.PIANO STRINGER - ESZOPICLONE 2 MG TABLET Jorge Luis Stout I reviewed his past medical, surgical, social, and family histories today and updated chart. Allergies, chronic medications, and supplements were also reviewed and the list is now up to date. Health maintenance has been discussed. [facility] 10-18-2022 History of Presen t illness Narrative Solomon Laura is a 27 year old male who presents Patient presents with: Insomnia Overview Notes of Problems Addressed This Visit Neurology Chronic insomnia - Primary Failed hydroxyzine and trazodone in the past. 1 month ago patient was started on lunesta. He is compliant with taking it every night before bed, and he denies side effects to it. States he has been able to fall asleep and stay asleep. No daytime drowsiness or fatigue the next day as long as he takes it 8 hours before he plans to wake up. Sleep hygiene reviewed: avoiding caffeine and alcohol. Negative sleep apnea questionnaire. Relevant Medications eszopiclone (LUNESTA) 2 mg REVIEW OF SYSTEMS See HPI BP 135/72 Pulse 82 Ht 5' 8 (1.73m) Wt 210 lb (95.3kg) SpO2 98% BMI 31.94 kg/(m^2). Physical Exam General: Cooperative, no acute distress, alert, well nourished, well developed. Integumentary: No rashes, color normal, normal moisture. Head and Neck: No lymphadenopathy, neck supple, no thyroid enlargement or nodules, non-tender. Chest and Lungs: Respirations easy and non-labored. No use of accessory muscles. Auscultation reveals clear lung sounds: no wheezes, rhonchi, or crackles Cardiovascular: Normal heart sounds, regular rate and rhythm, no murmurs. No carotid bruit bilaterally. ASSESSMENT/PLAN: 1. Chronic insomnia - ICD9: 780.52, ICD10: F51.04 Doing very well with lunesta. Sleep hygiene reviewed. PDMP website checked and validated. All prescriptions have been APPROPRIATELY filled. No suspicious activity was identified. 10/18/2022 by Jorge Luis Stout APRN.SANTI - ESZOPICLONE 2 MG TABLET Jorge Luis Stout I reviewed his past medical, surgical, social, and family histories today and updated chart. Allergies, chronic medications, and supplements were also reviewed and the list is now up to date. Health maintenance has been discussed. documented in this encounter [facility] 09-20-2022 Note HNO ID: [id number] Author: Jorge Luis Stout APRN.SANTI Service: ? Author Type: Nurse Practitioner Type: Progress Notes Filed: 09/20/2022 10:32 AM Note Text: Solomon Laura is a 27 year old male who presents Patient presents with: GERD Insomnia Overview Notes of Problems Addressed This Visit Neurology Chronic insomnia 6 weeks ago trazodone was discontinued due to weight gain. Hydroxyzine was started instead. No improvement in sleep with hydroxyzine. Negative sleep apnea questionnaire. Relevant Medications eszopiclone (LUNESTA) 2 mg Gastrointestinal GERD without esophagitis - Primary History of being on omeprazole. Was switched to pepcid 6 weeks ago due to symptoms being well controlled. Today states symptoms continue to be good. Symptoms not including acid reflux or heartburn as long as he takes medication daily and avoids trigger foods. denies acid brash sensation, belching, blood in stool, painful swallowing, difficulty swallowing, or hoarseness. Patient is not taking NSAID's. Patient does not eat late, avoids caffeine intake. Psychiatry Depression Patient had an appointment 6 weeks ago for complaints of fatigue, depression, low motivation, weight gain of 50 pounds in 7 months. Lab work up was all negative. I started him on wellbutrin. He declined counseling. Today patient states he is tolerating medication without side effects and states it seems to be helping all symptoms. He has been feeling happier, more motivation. He has felt less hungry. Has been going to the gym and eating healthier. Is down some weight: 5 pounds. Less fatigue. No SI. No anxiety. Other Visit Diagnoses Weight gain Fatigue, unspecified type REVIEW OF SYSTEMS See HPI BP 126/83 Pulse 83 Ht 5' 8 (1.73m) Wt 214 lb (97.1kg) SpO2 98% BMI 32.55 kg/(m2). Physical Exam General: Cooperative, no acute distress, alert, well nourished, well developed. Integumentary: No rashes, color normal, normal moisture. Head and Neck: No lymphadenopathy, neck supple, no thyroid enlargement or nodules, non-tender. Chest and Lungs: Respirations easy and non-labored. No use of accessory muscles. Auscultation reveals clear lung sounds: no wheezes, rhonchi, or crackles Cardiovascular: Normal heart sounds, regular rate and rhythm, no murmurs. No carotid bruit bilaterally. Psychosocial: mood and affect normal. ASSESSMENT/PLAN: 1. GERD without esophagitis - ICD9: 530.81, ICD10: K21.9 (primary diagnosis) - Discussed lifestyle modifications including losing weight, limiting caffeine, no meals three hours before sleep, and head of bed elevation 2. Chronic insomnia - ICD9: 780.52, ICD10: F51.04 Failed OTC agents, trazodone, and hydroxyzine. Try lunesta. Controlled substance contract signed. PDMP website checked and validated. All prescriptions have been APPROPRIATELY filled. No suspicious activity was identified. 09/20/2022 by Jorge Luis Stout APRN.PIANO STRINGER - ESZOPICLONE 2 MG TABLET 3. Weight gain - ICD9: 783.1, ICD10: R63.5 4. Depression, unspecified depression type - ICD9: 311, ICD10: F32.A Doing well 5. Fatigue, unspecified type - ICD9: 780.79, ICD10: R53.83 Improved. Continue plan to go to gym at least 3 days a week. Make healthier food choices. Jorge Luis Stout I reviewed his past medical, surgical, social, and family histories today and updated chart. Allergies, chronic medications, and supplements were also reviewed and the list is now up to date. Health maintenance has been discussed. [facility] 08-09-2022 Note HNO ID: [id number] Author: Jorge Luis Stout APRN.PIANO STRINGER Service: ? Author Type: Nurse Practitioner Type: Progress Notes Filed: 08/09/2022 11:30 AM Note Text: Solomon Laura is a 27 year old male here today for an annual physical. Concern(s) today include: none. Takes trazodone every night to help him sleep. He is able to fall asleep but not maintain sleep. He has been very tired during the day. Takes omeprazole for GERD. He did stop this due to weight gain. He thought it might have been causing his weight gain. As long as he avoids trigger foods he has no symptoms. Was seeing general surgeon in the past for this. States he has gained a significant amount of weight the past 7 months has put on 50 pounds. He did start exercising without success. Sometimes feels down, low motivation. Overview Notes of Problems Addressed This Visit None Visit Diagnoses Wellness examination - Primary Relevant Orders CBC + DIFF COMP METABOLIC PANEL LIPID PANEL BASIC TSH BLD VITAMIN D 25 HYDROXY VITAMIN B12 BLOOD T3 FREE BLD T4 FREE/FREE THYROX HIV-1/0/2 AG/AB 4TH GEN ([facility]) HEP C AB IA W/CONF SCRN TESTOSTERONE TOTAL GERD without esophagitis Relevant Medications famotidine (PEPCID) 40 mg tablet Chronic insomnia Relevant Medications hydrOXYzine HCl (ATARAX) 25 mg tablet Encounter for immunization Relevant Orders INFLUENZA VACCINE QUADRIVALENT 6 MO - 64 YRS IM Weight gain Relevant Orders TESTOSTERONE TOTAL Depression, unspecified depression type Relevant Medications buPROPion XL (WELLBUTRIN XL) 150 mg 24 hr tablet Fatigue, unspecified type Relevant Orders SED RATE WESTERGREN C-REACTIVE PROTEIN (CRP) NATALIE BLOOD TESTOSTERONE TOTAL Obesity, Class I, BMI 30-34.9 BMI 33.0-33.9,adult His medications were reviewed today and his list is now up to date. He is following an appropriate diet for his medical problems: No He is getting some exercise in? Yes Social History Tobacco Use Smoking status: Never Smokeless tobacco: Never Substance Use Topics Alcohol use: Yes Comment: occasional Drug use: Never Review of Systems General: Denies fever. Positive weight gain and fatigue. Skin: Denies rashes, itching, lesions HEENT: Denies visual disturbances, sore throat, runny nose, congestion, ear pain Respiratory: Denies cough, wheezing, SOB Cardiovascular: Denies chest pain, edema, heart palpitations Gastrointestinal: Denies abdominal pain, nausea, vomiting, diarrhea, constipation, blood in stools Genitourinary: Negative for dysuria, frequency and incontinence. No testicular pain, lumps, or swelling. No penile discharge. Musculoskeletal: Denies joint pain, joint swelling, or muscle pain Neurological: Denies dizziness, confusion, vision changes, headache Endocrine: Denies cold intolerance, excessive sweating, excessive thirst, excessive urination, hair changes BP 138/88 (BP Site: Right Arm, BP Position: Sitting, BP Cuff Size: Extra Large Adult) Pulse 83 Temp 37 ?C (98.6 ?F) (Oral) Wt 99.3 kg (219 lb) SpO2 97% BMI 33.30 kg/m? BMI 33.30 kg/(m2) Physical Exam General: Cooperative, no acute distress, alert, well nourished, well developed. Integumentary: No rashes, color normal, normal moisture. Head and Neck: No lymphadenopathy, neck supple, no thyroid enlargement or nodules, non-tender. Chest and Lungs: Respirations easy and non-labored. No use of accessory muscles. Auscultation reveals clear lung sounds: no wheezes, rhonchi, or crackles Cardiovascular: Normal heart sounds, regular rate and rhythm, no murmurs. No carotid bruit bilaterally. Abdomen: Inspection normal. Palpation: soft, non-tender. No rebound tenderness, rigidity, or guarding. No masses. No hepatosplenomegaly. Auscultation reveals normal bowel sounds in all 4 quadrants. Musculoskeletal: Strength 5/5 to upper and lower extremities. No swelling, deformity, erythema, warmth, or tenderness to joints. Peripheral Vascular: Inspection to bilateral lower extremities normal. Palpation: bilateral posterior tibial pulses 2+. Temperature normal. No edema bilaterally. Neurologic: Oriented x 3. Extraocular eye movements intact. Pupils round, equal, reactive to light, and accomodation. Patellar reflexes 2+ bilaterally. ASSESSMENT/PLAN: 1. Wellness examination - ICD9: V70.0, ICD10: Z00.00 (primary diagnosis) - Counseled on healthy diet and regular exercise - Discussed need for and benefit of weight loss. BMI 33.30 kg/(m2) - CBC + DIFF - COMP METABOLIC PANEL - LIPID PANEL BASIC - TSH BLD - VITAMIN D 25 HYDROXY - VITAMIN B12 BLOOD - T3 FREE BLD - T4 FREE/FREE THYROX - HIV-1/0/2 AG/AB 4TH GEN ([facility]) - HEP C AB IA W/CONF SCRN - TESTOSTERONE TOTAL 2. GERD without esophagitis - ICD9: 530.81, ICD10: K21.9 - Discussed lifestyle modifications including losing weight, limiting caffeine, no meals three hours before sleep, and head of bed elevation - FAMOTIDIN (more content not included)... [facility] 08-09-2022 Nurse Note Patient received flu shot at 1120 Explained to patient he will need to wait here for 15 minuets for us to monitor to make sure he is not going to have an adverse reaction. Seated in lobby at 1120 Patient left at 1135 with no complications. Loren Mendez MA Venipuncture performed to left antecubital. Number of tubes collected: 2 gold, 2 lavender, and 1 tiger. documented in this encounter [facility] 08-09-2022 History of Presen t illness Narrative Solomon Laura is a 27 year old male here today for an annual physical. Concern(s) today include: none. Takes trazodone every night to help him sleep. He is able to fall asleep but not maintain sleep. He has been very tired during the day. Takes omeprazole for GERD. He did stop this due to weight gain. He thought it might have been causing his weight gain. As long as he avoids trigger foods he has no symptoms. Was seeing general surgeon in the past for this. States he has gained a significant amount of weight the past 7 months has put on 50 pounds. He did start exercising without success. Sometimes feels down, low motivation. Overview Notes of Problems Addressed This Visit None Visit Diagnoses Wellness examination - Primary Relevant Orders CBC + DIFF COMP METABOLIC PANEL LIPID PANEL BASIC TSH BLD VITAMIN D 25 HYDROXY VITAMIN B12 BLOOD T3 FREE BLD T4 FREE/FREE THYROX HIV-1/0/2 AG/AB 4TH GEN ([facility]) HEP C AB IA W/CONF SCRN TESTOSTERONE TOTAL GERD without esophagitis Relevant Medications famotidine (PEPCID) 40 mg tablet Chronic insomnia Relevant Medications hydrOXYzine HCl (ATARAX) 25 mg tablet Encounter for immunization Relevant Orders INFLUENZA VACCINE QUADRIVALENT 6 MO - 64 YRS IM Weight gain Relevant Orders TESTOSTERONE TOTAL Depression, unspecified depression type Relevant Medications buPROPion XL (WELLBUTRIN XL) 150 mg 24 hr tablet Fatigue, unspecified type Relevant Orders SED RATE WESTERGREN C-REACTIVE PROTEIN (CRP) NATALIE BLOOD TESTOSTERONE TOTAL Obesity, Class I, BMI 30-34.9 BMI 33.0-33.9,adult His medications were reviewed today and his list is now up to date. He is following an appropriate diet for his medical problems: No He is getting some exercise in? Yes Social History Tobacco Use Smoking status: Never Smokeless tobacco: Never Substance Use Topics Alcohol use: Yes Comment: occasional Drug use: Never Review of Systems General: Denies fever. Positive weight gain and fatigue. Skin: Denies rashes, itching, lesions HEENT: Denies visual disturbances, sore throat, runny nose, congestion, ear pain Respiratory: Denies cough, wheezing, SOB Cardiovascular: Denies chest pain, edema, heart palpitations Gastrointestinal: Denies abdominal pain, nausea, vomiting, diarrhea, constipation, blood in stools Genitourinary: Negative for dysuria, frequency and incontinence. No testicular pain, lumps, or swelling. No penile discharge. Musculoskeletal: Denies joint pain, joint swelling, or muscle pain Neurological: Denies dizziness, confusion, vision changes, headache Endocrine: Denies cold intolerance, excessive sweating, excessive thirst, excessive urination, hair changes BP 138/88 (BP Site: Right Arm, BP Position: Sitting, BP Cuff Size: Extra Large Adult) Pulse 83 Temp 37 C (98.6 F) (Oral) Wt 99.3 kg (219 lb) SpO2 97% BMI 33.30 kg/m BMI 33.30 kg/(m^2) Physical Exam General: Cooperative, no acute distress, alert, well nourished, well developed. Integumentary: No rashes, color normal, normal moisture. Head and Neck: No lymphadenopathy, neck supple, no thyroid enlargement or nodules, non-tender. Chest and Lungs: Respirations easy and non-labored. No use of accessory muscles. Auscultation reveals clear lung sounds: no wheezes, rhonchi, or crackles Cardiovascular: Normal heart sounds, regular rate and rhythm, no murmurs. No carotid bruit bilaterally. Abdomen: Inspection normal. Palpation: soft, non-tender. No rebound tenderness, rigidity, or guarding. No masses. No hepatosplenomegaly. Auscultation reveals normal bowel sounds in all 4 quadrants. Musculoskeletal: Strength 5/5 to upper and lower extremities. No swelling, deformity, erythema, warmth, or tenderness to joints. Peripheral Vascular: Inspection to bilateral lower extremities normal. Palpation: bilateral posterior tibial pulses 2+. Temperature normal. No edema bilaterally. Neurologic: Oriented x 3. Extraocular eye movements intact. Pupils round, equal, reactive to light, and accomodation. Patellar reflexes 2+ bilaterally. ASSESSMENT/PLAN: 1. Wellness examination - ICD9: V70.0, ICD10: Z00.00 (primary diagnosis) - Counseled on healthy diet and regular exercise - Discussed need for and benefit of weight loss. BMI 33.30 kg/(m^2) - CBC + DIFF - COMP METABOLIC PANEL - LIPID PANEL BASIC - TSH BLD - VITAMIN D 25 HYDROXY - VITAMIN B12 BLOOD - T3 FREE BLD - T4 FREE/FREE THYROX - HIV-1/0/2 AG/AB 4TH GEN ([facility]) - HEP C AB IA W/CONF SCRN - TESTOSTERONE TOTAL 2. GERD without esophagitis - ICD9: 530.81, ICD10: K21.9 - Discussed lifestyle modifications including losing weight, limiting caffeine, no meals three hours before sleep, and head of bed elevation - FAMOTIDINE 40 MG TABLET Start pepcid. If does not do well with just pepcid then back to PPI 3. Chronic insomnia - ICD9: 780.52, ICD10: F51.04 Stop trazodone due to weight gain and not sleeping good. Start hydroxyzine - HYDROXYZINE HCL 25 MG TABLET 4. Encounter for immunization - ICD9: V03.89, ICD10: Z23 - INFLUENZA VACCINE QUADRIVALENT 6 MO - 64 YRS IM 5. Weight gain - ICD9: 783.1, ICD10: R63.5 labs - TESTOSTERONE TOTAL 6. Depression, unspecified depression type - ICD9: 311, ICD10: F32.A Start wellbutrin - BUPROPION XL 150 MG TAB 7. Fatigue, unspecified type - ICD9: 780.79, ICD10: R53.83 labs - SED RATE WESTERGREN - C-REACTIVE PROTEIN (CRP) - NATALIE BLOOD - TESTOSTERONE TOTAL 8. Obesity, Class I, BMI 30-34.9 - ICD9: 278.00, ICD10: E66.9 9. BMI 33.0-33.9,adult - ICD9: V85.33, ICD10: Z68.33 Jorge Luis Stout APRN.SANTI I reviewed his past medical, surgical, social, and family histories today and updated chart. Allergies, chronic medications, and supplements were also reviewed and his list in the chart is now up to date. documented in this encounter [facility] 07-12-2022 Miscellaneous Notes Patient called back and I informed and scheduled for 08/09. Attempted to call pt and left message to call the office back. 30 day and needs appointment Pharmacy faxes requesting refill: Requested Prescriptions Pending Prescriptions Disp Refills traZODone (DESYREL) 100 mg tablet [Pharmacy Med Name: TRAZODONE 100 MG TABLET] 30 tablet 2 Sig: TAKE 1 TABLET BY MOUTH EVERYDAY AT BEDTIME Date of last visit:08/07/2021 Phone #: [phone] (home) The patients preferred pharmacy has been captured for this encounter? yes documented in this encounter [facility] 07-08-2022 Miscellaneous Notes Pharmacy faxes requesting refill: Requested Prescriptions Pending Prescriptions Disp Refills omeprazole (PRILOSEC) 20 mg capsule [Pharmacy Med Name: OMEPRAZOLE DR 20 MG CAPSULE] 30 capsule 2 Sig: TAKE 1 CAPSULE BY MOUTH ONCE DAILY Date of last visit:07/26/2021 Phone #: [phone] (home) The patients preferred pharmacy has been captured for this encounter? yes documented in this encounter [facility] 04-09-2022 Miscellaneous Notes Pharmacy faxes requesting refill: Requested Prescriptions Pending Prescriptions Disp Refills traZODone (DESYREL) 100 mg tablet [Pharmacy Med Name: TRAZODONE 100 MG TABLET] 30 tablet 2 Sig: TAKE 1 TABLET BY MOUTH EVERYDAY AT BEDTIME Date of last visit: 07/26/2021 Phone #: [phone] (home) The patients preferred pharmacy has been captured for this encounter? yes documented in this encounter [facility] 04-08-2022 Miscellaneous Notes Pharmacy faxes requesting refill: Requested Prescriptions Pending Prescriptions Disp Refills omeprazole (PRILOSEC) 20 mg capsule [Pharmacy Med Name: OMEPRAZOLE DR 20 MG CAPSULE] 30 capsule 2 Sig: TAKE 1 CAPSULE BY MOUTH ONCE DAILY Date of last visit: 07/26/2021 Phone #: [phone] (home) The patients preferred pharmacy has been captured for this encounter? yes documented in this encounter [facility] 02-06-2022 Miscellaneous Notes Pharmacy faxes requesting refill: Pending Prescriptions Disp Refills TRAZODONE 100 MG TABLET 30 tablet 2 Sig: TAKE 1 TABLET BY MOUTH EVERYDAY AT BEDTIME CONNIE: Yes Date of last visit:07/26/2021 Phone #: [phone] (home) The patients preferred pharmacy has been captured for this encounter? yes documented in this encounter [facility] 01-03-2022 Miscellaneous Notes Pharmacy faxes requesting refill: Pending Prescriptions Disp Refills OMEPRAZOLE 20 MG CAPSULE,DELAYED RELEASE 30 capsule 2 Sig: TAKE 1 CAPSULE BY MOUTH ONCE DAILY CONNIE: Yes Date of last visit:07/26/2021 Phone #: [phone] (home) The patients preferred pharmacy has been captured for this encounter? yes documented in this encounter [facility] Evaluation note Diagnosis GERD without esophagitis Esophageal reflux [facility] Diagnosis RUQ abdominal pain Abdominal pain, right upper quadrant Nausea and vomiting Nausea with vomiting [facility] Diagnosis GERD without esophagitis Esophageal reflux [facility] Diagnosis RUQ abdominal pain Abdominal pain, right upper quadrant Nausea and vomiting Nausea with vomiting [facility] Diagnosis RUQ abdominal pain Abdominal pain, right upper quadrant Nausea and vomiting Nausea with vomiting [facility] Diagnosis Wellness examination- Primary GERD without esophagitis Esophageal reflux Chronic insomnia Insomnia, unspecified Encounter for immunization Need for other specified prophylactic vaccination against single bacterial disease Weight gain Abnormal weight gain Depression, unspecified depression type Fatigue, unspecified type Obesity, Class I, BMI 30-34.9 Obesity, unspecified BMI 33.0-33.9,adult Body Mass Index 33.0-33.9, adult Need for influenza vaccination Need for prophylactic vaccination and inoculation against influenza [facility] Diagnosis Chronic insomnia- Primary Insomnia, unspecified documented in this encounter [facility]* Diagnosis Depression, unspecified depression type documented in this encounter [facility] note* Diagnosis Chronic insomnia- Primary Insomnia, unspecified documented in this encounter [facility] note* Diagnosis Depression, unspecified depression type Chronic insomnia- Primary Insomnia, unspecified Anxiety with depression Hypertension, essential Unspecified essential hypertension documented in this encounter [facility] note* Diagnosis Hypertension, essential Unspecified essential hypertension documented in this encounter [facility] note* Diagnosis GERD without esophagitis Esophageal reflux documented in this encounter [facility] note* Diagnosis GERD without esophagitis Esophageal reflux Hypertension, essential Unspecified essential hypertension Depression, unspecified depression type documented in this encounter [facility] note* Diagnosis Hypertension, essential- Primary Unspecified essential hypertension Palpitations Depression, unspecified depression type GERD without esophagitis Esophageal reflux Screening for lipid disorders documented in this encounter [facility] note* Diagnosis Palpitations- Primary documented in this encounter [facility] note* Diagnosis Palpitations- Primary documented in this encounter [facility] note* Diagnosis Wellness examination- Primary Depression, unspecified depression type Hypertension, essential Unspecified essential hypertension Fatigue, unspecified type documented in this encounter [facility] note* Diagnosis Fatigue, unspecified type documented in this encounter [facility] note* Diagnosis Hyperthyroidism- Primary Thyrotoxicosis without mention of goiter or other cause, without mention of thyrotoxic crisis or storm documented in this encounter [facility] note* 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, without mention of thyrotoxic crisis or storm documented in this encounter [facility] note* Diagnosis Hyperthyroidism- Primary Thyrotoxicosis without mention of goiter or other cause, without mention of thyrotoxic crisis or storm documented in this encounter [facility] for referral (narrative)* Outpatient Procedure (Routine) - Pending Review Specialty Diagnoses / Procedures Referred By Contac t [facility] Diagnoses Palpitations Procedures ECG COMPLETE ECG ROUTINE ECG W/LEAST 12 LDS W/I&R Ella Barragan, MIREILLE.PIANO STRINGER [address] [place] [address] [facility] [place] [address] Referral ID Status Reason Start Date Expiration Date Visits Requested Visits Authorized [id number] Pending Review Auto-Generat ed Referral 11/18/2023 11/17/2024 [facility] Procedure (Routine) - Pending Review Specialty Diagnoses / Procedures Referred By Contac t [facility] Diagnoses Palpitations Procedures ECG COMPLETE ECG ROUTINE ECG W/LEAST 12 LDS W/I&R Ella Barragan APRN.CNP [address] [place] [address] [facility] [address] [place] [address] Referral ID Status Reason Start Date Expiration Date Visits Requested Visits Authorized [id number] Pending Review Auto-Generat ed Referral 12/02/2023 12/01/2024 1 1 [facility] Summary Purpose Family History No Family History Records FoundNo Family History Records FoundNo Family History Records FoundNo Family History Records FoundNo Family History Records FoundNo Family History Records FoundNo Family History Records Found Advance Directives No Advanced Directives Records FoundNo Advanced Directives Records FoundNo Advanced Directives Records FoundNo Advanced Directives Records FoundNo Advanced Directives Records FoundNo Advanced Directives Records FoundNo Advanced Directives Records Found Additional Source Comments Source Comments (unrecognize d section and content) In the event this informatio n is protected by the Federal Confidentiality of Alcohol and Drug Abuse Patient Records regulations: The Federal rules restrict any use of the information to criminally investigate or prosecute any alcohol or drug abuse patient.[facility] event this information is protected by the Federal Confidentiality of Alcohol and Drug Abuse Patient Records regulations: The Federal rules restrict any use of the information to criminally investigate or prosecute any alcohol or drug abuse patient.[facility] event this information is protected by the Federal Confidentiality of Alcohol and Drug Abuse Patient Records regulations: The Federal rules restrict any use of the information to criminally investigate or prosecute any alcohol or drug abuse patient.[facility] event this information is protected by the Federal Confidentiality of Alcohol and Drug Abuse Patient Records regulations: The Federal rules restrict any use of the information to criminally investigate or prosecute any alcohol or drug abuse patient.[facility] event this information is protected by the Federal Confidentiality of Alcohol and Drug Abuse Patient Records regulations: The Federal rules restrict any use of the information to criminally investigate or prosecute any alcohol or drug abuse patient.[facility] event this information is protected by the Federal Confidentiality of Alcohol and Drug Abuse Patient Records regulations: The Federal rules restrict any use of the information to criminally investigate or prosecute any alcohol or drug abuse patient.[facility] event this information is protected by the Federal Confidentiality of Alcohol and Drug Abuse Patient Records regulations: The Federal rules restrict any use of the information to criminally investigate or prosecute any alcohol or drug abuse patient.[facility] event this information is protected by the Federal Confidentiality of Alcohol and Drug Abuse Patient Records regulations: The Federal rules restrict any use of the information to criminally investigate or prosecute any alcohol or drug abuse patient.[facility] the event this information is protected by the Federal Confidentiality of Alcohol and Drug Abuse Patient Records regulations: The Federal rules restrict any use of the information to criminally investigate or prosecute any alcohol or drug abuse patient.[facility] event this information is protected by the Federal Confidentiality of Alcohol and Drug Abuse Patient Records regulations: The Federal rules restrict any use of the information to criminally investigate or prosecute any alcohol or drug abuse patient.[facility] event this information is protected by the Federal Confidentiality of Alcohol and Drug Abuse Patient Records regulations: The Federal rules restrict any use of the information to criminally investigate or prosecute any alcohol or drug abuse patient.[facility] the event this information is protected by the Federal Confidentiality of Alcohol and Drug Abuse Patient Records regulations: The Federal rules restrict any use of the information to criminally investigate or prosecute any alcohol or drug abuse patient.[facility] the event this information is protected by the Federal Confidentiality of Alcohol and Drug Abuse Patient Records regulations: The Federal rules restrict any use of the information to criminally investigate or prosecute any alcohol or drug abuse patient.[facility] the event this information is protected by the Federal Confidentiality of Alcohol and Drug Abuse Patient Records regulations: The Federal rules restrict any use of the information to criminally investigate or prosecute any alcohol or drug abuse patient.[facility] the event this information is protected by the Federal Confidentiality of Alcohol and Drug Abuse Patient Records regulations: The Federal rules restrict any use of the information to criminally investigate or prosecute any alcohol or drug abuse patient.[facility] the event this information is protected by the Federal Confidentiality of Alcohol and Drug Abuse Patient Records regulations: The Federal rules restrict any use of the information to criminally investigate or prosecute any alcohol or drug abuse patient.[facility] the event this information is protected by the Federal Confidentiality of Alcohol and Drug Abuse Patient Records regulations: The Federal rules restrict any use of the information to criminally investigate or prosecute any alcohol or drug abuse patient.[facility] the event this information is protected by the Federal Confidentiality of Alcohol and Drug Abuse Patient Records regulations: The Federal rules restrict any use of the information to criminally investigate or prosecute any alcohol or drug abuse patient.[facility] the event this information is protected by the Federal Confidentiality of Alcohol and Drug Abuse Patient Records regulations: The Federal rules restrict any use of the information to criminally investigate or prosecute any alcohol or drug abuse patient.[facility] HamiltonIn the event this information is protected by the Federal Confidentiality of Alcohol and Drug Abuse Patient Records regulations: The Federal rules restrict any use of the information to criminally investigate or prosecute any alcohol or drug abuse patient.[facility] HamiltonIn the event this information is protected by the Federal Confidentiality of Alcohol and Drug Abuse Patient Records regulations: The Federal rules restrict any use of the information to criminally investigate or prosecute any alcohol or drug abuse patient.[facility] HamiltonIn the event this information is protected by the Federal Confidentiality of Alcohol and Drug Abuse Patient Records regulations: The Federal rules restrict any use of the information to criminally investigate or prosecute any alcohol or drug abuse patient.[facility] HamiltonIn the event this information is protected by the Federal Confidentiality of Alcohol and Drug Abuse Patient Records regulations: The Federal rules restrict any use of the information to criminally investigate or prosecute any alcohol or drug abuse patient.[facility] HamiltonIn the event this information is protected by the Federal Confidentiality of Alcohol and Drug Abuse Patient Records regulations: The Federal rules restrict any use of the information to criminally investigate or prosecute any alcohol or drug abuse patient.[facility] HamiltonIn the event this information is protected by the Federal Confidentiality of Alcohol and Drug Abuse Patient Records regulations: The Federal rules restrict any use of the information to criminally investigate or prosecute any alcohol or drug abuse patient.[facility] HamiltonIn the event this information is protected by the Federal Confidentiality of Alcohol and Drug Abuse Patient Records regulations: The Federal rules restrict any use of the information to criminally investigate or prosecute any alcohol or drug abuse patient.[facility] HamiltonIn the event this information is protected by the Federal Confidentiality of Alcohol and Drug Abuse Patient Records regulations: The Federal rules restrict any use of the information to criminally investigate or prosecute any alcohol or drug abuse patient.[facility] HamiltonIn the event this information is protected by the Federal Confidentiality of Alcohol and Drug Abuse Patient Records regulations: The Federal rules restrict any use of the information to criminally investigate or prosecute any alcohol or drug abuse patient.[facility] HamiltonIn the event this information is protected by the Federal Confidentiality of Alcohol and Drug Abuse Patient Records regulations: The Federal rules restrict any use of the information to criminally investigate or prosecute any alcohol or drug abuse patient.[facility] HamiltonIn the event this information is protected by the Federal Confidentiality of Alcohol and Drug Abuse Patient Records regulations: The Federal rules restrict any use of the information to criminally investigate or prosecute any alcohol or drug abuse patient.[facility] HamiltonIn the event this information is protected by the Federal Confidentiality of Alcohol and Drug Abuse Patient Records regulations: The Federal rules restrict any use of the information to criminally investigate or prosecute any alcohol or drug abuse patient.[facility] HamiltonIn the event this information is protected by the Federal Confidentiality of Alcohol and Drug Abuse Patient Records regulations: The Federal rules restrict any use of the information to criminally investigate or prosecute any alcohol or drug abuse patient.[facility] HamiltonIn the event this information is protected by the Federal Confidentiality of Alcohol and Drug Abuse Patient Records regulations: The Federal rules restrict any use of the information to criminally investigate or prosecute any alcohol or drug abuse patient.[facility] HamiltonIn the event this information is protected by the Federal Confidentiality of Alcohol and Drug Abuse Patient Records regulations: The Federal rules restrict any use of the information to criminally investigate or prosecute any alcohol or drug abuse patient.[facility] (unrecognized sect ion and content) No Status Records FoundNo Status Records FoundNo Status Records FoundNo Status Records FoundNo Status Records FoundNo Status Records FoundNo Status Records Found INFORMATION SOURCE (unrecogn ized section and content) DATE CREATED AUTHOR 09/10/2021 [facility] DATE CREATED AUTHOR AUTHOR'S ORGANIZ ATION 10/13/2021 [facility] DATE CREATED AUTHOR AUTHOR'S ORGANIZ ATION 08/27/2022 [facility] DATE CREATED AUTHOR AUTHOR'S ORGANIZ ATION 01/27/2023 [facility] DATE CREATED AUTHOR AUTHOR'S ORGANIZ ATION 12/05/2024 [facility] DATE CREATED AUTHOR AUTHOR'S ORGANIZ ATION 01/14/2025 [facility] DATE CREATED AUTHOR AUTHOR'S ORGANIZ ATION 02/12/2025 [facility] Reason for Visit (unrecogniz ed section and content) Reason Comments Refill Request Reason Comments Refill Request Omeprazole Reason Onset Date Comments Depression Said he does not believe the Trazadone is helping him sleep GERD Gained a signifi cant amount of weight, stopped taking the omeprazole because he's concerned that's what's causing the weight gain. Immunizations 08/09/2022 Flu vaccination Reason Comments Insomnia Reason Comments Missed Appointment 05/16/23 Reason Onset Date Comments Refill Request 11/11/2023 Reason Comments Results Reason Comments Results Reason Comments EKG Reason Comments Appointment Reason Onset Date Comments Wellness Examination Hypertension Does not do home BP checks. Insomnia Does not take me dication because it was making him groggy through out the day. He is sleeping well most days now. Anxiety and Depression Feels is it effective. Has not taken in for the last 5 days because he ran out. Shortness of Breath With exertio n that started over the last year. Immunizations 05/14/2024 Flu vaccination Reason Comments Phlebotomy Reason Comments [facility]OT APPLICATION Palpitations Reason Onset Date Comments Refill Request 11/22/2024 Reason Onset Date Comments Refill Request 01/03/2025 Reason Onset Date Comments Refill Request 01/31/2025 Care Teams (unrecognized sec tion and content) Court Abstractor Relationship Specialty Start Date End Date Jorge Luis Stout, SENIOR COMPLIANCE OFFICER.[employer] [address] [place], [place] [id number] PCP - General Family Practice 07/24/21 Court Abstractor Relationship Specialty Start Date End Date Jorge Luis Stout, SENIOR COMPLIANCE OFFICER.[employer] [address] [place], [place] [id number] PCP - General Family Practice 07/24/21 Court Abstractor Relationship Specialty Start Date End Date Jorge Luis Stout, SENIOR COMPLIANCE OFFICER.[employer] [address] [place], [place] [id number] PCP - General Family Practice 07/24/21 Court Abstractor Relationship Specialty Start Date End Date Jorge Luis Stout, SENIOR COMPLIANCE OFFICER.[employer] [address] [place], [place] [id number] PCP - General Family Practice 07/24/21 Court Abstractor Relationship Specialty Start Date End Date Jorge Luis Stout, SENIOR COMPLIANCE OFFICER.[employer] [address] [place] [address] PCP - General Family Medicine 07/24/21 Court Abstractor Relationship Specialty Start Date End Date Jorge Luis Stout, SENIOR COMPLIANCE OFFICER.[employer] [address] [place] [address] PCP - General Family Medicine 07/24/21 Court Abstractor Relationship Specialty Start Date End Date Jorge Luis Stout, SENIOR COMPLIANCE OFFICER.[employer] [address] [place] [address] PCP - General Family Medicine 07/24/21 Court Abstractor Relationship Specialty Start Date End Date Jorge Luis Stout, SENIOR COMPLIANCE OFFICER.[employer] [address] [place] [address] PCP - General Family Medicine 07/24/21 Court Abstractor Relationship Specialty Start Date End Date Jorge Luis Stout, SENIOR COMPLIANCE OFFICER.[employer] [address] [place] [address] PCP - General Family Medicine 07/24/21 Court Abstractor Relationship Specialty Start Date End Date Jorge Luis Stout, SENIOR COMPLIANCE OFFICER.[employer] [address] [place] [address] PCP - General Family Medicine 07/24/21 Court Abstractor Relationship Specialty Start Date End Date Jorge Luis Stout, SENIOR COMPLIANCE OFFICER.[employer] [address] [place] [address] PCP - General Family Medicine 07/24/21 Court Abstractor Relationship Specialty Start Date End Date Jorge Luis Stout, SENIOR COMPLIANCE OFFICER.[employer] [address] [place] [address] PCP - General Family Medicine 07/24/21 Court Abstractor Relationship Specialty Start Date End Date Jorge Luis Stout, SENIOR COMPLIANCE OFFICER.[employer] [address] [place] [address] PCP - General Family Medicine 07/24/21 Court Abstractor Relationship Specialty Start Date End Date Jorge Luis Stout APRN.[employer] [address] [place] [address] PCP - General Family Medicine 07/24/21 Court Abstractor Relationship Specialty Start Date End Date Jorge Luis Stout APRN.[employer] [address] [place] [address] PCP - General Family Medicine 07/24/21 Court Abstractor Relationship Specialty Start Date End Date Jorge Luis Stout APRN.[employer] [address] [place] [address] PCP - General Family Medicine 07/24/21 Court Abstractor Relationship Specialty Start Date End Date Jorge Luis Stout APRN.[employer] [address] [place] [address] PCP - General Family Medicine 07/24/21 Court Abstractor Relationship Specialty Start Date End Date Jorge Luis Stout APRN.[employer] [address] [place] [address] PCP - General Family Medicine 07/24/21 Court Abstractor Relationship Specialty Start Date End Date Jorge Luis Stout APRN.[employer] PCP - General Family Medicine 07/24/21 Court Abstractor Relationship Specialty Start Date End Date Jorge Luis Stout APRN.[employer]ER PCP - General Family Medicine 07/24/21 Court Abstractor Relationship Specialty Start Date End Date Jorge Luis Stout APRN.[employer]ER PCP - General Family Medicine 07/24/21 Court Abstractor Relationship Specialty Start Date End Date Donna Us PA-C [address] [place], [place] [id number] PCP - [facility] 12/09/23 Court Abstractor Relationship Specialty Start Date End Date Donna Us PA-C [address] [place], [place] [id number] PCP - [facility] 12/09/23 Court Abstractor Relationship Specialty Start Date End Date Donna Us PA-C [address] [place], [place] [id number] PCP - [facility] 12/09/23 [address] Abstractor Relationship Specialty Start Date End Date Donna Us PA-C [address] [place], [place] [id number] PCP - [facility] 12/09/23 [address] Abstractor Relationship Specialty Start Date End Date Donna Us PA-C [address] [place], [place] [id number] PCP - [facility] 12/09/23 [address] Abstractor Relationship Specialty Start Date End Date Donna Us PA-C [address] [place], [place] [id number] PCP - [facility] 12/09/23 [address] Abstractor Relationship Specialty Start Date End Date Donna Us PA-C [address] [place], [place] [id number] PCP - [facility] 12/09/23 [address] Abstractor Relationship Specialty Start Date End Date Donna Us PA-C [address] [place], [place] [id number] PCP - General Family Medicine 12/09/23 Court Abstractor Relationship Specialty Start Date End Date Donna Us PA-C [address] [place] [address] [place] [address] PCP - General Family Medicine 12/09/23 Court Abstractor Relationship Specialty Start Date End Date Donna Us PA-C PCP - General Family Medicine 12/09/23 FOR RECORDS PERTAINING TO PATIENTS WHO ARE OR HAVE BEEN ENROLLED IN A CHEMICAL DEPENDENCY/SUBSTANCEABUSE PROGRAM, SOME INFORMATION MAY BE OMITTED. This clinical summary was aggregated from multiple sources. Caution should be exercised in using it in the provision of clinical care. This summary normalizes information from multiple sources, and as a consequence, information in this document may materially change the coding, format and clinical context of patient data. In addition, data may be omitted in some cases. CLINICAL DECISIONS SHOULD BE BASED ON THE PRIMARY CLINICAL RECORDS. [facility]. provides no warranty or guarantee of the accuracy or completeness of information in this document.
[2025-02-12 23:28] LABS: Free T3 2.7 pg/mL (2.18-3.98)
== END | disposition home or self-care (01) ==
LOC: LAB 21:27
PROVIDERS: PCP Student in an Organized Health Care Education/Training Program; Visit Provider Internal Medicine Endocrinology, Diabetes & Metabolism
DX: E05.90 Thyrotoxicosis, unspecified without thyrotoxic crisis or storm (principal)
CPT/HCPCS: 36415; 84439; 84443; 84481

== ENCOUNTER → 2025-03-29 | Outpatient (CLI) | payer MEDICAID, SELFPAY ==
--- OUTSIDE RECORDS SUMMARY | 2025-03-29 21:21 | XMS RPT_ITS | CCD ---
Author Organization [facility] CliniSyil Care Team Providers Care Workforce Development Assistant Name Role Phone Unavailable Primary Care Provider Unavailabl e Rachel CERTIFIED NOVELL ENGINEER.GRISTMILLERJorge Luis Primary Care Provide r Rachel CERTIFIED NOVELL ENGINEER.Jorge Luis HANCOCK Primary Care Provide r Rachel CERTIFIED NOVELL ENGINEER.Jorge Luis HANCOCK Primary Care Provide r JORGE LUIS STOUT Attending Unavailable JORGE LUIS STOUT Primary Care Unavailable JORGE LUIS STOUT Attending Unavailable JORGE LUIS STOUT Primary Care Unavailable JORGE LUIS STOUT Attending Unavailable JORGE LUIS STOUT Primary Care Unavailable JORGE LUIS STOUT Attending Unavailable JORGE LUIS STOUT Primary Care Unavailable JORGE LUIS STOUT Attending Unavailable Rachel KENDRICK.Jorge Luis HANCOCK Primary Care Provide r Unavailable Donna Us PA-C Primary Care Provider Donna Us PA-C Primary Care Provider PCP, NONE Primary Care Unavailable TOMEKA RODRIGUEZ Attending Unavailable Donna Us PA-C Primary Care Provider DONNA Davenport Primary Care Unavailable MAGEN, DONNA R Primary Care Unavailable DONNA US R Attending Unavailable DONNA US R Primary Care Unavailable MAGEN, DONNA R Primary Care Unavailable MAGEN, DONNA R Attending Unavailable MAGEN, DONNA R Primary Care Unavailable MAGEN, DONNA R Primary Care Unavailable MAGEN, DONNA R Primary Care Unavailable UMM MCGRATH Attending Unavailable DONNA US R Primary Care Unavailable Provider, Ed Physician Attending Unavailab Kulkarni, Out of Referring Provider Unavailab Wilber MITCHELL, Dr. Chase Attending Provider [phone] Donna Us PA-C Primary Care Provider Salvatore Mcgrath Attending Unavailable Town Doctor, Out of Referring Unavailable [facility] Doctor, Out of Primary Care Unavailable Donna Us Primary Care Unavailable Salvatore Mcgrath Attending Unavailable Allergies Allergy Classification Reported Allergen(s) Allergy Type Date of Onset Reaction(s) Facility (3 sources) Droperidol; Translations: [DROPERIDOL] Drug Allergy 02-09-2025 Intolerance [facility] Medications Current Medications Medication Drug Class(es) Dates [...] whole tablet Take 1 tablet by frantz th once daily. clindamycin 300 mg oral capsule (1 source) Lincosamide Antibacterial Start: 05-14-20 End: 05-24-20 take 1 capsule by mouth four times daily clindamycin (CLEOCIN) 300 mg capsule Take 1 capsule by mouth four times daily for 10 days. 40 capsule 0 05/14/2023 05/24/2023 Active Comment on above: Take 1 capsule by mo [facility] four times daily for 10 days. doxepin [...] frantz daily at bedtime for 30 days. famotidine 40 mg oral tablet (20 sources) Histamine-2 Receptor Antagonist Start: 06-13-2023 End: 05-02-2025 take 1 tablet by mouth once daily Famotidine 40 mg tablet Active 40 mg PO daily December 03, 2024 12:00am Start: 01-24-2023 End: 04-24-2023 take 1 tablet [...] 1 tablet by frantz th twice daily. hydrOXYzine hydrochloride 25 mg oral tablet (1 source) Antihistamine Start: 08-09-20 End: 09-06-19 hydrOXYzine HCl (ATARAX) 25 mg tablet Indications: Chronic insomnia Take 1-2 tablets at night to help with sleep 60 tablet 5 08/09/2022 09/06/2022 Active Comment on above: Take 1-2 tablets at night to help with sleep levothyroxine sodium 0.05 mg oral tablet (1 source) l-Thyroxine Start: 02-15-20 take 1 tablet by mouth once daily Levothyroxine (Unithroid) 50 mcg tablet Active 50 ug PO daily 30 February 14, 2025 12:00am methIMAzole 10 mg oral tablet (8 sources) Thyroid Hormone Synthesis Inhibitor Start: 12-04-19 End: 02-15-20 take 4 tablets by mouth once daily Methimazole 10 mg tablet Active 40 mg PO DAILY February 12, 2025 12:00am 24 hr metoprolol succinate 50 mg extended release oral tablet (20 sources) beta-Adrenergic Ovidio Start: 12-04-19 take 1 tablet by mouth twice daily Metoprolol Succinate 25 mg tablet extended release 24 hr Active 25 mg PO TWICE A DAY 60 December 03, 2024 9:56am Start: 12-03-2024 End: 12-03-2024 take 1 tablet by mouth once daily Metoprolol Succinate 25 mg tablet extended release 24 hr Discontinued 25 mg PO daily December 03, 2024 12:00am December 03, 2024 9:59am Start: 11-11-2024 take 1 tablet by frantz th once daily Metoprolol Succinate 50 mg tablet extended release 24 hr Active 50 mg PO DAILY February 12, 2025 12:00am Start: 05-08-2023 End: 11-10-2024 take 1 tablet [...] pain ondansetron 4 mg disintegrating oral tablet (2 sources) Serotonin-3 Receptor Antagonist Start: End: take 1 tablet by mouth every six hours Ondansetron 4 mg tablet,disintegratin g Active 4 mg PO EVERY 6 HOURS February 12, 2025 12:00am pantoprazole 40 mg delayed release oral tablet (2 sources) Proton Pump Inhibitor Start: End: take 1 tablet by mouth once daily Pantoprazole 40 mg tablet,delayed release (DR/EC) Active 40 mg PO DAILY February 12, 2025 12:00am sucralfate 1000 mg oral tablet (2 sources) Aluminum Complex Start: take 1 tablet by mouth every six hours Sucralfate 1 gram tablet Active 1 g PO EVERY 6 HOURS February 12, 2025 12:00am Start: 02-09-2025 End: 02-23-2025 take 1 tablet by mouth four times [...] (Other) Comment on above: 1 capsule daily ibuprofen/diphenhydra mine HCl (ADVIL PM LIQUI-GELS ORAL) (20 sources) End: 05-14-2024 take 1 tablet by mouth once daily at bedtime ibuprofen/diphenhydr amine HCl (ADVIL PM LIQUI-GELS ORAL) Take 1 [...] on above: TAKE 1 CAPSULE BY MO [facility] ONCE DAILY Take 1 capsule by mo ut once daily. traZODone hydrochloride 100 mg oral tablet (10 sources) Serotonin Reuptake Inhibitor Start: 2 End: 2 take 1 tablet by mouth once daily [...] on above: TAKE 1 TABLET BY FRANTZ EVERYDAY AT BEDTIME Problems Active Problems Problem Classification Problem Date Documented Da te Episodic/Chronic Anxiety disorders (20 sources) Mixed anxiety and [...] Onset: 5 Episodic Open wounds of extremities (7 sources) Laceration of left little finger; Translations: [Laceration without foreign body of left little finger without damage to nail, initial encounter] Onset: 5 01-02-2025 Episodic Other aftercare (1 source) Encounter for removal of sutures; Translations: [Encounter for removal of sutures] Onset: 5 Episodic Other connective tissue disease (6 sources) Pain in finger of left hand; [...] Translations: [Abnormal weight gain] Episodic Thyroid disorders (11 sources) Hyperthyroidism; Translations: [Thyrotoxicosis, unspecified without thyrotoxic crisis or storm] Onset: 5 11-12-2024 Chronic Unclassified (1 source) Transaminitis; Translations: [Transaminitis] Onset: 5 Viral infection (1 source) COVID-19; Translations: [COVID-19] Onset: 5 Past or Other Problems Problem Classification Problem Date Documented Da te Episodic/Chronic Abdominal pain (20 sources) Right upper quadrant pain; Translations: [Right upper quadrant pain] Onset: 08-02-2021 08-02-2021 Episodic Cardiac dysrhythmias (4 sources) Palpitations; Translations: [Palpitations] [...] Results Test Name Value Interpretation Reference Range Facil ity Free T3on 02-12-2025 Free T3 [Mass/Vol] 2.7 pg/mL Normal 2.18-3.98 [facility] Comment on above: Performed By: #### L 506.0400, L501.9520, L501.00185 #### [facility] [address] [place], [place], [address] Free E5Wmrydpu By: Salvatore Mcgrath on 02-12-2025 Free T3 [Mass/Vol] 2.7 pg/mL 2.18-3.98 [facility] T4 Free Directon 02-12-2025 T4 FREE DIRECT 0.70 ng/dL Low 0.76-1.46 [facility] Comment on above: Performed By: #### L 506.0400, L501.9520, L501.81917 #### [facility] [address] [place], [place], [address] T4 freeOrdered By: Salvatore Mcgrath on 02-12-2025 Free T4 [Mass/Vol] 0.70 ng/dL Low 0.76-1.46 [facility] TSH DL <= 0.005 mIU/L QnOrde red By: Salvatore Mcgrath on 02-12-2025 TSH Qn 9.970 uIU/mL High 0.300-4.200 [facility] Thyroid Stim Hormone (TSH)on 02-12-2025 TSH 9.970 uIU/mL High 0.300-4.200 [facility] Comment on above: Performed By: #### L 506.0400, L501.9520, L501.95934 #### [facility] [address] [place], [place], [address] CNPNon 02-10-2025 [facility] Telephone ([facility] SOLOMON LAURA L ([id number]) 1995 M Date Time Provider Department 02/10/25 DONNA US [facility] During your visit today, we recorded the [...] Encounter Status:Closed by DARLIN BECK on 02/10/25 Normal [facility] CBC W Auto Differential pane l (Bld)on 02-09-2025 Basophils (Bld) [#/Vol] 10*3/uL Normal <0.11 [facility] Comment on above: Order Comment: Speci men Type: BLOOD SPECIMEN Ordering Facility: [facility] Address: [address] [place] [address] Performed By: #### 5 7021-8 #### [facility] CLIA [id number] [address] [place] [address] [place] Basophils/100 WBC (Bld) 0.2 % Normal [facility] Comment on above: Order Comment: Speci men Type: BLOOD SPECIMEN Ordering Facility: [facility] Address: [address] [place] [address] Performed By: #### 5 7021-8 #### [facility] CLIA [id number] [address] [place] [address] [place] Differential cell count method Nom (Bld) Auto Normal [facility] Comment on above: Order Comment: Speci men Type: BLOOD SPECIMEN Ordering Facility: [facility] Address: [address] [place] [address] Performed By: #### 5 7021-8 #### [facility] CLIA [id number] [address] [place] [address] [place] Eosinophils (Bld) [#/Vol] 10*3/uL Normal <0.46 [facility] Comment on above: Order Comment: Speci men Type: BLOOD SPECIMEN Ordering Facility: [facility] Address: [address] [place] [address] Performed By: #### 5 7021-8 #### [facility] CLIA [id number] [address] [place] [address] [place] Eosinophils/100 WBC (Bld) 0.0 % Normal [facility] Comment on above: Order Comment: Speci men Type: BLOOD SPECIMEN Ordering Facility: [facility] Address: [address] [place] [address] Performed By: #### 5 7021-8 #### [facility] CLIA [id number] [address] [place] [address] [place] Erythrocyte distribution width (RBC) [Ratio] 14.4 % Normal 11.5-15.0 [facility] Comment on above: Order Comment: Speci men Type: BLOOD SPECIMEN Ordering Facility: [facility] Address: [address] [place] [address] Performed By: #### 5 7021-8 #### [facility] CLIA [id number] [address] [place] [address] [place] Hematocrit (Bld) [Volume fraction] 46.0 % Normal 39.0-51.0 [facility] Comment on above: Order Comment: Speci men Type: BLOOD SPECIMEN Ordering Facility: [facility] Address: [address] [place] [address] Performed By: #### 5 7021-8 #### [facility] CLIA [id number] [address] [place] [address] [place] Hemoglobin (Bld) [Mass/Vol] 15.6 g/dL Normal 13.0-17.0 [facility] Comment on above: Order Comment: Speci men Type: BLOOD SPECIMEN Ordering Facility: [facility] Address: [address] [place] [address] Performed By: #### 5 7021-8 #### [facility] CLIA [id number] [address] [place] [address] [place] Immature granulocytes (Bld) [#/Vol] 0.03 10*3/uL Normal <0.10 [facility] Comment on above: Order Comment: Speci men Type: BLOOD SPECIMEN Ordering Facility: [facility] Address: [address] [place] [address] Performed By: #### 5 7021-8 #### [facility] CLIA [id number] [address] [place] [address] [place] Immature granulocytes/100 WBC (Bld) 0.3 % Normal [facility] Comment on above: Order Comment: Speci men Type: BLOOD SPECIMEN Ordering Facility: [facility] Address: [address] [place] [address] Performed By: #### 5 7021-8 #### [facility] CLIA [id number] [address] [place] [address] [place] Lymphocytes (Bld) [#/Vol] 0.45 10*3/uL Low 1.00-4.00 [facility] Comment on above: Order Comment: Speci men Type: BLOOD SPECIMEN Ordering Facility: [facility] Address: [address] [place] [address] Performed By: #### 5 7021-8 #### [facility] CLIA [id number] [address] [place] [address] [place] Lymphocytes/100 WBC (Bld) 4.8 % Normal [facility] Comment on above: Order Comment: Speci men Type: BLOOD SPECIMEN Ordering Facility: [facility] Address: [address] [place] [address] Performed By: #### 5 7021-8 #### [facility] CLIA [id number] [address] [place] [address] [place] MCH (RBC) [Entitic mass] 29.7 pg Normal 26.0-34.0 [facility] Comment on above: Order Comment: Speci men Type: BLOOD SPECIMEN Ordering Facility: [facility] Address: [address] [place] [address] Performed By: #### 5 7021-8 #### [facility] CLIA [id number] [address] [place] [address] [place] MCHC (RBC) [Mass/Vol] 33.9 g/dL Normal 30.5-36.0 [facility] Comment on above: Order Comment: Speci men Type: BLOOD SPECIMEN Ordering Facility: [facility] Address: [address] [place] [address] Performed By: #### 5 7021-8 #### [facility] CLIA [id number] [address] [place] [address] [place] MCV (RBC) [Entitic vol] 87.6 fL Normal 80.0-100.0 [facility] Comment on above: Order Comment: Speci men Type: BLOOD SPECIMEN Ordering Facility: [facility] Address: [address] [place] [address] Performed By: #### 5 7021-8 #### [facility] CLIA [id number] [address] [place] [address] [place] Monocytes (Bld) [#/Vol] 0.23 10*3/uL Normal <0.87 [facility] Comment on above: Order Comment: Speci men Type: BLOOD SPECIMEN Ordering Facility: [facility] Address: [address] [place] [address] Performed By: #### 5 7021-8 #### [facility] CLIA [id number] [address] [place] [address] [place] Monocytes/100 WBC (Bld) 2.4 % Normal [facility] Comment on above: Order Comment: Speci men Type: BLOOD SPECIMEN Ordering Facility: [facility] Address: [address] [place] [address] Performed By: #### 5 7021-8 #### [facility] CLIA [id number] [address] [place] [address] [place] Neutrophils (Bld) [#/Vol] 8.70 10*3/uL High 1.45-7.50 [facility] Comment on above: Order Comment: Speci men Type: BLOOD SPECIMEN Ordering Facility: [facility] Address: [address] [place] [address] Performed By: #### 5 7021-8 #### [facility] CLIA [id number] [address] [place] [address] [place] Neutrophils/100 WBC (Bld) 92.3 % Normal [facility] Comment on above: Order Comment: Speci men Type: BLOOD SPECIMEN Ordering Facility: [facility] Address: [address] [place] [address] Performed By: #### 5 7021-8 #### [facility] CLIA [id number] [address] [place] [address] [place] Nucleated RBC (Bld) [#/Vol] 10*3/uL Normal <0.01 [facility] Comment on above: Order Comment: Speci men Type: BLOOD SPECIMEN Ordering Facility: [facility] Address: [address] [place] [address] Performed By: #### 5 7021-8 #### [facility] CLIA [id number] [address] [place] [address] [place] Nucleated RBC/100 WBC (Bld) [Ratio] 0.0 /100 WBC Normal [facility] Comment on above: Order Comment: Speci men Type: BLOOD SPECIMEN Ordering Facility: [facility] Address: [address] [place] [address] Performed By: #### 5 7021-8 #### [facility] CLIA [id number] [address] [place] [address] [place] Platelet mean volume (Bld) [Entitic vol] 10.3 fL Normal 9.0-12.7 [facility] Comment on above: Order Comment: Speci men Type: BLOOD SPECIMEN Ordering Facility: [facility] Address: [address] [place] [address] Performed By: #### 5 7021-8 #### [facility] CLIA [id number] [address] [place] [address] [place] Platelets (Bld) [#/Vol] 309 10*3/uL Normal 150-400 [facility] Comment on above: Order Comment: Speci men Type: BLOOD SPECIMEN Ordering Facility: [facility] Address: [address] [place] [address] Performed By: #### 5 7021-8 #### [facility] CLIA [id number] [address] [place] [address] [place] RBC (Bld) [#/Vol] 5.25 10*6/uL Normal 4.20-6.00 [facility] Comment on above: Order Comment: Speci men Type: BLOOD SPECIMEN Ordering Facility: [facility] Address: [address] [place] [address] Performed By: #### 5 7021-8 #### [facility] CLIA [id number] [address] [place] [address] [place] WBC (Bld) [#/Vol] 9.43 10*3/uL Normal 3.70-11.00 [facility] Comment on above: Order Comment: Speci men Type: BLOOD SPECIMEN Ordering Facility: [facility] Address: [address] [place] [address] Performed By: #### 5 7021-8 #### [facility] CLIA [id number] [address] [place] [address] [place] ABD/PEL W IVCONon 02-09- 025 CT ABD/PEL W IVCON * * *Final Report* * * DATE OF EXAM: Feb 09 2025 8:00PM [facility] 0530 - CT ABD/PEL W IVCON / [...] acute findings in the abdomen or pelvis. Catalytic Converter Operator: FRANKLIN Transcribe Date/Time: Feb 09 2025 9:21P Dictated by : ELAN GEORGE MD This examination was interpreted and the report reviewed and electronically signed by: ELAN GEORGE MD on Feb 09 2025 9:33PM EST [id number] Normal [facility] Comprehensive metabolic 2000 panelon 02-09-2025 Albumin [Mass/Vol] 4.8 g/dL Normal 3.9-4.9 [facility] Comment on above: Order Comment: Speci men Type: BLOOD SPECIMEN Ordering Facility: [facility] Address: [address] [place] [address] Performed By: #### 5 7021-8 #### [facility] CLIA [id number] [address] [place] [address] [place] ALP [Catalytic activity/Vol] 128 U/L High 38-113 [facility] Comment on above: Order Comment: Speci men Type: BLOOD SPECIMEN Ordering Facility: [facility] Address: [address] [place] [address] Performed By: #### 5 7021-8 #### [facility] CLIA [id number] [address] [place] [address] [place] ALT [Catalytic activity/Vol] 44 U/L Normal 10-54 [facility] Comment on above: Order Comment: Speci men Type: BLOOD SPECIMEN Ordering Facility: [facility] Address: [address] [place] [address] Performed By: #### 5 7021-8 #### [facility] CLIA [id number] [address] [place] [address] [place] Anion gap [Moles/Vol] 14 mmol/L Normal 8-15 [facility] Comment on above: Order Comment: Speci men Type: BLOOD SPECIMEN Ordering Facility: [facility] Address: [address] [place] [address] Performed By: #### 5 7021-8 #### [facility] CLIA [id number] [address] [place] [address] [place] AST [Catalytic activity/Vol] 26 U/L Normal 14-40 [facility] Comment on above: Order Comment: Speci men Type: BLOOD SPECIMEN Ordering Facility: [facility] Address: [address] [place] [address] Performed By: #### 5 7021-8 #### [facility] CLIA [id number] [address] [place] [address] [place] Bilirubin [Mass/Vol] 0.9 mg/dL Normal 0.2-1.3 [facility] Comment on above: Order Comment: Speci men Type: BLOOD SPECIMEN Ordering Facility: [facility] Address: [address] [place] [address] Performed By: #### 5 7021-8 #### [facility] CLIA [id number] [address] [place] [address] [place] Calcium [Mass/Vol] 10.0 mg/dL Normal 8.5-10.2 [facility] Comment on above: Order Comment: Speci men Type: BLOOD SPECIMEN Ordering Facility: [facility] Address: [address] [place] [address] Performed By: #### 5 7021-8 #### [facility] CLIA [id number] [address] [place] [address] [place] Chloride [Moles/Vol] 105 mmol/L Normal 98-107 [facility] Comment on above: Order Comment: Speci men Type: BLOOD SPECIMEN Ordering Facility: [facility] Address: [address] [place] [address] Performed By: #### 5 7021-8 #### [facility] CLIA [id number] [address] [place] [address] [place] CO2 [Moles/Vol] 24 mmol/L Normal 22-30 [facility] Comment on above: Order Comment: Speci men Type: BLOOD SPECIMEN Ordering Facility: [facility] Address: [address] [place] [address] Performed By: #### 5 7021-8 #### [facility] CLIA [id number] [address] [place] [address] [place] Creatinine [Mass/Vol] 1.01 mg/dL Normal 0.73-1.22 [facility] Comment on above: Order Comment: Speci men Type: BLOOD SPECIMEN Ordering Facility: [facility] Address: [address] [place] [address] Performed By: #### 5 7021-8 #### [facility] CLIA [id number] [address] [place] [address] [place] Creatinine and Glomerular filtration rate.predicted panel (S/P/Bld) 102 mL/min/1.73m??? Normal >=60 [facility] Comment on above: Order Comment: Yo will Type: BLOOD SPECIMEN Ordering Facility: [facility] Address: [address] [place] [address] Result Comment: Elsie mated Glomerular Filtration Rate [...] GFR. Performed By: #### 5 7021-8 #### [facility] CLIA [id number] [address] [place] [address] [place] Glucose [Mass/Vol] 137 mg/dL High 74-99 [facility] Comment on above: Order Comment: Yo will Type: BLOOD SPECIMEN Ordering Facility: [facility] Address: [address] [place] [address] Result Comment: The [place] Diabetes Association (ADA) provides guidance for cutoff [...] Standards of Medical Care in Diabetes 2016, [place] [employer]. Diabetes Care. 2016.39(Suppl 1). Performed By: #### 5 7021-8 #### [facility] CLIA [id number] [address] [place] [address] [place] Potassium [Moles/Vol] 4.6 mmol/L Normal 3.7-5.1 [facility] Comment on above: Order Comment: Yo will Type: BLOOD SPECIMEN Ordering Facility: [facility] Address: [address] [place] [address] Performed By: #### 5 7021-8 #### [facility] CLIA [id number] [address] [place] [address] [place] Protein [Mass/Vol] 8.0 g/dL Normal 6.3-8.0 [facility] Comment on above: Order Comment: Speci men Type: BLOOD SPECIMEN Ordering Facility: [facility] Address: [address] [place] [address] Performed By: #### 5 7021-8 #### [facility] CLIA [id number] [address] [place] [address] [place] Sodium [Moles/Vol] 143 mmol/L Normal 136-144 [facility] Comment on above: Order Comment: Speci men Type: BLOOD SPECIMEN Ordering Facility: [facility] Address: [address] [place] [address] Performed By: #### 5 7021-8 #### [facility] CLIA [id number] [address] [place] [address] [place] Urea nitrogen [Mass/Vol] 10 mg/dL Normal 9-24 [facility] Comment on above: Order Comment: Speci men Type: BLOOD SPECIMEN Ordering Facility: [facility] Address: [address] [place] [address] Performed By: #### 5 7021-8 #### [facility] CLIA [id number] [address] [place] [address] [place] ECG COMPLETEon 02-09-2025 ECG COMPLETE Ventricular Rate : 6 0 BPM Atrial Rate : 60 BPM P-R Interval : 130 ms QRS Duration : 90 ms Q-T Interval : 370 ms QTC Calculation(Bazett) : 370 ms Calculated P [place] : 32 degrees Calculated R [place] : -4 degrees Calculated T [place] : 16 degrees Normal sinus rhythm Normal ECG When compared with ECG of 11-Dec-2024 11:57, No significant change was found Confirmed by HUMBERTO WRIGHT MD ([id number]) on 02/11/2025 12:50:34 PM NAME : SOLOMON LAURA PID : [id number] : 1995 Gender : Male Race : ORD : [id number] Procedure Date : Feb 09 2025 18:13:08 Edit Date : Feb 11 2025 12:50:37 Diagnosis: Normal sinus rhythm Normal ECG When compared with ECG of 11-Dec-2024 11:57, No significant change was found Confirmed by HUMBERTO WRIGHT MD ([id number]) on 02/11/2025 12:50:34 PM Test Reason : HCS Location : 3 : ED ED Overread By : HUMBERTO WRIGHT MD Edited By : HUMBERTO WRIGHT MD Referred By : , Acquired by : MILLIE [facility] ED NOTEon 02-09-2025 ED NOTE HNO ID: [id number] Author: ADY VALVERDE, RN Service: ? Author Type: Registered Nurse Type: ED Notes Filed: 02/09/2025 22:56 Note Text: Patient tolerated PO fine and wants to go home. [facility] ED NOTE HNO ID: [id number] Author: BETTINA CAMPBELL CT Service: ? Author Type: Clinical Manager Programs Type: ED Notes Filed: 02/09/2025 22:30 Note Text: Gave pt a glass of water per nurse for PO Challenge. STACIA [facility] ED NOTE HNO ID: [id number] Author: ADY VALVERDE, MARIANO Service: ? Author Type: Registered Nurse Type: ED Notes Filed: 02/09/2025 20:05 Note Text: Patient requested ice chips - I provided him with them. [facility] ED NOTE HNO ID: [id number] Author: ADY VALVEDRE RN Service: ? Author Type: Registered Nurse Type: ED Notes Filed: 02/09/2025 18:37 Note Text: Patient vomiting after PO meds. [facility] ED PROV NOTEon 02-09-2025 ED PROV NOTE HNO ID: [id number] Author: ESTELA SAM APRN.CNP Service: Emergency Medicine Author Type: Nurse [...] Awaiting CT results. Clinical Impressions as of 02/09/252216 Abdominal pain, unspecified abdominal location Nausea and [...] abdomen or (more content not included)... Normal [facility] Lipase SerPl-cCncon 02-10-20 25 Lipase [Catalytic activity/Vol] 18 U/L Normal 16-61 [facility] Comment on above: Order Comment: Speci men Type: BLOOD SPECIMEN Ordering Facility: [facility] Address: [address] [place] [address] [place] [address] Performed By: #### 5 7021-8 #### [facility] CLIA [id number] [address] [place] [address] [place] Urinalysis complete panel (U )on 02-09-2025 Bacteria LM.HPF (Urine sed) [#/Area] Rare Abnormal None Seen [facility] Comment on above: Order Comment: Speci men Type: URINE SPECIMENOrdering Facility: [facility] Address: [address] [place] [address] Performed By: #### 2 4356-8 ####[facility] [id number] [place] [address] [place] Bilirubin Ql (U) 1+ Abnormal Negative [facility] Comment on above: Order Comment: Speci men Type: URINE SPECIMENOrdering Facility: [facility] Address: [address] [place] [address] Result Comment: Sugg est correlation with clinical findings and serum bilirubin if clinically indicated. Performed By: #### 2 4356-8 ####[facility] [id number] [place] [address] [place] Clarity (Unsp spec) Clear Normal Clear [facility] Comment on above: Order Comment: Speci men Type: URINE SPECIMENOrdering Facility: [facility] Address: [address] [place] [address] Performed By: #### 2 4356-8 ####[facility] [id number] [place] [address] [place] Color (U) Yellow Normal Yellow [facility] Comment on above: Order Comment: Speci men Type: URINE SPECIMENOrdering Facility: [facility] Address: [address] [place] [address] Performed By: #### 2 4356-8 ####[facility] [id number] [place] [address] [place] Epithelial cells LM.HPF (Urine sed) [#/Area] Few Normal [facility] Comment on above: Order Comment: Speci men Type: URINE SPECIMENOrdering Facility: [facility] Address: [address] [place] [address] Performed By: #### 2 4356-8 ####[facility] [id number] [address] Glucose Test strip (U) [Mass/Vol] Negative Normal Negative [facility] Comment on above: Order Comment: Speci men Type: URINE SPECIMENOrdering Facility: [facility] Address: [address] [place] [address] Performed By: #### 2 4356-8 ####[facility] [id number] [place] [address] [place] Hemoglobin Ql (U) Negative Normal Negative [facility] Comment on above: Order Comment: Speci men Type: URINE SPECIMENOrdering Facility: [facility] Address: [address] [place] [address] Performed By: #### 2 4356-8 ####[facility]IA [id number] [place] [address] [place] Ketones Ql (U) Trace Abnormal Negative [facility] Comment on above: Order Comment: Speci men Type: URINE SPECIMENOrdering Facility: [facility] Address: [address] [place] [address] Performed By: #### 2 4356-8 ####[facility] [id number] [address] [place] Leukocyte esterase Test strip Ql (U) Negative Normal Negative [facility] Comment on above: Order Comment: Speci men Type: URINE SPECIMENOrdering Facility: [facility] Address: [address] [place] [address] Performed By: #### 2 4356-8 ####[facility] [id number] [place] [address] [place] Nitrite Ql (U) Negative Normal Negative [facility] Comment on above: Order Comment: Speci men Type: URINE SPECIMENOrdering Facility: [facility] Address: [address] [place] [address] Performed By: #### 2 4356-8 ####[facility] [id number] [address] STATES [facility] pH (U) 7.0 [pH] Normal 5.0-8.0 [facility] Comment on above: Order Comment: Speci men Type: URINE SPECIMENOrdering Facility: [facility] Address: [address] [place] [address] Performed By: #### 2 4356-8 ####[facility] [id number] [address] [place] Protein (U) [Mass/Vol] 1+ Abnormal Negative [facility] Comment on above: Order Comment: Speci men Type: URINE SPECIMENOrdering Facility: [facility] Address: [address] [place] [address] Performed By: #### 2 4356-8 ####[facility] [id number] [place] [address] [place] RBC LM.HPF (Urine sed) [#/Area] 0-3 /HPF Normal 0-3 /HPF [facility] Comment on above: Order Comment: Speci men Type: URINE SPECIMENOrdering Facility: [facility] Address: [address] [place] [address] Performed By: #### 2 4356-8 ####[facility]IA [id number] [address] [place] Specific gravity (U) [Rel density] 1.020 Normal 1.005-1.030 [facility] Comment on above: Order Comment: Speci men Type: URINE SPECIMENOrdering Facility: [facility] Address: [address] [place] [address] Performed By: #### 2 4356-8 ####[facility]IA [id number] [address] STATES [facility] Urobilinogen Ql (U) 0.2 EU/dL Normal 0.2-1.0 EU/dL [facility] Comment on above: Order Comment: Speci men Type: URINE SPECIMENOrdering Facility: [facility] Address: [address] [place] [address] Performed By: #### 2 4356-8 ####[facility] [id number] [place] [address] [place] WBC LM.HPF (Urine sed) [#/Area] 0-5 /HPF Normal 0-5 /HPF [facility] Comment on above: Order Comment: Speci men Type: URINE SPECIMENOrdering Facility: [facility] Address: [facility] [place] [address] Performed By: #### 2 4356-8 ####[facility]IA [id number] [place] [address] [place] THYROID PEROXIDASE ANTIBODYo n 01-25-2025 Interpretation and review of laboratory results Abnormal [facility] TPO Ab Qn 248.2 [IU]/mL High NINF [facility] Comment on above: Thyroid Peroxidase A ntibody test is used as an aid in diagnosis of autoimmune thyroid disease. Clinical correlation is required. [facility] CNNURSEon 01-24-2025 [facility] Nurse Visit (UPCN) SOLOMON LAURA L ([id number]) 1995 M Date Time Provider Department 01/24/25 10:40 AM NURSE JULIAN LU [facility] During your visit today, we recorded the following information about you: Loren Mendez MA 01/24/2025 10:46 AM Signed Venipuncture performed to right antecubital. Number of tubes collected: 1 gold and 1 mint. Allergies As of Date: 01/24/2025 (No Known Allergies) Date Reviewed: 01/02/2025 Reviewed by: Duarte Jacinto, MIREILLE.GRISTMILLER - Fully Assessed Reason for Visit: Phlebotomy [...] Encounter Status:Closed by LOREN MENDEZ on 01/24/25 Normal [facility] Free T3 [Mass/Vol]on 025 Interpretation and review of laboratory results Normal [facility] Laboratory - Chemistry and C hemistry - challengeon 01-24-2025 Free T3 [Mass/Vol] 3.4 pg/mL 2.3 - 4.1 pg/mL [facility] TSH Qn 25.16 m[IU]/L High [facility] No Panel Informationon 01-24 Interpretation and review of laboratory results Abnormal [facility] T3Free SerPl-mCncon 01-25-20 25 Free T3 [Mass/Vol] 3.4 pg/mL Normal 2.3-4.1 [facility] Comment on above: Order Comment: Speci men Type: BLOOD SPECIMENOrdering Facility: [facility] Address: [address] [place] [address] Performed By: #### 3 051-0, 3024-7, 3016-3 ####[facility]IA [id number] [place] [address] [place] T4 FREE/FREE THYROXINEon Free T4 [Mass/Vol] 0.4 ng/dL Low 0.9 - 1.7 ng/dL [facility] T4 Free SerPl-mCncon 025 Free T4 [Mass/Vol] 0.4 ng/dL Low 0.9-1.7 [facility] Comment on above: Order Comment: Yo will Type: BLOOD SPECIMENOrdering Facility: [facility] Address: [address] [place] [address] Performed By: #### 3 051-0, 3024-7, 3016-3 ####[facility]IA [id number] [address] THYROID PEROXIDASE ANTIBODYo n 01-24-2025 TPO Ab Qn 248.2 [IU]/mL High <5.6 [facility] Comment on above: Order Comment: Yo will Type: BLOOD SPECIMEN Ordering Facility: [facility] Address: [address] [place] [address] Result Comment: Thyr oid Peroxidase Antibody test is used as an aid in diagnosis of autoimmune thyroid disease. Clinical correlation is required. Performed By: #### M ICRO #### [facility] CLIA [id number] [address] [place] [address] [place] TSH SerPl-aCncon 01-24-2025 TSH Qn 25.160 m[IU]/L High 0.270-4.200 [facility] Comment on above: Order Comment: Yo will Type: BLOOD SPECIMENOrdering Facility: [facility] Address: [address] [place] [address] Performed By: #### 3 051-0, 3024-7, 6-3 ####[facility] [id number] [address] [facility] ED NOTEon 01-02-2025 ED NOTE HNO ID: [id number] Author: JAZMÍN DASILVA Medic Service: ? Author Type: Acquisition Analyst and Manager Programs Type: ED Notes Filed: 01/03/2025 08:39 Note [...] DATE: January 03, 2025 TIME: 8:38 AM [facility] ED PROV NOTEon 01-02-2025 ED PROV NOTE HNO ID: [id number] Author: DUARTE JACINTO APRN.CNP Service: Emergency Medicine Author Type: Nurse Practitioner Type: ED Provider Notes Filed: 01/02/2025 20:10 Note Text: ED Provider Note Patient Name: Solomon Laura : 1995 SERVICE DATE: 01/02/25 History Patient presents with: Laceration: L pinky. History provided by: Patient manager willow used: No 29-year-old male presented to the [...] 01/02/2025 5:36 PM Performed by: Duarte Jacinto APRN.GRISTMILLER Authorized by: Duarte Jacinto APRN.GRISTMILLER Risks discussed: Infection, pain and poor wound [...] tendon involv (more content not included)... Normal [facility] XR DIGIT 3V FRONTAL/LAT/OBL LTon 01-02-2025 [...] changes. IMPRESSION: No acute fracture or dislocation. Catalytic Converter Operator: PSCB Transcribe Date/Time: Jan 02 2025 6:47P Dictated by : ELAN GEORGE MD This examination was interpreted and the report reviewed and electronically signed by: ELAN GEORGE MD on Jan 02 2025 6:48PM EST [id number] [facility] CBC W Auto Differential pane l (Bld)on 12-11-2024 Basophils (Bld) [#/Vol] 0.03 10*3/uL Normal <0.11 [facility] Comment on above: Order Comment: Speci men Type: BLOOD SPECIMEN Ordering Facility: [facility] Address: [address] [place] [address] Performed By: #### 3 024-7, 3016-3 #### [facility] CLIA [id number] [address] [place] [address] [place] Basophils/100 WBC (Bld) 0.3 % [facility] Comment on above: Order Comment: Speci men Type: BLOOD SPECIMEN Ordering Facility: [facility] Address: [address] [place] [address] Performed By: #### 3 024-7, 3016-3 #### [facility] CLIA [id number] [address] [place] [address] [place] Differential cell count method Nom (Bld) Auto Normal [facility] Comment on above: Order Comment: Speci men Type: BLOOD SPECIMEN Ordering Facility: [facility] Address: [address] [place] [address] Performed By: #### 3 024-7, 6-3 #### [facility] CLIA [id number] [address] [place] [address] [place] Eosinophils (Bld) [#/Vol] 0.04 10*3/uL Normal <0.46 [facility] Comment on above: Order Comment: Speci men Type: BLOOD SPECIMEN Ordering Facility: [facility] Address: [address] [place] [address] Performed By: #### 3 024-7, 6-3 #### [facility] CLIA [id number] [address] [place] [address] [place] Eosinophils/100 WBC (Bld) 0.4 % [facility] Comment on above: Order Comment: Speci men Type: BLOOD SPECIMEN Ordering Facility: [facility] Address: [address] [place] [address] Performed By: #### 3 024-7, 3016-3 #### [facility] CLIA [id number] [address] [place] [address] [place] Erythrocyte distribution width (RBC) [Ratio] 11.9 % Normal 11.5-15.0 [facility] Comment on above: Order Comment: Speci men Type: BLOOD SPECIMEN Ordering Facility: [facility] Address: [address] [place] [address] Performed By: #### 3 024-7, 3016-3 #### [facility] CLIA [id number] [address] [place] [address] [place] Hematocrit (Bld) [Volume fraction] 45.1 % Normal 39.0-51.0 [facility] Comment on above: Order Comment: Speci men Type: BLOOD SPECIMEN Ordering Facility: [facility] Address: [address] [place] [address] Performed By: #### 3 024-7, 3016-3 #### [facility] CLIA [id number] [address] [place] [address] [place] Hemoglobin (Bld) [Mass/Vol] 15.3 g/dL Normal 13.0-17.0 [facility] Comment on above: Order Comment: Speci men Type: BLOOD SPECIMEN Ordering Facility: [facility] Address: [address] [place] [address] Performed By: #### 3 024-7, 3016-3 #### [facility] CLIA [id number] [address] [place] [address] [place] Immature granulocytes (Bld) [#/Vol] 0.03 10*3/uL Normal <0.10 [facility] Comment on above: Order Comment: Speci men Type: BLOOD SPECIMEN Ordering Facility: [facility] Address: [address] [place] [address] Performed By: #### 3 024-7, 3016-3 #### [facility] CLIA [id number] [address] [place] [address] [place] Immature granulocytes/100 WBC (Bld) 0.3 % Normal [facility] Comment on above: Order Comment: Speci men Type: BLOOD SPECIMEN Ordering Facility: [facility] Address: [address] [place] [address] Performed By: #### 3 024-7, 3016-3 #### [facility] CLIA [id number] [address] [place] [address] [place] Lymphocytes (Bld) [#/Vol] 1.21 10*3/uL Normal 1.00-4.00 [facility] Comment on above: Order Comment: Speci men Type: BLOOD SPECIMEN Ordering Facility: [facility] Address: [address] [place] [address] Performed By: #### 3 024-7, 3016-3 #### [facility] CLIA [id number] [address] [place] [address] [place] Lymphocytes/100 WBC (Bld) 12.8 % Normal [facility] Comment on above: Order Comment: Speci men Type: BLOOD SPECIMEN Ordering Facility: [facility] Address: [address] [place] [address] Performed By: #### 3 024-7, 3016-3 #### [facility] CLIA [id number] [address] [place] [address] [place] MCH (RBC) [Entitic mass] 28.9 pg Normal 26.0-34.0 [facility] Comment on above: Order Comment: Speci men Type: BLOOD SPECIMEN Ordering Facility: [facility] Address: [address] [place] [address] Performed By: #### 3 024-7, 6-3 #### [facility] CLIA [id number] [address] [place] [address] [place] MCHC (RBC) [Mass/Vol] 33.9 g/dL Normal 30.5-36.0 [facility] Comment on above: Order Comment: Speci men Type: BLOOD SPECIMEN Ordering Facility: [facility] Address: [address] [place] [address] Performed By: #### 3 024-7, 3016-3 #### [facility] CLIA [id number] [address] [place] [address] [place] MCV (RBC) [Entitic vol] 85.3 fL Normal 80.0-100.0 [facility] Comment on above: Order Comment: Speci men Type: BLOOD SPECIMEN Ordering Facility: [facility] Address: [address] [place] [address] Performed By: #### 3 024-7, 3016-3 #### [facility] CLIA [id number] [address] [place] [address] [place] Monocytes (Bld) [#/Vol] 0.42 10*3/uL Normal <0.87 [facility] Comment on above: Order Comment: Speci men Type: BLOOD SPECIMEN Ordering Facility: [facility] Address: [address] [place] [address] Performed By: #### 3 024-7, 3016-3 #### [facility] CLIA [id number] [address] [place] [address] [place] Monocytes/100 WBC (Bld) 4.5 % Normal [facility] Comment on above: Order Comment: Speci men Type: BLOOD SPECIMEN Ordering Facility: [facility] Address: [address] [place] [address] Performed By: #### 3 024-7, 3015-3 #### [facility] CLIA [id number] [address] [place] [address] [place] Neutrophils (Bld) [#/Vol] 7.69 10*3/uL High 1.45-7.50 [facility] Comment on above: Order Comment: Speci men Type: BLOOD SPECIMEN Ordering Facility: [facility] Address: [address] [place] [address] Performed By: #### 3 024-7, 6-3 #### [facility] CLIA [id number] [address] [place] [address] [place] Neutrophils/100 WBC (Bld) 81.7 % Normal [facility] Comment on above: Order Comment: Speci men Type: BLOOD SPECIMEN Ordering Facility: [facility] Address: [address] [place] [address] Performed By: #### 3 024-7, 6-3 #### [facility] CLIA [id number] [address] [place] [address] [place] [place] Nucleated RBC (Bld) [#/Vol] 10*3/uL Normal <0.01 [facility] Comment on above: Order Comment: Speci men Type: BLOOD SPECIMEN Ordering Facility: [facility] Address: [address] [place] [address] Performed By: #### 3 024-7, 3016-3 #### [facility] CLIA [id number] [address] [place] [address] [place] Nucleated RBC/100 WBC (Bld) [Ratio] 0.0 /100 WBC Normal [facility] Comment on above: Order Comment: Speci men Type: BLOOD SPECIMEN Ordering Facility: [facility] Address: [address] [place] [address] Performed By: #### 3 024-7, 3016-3 #### [facility] CLIA [id number] [address] [place] [address] [place] Platelet mean volume (Bld) [Entitic vol] 10.0 fL Normal 9.0-12.7 [facility] Comment on above: Order Comment: Speci men Type: BLOOD SPECIMEN Ordering Facility: [facility] Address: [address] [place] [address] Performed By: #### 3 024-7, 3016-3 #### [facility] CLIA [id number] [address] [place] [address] [place] Platelets (Bld) [#/Vol] 282 10*3/uL Normal 150-400 [facility] Comment on above: Order Comment: Speci men Type: BLOOD SPECIMEN Ordering Facility: [facility] Address: [address] [place] [address] Performed By: #### 3 024-7, 3016-3 #### [facility] CLIA [id number] [address] [place] [address] [place] RBC (Bld) [#/Vol] 5.29 10*6/uL Normal 4.20-6.00 [facility] Comment on above: Order Comment: Speci men Type: BLOOD SPECIMEN Ordering Facility: [facility] Address: [address] [place] [address] Performed By: #### 3 024-7, 3016-3 #### [facility] CLIA [id number] [address] [place] [address] [place] WBC (Bld) [#/Vol] 9.42 10*3/uL Normal 3.70-11.00 [facility] Comment on above: Order Comment: Speci men Type: BLOOD SPECIMEN Ordering Facility: [facility] Address: [facility] [place] [address] Performed By: #### 3 024-7, 3016-3 #### [facility] CLIA [id number] [address] [place] [address] [place] CT ABD/PEL W IVCONon 12-11-[address] ABD/PEL W IVCON * * *Final Report* * * DATE OF EXAM: Dec 11 2024 2:35PM [facility] 0530 - CT ABD/PEL W IVCON / [...] small airways wall thickening/possible small airways disease-bronchitis. Diagnostic Imaging Manager (topogram) images: Non-diagnostic. IMPRESSION: Contrast-enhanced abdominopelvic CT shows no clear evidence of an acute abdominopelvic abnormality. Underdistended urinary bladder, with suggested nonspecific mild circumferential wall thickening (amenable to clinical/urinalysis correlation). Nonspecific moderate gaseous distention of the colon and some small bowel loops. Other details above. Catalytic Converter Operator: FRANKLIN Transcribe Date/Time: Dec 11 2024 2:39P Dictated by : HUMAIRA JEFFERS MD This examination was interpreted and the report reviewed and electronically signed by: HUMAIRA JEFFERS MD on Dec 11 2024 2:51PM EST [id number] Normal [facility] Comprehensive metabolic 2000 panelon 12-11-2024 Albumin [Mass/Vol] 4.5 g/dL Normal 3.9-4.9 [facility] Comment on above: Order Comment: Speci men Type: BLOOD SPECIMEN Ordering Facility: [facility] Address: [address] [place] [address] Performed By: #### 2 4323-8, 28786-6, 3040-3 #### [facility] CLIA [id number] [address] [place] [address] [place] ALP [Catalytic activity/Vol] 114 U/L High 38-113 [facility] Comment on above: Order Comment: Speci men Type: BLOOD SPECIMEN Ordering Facility: [facility] Address: [address] [place] [address] Performed By: #### 2 4323-8, , 3039-3 #### [facility] CLIA [id number] [address] [place], [place] [address] [place] ALT [Catalytic activity/Vol] 282 U/L High 10-54 [facility] Comment on above: Order Comment: Speci men Type: BLOOD SPECIMEN Ordering Facility: [facility] Address: [address] [place] [address] Performed By: #### 2 4323-8, , 3039-3 #### [facility] CLIA [id number] [address] [place], [place] [address] [place] Anion gap [Moles/Vol] 9 mmol/L Normal 8-15 [facility] Comment on above: Order Comment: Speci men Type: BLOOD SPECIMEN Ordering Facility: [facility] Address: [address] [place] [address] Performed By: #### 2 4328, , 3 #### [facility] CLIA [id number] [address] [place] [address] [place] AST [Catalytic activity/Vol] 148 U/L High 14-40 [facility] Comment on above: Order Comment: Speci men Type: BLOOD SPECIMEN Ordering Facility: [facility] Address: [address] [place] [address] Performed By: #### 2 4323-8, , 3039-3 #### [facility] CLIA [id number] [address] [place], [place] [address] [place] Bilirubin [Mass/Vol] 1.0 mg/dL Normal 0.2-1.3 [facility] Comment on above: Order Comment: Speci men Type: BLOOD SPECIMEN Ordering Facility: [facility] Address: [address] [place] [address] Performed By: #### 2 4323-8, , 3039-3 #### [facility] CLIA [id number] [address] [place], [place] [address] [place] Calcium [Mass/Vol] 9.3 mg/dL Normal 8.5-10.2 [facility] Comment on above: Order Comment: Speci men Type: BLOOD SPECIMEN Ordering Facility: [facility] Address: [address] [place] [address] Performed By: #### 2 4323-8, , 3 #### [facility] CLIA [id number] [address] [place] [address] [place] Chloride [Moles/Vol] 103 mmol/L Normal 98-107 [facility] Comment on above: Order Comment: Speci men Type: BLOOD SPECIMEN Ordering Facility: [facility] Address: [address] [place] [address] Performed By: #### 2 4323-8, , 3 #### [facility] CLIA [id number] [address] [place] [address] [place] CO2 [Moles/Vol] 26 mmol/L Normal 22-30 [facility] Comment on above: Order Comment: Speci men Type: BLOOD SPECIMEN Ordering Facility: [facility] Address: [address] [place] [address] Performed By: #### 2 4323-8, , 3 #### [facility] CLIA [id number] [address] [place] [address] [place] Creatinine [Mass/Vol] 1.11 mg/dL Normal 0.73-1.22 [facility] Comment on above: Order Comment: Speci men Type: BLOOD SPECIMEN Ordering Facility: [facility] Address: [address] [place] [address] Performed By: #### 2 4323-8, , 3 #### [facility] CLIA [id number] [address] [place] [address] [place] Creatinine and Glomerular filtration rate.predicted panel (S/P/Bld) 91 mL/min/1.73m??? Normal >=60 [facility] Comment on above: Order Comment: Speci men Type: BLOOD SPECIMEN Ordering Facility: [facility] Address: [address] [place], [place] [address] Result Comment: Elsie mated Glomerular Filtration Rate [...] actual GFR. Performed By: #### 2 4323-8, , 3039-3 #### [facility] CLIA [id number] [address] [place] [address] [place] Glucose [Mass/Vol] 108 mg/dL High 74-99 [facility] Comment on above: Order Comment: Yo will Type: BLOOD SPECIMEN Ordering Facility: [facility] Address: [address] [place] [address] Result Comment: The [place] Diabetes Association (ADA) provides guidance for cutoff [...] Standards of Medical Care in Diabetes 2016, [place] [employer] Association. Diabetes Care. 2016.39(Suppl 1). Performed By: #### 2 4323-8, , 3039-3 #### [facility] CLIA [id number] [address] [place] [address] [place] Potassium [Moles/Vol] 4.3 mmol/L Normal 3.7-5.1 [facility] Comment on above: Order Comment: Yo will Type: BLOOD SPECIMEN Ordering Facility: [facility] Address: [address] [place] [address] Performed By: #### 2 4323-8, , 3039-3 #### [facility] CLIA [id number] [address] [place] [address] [place] Protein [Mass/Vol] 7.4 g/dL Normal 6.3-8.0 [facility] Comment on above: Order Comment: Speci men Type: BLOOD SPECIMEN Ordering Facility: [facility] Address: [address] [place] [address] Performed By: #### 2 4323-8, 35413-4, 3040-3 #### [facility] CLIA [id number] [address] [place] [address] [place] Sodium [Moles/Vol] 138 mmol/L Normal 136-144 [facility] Comment on above: Order Comment: Speci men Type: BLOOD SPECIMEN Ordering Facility: [facility] Address: [address] [place] [address] Performed By: #### 2 4323-8, 92495-1, 3040-3 #### [facility] CLIA [id number] [address] [place] [address] [place] Urea nitrogen [Mass/Vol] 11 mg/dL Normal 9-24 [facility] Comment on above: Order Comment: Speci men Type: BLOOD SPECIMEN Ordering Facility: [facility] Address: [address] [place] [address] Performed By: #### 2 4323-8, 26952-5, 3040-3 #### [facility] CLIA [id number] [address] [place] [address] [place] ECG COMPLETEon 12-11-2024 ECG COMPLETE Ventricular Rate : 5 3 BPM Atrial Rate : 53 BPM P-R Interval : 152 ms QRS Duration : 92 ms Q-T Interval : 410 ms QTC Calculation(Bazett) : 384 ms Calculated P [place] : 21 degrees Calculated R [place] : -11 degrees Calculated T [place] : 20 degrees Sinus bradycardia Otherwise normal ECG When compared with ECG of 03-Dec-2023 11:45, No significant change was found Confirmed by ROM TRINH MD ([id number]) on 12/13/2024 9:40:01 AM NAME : SOLOMON LAURA PID : [id number] : 1995 Gender : Male Race : ORD : [id number] Procedure Date : Dec 11 2024 11:57:22 Edit Date : Dec 13 2024 09:40:03 Diagnosis: Sinus bradycardia Otherwise normal ECG When compared with ECG of 03-Dec-2023 11:45, No significant change was found Confirmed by ROM TRINH MD ([id number]) on 12/13/2024 9:40:01 AM Test Reason : HCS Location : 3 : ED ED Overread By : ROM TRINH MD Edited By : ROM TRINH MD Referred By : , Acquired by : [place], [facility] ED NOTEon 12-11-2024 ED NOTE HNO ID: [id number] Author: GERMAINE DOLL RN Service: ? Author Type: Registered Nurse Type: ED Notes Filed: 12/11/2024 10:34 Note Text: NVD, sore throat, cough, fatigued, and body aches since before . [facility] ED PROV NOTEon 12-11-2024 ED PROV NOTE HNO ID: [id number] Author: UMM MCGRATH MD Service: Emergency Medicine [...] a colonoscopy and EGD done by Dr. Traylor 3 or 4 years ago was told that he had acid buildup. He denies any prior abdominal surgeries. History provided by: Patient manager willow used: No PAST MEDICAL HISTORY Diagnosis Date [...] Abs Ne (more content not included)... Normal [facility] Lipase SerPl-cCncon 12-12-19 25 Lipase [Catalytic activity/Vol] 17 U/L Normal 16-61 [facility] Comment on above: Order Comment: Yo will Type: BLOOD SPECIMENOrdering Facility: [facility] Address: [address] [place] [address] Performed By: #### 2 4323-8, , 3 ####[facility] [id number] [place] [address] [place] Magnesium SerPl-mCncon 12-11 Magnesium [Mass/Vol] 2.1 mg/dL Normal 1.7-2.3 [facility] Comment on above: Order Comment: Yo will Type: BLOOD SPECIMEN Ordering Facility: [facility] Address: [address] [place] [address] Performed By: #### 2 4323-8, , 0-3 #### [facility] CLIA [id number] [address] [place], [place] [address] [place] XR CHEST 1V [...] an acute cardiopulmonary abnormality. Other details above. Catalytic Converter Operator: PSCB Transcribe Date/Time: Dec 11 2024 1:58P Dictated by : HUMAIRA JEFFERS MD This examination was interpreted and the report reviewed and electronically signed by: HUMAIRA JEFFERS MD on Dec 11 2024 1:58PM EST [id number] Normal [facility] Endocrinology Visit Reporton 12-03-2024 Endocrinology Visit Report [facility] [address] [place] [address] OFFICE VISIT Date of Service: 12/03/24 MR#: [id number] Acct: [id number] Name: SOLOMON LAURA TOSIN Rep #: [id number] : 1995 Provider: Ute Martinez Age/Sex: 29/M [place] [facility] [place]: Signed Intake Vital Signs 12/03/24 09:12 [...] HPI HPI Chief Complaint: thyroid Details: SOLOMON LAURA, is a 29 M who presents to [...] nourished Orientation: alert, awake and oriented x3 [facility] Head: normal to inspection Ears: hearing grossly [...] Plan Assessme (more content not included)... [facility] Visit (UPCN ) SOLOMON LAURA ([id number]) 1995 M Date Time Provider Department 11/11/24 10:00 AM DONNA US [facility] During your visit today, we recorded the [...] and send them to your clinician through Light[employer] or by phone. - Wear the heart monitor for 2 weeks as scheduled. Follow the instructions provided for its use. - Follow up with an prison officer if your thyroid levels are high; your [...] are elevated, will refer to endocrinology in [place] for further management. - Educated on potential treatments for hyperthyroidism, including medication and surgical options. - Follow-up in 6 months, but advised to report any worsening symptoms. 2. Hypertension, essential (I10) - Blood pressure initia (more content not included)... Normal [facility] T3 SerPl-mCncon 11-11-2024 T3 [Mass/Vol] 259 ng/dL High 79-165 [facility] Comment on above: Order Comment: Speci men Type: BLOOD SPECIMENOrdering Facility: [facility] Address: [address] [place] [address] Performed By: #### 3 053-6 ####[facility] [id number] [place] [address] [place] T4 Free SerPl-mCncon 025 Free T4 [Mass/Vol] 2.9 ng/dL High 0.9-1.7 [facility] Comment on above: Order Comment: Speci men Type: BLOOD SPECIMEN Ordering Facility: [facility] Address: [address] [place] [address] Performed By: #### 3 024-7, 3016-3 #### [facility] CLIA [id number] [address] [place] [address] [place] TSH SerPl-aCncon 11-11-2024 TSH Qn 0.005 m[IU]/L Low 0.270-4.200 [facility] Comment on above: Order Comment: Speci men Type: BLOOD SPECIMEN Ordering Facility: [facility] Address: [address] [place] [address] Performed By: #### 3 024-7, 3016-3 #### [facility] CLIA [id number] [address] [place] [address] [place] 25(OH)D3 SerPl-mCncon 2024 25-hydroxyvitamin D3 [Mass/Vol] 31.1 ng/mL Normal 31.0-80.0 [facility] Comment on above: Order Comment: Speci men Type: BLOOD SPECIMEN Ordering Facility: [facility] Address: [address] [place] [address] Performed By: #### 5 7021-8 #### [facility] CLIA [id number] [address] [place], [place] [address] [place] Basic metabolic 2000 panelon 11-04-2024 Anion gap [Moles/Vol] 7 mmol/L Low 8 - 15 mmol/L [facility] Calcium [Mass/Vol] 9.8 mg/dL 8.5 - 10. 2 mg/dL [facility] Chloride [Moles/Vol] 107 mmol/L 98 - 107 mmol/L [facility] CO2 [Moles/Vol] 27 mmol/L 22 - 30 mmol/L [facility] Creatinine [Mass/Vol] 0.82 mg/dL 0.73 - 1.22 mg/dL [facility] GFR/1.73 sq M.predicted among non-blacks MDRD (S/P/Bld) [Vol rate/Area] 120 mL/min/{1.73_m2} - PINF [facility] Comment on above: Estimated Glomerular Filtration Rate [...] 101 mg/dL High 74 - 99 mg/dL [facility] Comment on above: The [place] Diabete s Association (ADA) provides guidance for [...] Standards of Medical Care in Diabetes 2016, [place] Diabetes Association. Diabetes Care. 2016.39(Suppl 1). Interpretation and review of laboratory results Abnormal [facility] Potassium [Moles/Vol] 4.5 mmol/L 3.7 - 5.1 mmol/L [facility] Sodium [Moles/Vol] 141 mmol/L 136 - 144 mmol/L [facility] Urea nitrogen [Mass/Vol] 16 mg/dL 9 - 24 mg/dL [facility] Anion gap [Moles/Vol] 7 mmol/L Low 8-15 [facility] Comment on above: Order Comment: Speci men Type: BLOOD SPECIMEN Ordering Facility: [facility] Address: [address] [place] [address] Performed By: #### 5 7021-8 #### [facility] CLIA [id number] [address] [place] [address] [place] Calcium [Mass/Vol] 9.8 mg/dL Normal 8.5-10.2 [facility] Comment on above: Order Comment: Speci men Type: BLOOD SPECIMEN Ordering Facility: [facility] Address: [address] [place] [address] Performed By: #### 5 7021-8 #### [facility] CLIA [id number] [address] [place] [address] [place] Chloride [Moles/Vol] 107 mmol/L Normal 98-107 [facility] Comment on above: Order Comment: Speci men Type: BLOOD SPECIMEN Ordering Facility: [facility] Address: [address] [place] [address] Performed By: #### 5 7021-8 #### [facility] CLIA [id number] [address] [place] [address] [place] CO2 [Moles/Vol] 27 mmol/L Normal 22-30 [facility] Comment on above: Order Comment: Speci men Type: BLOOD SPECIMEN Ordering Facility: [facility] Address: [address] [place] [address] Performed By: #### 5 7021-8 #### [facility] CLIA [id number] [address] [place] [address] [place] Creatinine [Mass/Vol] 0.82 mg/dL Normal 0.73-1.22 [facility] Comment on above: Order Comment: Speci men Type: BLOOD SPECIMEN Ordering Facility: [facility] Address: [address] [place] [address] Performed By: #### 5 7021-8 #### [facility] CLIA [id number] [address] [place] [address] [place] Creatinine and Glomerular filtration rate.predicted panel (S/P/Bld) 120 mL/min/1.73m??? Normal >=60 [facility] Comment on above: Order Comment: Yo will Type: BLOOD SPECIMEN Ordering Facility: [facility] Address: [address] [place] [address] Result Comment: Elsie mated Glomerular Filtration Rate [...] GFR. Performed By: #### 5 7021-8 #### [facility] CLIA [id number] [address] [place] [address] [place] Glucose [Mass/Vol] 101 mg/dL High 74-99 [facility] Comment on above: Order Comment: Yo will Type: BLOOD SPECIMEN Ordering Facility: [facility] Address: [address] [place] [address] Result Comment: The [place] Diabetes Association (ADA) provides guidance for cutoff [...] Standards of Medical Care in Diabetes 2016, [place] Diabetes Association. Diabetes Care. 2016.39(Suppl 1). Performed By: #### 5 7021-8 #### [facility] CLIA [id number] [address] [place], [place] [address] [place] Potassium [Moles/Vol] 4.5 mmol/L Normal 3.7-5.1 [facility] Comment on above: Order Comment: Speci men Type: BLOOD SPECIMEN Ordering Facility: [facility] Address: [address] [place] [address] Performed By: #### 5 7021-8 #### [facility] CLIA [id number] [address] [place] [address] [place] Sodium [Moles/Vol] 141 mmol/L Normal 136-144 [facility] Comment on above: Order Comment: Speci men Type: BLOOD SPECIMEN Ordering Facility: [facility] Address: [address] [place] [address] Performed By: #### 5 7021-8 #### [facility] CLIA [id number] [address] [place] [address] [place] Urea nitrogen [Mass/Vol] 16 mg/dL Normal 9-24 [facility] Comment on above: Order Comment: Speci men Type: BLOOD SPECIMEN Ordering Facility: [facility] Address: [address] [place] [address] Performed By: #### 5 7021-8 #### [facility] CLIA [id number] [address] [place] [address] [place] CBC panel Auto (Bld)on 11-04 Erythrocyte distribution width (RBC) [Ratio] 12 % 11.5 - 15.0 % [facility] Hematocrit (Bld) [Volume fraction] 41.4 % 39.0 - 51.0 % [facility] Hemoglobin (Bld) [Mass/Vol] 13.9 g/dL 13.0 - 17.0 g/dL [facility] Interpretation and review of laboratory results Normal [facility] MCH (RBC) [Entitic mass] 29.6 pg 26.0 - 34.0 pg [facility] MCHC (RBC) [Mass/Vol] 33.6 g/dL 30.5 - 36.0 g/dL [facility] MCV (RBC) [Entitic vol] 88.3 fL 80.0 - 100.0 fL [facility] Nucleated RBC (Bld) [#/Vol] NINF [facility] Platelet mean volume (Bld) [Entitic vol] 10.1 fL 9.0 - 12.7 fL [facility] Platelets (Bld) [#/Vol] 303 10*3/uL [facility] RBC (Bld) [#/Vol] 4.69 10*6/uL 4.20 - 6.0 0 m/uL [facility] WBC (Bld) [#/Vol] 4.63 10*3/uL [facility] Erythrocyte distribution width (RBC) [Ratio] 12.0 % Normal 11.5-15.0 [facility] Comment on above: Order Comment: Speci men Type: BLOOD SPECIMEN Ordering Facility: [facility] Address: [address] [place] [address] Performed By: #### 5 8410-2 #### [facility] CLIA [id number] [address] [place] [address] [place] Hematocrit (Bld) [Volume fraction] 41.4 % Normal 39.0-51.0 [facility] Comment on above: Order Comment: Speci men Type: BLOOD SPECIMEN Ordering Facility: [facility] Address: [address] [place] [address] Performed By: #### 5 8410-2 #### [facility] CLIA [id number] [address] [place] [address] [place] Hemoglobin (Bld) [Mass/Vol] 13.9 g/dL Normal 13.0-17.0 [facility] Comment on above: Order Comment: Speci men Type: BLOOD SPECIMEN Ordering Facility: [facility] Address: [address] [place] [address] Performed By: #### 5 8410-2 #### [facility] CLIA [id number] [address] [place] [address] [place] MCH (RBC) [Entitic mass] 29.6 pg Normal 26.0-34.0 [facility] Comment on above: Order Comment: Speci men Type: BLOOD SPECIMEN Ordering Facility: [facility] Address: [address] [place] [address] Performed By: #### 5 8410-2 #### [facility] CLIA [id number] [address] [place] [address] [place] MCHC (RBC) [Mass/Vol] 33.6 g/dL Normal 30.5-36.0 [facility] Comment on above: Order Comment: Speci men Type: BLOOD SPECIMEN Ordering Facility: [facility] Address: [address] [place] [address] Performed By: #### 5 8410-2 #### [facility] CLIA [id number] [address] [place] [address] [place] MCV (RBC) [Entitic vol] 88.3 fL Normal 80.0-100.0 [facility] Comment on above: Order Comment: Speci men Type: BLOOD SPECIMEN Ordering Facility: [facility] Address: [address] [place] [address] Performed By: #### 5 8410-2 #### [facility] CLIA [id number] [address] [place] [address] [place] Nucleated RBC (Bld) [#/Vol] 10*3/uL Normal <0.01 [facility] Comment on above: Order Comment: Speci men Type: BLOOD SPECIMEN Ordering Facility: [facility] Address: [address] [place] [address] Performed By: #### 5 8410-2 #### [facility] CLIA [id number] [address] [place] [address] [place] Platelet mean volume (Bld) [Entitic vol] 10.1 fL Normal 9.0-12.7 [facility] Comment on above: Order Comment: Speci men Type: BLOOD SPECIMEN Ordering Facility: [facility] Address: [address] [place] [address] Performed By: #### 5 8410-2 #### [facility] CLIA [id number] [address] [place] [address] [place] Platelets (Bld) [#/Vol] 303 10*3/uL Normal 150-400 [facility] Comment on above: Order Comment: Speci men Type: BLOOD SPECIMEN Ordering Facility: [facility] Address: [address] [place] [address] Performed By: #### 5 8410-2 #### [facility] CLIA [id number] [address] [place] [address] [place] RBC (Bld) [#/Vol] 4.69 10*6/uL Normal 4.20-6.00 [facility] Comment on above: Order Comment: Speci men Type: BLOOD SPECIMEN Ordering Facility: [facility] Address: [address] [place] [address] Performed By: #### 5 8410-2 #### [facility] CLIA [id number] [address] [place] [address] WBC (Bld) [#/Vol] 4.63 10*3/uL Normal 3.70-11.00 [facility] Comment on above: Order Comment: Speci men Type: BLOOD SPECIMEN Ordering Facility: [facility] Address: [address] [place] [address] Performed By: #### 5 8410-2 #### [facility] CLIA [id number] [address] [place] [address] OF [facility] CNNURSEon 11-04-2024 [facility] Nurse Visit (UPC[facility]) SOLOMON LAURA ([id number]) 1995 M Date Time Provider Department 11/04/24 9:20 AM [facility] During your visit today, we recorded the [...] [R53.83] Order(s):COMPLETE BLOOD COUNT [SQCBC] Order #: [id number]. #:[id number] BASIC METABOLIC PANEL [SQBMP] Order #: [id number]. #:[id number] FERRITIN [SQFERR] Order #: [id number]. #:[id number] IRON AND TIBC [SQIRON] Order #: [id number]. #:[id number] THYROID STIMULATING HORMONE [SQTSH] Order #: [id number]. #:[id number] TESTOSTERONE, TOTAL [SQTESTO] Order #: [id number]. #:[id number] LIPID PANEL BASIC [SQLIPB] Order #: [id number]. #:[id number] VITAMIN B12 [SQB12] Order #: [id number]. #:[id number] VITAMIN D 25 HYDROXY [SQVITD] Order #: [id number]. #:[id number] Prescriptions as of 11/04/2024 - famotidine (PEPCID) [...] Encounter Status:Closed by LOREN MENDEZ on 11/04/24 [facility] Cobalamin (Vitamin B12) [Mas s/Vol]on 11-04-2024 Interpretation and review of laboratory results Normal [facility] FERRITINon 11-04-2024 Ferritin [Mass/Vol] 253.1 ng/mL 30.3 - 5 65.7 ng/mL [facility] Ferritin SerPl-mCncon 2024 Ferritin [Mass/Vol] 253.1 ng/mL Normal 30.3-565.7 [facility] Comment on above: Order Comment: Speci men Type: BLOOD SPECIMEN Ordering Facility: [facility] Address: [address] [place] [address] Performed By: #### 5 7021-8 #### [facility] CLIA [id number] [address] [place] [address] [place] Ferritin [Mass/Vol]on 2024 Interpretation and review of laboratory results Normal [facility] Iron and Iron binding capaci ty panelon 11-04-2024 Iron [Mass/Vol] 137 ug/dL Normal 41-186 [facility] Comment on above: Order Comment: Speci men Type: BLOOD SPECIMENOrdering Facility: [facility] Address: [address] [place] [address] Performed By: #### 5 0190-8, 2131-9, 21565-0, 6-3 ####[facility] [id number] [place] [address] [place] Iron binding capacity [Mass/Vol] 240 ug/dL Normal 232-386 [facility] Comment on above: Order Comment: Speci men Type: BLOOD SPECIMENOrdering Facility: [facility] Address: [address] [place] [address] Performed By: #### 5 0190-8, 2131-9, 08521-9, 6-3 ####[facility] [id number] [place] [id number] [place] Iron/TIBC [Molar ratio] 57.1 % High 15.0-57.0 [facility] Comment on above: Order Comment: Speci men Type: BLOOD SPECIMENOrdering Facility: [facility] Address: [address] [place] [address] Performed By: #### 5 0190-8, 2131-9, 79898-4, 3016-3 ####[facility] [id number] [place] [address] [place] Lipid 1996 panelon 5 Cholesterol [Mass/Vol] 127 mg/dL NINF - 200 mg/dL [facility] Comment on above: <200 mg/dL, Desirabl e 200-239 mg/dL, Borderline high >239 mg/dL, High Cholesterol in HDL [Mass/Vol] 30 mg/dL Low 39 - PINF mg/dL [facility] Comment on above: 40-59 mg/dL, Accepta ble >59 mg/dL, High: Negative risk factor for coronary heart disease <40 mg/dL, Low: Positive risk factor for coronary heart disease Cholesterol in LDL [Mass/Vol] 81 mg/dL NINF - 100 mg/dL [facility] Comment on above: <100 mg/dL, Optimal 100-129 mg/dL, Near optimal/above optimal 130-159 mg/dL, Borderline high 160-189 mg/dL, High >189 mg/dL, Very high Secondary prevention optimal LDL Cholesterol levels are recommended to be < 70 mg/dL Cholesterol in LDL/Cholesterol in HDL [Mass ratio] 2.7 {ratio} High NINF - 2.54 [facility] Comment on above: Reference: 1. National Cholesterol Education Program ATP III Guideline At-A-Glance Quick Desk Reference: National Heart, Lung, and Blood [place]. National Institutes of Health. 2001: NIH Publication No. 01-3305. 2. An International Atherosclerosis Society position paper: global recommendations for the management of dyslipidemia: executive summary, Atherosclerosis. 2014: 232(2):410-413. Cholesterol in VLDL [Mass/Vol] 16 mg/dL NINF - 30 mg/dL [facility] Cholesterol non HDL [Mass/Vol] 97 mg/dL NINF - 130 mg/dL [facility] Comment on above: <130 mg/dL, Optimal 130-159 mg/dL, Near optimal/above optimal 160-189 mg/dL, Borderline high 190-219 mg/dL, High >219 mg/dL, Very high Secondary prevention optimal non HDL Cholesterol levels are recommended to be <100 mg/dL Cholesterol.total/C holesterol in HDL [Mass ratio] 4.23 {ratio} NINF - 5.10 [facility] Fasting Time yes hrs [facility] Interpretation and review of laboratory results Abnormal [facility] Triglyceride [Mass/Vol] 79 mg/dL NINF - 150 mg/dL [facility] Comment on above: <150 mg/dL, Normal 150-199 mg/dL, Borderline high 200-499 mg/dL, High >499 mg/dL, Very high Cholesterol [Mass/Vol] 127 mg/dL Normal <200 [facility] Comment on above: Order Comment: Speci men Type: BLOOD SPECIMENOrdering Facility: [facility] Address: [address] [place] [address] Result Comment: <200 mg/dL, Desirable 200-239 mg/dL, Borderline high >239 mg/dL, High Performed By: #### 5 0190-8, 2132-04, 80141-8, 6-3 ####[facility] [id number] [address] OF [facility] Cholesterol in HDL [Mass/Vol] 30 mg/dL Low >39 [facility] Comment on above: Order Comment: Speci men Type: BLOOD SPECIMENOrdering Facility: [facility] Address: [address] [place] [address] Result Comment: 40-5 9 mg/dL, Acceptable >59 mg/dL, High: Negative risk factor for coronary heart disease <40 mg/dL, Low: Positive risk factor for coronary heart disease Performed By: #### 5 0190-8, 2132-04, 99528-5, 3016-3 ####[facility] [id number] [address] OF [facility] Cholesterol in LDL [Mass/Vol] 81 mg/dL Normal <100 [facility] Comment on above: Order Comment: Speci men Type: BLOOD SPECIMENOrdering Facility: [facility] Address: [address] [place] [address] Result Comment: <100 mg/dL, Optimal 100-129 mg/dL, Near optimal/above optimal 130-159 mg/dL, Borderline high 160-189 mg/dL, High >189 mg/dL, Very high Secondary prevention optimal LDL Cholesterol levels are recommended to be < 70 mg/dL Performed By: #### 5 0190-8, 9, 44906-2, 3016-3 ####[facility] [id number] [address] Cholesterol in LDL/Cholesterol in HDL [Mass ratio] 2.70 {ratio} High <2.54 [facility] Comment on above: Order Comment: Earlenedannie will Type: BLOOD SPECIMENOrdering Facility: [facility] Address: [address] [place] [address] Result Comment: Refe rence: 1. National Cholesterol Education Program ATP III Guideline At-A-Glance Quick Desk Reference: National Heart, Lung, and Blood [place]. National Institutes of Health. 2001: NIH Publication No. 01-3305. 2. An International Atherosclerosis Society position paper: global recommendations for the management of dyslipidemia: executive summary, Atherosclerosis. 2014: 232(2):410-413. Performed By: #### 5 0190-8, 2132-04, 80793-5, 3015-3 ####[facility] [id number] [address] OF [facility] Cholesterol in VLDL [Mass/Vol] 16 mg/dL Normal <30 [facility] Comment on above: Order Comment: Yo nicolette Type: BLOOD SPECIMENOrdering Facility: [facility] Address: [address] [place] [address] Performed By: #### 5 0190-8, 2132-04, , 3015-3 ####[facility] [id number] [address] [facility] Cholesterol non HDL [Mass/Vol] 97 mg/dL Normal <130 [facility] Comment on above: Order Comment: Yo will Type: BLOOD SPECIMENOrdering Facility: [facility] Address: [address] [place] [address] Result Comment: <130 mg/dL, Optimal 130-159 mg/dL, Near optimal/above optimal 160-189 mg/dL, Borderline high 190-219 mg/dL, High >219 mg/dL, Very high Secondary prevention optimal non HDL Cholesterol levels are recommended to be <100 mg/dL Performed By: #### 5 0190-8, 9, 50913-4, 6-3 ####[facility] [id number] [place] [address] [place] Cholesterol.total/C holesterol in HDL [Mass ratio] 4.23 {ratio} Normal <5.10 [facility] Comment on above: Order Comment: Speci men Type: BLOOD SPECIMENOrdering Facility: [facility] Address: [address] [place] [address] Performed By: #### 5 0190-8, 2-9, 17934-5, 3016-3 ####[facility]IA [id number] [place] [address] [place] FASTING TIME yes Normal [facility] Comment on above: Order Comment: Speci men Type: BLOOD SPECIMENOrdering Facility: [facility] Address: [address] [place] [address] Performed By: #### 5 0190-8, 2131-9, 82758-5, 3016-3 ####[facility]IA [id number] [place] [address] [place] Triglyceride [Mass/Vol] 79 mg/dL Normal <150 [facility] Comment on above: Order Comment: Speci men Type: BLOOD SPECIMENOrdering Facility: [facility] Address: [address] [place] [address] Result Comment: <150 mg/dL, Normal 150-199 mg/dL, Borderline high 200-499 mg/dL, High >499 mg/dL, Very high Performed By: #### 5 0190-8, 2131-9, 86234-9, 3016-3 ####[facility]IA [id number] [place] [address] [place] No Panel Informationon 11-04 [facility] THYROID STIMULATING HORMONEo n 11-04-2024 TSH Qn 0.007 m[IU]/L Low [facility] TSH Qnon 11-04-2024 Interpretation and review of laboratory results Abnormal [facility] TSH SerPl-aCncon 11-04-2024 TSH Qn 0.007 m[IU]/L Low 0.270-4.200 [facility] Comment on above: Order Comment: Speci men Type: BLOOD SPECIMENOrdering Facility: [facility] Address: [address] [place], [place] [address] Performed By: #### 5 0190-8, 2132-04, , 3015-3 ####[facility]CLIA [id number] [address] Testost SerPl-mCncon 025 Testosterone [Mass/Vol] 1023 ng/dL High 193-824 [facility] Comment on above: Order Comment: Speci men Type: BLOOD SPECIMEN Ordering Facility: [facility] Address: [address] [place], [place] [address] [address] Result Comment: A te stosterone level in the 193-320 ng/dL range with associated clinical symptoms is considered low and may indicate hypogonadism (from [facility] 2010 363:123-135). Results >320 ng/dL are considered normal. Performed By: #### 2 986-8 #### [facility] CLIA [id number] [address] [place], [place] [address] [facility] [place] VITAMIN B12on 11-04-2024 Cobalamin (Vitamin B12) [Mass/Vol] 444 pg/mL 232 - 1245 pg/mL [facility] Vit B12 SerPl-mCncon 025 Cobalamin (Vitamin B12) [Mass/Vol] 444 pg/mL Normal 232-1245 [facility] Comment on above: Order Comment: Speci men Type: BLOOD SPECIMENOrdering Facility: [facility] Address: [address] [place] [address] [place] [id number] Performed By: #### 5 0190-8, 2132-04, , 3015-3 ####[facility]CLIA [id number] [address] [place] CNOVon 05-14-2024 CNOV Office Visit (UPCN ) SOLOMON LAURA ([id number]) 1995 M Date Time Provider Department 05/14/24 10:00 AM [facility] During your visit today, we recorded the [...] and Affe (more content not included)... Normal [facility] CBC W Auto Differential pane l (Bld)on 11-12-2023 Basophils (Bld) [#/Vol] 0.05 10*3/uL <0.11 k/uL [facility] Basophils/100 WBC (Bld) 0.7 % [facility] Differential cell count method Nom (Bld) Auto [facility] Eosinophils (Bld) [#/Vol] 0.13 10*3/uL <0.46 k/uL [facility] Eosinophils/100 WBC (Bld) 1.8 % [facility] Erythrocyte distribution width (RBC) [Ratio] 12.2 % 11.5 - 15.0 % [facility] Hematocrit (Bld) [Volume fraction] 46.4 % 39.0 - 51.0 % [facility] Hemoglobin (Bld) [Mass/Vol] 16.1 g/dL 13.0 - 17.0 g/dL [facility] Immature granulocytes (Bld) [#/Vol] 0.03 10*3/uL <0.10 k/uL [facility] Immature granulocytes/100 WBC (Bld) 0.4 % [facility] Lymphocytes (Bld) [#/Vol] 1.84 10*3/uL 1.00 - 4.00 k/uL [facility] Lymphocytes/100 WBC (Bld) 25.6 % [facility] MCH (RBC) [Entitic mass] 31.0 pg 26.0 - 34.0 pg [facility] MCHC (RBC) [Mass/Vol] 34.7 g/dL 30.5 - 36.0 g/dL [facility] MCV (RBC) [Entitic vol] 89.2 fL 80.0 - 100.0 fL [facility] Monocytes (Bld) [#/Vol] 0.59 10*3/uL <0.87 k/uL [facility] Monocytes/100 WBC (Bld) 8.2 % [facility] Neutrophils (Bld) [#/Vol] 4.55 10*3/uL 1.45 - 7.50 k/uL [facility] Neutrophils/100 WBC (Bld) 63.3 % [facility] Nucleated RBC (Bld) [#/Vol] <0.01 k/uL [facility] Nucleated RBC/100 WBC (Bld) [Ratio] 0.0 /100 WBC [facility] Platelet mean volume (Bld) [Entitic vol] 10.4 fL 9.0 - 12.7 fL [facility] Platelets (Bld) [#/Vol] 301 10*3/uL 150 - 400 k/uL [facility] RBC (Bld) [#/Vol] 5.20 10*6/uL 4.20 - 6.0 0 m/uL [facility] WBC (Bld) [#/Vol] 7.19 10*3/uL 3.70 - 11. 00 k/uL [facility] Comprehensive metabolic 2000 panelon 11-12-2023 Albumin [Mass/Vol] 4.6 g/dL 3.9 - 4.9 g/dL [facility] ALP [Catalytic activity/Vol] 100 U/L 38 - 113 U/L [facility] ALT [Catalytic activity/Vol] 26 U/L 10 - 54 U/L [facility] Anion gap [Moles/Vol] 10 mmol/L 9 - 18 mmol/L [facility] AST [Catalytic activity/Vol] 23 U/L 14 - 40 U/L [facility] Bilirubin [Mass/Vol] 0.9 mg/dL 0.2 - 1.3 mg/dL [facility] Calcium [Mass/Vol] 9.6 mg/dL 8.5 - 10. 2 mg/dL [facility] Chloride [Moles/Vol] 104 mmol/L 97 - 105 mmol/L [facility] CO2 [Moles/Vol] 27 mmol/L 22 - 30 mmol/L [facility] Creatinine [Mass/Vol] 1.18 mg/dL 0.73 - 1.22 mg/dL [facility] Estimated Glomerular Filtration Rate 85 mL/min/1.73m >=60 mL/min/1.73m [facility] Glucose [Mass/Vol] 106 mg/dL High 74 - 99 mg/dL [facility] Potassium [Moles/Vol] 4.9 mmol/L 3.7 - 5.1 mmol/L [facility] Protein [Mass/Vol] 7.5 g/dL 6.3 - 8.0 g/dL [facility] Sodium [Moles/Vol] 141 mmol/L 136 - 144 mmol/L [facility] Urea nitrogen [Mass/Vol] 15 mg/dL 9 - 24 mg/dL [facility] Lipid 1996 panelon 4 Cholesterol [Mass/Vol] 167 mg/dL <200 mg/dL [facility] Cholesterol in HDL [Mass/Vol] 40 mg/dL >39 mg/dL [facility] Cholesterol in LDL [Mass/Vol] 110 mg/dL High <100 mg/dL [facility] Cholesterol in LDL/Cholesterol in HDL [Mass ratio] 2.75 {ratio} High <2.54 [facility] Cholesterol in VLDL [Mass/Vol] 17 mg/dL <30 mg/dL [facility] Cholesterol non HDL [Mass/Vol] 127 mg/dL <130 mg/dL [facility] Cholesterol.total/C holesterol in HDL [Mass ratio] 4.18 {ratio} <5.10 [facility] Fasting Time yes [facility] Triglyceride [Mass/Vol] 84 mg/dL <150 mg/dL [facility] CNOVon 01-24-2023 CN Office Visit ([facility] ) SOLOMON LAURA ([id number]) 1995 M Date Time Provider Department 01/24/23 10:00 AM JORGE LUIS STOUT [facility] During your visit today, we recorded the following information about you: Pulse Blood pressure Weight Height 70/minute 152/104 97.1 kg 1.727 m Jorge Luis Stout APRN.GRISTMILLER 01/24/2023 10:23 AM Signed Solomon Laura is a 27 year old male who presents Patient presents with: Insomnia GERD Overview Notes of Problems Addressed This Visit Neurology Chronic insomnia - Primary Failed hydroxyzine, lunesta, and trazodone. Doxepin not approved by insurance. 01/03/2023 rainer was started. He is compliant with taking [...] was identified. 01/24/2023 by Jorge Luis Stout APRN.GRISTMILLER Discussed the risk of long-term benzodiazepine use [...] Luis Morales (more content not included)... [facility] SOLOMON LAURA ([id number]) 1995 M Date Time Provider Department 01/02/23 JORGE LUIS STOUT [facility] During your visit today, we recorded the following information about you: Martin Samson 01/02/2023 7:31 AM Signed Received e-mail from [facility] that auth needs completed; Auth has been completed and is pending Martin Samson 01/03/2023 9:34 AM Signed Per fax from [facility], the request has been denied. The patient must first try and fail the preferred medications: Estazolam, Temazepam 15 and 30 mg, Zaleplon, and Zolpidem Martin Stout, CERTIFIED NOVELL ENGINEER.[facility] 01/03/2023 11:23 AM Signed Please let patient know insurance not approving doxepin. Need to try ambien first. Sent it in Cesia Cohn MA 01/03/2023 12:01 PM Signed LMOM for patient to call the office back. PAUL Dos Santos 01/03/2023 12:04 PM Signed Patient had called [...] Encounter Status:Closed by CHICA RODRIGUEZ on 01/03/23 [facility] Jack 10-18-2022 [facility] Office Visit ([facility] ) SOLOMON LAURA ([id number]) 1995 M Date Time Provider Department 10/18/22 10:00 AM JORGE LUIS STOUT [facility] During your visit today, we recorded the following information about you: Pulse Blood pressure Weight Height 82/minute 135/72 95.3 kg 1.727 m Jorge Luis Stout APRN.GRISTMILLER 10/18/2022 10:22 AM Jenny Solomon Avril Laura is a 27 year [...] was identified. 10/18/2022 by Jorge Luis Stout APRN.GRISTMILLER - ESZOPICLONE 2 MG TABLET Jorge Luis [...] for Encounter Date Provider Department Center 10/18/2022 [id number] LUIS STOUT [facility] Encounter Status:Closed by JORGE LUIS STOUT on 10/18/22 Normal [facility] CNOVon 09-20-2022 CNOV Office Visit ([facility] ) SOLOMON LAURA ([id number]) 1995 M Date Time Provider Department 09/20/22 10:00 AM JORGE LUIS STOUT [facility] During your visit today, we recorded the following information about you: Pulse Blood pressure Weight Height 83/minute 126/83 97.1 kg 1.727 m Jorge Luis Stout APRN.GRISTMILLER 09/20/2022 10:32 AM Addendum Solomon Laura is [...] was identified. 09/20/2022 by Jorge Luis Stout APRN.GRISTMILLER - ESZOPICLONE 2 MG TABLET 3. Weight [...] (more content not included)... Normal [facility] NATALIE REFLEXon 08-14-2022 NATALIE REFLEX Negative Normal . [facility] Comment on above: Result Comment: Nega tive <1:80 Borderline 1:80 Positive >1:80 ICAP nomenclature: AC-0 For more information about Hep-2 cell patterns use ANApatterns.org, the official website for the International Consensus on Antinuclear Antibody (NATALIE) Patterns (ICAP). Performed at: - [facility] [address] [id number] Plasterer Helper: Tono Jiang PhD, Phone: [phone] Performed By: #### L 100.0005, L304.0297, L100.0040, L304.0162, L100.0470, L304.0200, L304.0140, L304.0480 #### ML - [facility] [address] [place] [id number] NATALIE W/REFLEX ([facility])on NATALIE REFLEX Negative [facility] HCV ANTIBODY RFX TO QUANT [facility] Stan 08-14-2022 HCV Ab IA Ql [facility] HCV Ab Signal/Cutoff IA [Rel units/Vol] 0.2 s/co% 0.0 - 0.9 s/co% [facility] HCV Ab Rflxon 08-14-2022 HCV AB 0.2 s/co% Normal 0.0-0.9 [facility] Comment on above: Result Comment: INFC E Result Units: s/co ratio Performed By: #### L 100.0005, L304.0297, L100.0040, L304.0162, L100.0470, L304.0200, L304.0140, L304.0480 #### [facility] [address] [place] [address] 70715 Interpretation Normal [facility] Comment on above: Result Comment: Nega tive Not infected with HCV, unless recent infection is suspected or other evidence exists to indicate HCV infection. Performed at: - [facility] [id number] Plasterer Helper: Tono Jiang PhD, Phone: [phone] THIS IS A CORRECTED REPORT 08/14/22 0306: Interpretation previously reported as: Performed By: #### L 100.0005, L304.0297, L100.0040, L304.0162, L100.0470, L304.0200, L304.0140, L304.0480 #### [facility] [address] [place] [address] 83543 HIV RAPIDon 08-10-2022 RAPID HIV Non-Reactive Normal NONREACTIVE [facility] Comment on above: Result Comment: NEGA TIVE FOR HIV-1 AND HIV-2 ANTIBODIES. A NON-REACTIVE RESULT DOES NOT PRECLUDE THE POSSIBILITY OF EXPOSURE TO HIV OR INFECTION WITH HIV. AN ANTIBODY RESPONSE TO RECENT EXPOSURE MAY TAKE SEVERAL WEEKS TO REACH DETECTABLE LEVELS WITH THIS ASSAY. Performed By: #### L 300.0500 #### [facility] - [facility] [address] [place] [address] 36622 25-hydroxyvitamin D3 [Mass/V ol]on 08-09-2022 VITAMIN D 30.6 ng/mL 30 - 100 ng/mL [facility] C-REACTIVE PROTon 08-09-2022 C-REACTIVE PROT <0.30 Normal 0.00-0.90 [facility] Comment on above: Result Comment: STAT ED NORMAL RANGE IS FOR ADULTS ONLY. NO NORMAL RANGE HAS BEEN ESTABLISHED FOR CHILDREN. Performed By: #### L 100.0005, L304.0297, L100.0040, L304.0162, L100.0470, L304.0200, L304.0140, L304.0480 #### [facility] - [facility] [address] [place] [address] 49282 CBCon 08-09-2022 BASO# 0.20 x10(3) High 0.00-0.10 [facility] Comment on above: Performed By: #### L 200.0010, L200.1500 #### [facility] - [facility] [address] [place] [address] 84073 Basophils/100 WBC (Bld) 2.2 % High 0.0-1.0 [facility] Comment on above: Performed By: #### L 200.0010, L200.1500 #### [facility] - [facility] [address] [place] [address] 61995 EOS# 0.10 x10(3) Normal 0.00-0.54 [facility] Comment on above: Performed By: #### L 200.0010, L200.1500 #### [facility] - [facility] [address] [place] [address] 62788 Eosinophils/100 WBC (Bld) 1.0 % Normal 0.5-4.9 [facility] Comment on above: Performed By: #### L 200.0010, L200.1500 #### [facility] - [facility] [address] [place] [address] 55066 Erythrocyte distribution width (RBC) [Ratio] 13.2 % Normal 12.7-15.3 [facility] Comment on above: Performed By: #### L 200.0010, L200.1500 #### [facility] - [facility] [address] [place] [address] 98745 Hematocrit (Bld) [Volume fraction] 47.3 % Normal 42.0-51.0 [facility] Comment on above: Performed By: #### L 200.0010, L200.1500 #### [facility] - [facility] [address] [place] [address] 31898 Hemoglobin (Bld) [Mass/Vol] 15.8 g/dL Normal 14.0-17.2 [facility] Comment on above: Performed By: #### L 200.0010, L200.1500 #### ML [facility] [address] [place] [address] 27414 LYMPH# 1.10 x10(3) Normal 1.00-3.50 [facility] Comment on above: Performed By: #### L 200.0010, L200.1500 #### ML [facility] [address] [place] [address] 45806 Lymphocytes/100 WBC (Bld) 13.9 % Low 16.0-48.0 [facility] Comment on above: Performed By: #### L 200.0010, L200.1500 #### [facility] - [facility] [address] [place] [address] 14249 MCH (RBC) [Entitic mass] 30.5 pg Normal 28.8-32.2 [facility] Comment on above: Performed By: #### L 200.0010, L200.1500 #### [facility] - [facility] [address] [place] [address] 10769 MCHC (RBC) [Mass/Vol] 33.4 g/dL Normal 33.0-36.0 [facility] Comment on above: Performed By: #### L 200.0010, L200.1500 #### [facility] - [facility] [address] [place] [address] 36758 MCV (RBC) [Entitic vol] 91.3 fL Normal 80.0-94.0 [facility] Comment on above: Performed By: #### L 200.0010, L200.1500 #### [facility] - [facility] [address] [place] [address] 52140 MONO# 0.50 x10(3) Normal 0.30-0.80 [facility] Comment on above: Performed By: #### L 200.0010, L200.1500 #### [facility] - [facility] [address] [place] [address] 28117 Monocytes/100 WBC (Bld) 6.0 % Normal 4.3-11.2 [facility] Comment on above: Performed By: #### L 200.0010, L200.1500 #### [facility] - [facility] [address] [place] [address] 32309 NEUT# 6.00 x10(3) Normal 1.40-6.50 [facility] Comment on above: Performed By: #### L 200.0010, L200.1500 #### [facility] - [facility] [address] [place] [address] 57464 Neutrophils/100 WBC (Bld) 76.9 % High 45.0-73.0 [facility] Comment on above: Performed By: #### L 200.0010, L200.1500 #### [facility] - [facility] [address] [place] [address] 58262 Platelet mean volume (Bld) [Entitic vol] 8.7 fL Normal 7.4-9.2 [facility] Comment on above: Performed By: #### L 200.0010, L200.1500 #### [facility] - [facility] [address] [place] [address] 43776 PLT 272 X10(3) Normal 150-450 [facility] Comment on above: Performed By: #### L 200.0010, L200.1500 #### [facility] - [facility] [address] [place] [address] 01133 RBC 5.18 x10(6) Normal 4.80-5.50 [facility] Comment on above: Performed By: #### L 200.0010, L200.1500 #### [facility] - [facility] [address] [place] [address] 35686 WBC 7.9 x10(3) Normal 4.5-10.0 [facility] Comment on above: Performed By: #### L 200.0010, L200.1500 #### [facility] [address] [place] [address] CBC W Auto Differential pane l (Bld)on 08-09-2022 BASO ABS 0.20 x10(3) High 0.00 - 0.10 x10(3) [facility] Basophils/100 WBC (Bld) 2.2 % High 0.0 - 1.0 % [facility] EOS ABS 0.10 x10(3) 0.00 - 0.54 x10(3) [facility] Eosinophils/100 WBC (Bld) 1.0 % 0.5 - 4.9 % [facility] Erythrocyte distribution width (RBC) [Ratio] 13.2 % 12.7 - 15.3 % [facility] Hematocrit (Bld) [Volume fraction] 47.3 % 42.0 - 51.0 % [facility] Hemoglobin (Bld) [Mass/Vol] 15.8 g/dL 14.0 - 17.2 g/dL [facility] LYMPH ABS 1.10 x10(3) 1.00 - 3.50 x10(3) [facility] Lymphocytes/100 WBC (Bld) 13.9 % Low 16.0 - 48.0 % [facility] MCH (RBC) [Entitic mass] 30.5 pg 28.8 - 32.2 pg [facility] MCHC (RBC) [Mass/Vol] 33.4 g/dL 33.0 - 36.0 g/dL [facility] MCV (RBC) [Entitic vol] 91.3 fL 80.0 - 94.0 fl [facility] MONO ABS 0.50 x10(3) 0.30 - 0.80 x10(3) [facility] Monocytes/100 WBC (Bld) 6.0 % 4.3 - 11.2 % [facility] Neutrophil Ab 6.00 x10(3) 1.40 - 6.50 x10(3) [facility] Neutrophils/100 WBC (Bld) 76.9 % High 45.0 - 73.0 % [facility] Platelet mean volume (Bld) [Entitic vol] 8.7 fL 7.4 - 9.2 fl [facility] Platelets (Bld) [#/Vol] 272 X10(3) 150 - 450 X10(3) [facility] RBC (Bld) [#/Vol] 5.18 x10(6) 4.80 - 5.5 0 x10(6) [facility] WBC (Bld) [#/Vol] 7.9 x10(3) 4.5 - 10.0 x10(3) [facility] CMPon 08-09-2022 A:G RATIO 2.08 Normal 1.1-2.5 [facility] Comment on above: Performed By: #### L 100.0005, L304.0297, L100.0040, L304.0162, L100.0470, L304.0200, L304.0140, L304.0480 #### [facility] [address] [place] [address] 86747 Albumin [Mass/Vol] 5.2 g/dL Normal 3.5-5.2 [facility] Comment on above: Performed By: #### L 100.0005, L304.0297, L100.0040, L304.0162, L100.0470, L304.0200, L304.0140, L304.0480 #### [facility] [address] [place] [address] 42793 ALK. PHOS 84 U/L Normal 40-130 [facility] Comment on above: Performed By: #### L 100.0005, L304.0297, L100.0040, L304.0162, L100.0470, L304.0200, L304.0140, L304.0480 #### [facility] [address] [place] [address] 67036 ALT [Catalytic activity/Vol] 27 U/L Normal 5-41 [facility] Comment on above: Performed By: #### L 100.0005, L304.0297, L100.0040, L304.0162, L100.0470, L304.0200, L304.0140, L304.0480 #### [facility] [address] [place] [address] 79440 Anion gap [Moles/Vol] 13.7 mmol/L Low 15-22 [facility] Comment on above: Performed By: #### L 100.0005, L304.0297, L100.0040, L304.0162, L100.0470, L304.0200, L304.0140, L304.0480 #### - LAB[facility] [address] [place] [address] 15917 AST [Catalytic activity/Vol] 19 U/L Normal 5-40 [facility] Comment on above: Performed By: #### L 100.0005, L304.0297, L100.0040, L304.0162, L100.0470, L304.0200, L304.0140, L304.0480 #### [facility] [address] [place] [address] 85612 Bilirubin [Mass/Vol] 0.8 mg/dL Normal 0.2-1.2 [facility] Comment on above: Performed By: #### L 100.0005, L304.0297, L100.0040, L304.0162, L100.0470, L304.0200, L304.0140, L304.0480 #### [facility] [address] [place] [address] 75381 Calcium [Mass/Vol] 9.6 mg/dL Normal 8.6-10.0 [facility] Comment on above: Performed By: #### L 100.0005, L304.0297, L100.0040, L304.0162, L100.0470, L304.0200, L304.0140, L304.0480 #### - [facility] [address] [place] [address] 85079 Chloride [Moles/Vol] 102 mmol/L Normal 98-107 [facility] Comment on above: Performed By: #### L 100.0005, L304.0297, L100.0040, L304.0162, L100.0470, L304.0200, L304.0140, L304.0480 #### [facility] [address] [place] [address] 31092 CO2 [Moles/Vol] 28 mmol/L Normal 22-29 [facility] Comment on above: Performed By: #### L 100.0005, L304.0297, L100.0040, L304.0162, L100.0470, L304.0200, L304.0140, L304.0480 #### - [facility] [address] [place] [address] 33242 Creatinine [Mass/Vol] 0.93 mg/dL Normal 0.70-1.20 [facility] Comment on above: Performed By: #### L 100.0005, L304.0297, L100.0040, L304.0162, L100.0470, L304.0200, L304.0140, L304.0480 #### [facility] [address] [place] [address] 01897 eGFR if AFR MASHA > 60 ml/min/1.73m2 Normal [facility] Comment on above: Result Comment: eGFR >= [...] L100.0470, L304.0200, L304.0140, L304.0480 #### - [facility]OR[facility] [address] [place] [address] eGFR nonAFR Masha > 60 ml/Min/1.73m2 Normal [facility] Comment on above: Performed By: #### L 100.0005, L304.0297, L100.0040, L304.0162, L100.0470, L304.0200, L304.0140, L304.0480 #### [facility] [address] [place] [address] 29752 Globulin (S) [Mass/Vol] 2.5 g/dL Normal 1.5-4.5 [facility] Comment on above: Performed By: #### L 100.0005, L304.0297, L100.0040, L304.0162, L100.0470, L304.0200, L304.0140, L304.0480 #### - [facility] [address] [place] [address] 99247 Glucose [Mass/Vol] 95 mg/dL Normal 74-106 [facility] Comment on above: Performed By: #### L 100.0005, L304.0297, L100.0040, L304.0162, L100.0470, L304.0200, L304.0140, L304.0480 #### [facility] [address] [place] [address] 20662 Potassium [Moles/Vol] 4.7 mmol/L Normal 3.5-5.0 [facility] Comment on above: Performed By: #### L 100.0005, L304.0297, L100.0040, L304.0162, L100.0470, L304.0200, L304.0140, L304.0480 #### [facility] [address] [place] [address] 40075 Protein [Mass/Vol] 7.7 g/dL Normal 6.4-8.3 [facility] Comment on above: Performed By: #### L 100.0005, L304.0297, L100.0040, L304.0162, L100.0470, L304.0200, L304.0140, L304.0480 #### - [facility] [address] [place] [address] 44148 Sodium [Moles/Vol] 139 mmol/L Normal 135-145 [facility] Comment on above: Performed By: #### L 100.0005, L304.0297, L100.0040, L304.0162, L100.0470, L304.0200, L304.0140, L304.0480 #### ML - [facility] [address] [place] [address] Urea nitrogen [Mass/Vol] 18 mg/dL Normal 6-20 [facility] Comment on above: Performed By: #### L 100.0005, L304.0297, L100.0040, L304.0162, L100.0470, L304.0200, L304.0140, L304.0480 #### [facility] - [facility] [address] [place] [address] MONTSERRATOVon 08-09-2022 CNOV Office Visit (FMUPCN ) SOLOMON LAURA ([id number]) 1995 M Date Time Provider Department 08/09/22 10:40 AM JORGE LUIS STOUT [facility] During your visit today, we recorded the following information about you: Temperature Pulse Blood pressure Weight 98.6 degrees 83/minute 138/88 99.3 kg Jorge Luis Stout APRN.[facility] 08/09/2022 11:30 AM Signed Solomon Avril Laura is a [...] (more content not included)... Normal [facility] CRP [Mass/Vol]on 08-09-2022 CRP High sensitivity method (Bld) [Mass/Vol] <0.30 0.00 - 0.90 mg/dL [facility] Comprehensive metabolic 2000 panelon 08-09-2022 Albumin [Mass/Vol] 5.2 g/dL 3.5 - 5.2 g/dL [facility] Albumin/Globulin [Mass ratio] 2.08 {ratio} 1.1 - 2.5 [facility] ALP [Catalytic activity/Vol] 84 U/L 40 - 130 U/L [facility] ALT [Catalytic activity/Vol] 27 U/L 5 - 41 U/L [facility] Anion gap [Moles/Vol] 13.7 mmol/L Low 15 - 22 mmol/L [facility] AST [Catalytic activity/Vol] 19 U/L 5 - 40 U/L [facility] Bilirubin [Mass/Vol] 0.8 mg/dL 0.2 - 1.2 mg/dL [facility] Calcium [Mass/Vol] 9.6 mg/dL 8.6 - 10. 0 mg/dL [facility] Chloride [Moles/Vol] 102 mmol/L 98 - 107 mmol/L [facility] CO2 [Moles/Vol] 28 mmol/L 22 - 29 mmol/L [facility] Creatinine [Mass/Vol] 0.93 mg/dL 0.70 - 1.20 mg/dL [facility] eGFR-All Other Races > 60 ml/Min/1.73m2 [facility] GFR/1.73 sq M.predicted among blacks MDRD (S/P/Bld) [Vol rate/Area] mL/min/{1.73_m2} [facility] Globulin (S) [Mass/Vol] 2.5 g/dL 1.5 - 4.5 g/dL [facility] Glucose [Mass/Vol] 95 mg/dL 74 - 106 mg/dL [facility] Potassium [Moles/Vol] 4.7 mmol/L 3.5 - 5.0 mmol/L [facility] Protein [Mass/Vol] 7.7 g/dL 6.4 - 8.3 g/dL [facility] Sodium [Moles/Vol] 139 mmol/L 135 - 145 mmol/L [facility] Urea nitrogen [Mass/Vol] 18 mg/dL 6 - 20 mg/dL [facility] ESRon 08-09-2022 ESR (Bld) [Velocity] 2 mm/h Normal 0-15 [facility] Comment on above: Performed By: #### L 100.0005, L304.0297, L100.0040, L304.0162, L100.0470, L304.0200, L304.0140, L304.0480 #### [facility] [address] [place] [id number] ESR Westergren method (Bld) [Velocity]on 08-09-2022 Erythro Sed Rate 2 MM/HR 0 - 15 MM/HR [facility] FREE T3on 08-09-2022 Free T3 [Mass/Vol] 3.8 pg/mL Normal 2.0-4.4 [facility] Comment on above: Performed By: #### L 100.0005, L304.0297, L100.0040, L304.0162, L100.0470, L304.0200, L304.0140, L304.0480 #### [facility] - [facility] [address] [place] [address] 52211 Free T4on 08-09-2022 Free T4 [Mass/Vol] 1.12 ng/dL Normal 0.93-1.7 [facility] Comment on above: Performed By: #### L 100.0005, L304.0297, L100.0040, L304.0162, L100.0470, L304.0200, L304.0140, L304.0480 #### [facility] - [facility] [address] [place] [address] 28406 HIV RAPID ([place])on 08-09-20 Rapid HIV Ab Non-Reactive NONREACTIVE [facility] LIPID PANELon 08-09-2022 Cholesterol [Mass/Vol] 180 mg/dL Normal 130-200 [facility] Comment on above: Performed By: #### L 100.0005, L304.0297, L100.0040, L304.0162, L100.0470, L304.0200, L304.0140, L304.0480 #### [facility] - [facility] [address] [place] [address] 57124 Cholesterol in HDL [Mass/Vol] 46 mg/dL Normal [facility] Comment on above: Result Comment: Luly onal [...] L100.0470, L304.0200, L304.0140, L304.0480 #### - LABORATORY [address] [place] [address] 41261 Cholesterol in LDL [Mass/Vol] 89 mg/dL [facility] Comment on above: Result Comment: LDL: OPTIMAL FOR PEOPLE AT VERY HIGH RISK <70 OPTIMAL <100 NEAR OPTIMAL 100-129 BORDERLINE HIGH 130-159 HIGH 160-189 VERY HIGH >=190 Source: 2009 NCEP ATP III, ADA Guidelines Reviewed: November, Performed By: #### L 100.0005, L304.0297, L100.0040, L304.0162, L100.0470, L304.0200, L304.0140, L304.0480 #### - LABORATORY [address] [place] [address] 93690 Cholesterol in VLDL [Mass/Vol] 45 mg/dL High 6-40 [facility] Comment on above: Performed By: #### L 100.0005, L304.0297, L100.0040, L304.0162, L100.0470, L304.0200, L304.0140, L304.0480 #### - LABORATORY [address] [place] [address] 84241 LDL/HDL RATIO 1.9 [facility] Comment on above: Performed By: #### L 100.0005, L304.0297, L100.0040, L304.0162, L100.0470, L304.0200, L304.0140, L304.0480 #### - LABORATORY [address] [place] [address] 72946 Triglyceride [Mass/Vol] 226 mg/dL [facility] Comment on above: Result Comment: TRIG : DESIRABLE: <150 mg/dL Performed By: #### L 100.0005, L304.0297, L100.0040, L304.0162, L100.0470, L304.0200, L304.0140, L304.0480 #### - LABORATORY [address] [place] [address] 87086 Lipid 1996 panelon 2 Cholesterol [Mass/Vol] 180 mg/dL 130 - 200 mg/dL [facility] Cholesterol in HDL [Mass/Vol] 46 mg/dL [facility] Cholesterol in LDL [Mass/Vol] 89 mg/dL [facility] LDL:HDL Ratio 1.9 [facility] Triglyceride [Mass/Vol] 226 mg/dL [facility] VLDL Cholesterol 45 mg/dL High 6 - 40 mg/dL [facility] T3 FREE BLDon 08-09-2022 Free T3 [Mass/Vol] 3.8 pg/mL 2.0 - 4.4 pg/mL [facility] T4 FREE/FREE THYROXon 2021 Free T4 [Mass/Vol] 1.12 ng/dL 0.93 - 1. 7 ng/dL [facility] TESTOSTERONE TOon 08-09-2022 TESTOSTERONE TO 458.4 ng/dL Normal 249-836 [facility] Comment on above: Performed By: #### L 100.0005, L304.0297, L100.0040, L304.0162, L100.0470, L304.0200, L304.0140, L304.0480 #### [facility] [address] [place] [address] TESTOSTERONE TOTALon 022 Testosterone [Mass/Vol] 458.4 ng/dL 249 - 836 ng/dL [facility] TSHon 08-09-2022 TSH 1.36 uIU/mL Normal 0.270-4.200 [facility] Comment on above: Performed By: #### L 100.0005, L304.0297, L100.0040, L304.0162, L100.0470, L304.0200, L304.0140, L304.0480 #### [facility] [address] [place] [address] TSH BLDon 08-09-2022 TSH Qn 1.36 uIU/mL 0.270 - 4.200 uIU/mL [facility] VIT. B12on 08-09-2022 Cobalamin (Vitamin B12) [Mass/Vol] 542.0 pg/mL Normal 232-1245 [facility] Comment on above: Performed By: #### L 100.0005, L304.0297, L100.0040, L304.0162, L100.0470, L304.0200, L304.0140, L304.0480 #### [facility] [address] [place] [address] VITAMIN B12 BLOODon 08-09-20 Cobalamin (Vitamin B12) [Mass/Vol] 542.0 pg/mL 232 - 1,245 pg/mL [facility] VITAMIN Don 08-09-2022 VITAMIN D 30.6 ng/mL Normal 30-100 [facility] Comment on above: Performed By: #### L 100.0005, L304.0297, L100.0040, L304.0162, L100.0470, L304.0200, L304.0140, L304.0480 #### [facility] [address] [place] [address] OPERATIVE [place] [address] HEALTH INFORMATION MANAGEMENT OPERATIVE REPORT Patient: SOLOMON LAURA PHOENIX OTTO M.D. [id number] [birth year] 26 M Status: [facility] DATE OF SURGERY: 10/09/2021 SURGEON: Phoenix Otto [...] to review biopsy results. Report#: Dict ID [id number] / Int ID [id number] 10/13/21 0800 PHOENIX OTTO M.D. cc: PHOENIX OTTO M.D. << Signature on File>> Reported By: PHOENIX OTTO M.D. Signed By: PHOENIX OTTO M.D. Tests performed at: [address] [address] [facility] [place] [address] HEALTH INFORMATION MANAGEMENT OPERATIVE REPORT Patient: SOLOMON LAURA PHOENIX OTTO M.D. [id number] [birth year] M Status: [facility] DATE OF SURGERY: 10/09/2021 SURGEON: Phoenix [...] to review biopsy results. Report#: Dict ID [id number] / Int ID [id number] 10/13/21 0800 PHOENIX OTTO M.D. cc: PHOENIX OTTO M.D. << Signature on File>> Reported By: PHOENIX OTTO M.D. Signed By: PHOENIX OTTO M.D. Tests performed at: [facility] [address] [place] [address] Normal [facility] SURGICALon 10-09-2021 SURGICAL OTHER - H PYLORI BX ANTRUM - Duodenum - TERMINAL ILEUM - COLON, RANDOM BIOPSY - FINAL DIAGNOSIS: A. DESIGNATED H. PYLORI, BIOPSY: MILD CHRONIC GASTRITIS, SEE COMMENT. Comment: An immunohistochemical stain performed and interpreted at [facility] is negative for Helicobacter organisms. No [...] KING SYLVESTER M.D. MICROSCOPIC DESCRIPTION: SLIDE(S) EXAMINED. [facility] 10/11/2021 GROSS DESCRIPTION: A. Labeled [...] is submitted in toto in one cassette. [facility] 10/10/2021 CLINICAL DATA: PROCEDURE: EGD with biopsy, Colonoscopy with biopsy PRE-OP: RUQ pain POST-OP: Gastritis, duodenitis, normal colon HISTORY: N/A Signed *Electronically Signed* KING SYLVESTER M.D. 10/11/21 1321 Normal [facility] Comment on above: Performed By: #### P -S #### [facility] [address] [place] [address] ED REPORTon 09-15-2021 [place] [address] HEALTH INFORMATION MANAGEMENT EMERGENCY DEPARTMENT REPORT Patient: SOLOMON LAURA BALBIRETTA VINCE as dictated by ETTA Mackenzie VINCE MCGREGOR [id number] [age] M Status: DEP ER ED [...] ER. Addendum to follow. Report#: Dict ID [id number] / Int ID [id number] 09/15/21 2244 ETTA MCGREGOR DIE EQUIPMENT OPERATOR-C cc: ETTA MCGREGOR DIE EQUIPMENT OPERATOR-C; No Physician << Signature on File>> Reported By: ETTA MCGREGOR Signed By: ETTA MCGREGOR Tests performed at: [place] [address] [facility] EMERGENCY DEPARTMENTon 08-08 [place] [address] HEALTH INFORMATION MANAGEMENT EMERGENCY DEPARTMENT : [phone] Signed Patient: SOLOMON LAURA Acct:[id number]: [id number] : 1995 Sex: M Loc: ED ADM Date: Room/Bed: DISC Date: 08/06/21 History of Present Illness - General Chief Complaint: Vomiting Stated Complaint: VOMITING NAUSEA DIARRHEA DEHYDRATED Symptom onset: ongoing abdominal pain vomiting for a few months HPI: has been seen here [facility] , and [place] for this pain and nausea , was [...] Rarely Any recreational drug use reported?: Yes (emperatriz) Feels Threatened In Home Environment: No Feels Threatened In a Relationship: No - [place]/Gender ID What is your current Gender Identity? Choose all that Apply: Male Define your Sexual Orientation?: Straight/Heterosexual - [place]-Suicide Severity Rating Scale 1) Wish to be [...] Nasal Dis (more content not included)... Normal [facility] Amylaseon 08-06-2021 Amylase [Catalytic activity/Vol] 61 U/L Normal 25-115 [facility] Comment on above: Performed By: #### A MY #### [facility] [address] [place] [address] CBC w/Auto Differentialon Basophils Abs. # 0.04 K/uL Normal 0.00-0.10 [facility] Comment on above: Performed By: #### C BCS #### [facility] [address] [place] [address] Basophils/100 WBC (Bld) 0.3 % Normal 0.2-1.0 [facility] Comment on above: Performed By: #### C BCS #### [facility] [address] [place] [address] Eosinophils (Bld) [#/Vol] 0.00 10*3/uL Normal 0.00-0.20 [facility] Comment on above: Performed By: #### C BCS #### [facility] [address] [place] [address] Eosinophils/100 WBC (Bld) 0.1 % Low 0.9-2.9 [place] [facility] [facility] Comment on above: Performed By: #### C BCS #### [facility] [address] [place] [address] Erythrocyte distribution width (RBC) [Ratio] 12.8 % Normal 11.5-14.5 [facility] Comment on above: Performed By: #### C BCS #### [facility] [address] [place] [address] Hematocrit (Bld) [Volume fraction] 48.6 % Normal 36.7-50.6 [facility] Comment on above: Performed By: #### C BCS #### [facility] [address] [place] [address] Hemoglobin (Bld) [Mass/Vol] 16.2 g/dL Normal 12.4-17.3 [facility] Comment on above: Performed By: #### C BCS #### [facility] [address] [place] [address] Imm Grans % 0.20 % Normal 0.00-1.00 [facility] Comment on above: Performed By: #### C BCS #### [facility] [address] [place] [address] Imm Grans Absolute # 0.02 K/uL Normal 0.00-0.10 [facility] Comment on above: Performed By: #### C BCS #### [facility] [address] [place] [address] Lymphocytes (Bld) [#/Vol] 0.90 10*3/uL Low 1.30-2.90 [facility] Comment on above: Performed By: #### C BCS #### [facility] [address] [place] [address] Lymphocytes/100 WBC (Bld) 7.0 % Low 17.0-45.5 [facility] Comment on above: Performed By: #### C BCS #### [place] [address] [place] [address] MCH (RBC) [Entitic mass] 30.7 pg Normal 27.0-31.0 [facility] Comment on above: Performed By: #### C BCS #### [address] [place] [address] MCHC (RBC) [Mass/Vol] 33.3 g/dL Normal 33.0-37.0 [facility] Comment on above: Performed By: #### C BCS #### [facility] [address] [place] [address] MCV (RBC) [Entitic vol] 92.0 fL Normal 80.0-94.0 [facility] Comment on above: Performed By: #### C BCS #### [address] [place] [place] [address] Monocytes (Bld) [#/Vol] 0.50 10*3/uL Normal 0.30-0.80 [facility] Comment on above: Performed By: #### C BCS #### [facility] [address] [place] [address] Monocytes/100 WBC (Bld) 3.6 % Low 5.5-11.7 [facility] Comment on above: Performed By: #### C BCS #### [facility] [address] [place] [address] Neutrophils Abs. # 10.96 K/uL High 2.20-4.80 [facility] Comment on above: Performed By: #### C BCS #### [facility] [place] [address] [place] [address] Neutrophils/100 WBC (Bld) 88.8 % High 43.0-65.0 [facility] Comment on above: Performed By: #### C BCS #### [facility] [place] [address] [place] [address] Platelet mean volume (Bld) [Entitic vol] 10.0 fL Normal 7.4-10.4 [facility] Comment on above: Performed By: #### C BCS #### [facility] [address] [facility] [place] [address] Platelets (Bld) [#/Vol] 314 10*3/uL Normal 148-402 [facility] Comment on above: Performed By: #### C BCS #### [facility] [place] [address] [place] [address] RBC (Bld) [#/Vol] 5.28 10*6/uL Normal 4.13-5.69 [facility] Comment on above: Performed By: #### C BCS #### [facility] [place] [address] [place] [address] WBC (Bld) [#/Vol] 12.3 10*3/uL High 3.6-10.8 [facility] Comment on above: Performed By: #### C BCS #### [facility] [address] [place] [address] CT ABD/PELVIS Won 08-06-2021 CT ABD/PELVIS W [...] IMPRESSION: No acute abnormality. RECOMMENDATIONS: Unavailable Normal [facility] Comprehensive Metabolic Pane bessy 08-06-2021 Albumin [Mass/Vol] 4.8 g/dL Normal 3.4-5.0 [facility] Comment on above: Performed By: #### C MP #### [facility] [address] [place] [address] Albumin/Globulin [Mass ratio] 1.4 {ratio} Normal 1.1-2.5 [facility] Comment on above: Performed By: #### C MP #### [facility] [address] [place] [address] ALP [Catalytic activity/Vol] 79 U/L Normal 54-112 [facility] Comment on above: Performed By: #### C MP #### [facility] [address] [place] [address] ALT [Catalytic activity/Vol] 26 U/L Normal 13-66 [facility] Comment on above: Performed By: #### C MP #### [facility] [address] [place] [address] Anion gap [Moles/Vol] 16.2 mmol/L High 8.0-16.0 [facility] Comment on above: Performed By: #### C MP #### [facility] [address] [facility] [facility] [place] [address] AST [Catalytic activity/Vol] 15 U/L Normal 3-39 [facility] Comment on above: Performed By: #### C MP #### [facility] [address] [place] [address] Bilirubin [Mass/Vol] 1.35 mg/dL High 0.00-0.99 [facility] Comment on above: Performed By: #### C MP #### [facility] [address] [place] [address] Calcium [Mass/Vol] 9.2 mg/dL Normal 8.2-10.0 [facility] Comment on above: Performed By: #### C MP #### [facility] [place] [address] [place] [address] Chloride [Moles/Vol] 103 mmol/L Normal 94-110 [facility] Comment on above: Performed By: #### C MP #### [facility] [address] [place] [address] CO2 [Moles/Vol] 26 mmol/L Normal 21-34 [facility] Comment on above: Performed By: #### C MP #### [facility] [address] [place] [address] Creatinine [Mass/Vol] 0.90 mg/dL Normal 0.50-1.17 [facility] Comment on above: Performed By: #### C MP #### [facility] [address] [place] [address] EGFR Other Races >60 Normal >60 [facility] Comment on above: Performed By: #### C MP #### [facility] [address] [place] [address] GFR/1.73 sq M.predicted among blacks MDRD (S/P/Bld) [Vol rate/Area] mL/min/{1.73_m2} Normal >60 [facility] Comment on above: Result Comment: Habilitation Assistant danika Kidney Disease less than 60 mL/min/1.73 m2 Kidney Failure less than 15 mL/min/1.73 m2 Average estimated GFR by age: 20-29 years 116 mL/min/1.73 m2 Performed By: #### C MP #### [facility] [address] [place] [address] Globulin (S) [Mass/Vol] 3.4 g/dL Normal 1.5-4.5 [facility] Comment on above: Performed By: #### C MP #### [facility] [address] [place] [address] Glucose [Mass/Vol] 98 mg/dL Normal 65-100 [facility] Comment on above: Performed By: #### C MP #### [facility] [address] [place] [address] Potassium [Moles/Vol] 4.2 mmol/L Normal 3.3-5.1 [facility] Comment on above: Performed By: #### C MP #### [facility] [address] [place] [address] Protein [Mass/Vol] 8.2 g/dL Normal 6.1-8.2 [facility] Comment on above: Performed By: #### C MP #### [facility] [address] [place] [address] Sodium [Moles/Vol] 141 mmol/L Normal 132-145 [facility] Comment on above: Performed By: #### C MP #### [facility] [address] [place] [address] Urea nitrogen [Mass/Vol] 20.1 mg/dL Normal 3.2-26.9 [facility] Comment on above: Performed By: #### C MP #### [facility] [address] [place] [address] Urea nitrogen/Creatinine [Mass ratio] 22 mg/mg High 6-20 [facility] Comment on above: Performed By: #### C MP #### [facility] [address] [place] [address] High Sensitivity TNIon 12- -2021 High Sensitivity TNI <4 Normal 0-76 [facility] Comment on above: Result Comment: Inte rpretation comment: High-sensitivity troponin I (hsTnI) assay can reliably detect low troponin concentrations relative to conventional troponin assays. It is the preferred marker of myocardial necrosis as recommended by the Fourth [place] Definition of Myocardial Infarction Guidelines. The diagnosis [...] significant. Performed By: #### C BCS #### [facility] [address] [place], [place] [id number] Lipaseon 08-06-2021 Lipase [Catalytic activity/Vol] 78 U/L Normal 65-230 [facility] Comment on above: Performed By: #### L IPAS #### [facility] [address] [place] [address] US ABD LTD SINGLE ORGANon US ABD LTD SINGLE [place] [address] Name: SOLOMON LAURA Phys: JORGE LUIS STOUT C.N.P. : [birth year] Age: 26 Sex: M Acct: [id number] Loc: [facility] US Exam Date: 08/02/21 Status: REG CLI Radiology No.: Unit Number: [id number] Exam # Type/Exam [id number] US / US ABD LTD SINGLE ORGAN [...] By: SERGEI DUNN D.O. Tests performed at: [address] [address] [facility] CBC w/Auto Differentialon Basophils Abs. # 0.10 K/uL Normal 0.00-0.10 [facility] Comment on above: Result Comment: CO RRECTED REPORT: Previous result was 0.03 at 12:44 on 07/20/21 Performed By: #### C BCS #### [facility] [address] [place] [address] Basophils/100 WBC (Bld) 1.0 % Normal 0.2-1.0 [facility] Comment on above: Result Comment: CO RRECTED REPORT: Previous result was 0.3 at 11:12 on 07/20/21 Performed By: #### C BCS #### [facility] [address] [place] [address] Eosinophils (Bld) [#/Vol] 0.00 10*3/uL Normal 0.00-0.20 [facility] Comment on above: Performed By: #### C BCS #### [facility] [address] [place] [address] Eosinophils/100 WBC (Bld) 0.0 % Low 0.9-2.9 [facility] Comment on above: Result Comment: CO RRECTED REPORT: Previous result was 0.1 at 11:12 on 07/20/21 Performed By: #### C BCS #### [facility] [address] [place] [address] Erythrocyte distribution width (RBC) [Ratio] 12.5 % Normal 11.5-14.5 [facility] Comment on above: Performed By: #### C BCS #### [facility] [address] [place] [address] Hematocrit (Bld) [Volume fraction] 43.3 % Normal 36.7-50.6 [facility] Comment on above: Performed By: #### C BCS #### [facility] [address] [place] [address] Hemoglobin (Bld) [Mass/Vol] 14.6 g/dL Normal 12.4-17.3 [facility] Comment on above: Performed By: #### C BCS #### [facility] [address] [place] [address] Imm Grans % 0.00 % Normal 0.00-1.00 [facility] Comment on above: Result Comment: CO RRECTED REPORT: Previous result was 0.10 at 12:44 on 07/20/21 Performed By: #### C BCS #### [facility] [address] [place] [address] Imm Grans Absolute # 0.00 K/uL Normal 0.00-0.10 [facility] Comment on above: Result Comment: CO RRECTED REPORT: Previous result was 0.01 at 12:44 on 07/20/21 Performed By: #### C BCS #### [facility] [address] [place] [address] Lymphocytes (Bld) [#/Vol] 0.40 10*3/uL Low 1.30-2.90 [facility] Comment on above: Result Comment: CO RRECTED REPORT: Previous result was 0.50 at 12:44 on 07/20/21 Performed By: #### C BCS #### [facility] [address] [place] [address] Lymphocytes/100 WBC (Bld) 4.0 % Low 17.0-45.5 [facility] Comment on above: Result Comment: CO RRECTED REPORT: Previous result was 4.6 at 11:12 on 07/20/21 Performed By: #### C BCS #### [facility] [address] [place] [address] MCH (RBC) [Entitic mass] 30.6 pg Normal 27.0-31.0 [facility] Comment on above: Performed By: #### C BCS #### [facility] [address] [place] [address] MCHC (RBC) [Mass/Vol] 33.7 g/dL Normal 33.0-37.0 [facility] Comment on above: Performed By: #### C BCS #### [facility] [address] [place] [address] MCV (RBC) [Entitic vol] 90.8 fL Normal 80.0-94.0 [facility] Comment on above: Performed By: #### C BCS #### [facility] [address] [place] [address] Monocytes (Bld) [#/Vol] 0.40 10*3/uL Normal 0.30-0.80 [facility] Comment on above: Result Comment: CO RRECTED REPORT: Previous result was 0.30 at 11:12 on 07/20/21 Performed By: #### C BCS #### [facility] [address] [place] [address] Monocytes/100 WBC (Bld) 4.0 % Low 5.5-11.7 [facility] Comment on above: Result Comment: CO RRECTED REPORT: Previous result was 3.4 at 11:12 on 07/20/21 Performed By: #### C BCS #### [facility] [address] [place] [address] Neutrophils Abs. # 8.92 K/uL High 2.20-4.80 [facility] Comment on above: Result Comment: CO RRECTED REPORT: Previous result was 8.97 at 12:44 on 07/20/21 Performed By: #### C BCS #### [facility] [address] [place] [address] Neutrophils/100 WBC (Bld) 91.0 % High 43.0-65.0 [facility] Comment on above: Result Comment: CO RRECTED REPORT: Previous result was 91.5 at 11:12 on 07/20/21 Performed By: #### C BCS #### [facility] [address] [place] [address] Platelet mean volume (Bld) [Entitic vol] 10.0 fL Normal 7.4-10.4 [facility] Comment on above: Performed By: #### C BCS #### [facility] [address] [place] [address] Platelets (Bld) [#/Vol] 256 10*3/uL Normal 148-402 [facility] Comment on above: Performed By: #### C BCS #### [facility] [address] [place] [address] RBC (Bld) [#/Vol] 4.77 10*6/uL Normal 4.13-5.69 [facility] Comment on above: Performed By: #### C BCS #### [facility] [address] [facility] [place] [address] WBC (Bld) [#/Vol] 9.8 10*3/uL Normal 3.6-10.8 [facility] Comment on above: Performed By: #### C BCS #### [facility] [address] [place] [address] Comprehensive Metabolic Pane bessy 07-20-2021 Albumin [Mass/Vol] 4.2 g/dL Normal 3.4-5.0 [facility] Comment on above: Performed By: #### C MP #### [facility] [address] [place] [address] Albumin/Globulin [Mass ratio] 1.4 {ratio} Normal 1.1-2.5 [facility] Comment on above: Performed By: #### C MP #### [facility] [address] [place] [address] ALP [Catalytic activity/Vol] 74 U/L Normal 54-112 [facility] Comment on above: Performed By: #### C MP #### [facility] [address] [place] [address] ALT [Catalytic activity/Vol] 20 U/L Normal 13-66 [facility] Comment on above: Performed By: #### C MP #### [facility] [address] [place] [address] Anion gap [Moles/Vol] 13.6 mmol/L Normal 8.0-16.0 [facility] Comment on above: Performed By: #### C MP #### [facility] [address] [facility] [place] [address] AST [Catalytic activity/Vol] 9 U/L Normal 3-39 [facility] Comment on above: Performed By: #### C MP #### [facility] [address] [place] [address] Bilirubin [Mass/Vol] 1.24 mg/dL High 0.00-0.99 [facility] Comment on above: Performed By: #### C MP #### [facility] [address] [place] [address] Calcium [Mass/Vol] 8.2 mg/dL Normal 8.2-10.0 [facility] Comment on above: Performed By: #### C MP #### [facility] [address] [place] [address] Chloride [Moles/Vol] 109 mmol/L Normal 94-110 [facility] Comment on above: Performed By: #### C MP #### [facility] [address] [place] [address] CO2 [Moles/Vol] 28 mmol/L Normal 21-34 [facility] Comment on above: Performed By: #### C MP #### [facility] [address] [place] [address] Creatinine [Mass/Vol] 0.92 mg/dL Normal 0.50-1.17 [facility] Comment on above: Performed By: #### C MP #### [facility] [address] [place] [address] EGFR Other Races >60 Normal >60 [facility] Comment on above: Performed By: #### C MP #### [facility] [address] [place] [address] GFR/1.73 sq M.predicted among blacks MDRD (S/P/Bld) [Vol rate/Area] mL/min/{1.73_m2} Normal >60 [facility] Comment on above: Result Comment: Habilitation Assistant danika Kidney Disease less than 60 mL/min/1.73 m2 Kidney Failure less than 15 mL/min/1.73 m2 Average estimated GFR by age: 20-29 years 116 mL/min/1.73 m2 Performed By: #### C MP #### [facility] [address] [place] [address] Globulin (S) [Mass/Vol] 3.0 g/dL Normal 1.5-4.5 [facility] Comment on above: Performed By: #### C MP #### [facility] [address] [place] [address] Glucose [Mass/Vol] 104 mg/dL High 65-100 [facility] Comment on above: Performed By: #### C MP #### [facility] [address] [place] [address] Potassium [Moles/Vol] 4.6 mmol/L Normal 3.3-5.1 [facility] Comment on above: Performed By: #### C MP #### [facility] [address] [place] [address] Protein [Mass/Vol] 7.2 g/dL Normal 6.1-8.2 [facility] Comment on above: Performed By: #### C MP #### [facility] [address] [place] [address] Sodium [Moles/Vol] 146 mmol/L High 132-145 [facility] Comment on above: Performed By: #### C MP #### [facility] [address] [place] [address] Urea nitrogen [Mass/Vol] 15.0 mg/dL Normal 3.2-26.9 [facility] Comment on above: Performed By: #### C MP #### [facility] [address] [place] [address] Urea nitrogen/Creatinine [Mass ratio] 16 mg/mg Normal 6-20 [facility] Comment on above: Performed By: #### C MP #### [facility] [address] [facility] [place] [address] Differential [employer]on 2020 Anisocytosis DIE EQUIPMENT OPERATOR Normal [facility] Comment on above: Performed By: #### L IPAS #### [facility] [address] [facility] [place] [address] Basophilic Stippling DIE EQUIPMENT OPERATOR Normal [facility] Comment on above: Performed By: #### L IPAS #### [facility] [address] [facility] [place] [address] Basophils 1 % Normal 0-1 [facility] Comment on above: Performed By: #### L IPAS #### [facility] [address] [facility] [place] [address] Blast. DIE EQUIPMENT OPERATOR Normal 0-0 [facility] Comment on above: Performed By: #### L IPAS #### [facility] [address] [facility] [place] [address] [place] Cell DIE EQUIPMENT OPERATOR Normal [facility] Comment on above: Performed By: #### L IPAS #### [facility] [address] [facility] [place] [address] [place] Rings DIE EQUIPMENT OPERATOR Normal [facility] Comment on above: Performed By: #### L IPAS #### [facility] [address] [facility] [place] [address] Crenated Cells DIE EQUIPMENT OPERATOR Normal [facility] Comment on above: Performed By: #### L IPAS #### [facility] [place] [address] [place] [address] Dohle Bodies DIE EQUIPMENT OPERATOR Normal [facility] Comment on above: Performed By: #### L IPAS #### [facility] [address] [place] [address] Eosinophils 0 % Low 1-3 [facility] Comment on above: Performed By: #### L IPAS #### [facility] [address] [place] [address] Fragmented Cells DIE EQUIPMENT OPERATOR Normal [facility] Comment on above: Performed By: #### L IPAS #### [facility] [address] [facility] [place] [address] Cruz Bodies DIE EQUIPMENT OPERATOR Normal [facility] Comment on above: Performed By: #### L IPAS #### [facility] [address] [facility] [place] [address] [place] Bodies DIE EQUIPMENT OPERATOR Normal [facility] Comment on above: Performed By: #### L IPAS #### [facility] [address] [facility] [place] [address] Hyperchromia DIE EQUIPMENT OPERATOR Normal [facility] Comment on above: Performed By: #### L IPAS #### [facility] [address] [facility] [place] [address] Hypochromia DIE EQUIPMENT OPERATOR Normal [facility] Comment on above: Performed By: #### L IPAS #### [facility] [address] [facility] [place] [address] Immature Cells DIE EQUIPMENT OPERATOR Normal [facility] Comment on above: Performed By: #### L IPAS #### [facility] [address] [facility] [place] [address] Lymphocytes 4 % Low 17-46 [facility] Comment on above: Performed By: #### L IPAS #### [facility] [place] [address] [place] [address] Lymphocytes Atypical DIE EQUIPMENT OPERATOR Normal [facility] Comment on above: Performed By: #### L IPAS #### [facility] [place] [address] [place] [address] Lymphocytes Reactive DIE EQUIPMENT OPERATOR Normal [facility] Comment on above: Performed By: #### L IPAS #### [facility] [place] [address] [place] [address] Macrocytosis DIE EQUIPMENT OPERATOR Normal [facility] Comment on above: Performed By: #### L IPAS #### [facility] [place] [address] [place] [address] Metamyelocytes DIE EQUIPMENT OPERATOR Normal 0-0 [facility] Comment on above: Performed By: #### L IPAS #### [facility] [place] [address] [place] [address] Microcytic DIE EQUIPMENT OPERATOR Normal [facility] Comment on above: Performed By: #### L IPAS #### [facility] [place] [address] [place] [address] Monoblasts DIE EQUIPMENT OPERATOR Normal [facility] Comment on above: Performed By: #### L IPAS #### [facility] [place] [address] [place] [address] Monocytes 4 % Low 6-12 [facility] Comment on above: Performed By: #### L IPAS #### [facility] [place] [address] [place] [address] Myeloblasts DIE EQUIPMENT OPERATOR Normal [facility] Comment on above: Performed By: #### L IPAS #### [facility] [place] [address] [place] [address] Myelocytes DIE EQUIPMENT OPERATOR Normal 0-0 [facility] Comment on above: Performed By: #### L IPAS #### [facility] [place] [address] [facility] [place] [address] Neutrophils 91 % High 43-65 [facility] Comment on above: Performed By: #### L IPAS #### [facility] [place] [address] [facility] [place] [address] Nucleated RBC DIE EQUIPMENT OPERATOR Normal 0-0 [facility] Comment on above: Performed By: #### L IPAS #### [facility] [place] [address] [facility] [place] [address] Ovalocytes DIE EQUIPMENT OPERATOR Normal [facility] Comment on above: Performed By: #### L IPAS #### [facility] [place] [address] [facility] [place] [address] Platelet Slide Review DIE EQUIPMENT OPERATOR Normal [facility] Comment on above: Performed By: #### L IPAS #### [facility] [place] [address] [facility] [place] [address] Poikilocytosis DIE EQUIPMENT OPERATOR Normal [facility] Comment on above: Performed By: #### L IPAS #### [facility] [place] [address] [facility] [place] [address] Polychromasia DIE EQUIPMENT OPERATOR Normal [facility] Comment on above: Performed By: #### L IPAS #### [facility] [place] [address] [facility] [place] [address] Promyelocyte DIE EQUIPMENT OPERATOR Normal 0-0 [facility] Comment on above: Performed By: #### L IPAS #### [facility] [place] [address] [facility] [place] [address] Schistocytes DIE EQUIPMENT OPERATOR Normal [facility] Comment on above: Performed By: #### L IPAS #### [facility] [place] [address] [place] [address] Sickle Cells DIE EQUIPMENT OPERATOR Normal [facility] Comment on above: Performed By: #### L IPAS #### [facility] [place] [address] [place] [address] Smudge Cells DIE EQUIPMENT OPERATOR Normal [facility] Comment on above: Performed By: #### L IPAS #### [facility] [place] [address] [place] [address] Spherocytes DIE EQUIPMENT OPERATOR Normal [facility] Comment on above: Performed By: #### L IPAS #### [facility] [place] [address] [place] [address] Target Cells DIE EQUIPMENT OPERATOR Normal [facility] Comment on above: Performed By: #### L IPAS #### [facility] [place] [address] [place] [address] Tear Drop Cells DIE EQUIPMENT OPERATOR Normal [facility] Comment on above: Performed By: #### L IPAS #### [facility] [place] [address] [place] [address] Toxic Granulation DIE EQUIPMENT OPERATOR Normal [facility] Comment on above: Performed By: #### L IPAS #### [facility] [place] [address] [facility] [place] [address] EMERGENCY DEPARTMENTon 07-20 EMERGENCY DEPARTMENT [facility] [address] [place] [address] HEALTH INFORMATION MANAGEMENT EMERGENCY DEPARTMENT : [id number] Signed Patient: SOLOMON LAURA Acct:[id number] MRUN: [id number] : 1995 Sex: M Loc: ED ADM [...] Feels Threatened In a Relationship: No - [place]/Gender ID What is your current Gender Identity? Choose all that Apply: Male Define your Sexual Orientation?: Straight/Heterosexual - [place]-Suicide Severity Rating Scale 1) Wish to be [...] mood - Skin Skin Color: Present: Normal, [place] Skin exam: Present: warm, dry - Expanded Skin Exam Type of lesion: Absent: rash - Vital Signs Vital Signs 07/20/21 09:43 Temperature 98.6 F Pulse Rate [ 80 Pulse Ox] Respiratory 16 Rate Blood Pressure 159/57 [Left Arm Sitting] O2 Sat by Pulse 96 Oximetry(%) Med (more content not included)... Normal [facility] Lipaseon 07-20-2021 Lipase [Catalytic activity/Vol] 174 U/L Normal 65-230 [facility] Comment on above: Performed By: #### L IPAS #### [facility] [address] [place] [address] EMERGENCY DEPARTMENT REPORTo n 07-19-2021 [place] [address] HEALTH INFORMATION MANAGEMENT EMERGENCY DEPARTMENT REPORT Patient: SOLOMON LAURA BERNARDAIDA DURAN NARDA [id number] [age] M Status: DEP ER ED [...] to make an appointment. He is from [place] and would prefer [facility], which is closer to him, so [...] home. IMPRESSION: Nausea, vomiting. Report#: Dict ID [id number] / Int ID [id number] 07/31/21 1823 AIDA ALEXANDRA PA-C cc: No Physician; AIDA ALEXANDRA PA-C << Signature on File>> Reported By: AIDA ALEXANDRA PA-C Signed By: AIDA ALEXANDRA PA-C Tests performed at: [place] [address] [facility] CBCon 07-18-2021 BASO# 0.00 x10(3) Normal 0.00-0.10 [facility] Comment on above: Performed By: #### L 200.0010 #### [facility] [address] [place] [address] Basophils/100 WBC (Bld) 0.1 % Normal 0.0-1.0 [facility] Comment on above: Performed By: #### L 200.0010 #### [facility] [address] [place] [address] 20408 EOS# 0.00 x10(3) Normal 0.00-0.54 [facility] Comment on above: Performed By: #### L 200.0010 #### [facility] [address] [place] [address] Eosinophils/100 WBC (Bld) 0.0 % Low 0.5-4.9 [facility] Comment on above: Performed By: #### L 200.0010 #### [facility] [address] [place] [address] Erythrocyte distribution width (RBC) [Ratio] 13.3 % Normal 12.7-15.3 [facility] Comment on above: Performed By: #### L 200.0010 #### [facility] [address] [place] [address] Hematocrit (Bld) [Volume fraction] 44.8 % Normal 42.0-51.0 [facility] Comment on above: Performed By: #### L 200.0010 #### [facility] [address] [place] [address] Hemoglobin (Bld) [Mass/Vol] 15.1 g/dL Normal 14.0-17.2 [facility] Comment on above: Performed By: #### L 200.0010 #### [facility] [address] [place] [address] LYMPH# 0.40 x10(3) Low 1.00-3.50 [facility] Comment on above: Performed By: #### L 200.0010 #### [facility] [address] [place] [address]78[address] Lymphocytes/100 WBC (Bld) 2.7 % Low 16.0-48.0 [facility] Comment on above: Performed By: #### L 200.0010 #### [facility] [address] [place] [address]32 MCH (RBC) [Entitic mass] 30.8 pg Normal 28.8-32.2 [facility] Comment on above: Performed By: #### L 200.0010 #### [facility] [address] [place] [address] MCHC (RBC) [Mass/Vol] 33.7 g/dL Normal 33.0-36.0 [facility] Comment on above: Performed By: #### L 200.0010 #### [facility] [address] [place] [address]60 MCV (RBC) [Entitic vol] 91.4 fL Normal 80.0-94.0 [facility] Comment on above: Performed By: #### L 200.0010 #### [facility] [address] [place] [address] 14159 MONO# 0.30 x10(3) Normal 0.30-0.80 [facility] Comment on above: Performed By: #### L 200.0010 #### [facility] [address] [place] [address] 18549 Monocytes/100 WBC (Bld) 1.9 % Low 4.3-11.2 [facility] Comment on above: Performed By: #### L 200.0010 #### [facility] [address] [place] [address] NEUT# 14.30 x10(3) High 1.40-6.50 [facility] Comment on above: Performed By: #### L 200.0010 #### [facility] [address] [place] [address]77 Neutrophils/100 WBC (Bld) 95.3 % High 45.0-73.0 [facility] Comment on above: Performed By: #### L 200.0010 #### [facility] [address] [place] [address] 13413 Platelet mean volume (Bld) [Entitic vol] 8.5 fL Normal 7.4-9.2 [facility] Comment on above: Performed By: #### L 200.0010 #### [facility] [address] [place] [address] 32866 PLT 275 X10(3) Normal 150-450 [facility] Comment on above: Performed By: #### L 200.0010 #### [facility] [address] [place] [address] 23599 RBC 4.90 x10(6) Normal 4.80-5.50 [facility] Comment on above: Performed By: #### L 200.0010 #### [facility] [address] [place] [address] 44401 WBC 15.0 x10(3) High 4.5-10.0 [facility] Comment on above: Performed By: #### L 200.0010 #### [facility] [address] [place] [address]126 CBC W Auto Differential pane l (Bld)on 07-18-2021 BASO ABS 0.00 x10(3) 0.00 - 0.10 x10(3) [facility] Basophils/100 WBC (Bld) 0.1 % 0.0 - 1.0 % [facility] EOS ABS 0.00 x10(3) 0.00 - 0.54 x10(3) [facility] Eosinophils/100 WBC (Bld) 0.0 % Low 0.5 - 4.9 % [facility] Erythrocyte distribution width (RBC) [Ratio] 13.3 % 12.7 - 15.3 % [facility] Hematocrit (Bld) [Volume fraction] 44.8 % 42.0 - 51.0 % [facility] Hemoglobin (Bld) [Mass/Vol] 15.1 g/dL 14.0 - 17.2 g/dL [facility] LYMPH ABS 0.40 x10(3) Low 1.00 - 3.50 x10(3) [facility] Lymphocytes/100 WBC (Bld) 2.7 % Low 16.0 - 48.0 % [facility] MCH (RBC) [Entitic mass] 30.8 pg 28.8 - 32.2 pg [facility] MCHC (RBC) [Mass/Vol] 33.7 g/dL 33.0 - 36.0 g/dL [facility] MCV (RBC) [Entitic vol] 91.4 fL 80.0 - 94.0 fl [facility] MONO ABS 0.30 x10(3) 0.30 - 0.80 x10(3) [facility] Monocytes/100 WBC (Bld) 1.9 % Low 4.3 - 11.2 % [facility] Neutrophil Ab 14.30 x10(3) High 1.40 - 6.50 x10(3) [facility] Neutrophils/100 WBC (Bld) 95.3 % High 45.0 - 73.0 % [facility] Platelet Count 275 X10(3) 150 - 450 X10(3) [facility] Platelet mean volume (Bld) [Entitic vol] 8.5 fL 7.4 - 9.2 fl [facility] RBC 4.90 x10(6) 4.80 - 5.50 x10(6) [facility] WBC 15.0 x10(3) High 4.5 - 10.0 x10(3) [facility] CMPon 07-18-2021 A:G RATIO 1.71 Normal 1.1-2.5 [facility] Comment on above: Performed By: #### M 500.0000 #### [place] [address] Albumin [Mass/Vol] 5.5 g/dL High 3.5-5.2 [facility] Comment on above: Performed By: #### M 500.0000 #### [place] [address] ALK. PHOS 78 U/L Normal 40-130 [facility] Comment on above: Performed By: #### M 500.0000 #### [place] [address] ALT [Catalytic activity/Vol] 13 U/L Normal 5-41 [facility] Comment on above: Performed By: #### M 500.0000 #### [place] [address] Anion gap [Moles/Vol] 19.3 mmol/L Normal 15-22 [facility] Comment on above: Performed By: #### M 500.0000 #### [place] [address] AST [Catalytic activity/Vol] 17 U/L Normal 5-40 [facility] Comment on above: Performed By: #### M 500.0000 #### [place] [address] Bilirubin [Mass/Vol] 1.1 mg/dL Normal 0.2-1.2 [facility] Comment on above: Performed By: #### M 500.0000 #### [place] [address] Calcium [Mass/Vol] 10.0 mg/dL Normal 8.6-10.0 [facility] Comment on above: Performed By: #### M 500.0000 #### [place] [address] Chloride [Moles/Vol] 99 mmol/L Normal 98-107 [facility] Comment on above: Performed By: #### M 500.0000 #### [place] [address] CO2 [Moles/Vol] 23 mmol/L Normal 22-29 [facility] Comment on above: Performed By: #### M 500.0000 #### [place] [address] Creatinine [Mass/Vol] 0.83 mg/dL Normal 0.70-1.20 [facility] Comment on above: Performed By: #### M 500.0000 #### [place] [address] eGFR if AFR MASHA > 60 ml/min/1.73m2 Normal [facility] Comment on above: Result Comment: eGFR >= [...] By: #### M 500.0000 #### [place] [address] eGFR nonAFR Masha > 60 ml/Min/1.73m2 Normal U [facility] Comment on above: Performed By: #### M 500.0000 #### [place] [address] Globulin (S) [Mass/Vol] 3.2 g/dL Normal 1.5-4.5 [facility] Comment on above: Performed By: #### M 500.0000 #### [place] [address] Glucose [Mass/Vol] 121 mg/dL High 74-106 [facility] Comment on above: Performed By: #### M 500.0000 #### [place] [address] Potassium [Moles/Vol] 4.3 mmol/L Normal 3.5-5.0 [facility] Comment on above: Performed By: #### M 500.0000 #### [place] [address] Protein [Mass/Vol] 8.7 g/dL High 6.4-8.3 [facility] Comment on above: Performed By: #### M 500.0000 #### [place] [address] Sodium [Moles/Vol] 137 mmol/L Normal 135-145 [facility] Comment on above: Performed By: #### M 500.0000 #### [place] [address] Urea nitrogen [Mass/Vol] 16 mg/dL Normal 6-20 [facility] Comment on above: Performed By: #### M 500.0000 #### [place] [address] CT ABD/PEL WO CONTRASTon CT ABD/PEL WO CONTRAST [address] [address] Name: SOLOMON LAURA Phys: ETTA 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 Tests performed at: [address] [address] [facility] CT ABD/PEL WO IVCONon 2020 [facility] Comprehensive metabolic 2000 panelon 07-18-2021 Albumin [Mass/Vol] 5.5 g/dL High 3.5 - 5.2 g/dL Cl [facility] Albumin/Globulin [Mass ratio] 1.71 {ratio} 1.1 - 2.5 [facility] ALP [Catalytic activity/Vol] 78 U/L 40 - 130 U/L [facility] ALT [Catalytic activity/Vol] 13 U/L 5 - 41 U/L [facility] Anion gap [Moles/Vol] 19.3 mmol/L 15 - 22 mmol/L [facility] AST [Catalytic activity/Vol] 17 U/L 5 - 40 U/L [facility] Bilirubin [Mass/Vol] 1.1 mg/dL 0.2 - 1.2 mg/dL [facility] Calcium [Mass/Vol] 10.0 mg/dL 8.6 - 10. 0 mg/dL [facility] Chloride [Moles/Vol] 99 mmol/L 98 - 107 mmol/L [facility] CO2 [Moles/Vol] 23 mmol/L 22 - 29 mmol/L [facility] Creatinine [Mass/Vol] 0.83 mg/dL 0.70 - 1.20 mg/dL [facility] eGFR-All Other Races > 60 ml/Min/1.73m2 [facility] GFR/1.73 sq M.predicted among blacks MDRD (S/P/Bld) [Vol rate/Area] mL/min/{1.73_m2} [facility] Globulin (S) [Mass/Vol] 3.2 g/dL 1.5 - 4.5 g/dL [facility] Glucose [Mass/Vol] 121 mg/dL High 74 - 106 mg/dL Cl [facility] Potassium [Moles/Vol] 4.3 mmol/L 3.5 - 5.0 mmol/L [facility] Protein [Mass/Vol] 8.7 g/dL High 6.4 - 8.3 g/dL [facility] Sodium [Moles/Vol] 137 mmol/L 135 - 145 mmol/L [facility] Urea nitrogen [Mass/Vol] 16 mg/dL 6 - 20 mg/dL [facility] ED REPORTon 07-18-2021 ED REPORT [place] [address] HEALTH INFORMATION MANAGEMENT EMERGENCY DEPARTMENT REPORT Patient: SOLOMON LAURA ETTA MCGREGOR as dictated by VINCE GRANADOS [id number] [age] M Status: [facility] ER ED Date of Service: 07/18/21 This [...] know. Addendum to follow. Report#: Dict ID [id number] / Int ID [id number] 07/19/21 1405 ETTA MCGREGOR cc: ETTA MCGREGOR; No Physician << Signature on File>> Reported By: ETTA MCGREGOR Signed By: ETTA MCGREGOR Tests performed at: [address] [address] Normal [facility] LIPASEon 07-18-2021 Lipase [Catalytic activity/Vol] 21 U/L Normal 13-60 [facility] Comment on above: Performed By: #### M 500.0000 #### [place] [address] LIPASE BLDon 07-18-2021 Lipase [Catalytic activity/Vol] 21 U/L 13 - 60 U/L [facility] UA W/C&Son 07-18-2021 Bilirubin Ql (U) SMALL Normal NEGATIVE [facility] Comment on above: Order Comment: Urine Specimen Source+ CLEAN CATCH Performed By: #### L 200.3001, L200.3190 #### [facility] [address] [place] [address] Color (U) YELLOW Normal YELLOW [facility] Comment on above: Order Comment: Urine Specimen Source+ CLEAN CATCH Performed By: #### L 200.3001, L200.3190 #### [facility] [address] [place] [address] 623[address] Glucose Ql (U) Negative Normal NEGATIVE [facility] Comment on above: Order Comment: Urine Specimen Source+ CLEAN CATCH Performed By: #### L 200.3001, L200.3190 #### [facility] [address] [place] [address] 56179 Hemoglobin Ql (U) Negative Normal NEGATIVE [facility] Comment on above: Order Comment: Urine Specimen Source+ CLEAN CATCH Performed By: #### L 200.3001, L200.3190 #### [facility] [address] [place] [address] Leukocyte esterase Test strip Ql (U) Negative Normal NEGATIVE [facility] Comment on above: Order Comment: Urine Specimen Source+ CLEAN CATCH Performed By: #### L 200.3001, L200.3190 #### [facility] [address] [place] [address] 99023 Nitrite Ql (U) Negative Normal NEGATIVE [facility] Comment on above: Order Comment: Urine Specimen Source+ CLEAN CATCH Performed By: #### L 200.3001, L200.3190 #### [facility] [address] [place] [address] 62689 pH (U) 5.5 [pH] Normal 5.0-8.0 [facility] Comment on above: Order Comment: Urine Specimen Source+ CLEAN CATCH Performed By: #### L 200.3001, L200.3190 #### [facility] [address] [place] [address] 83050 Protein Ql (U) TRACE Normal NEGATIVE [facility] Comment on above: Order Comment: Urine Specimen Source+ CLEAN CATCH Performed By: #### L 200.3001, L200.3190 #### [facility] [address] [place] [address] 71866 URINE APPEARANC SL CLOUDY Normal CLEAR [facility] Comment on above: Order Comment: Urine Specimen Source+ CLEAN CATCH Performed By: #### L 200.3001, L200.3190 #### [facility] [address] [place] [address] 08540 URINE KETONE 40 MG/DL Normal NEGATIVE [facility] Comment on above: Order Comment: Urine Specimen Source+ CLEAN CATCH Performed By: #### L 200.3001, L200.3190 #### [facility] [address] [place] [address] 55874 URINE SPECIFIC >=1.030 Normal 1.001-1.035 [facility] Comment on above: Order Comment: Urine Specimen Source+ CLEAN CATCH Performed By: #### L 200.3001, L200.3190 #### [facility] [address] [place] [address]16 URINE UROBILINO 0.2 EU/DL Normal 0.2-1.0 [facility] Comment on above: Order Comment: Urine Specimen Source+ CLEAN CATCH Performed By: #### L 200.3001, L200.3190 #### [facility] [address] [place] [address] 83071 UA WITH CULTURE IF INDICATED on 07-18-2021 Appearance (U) SL CLOUDY CLEAR [facility] Bilirubin, Urine SMALL NEGATIVE [facility] Blood, Urine Negative NEGATIVE [facility] Color (U) YELLOW [facility]LLOW [facility] Glucose Ql (U) Negative NEGATIVE MG/DL [facility] Ketones Ql (U) 40 MG/DL NEGATIVE MG/DL [facility] Leukocytes Negative NEGATIVE [facility] Nitrites Urine Negative NEGATIVE [facility] pH (U) 5.5 [pH] 5.0 - 8.0 [facility] Protein.monoclonal (U) [Mass/Vol] TRACE NEGATIVE MG/DL [facility] Specific [place], Ur >=1.030 1.001 - 1.035 [facility] Urobilinogen, Urine 0.2 EU/DL 0.2 - 1.0 EU/DL [facility] URINE CULTUREon 07-18-2021 Bacteria identified Cx Nom (U) Final report Mixed urogenital landen 10,000-25,000 colony forming units per mL Performed at: [facility] [id number] Plasterer Helper: Tono Jiang PhD, Phone: [phone] [facility] Comment on above: Performed By: #### M 500.0000 #### [place] [address] URINE MICROSCOPon 07-18-2021 Mucus Ql (Urine sed) 4+ Normal NEGATIVE [facility] Comment on above: Order Comment: Urine Specimen Source+ CLEAN CATCH Performed By: #### L 200.3001, L200.3190 #### [facility] [address] [place] [address] SQUAMOUS RARE Normal NEGATIVE [facility] Comment on above: Order Comment: Urine Specimen Source+ CLEAN CATCH Performed By: #### L 200.3001, L200.3190 #### [facility] [address] [place] [address] URINE RBC 1-3 Normal 0-2 [facility] Comment on above: Order Comment: Urine Specimen Source+ CLEAN CATCH Performed By: #### L 200.3001, L200.3190 #### [facility] [address] [place] [address] URINE WBC 1-3 Normal 0-5 [facility] Comment on above: Order Comment: Urine Specimen Source+ CLEAN CATCH Performed By: #### L 200.3001, L200.3190 #### [facility] [address] [place] [address] Urinalysis complete panel (U )on 07-18-2021 RBC, Urine 1-3 0 - 2 [facility] Squamous Epithelial Cells RARE NEGATIVE [facility] Ur Mucous 4+ NEGATIVE [facility] WBC, Urine 1-3 0 - 5 [facility] ACUTE ABDOMENon 05-17-2021 ACUTE ABDOMEN EXAMINATION: TWO [...] No significant intra-abdominal plain film abnormality. Normal [facility] CBC w/Auto Differentialon Basophils Abs. # 0.01 K/uL Normal 0.00-0.10 [facility] Comment on above: Performed By: #### C BCS #### [facility] [address] [place] [address] Basophils/100 WBC (Bld) 0.2 % Normal 0.2-1.0 [facility] Comment on above: Performed By: #### C BCS #### [facility] [address] [place] [address] Eosinophils (Bld) [#/Vol] 0.00 10*3/uL Normal 0.00-0.20 [facility] Comment on above: Performed By: #### C BCS #### [facility] [address] [place] [address] Eosinophils/100 WBC (Bld) 0.0 % Low 0.9-2.9 [facility] Comment on above: Performed By: #### C BCS #### [facility] [address] [place] [address] Erythrocyte distribution width (RBC) [Ratio] 11.8 % Normal 11.5-14.5 [facility] Comment on above: Performed By: #### C BCS #### [facility] [address] [place] [address] Hematocrit (Bld) [Volume fraction] 49.9 % Normal 36.7-50.6 [facility] Comment on above: Performed By: #### C BCS #### [facility] [address] [place] [address] Hemoglobin (Bld) [Mass/Vol] 16.7 g/dL Normal 12.4-17.3 [facility] Comment on above: Performed By: #### C BCS #### [facility] [address] [place] [address] Imm Grans % 0.00 % Normal 0.00-1.00 [facility] Comment on above: Performed By: #### C BCS #### [facility] [address] [place] [address] Imm Grans Absolute # 0.00 K/uL Normal 0.00-0.10 [facility] Comment on above: Performed By: #### C BCS #### [facility] [address] [place] [address] Lymphocytes (Bld) [#/Vol] 0.90 10*3/uL Low 1.30-2.90 [facility] [facility] Comment on above: Performed By: #### C BCS #### [facility] [address] [place] [address] Lymphocytes/100 WBC (Bld) 16.5 % Low 17.0-45.5 [facility] Comment on above: Performed By: #### C BCS #### [facility] [place] [address] [place] [address] MCH (RBC) [Entitic mass] 30.8 pg Normal 27.0-31.0 [facility] Comment on above: Performed By: #### C BCS #### [facility] [address] [facility] [place] [address] MCHC (RBC) [Mass/Vol] 33.5 g/dL Normal 33.0-37.0 [facility] Comment on above: Performed By: #### C BCS #### [facility] [address] [facility] [place] [address] MCV (RBC) [Entitic vol] 91.9 fL Normal 80.0-94.0 [facility] Comment on above: Performed By: #### C BCS #### [facility] [address] [place] [address] Monocytes (Bld) [#/Vol] 0.80 10*3/uL Normal 0.30-0.80 [facility] Comment on above: Performed By: #### C BCS #### [facility] [address] [place] [address] Monocytes/100 WBC (Bld) 15.8 % High 5.5-11.7 [facility] Comment on above: Performed By: #### C BCS #### [facility] [place] [address] [facility] [place] [address] Neutrophils Abs. # 3.47 K/uL Normal 2.20-4.80 [facility] Comment on above: Performed By: #### C BCS #### [facility] [address] [facility] [place] [address] Neutrophils/100 WBC (Bld) 67.5 % High 43.0-65.0 [facility] Comment on above: Performed By: #### C BCS #### [facility] [address] [place] [address] Platelet mean volume (Bld) [Entitic vol] 10.6 fL High 7.4-10.4 [facility] Comment on above: Performed By: #### C BCS #### [facility] [address] [place] [address] Platelets (Bld) [#/Vol] 271 10*3/uL Normal 148-402 [facility] Comment on above: Performed By: #### C BCS #### [facility] [address] [place] [address] RBC (Bld) [#/Vol] 5.43 10*6/uL Normal 4.13-5.69 [facility] Comment on above: Performed By: #### C BCS #### [facility] [address] [place] [address] WBC (Bld) [#/Vol] 5.1 10*3/uL Normal 3.6-10.8 [facility] Comment on above: Performed By: #### C BCS #### [facility] [address] [place] [address] CBLDon 05-17-2021 CBLD Patient: SOLOMON LAURA MRUN [id number] Location: [facility] Aount: [id number] : 1995 Age: 26 Sex M Lab NumbEr [id number] Requested by: KRISTI RESENDIZ Admitdate: 05/17/21 Source: BLOOD Collected: 05/17/21 17:25 Site: [facility] Received : 05/17/21 22:13 GILBERTO Goldberg O M M E N T S LAB.PORT; Does the Patient have a central line to draw blood from?; N; SHANNAN.SITE1; Shannan Site; blood Culture, Blood FINAL 05/18/21 06:41 05/18/21 Sent to [place] for workup Culture, Blood (ELOH Workup) PLATED Normal [facility] Comment on above: Performed By: #### M IC2 #### [place] [id number] CBLD Patient: SOLOMON LAURA [id number] Location: [facility] Aount: [id number] : 1995 Age: 26 Sex M Lab NumbEr [id number] Requested by: KRISTI RESENDIZ Admitdate: 05/17/21 Source: BLOOD Collected: 05/17/21 15:38 Site: [facility] Received : 05/17/21 22:12 GILBERTO Rome N T S LAB.PORT; Does the Patient have a central line to draw blood from?; N; SHANNAN.SITE1; Shannan Site; blood Culture, Blood FINAL 05/18/21 06:40 05/18/21 Sent to [place] for workup Culture, Blood (ELOH Workup) PLATED Normal [facility] Comment on above: Performed By: #### C BCS #### [address] [address] CXBLPon 05-17-2021 CXBLP Patient: SOLOMON LAURA MRUN [id number] Location: [facility] Aount: [id number] : 1995 Age: 26 Sex M Lab NumbEr [id number] Requested by: KRISTI RESENDIZ Admitdate: 05/17/21 Source: BLOOD Collected: 05/17/21 17:25 Site: [facility] Received : 05/17/21 22:13 GILBERTO Calderon T S LAB.PORT; Does the Patient have a central line to draw blood from?; N; SHANNAN.SITE1; Shannan Site; blood Culture, Blood FINAL 05/18/21 06:41 05/18/21 Sent to [place] for workup Culture, Blood (ELOH Workup) FINAL 05/23/21 11:32 05/20/21 AEROBIC CULTURE RESULTS: NO BACTERIAL GROWTH ANAEROBIC CULTURE RESULT: NO BACTERIAL GROWTH Normal [facility] Comment on above: Performed By: #### C MP #### [address] [address] CXBLP Patient: SOLOMON LAURA MRUN [id number] Location: [facility] Aount: [id number] : 1995 Age: 26 Sex M Lab NumbEr [id number] Requested by: KRISTI RESENDIZ Admitdate: 05/17/21 Source: BLOOD Collected: 05/17/21 15:38 Site: [facility] Received : 05/17/21 22:12 GILBERTO Rome N T S LAB.PORT; Does the Patient have a central line to draw blood from?; N; SHANNAN.SITE1; Shannan Site; blood Culture, Blood FINAL 05/18/21 06:40 05/18/21 Sent to [place] for workup Culture, Blood (ELOH Workup) FINAL 05/23/21 11:32 05/20/21 AEROBIC CULTURE RESULTS: NO BACTERIAL GROWTH ANAEROBIC CULTURE RESULT: NO BACTERIAL GROWTH Normal [facility] Comment on above: Performed By: #### C BCS #### [address] [address] Comprehensive Metabolic Pane bessy 05-17-2021 Albumin [Mass/Vol] 4.7 g/dL Normal 3.4-5.0 [facility] Comment on above: Performed By: #### C BCS #### [facility] [address] [facility] [place] [address] Albumin/Globulin [Mass ratio] 1.2 {ratio} Normal 1.1-2.5 [facility] Comment on above: Performed By: #### C BCS #### [facility] [address] [facility] [place] [address] ALP [Catalytic activity/Vol] 95 U/L Normal 54-112 [facility] Comment on above: Performed By: #### C BCS #### [facility] [address] [facility] [place] [address] ALT [Catalytic activity/Vol] 37 U/L Normal 13-66 [facility] Comment on above: Performed By: #### C BCS #### [facility] [address] [facility] [place] [address] Anion gap [Moles/Vol] 12.8 mmol/L Normal 8.0-16.0 [facility] Comment on above: Performed By: #### C BCS #### [facility] [address] [place] [address] AST [Catalytic activity/Vol] 36 U/L Normal 3-39 [facility] Comment on above: Performed By: #### C BCS #### [facility] [address] [facility] [place] [address] Bilirubin [Mass/Vol] 1.04 mg/dL High 0.00-0.99 [facility] Comment on above: Performed By: #### C BCS #### [facility] [address] [facility] [place] [address] Calcium [Mass/Vol] 9.0 mg/dL Normal 8.2-10.0 [facility] Comment on above: Performed By: #### C BCS #### [facility] [address] [place] [address] Chloride [Moles/Vol] 101 mmol/L Normal 94-110 [facility] Comment on above: Performed By: #### C BCS #### [facility] [address] [place] [address] CO2 [Moles/Vol] 31 mmol/L Normal 21-34 [facility] Comment on above: Performed By: #### C BCS #### [facility] [address] [place] [address] Creatinine [Mass/Vol] 0.86 mg/dL Normal 0.50-1.17 [facility] Comment on above: Performed By: #### C BCS #### [facility] [address] [place] [address] EGFR Other Races >60 Normal >60 [facility] Comment on above: Performed By: #### C BCS #### [facility] [address] [place] [address] GFR/1.73 sq M.predicted among blacks MDRD (S/P/Bld) [Vol rate/Area] mL/min/{1.73_m2} Normal >60 [facility] Comment on above: Result Comment: Habilitation Assistant danika Kidney Disease less than 60 mL/min/1.73 m2 Kidney Failure less than 15 mL/min/1.73 m2 Average estimated GFR by age: 20-29 years 116 mL/min/1.73 m2 Performed By: #### C BCS #### [facility] [address] [place] [address] Globulin (S) [Mass/Vol] 3.8 g/dL Normal 1.5-4.5 [facility] Comment on above: Performed By: #### C BCS #### [facility] [address] [place] [address] Glucose [Mass/Vol] 96 mg/dL Normal 65-100 [facility] Comment on above: Performed By: #### C BCS #### [facility] [address] [place] [address] Potassium [Moles/Vol] 3.8 mmol/L Normal 3.3-5.1 [facility] Comment on above: Performed By: #### C BCS #### [facility] [address] [place] [address] Protein [Mass/Vol] 8.5 g/dL High 6.1-8.2 [facility] Comment on above: Performed By: #### C BCS #### [facility] [address] [place] [address] Sodium [Moles/Vol] 141 mmol/L Normal 132-145 [facility] Comment on above: Performed By: #### C BCS #### [facility] [address] [place] [address] Urea nitrogen [Mass/Vol] 11.3 mg/dL Normal 3.2-26.9 [facility] Comment on above: Performed By: #### C BCS #### [facility] [address] [place] [address] Urea nitrogen/Creatinine [Mass ratio] 13 mg/mg Normal 6-20 [facility] Comment on above: Performed By: #### C BCS #### [facility] [address] [place] [address] EMERGENCY DEPARTMENTon 05-17 EMERGENCY DEPARTMENT [facility] [address] [place] [address] HEALTH INFORMATION MANAGEMENT EMERGENCY DEPARTMENT : Signed Patient: SOLOMON LAURA TOSIN Acct:[id number] MRUN: [id number] : 1995 Sex: M Loc: ED ADM Date: Room/Bed: DISC Date: History of Present Illness - General Chief Complaint: Vomiting Stated Complaint: VOMITING COVID + Symptom onset: 2 DAYS HPI: PATIENT STATES FOR 2 DAYS HE HAS NOT BEEN ABLE TO KEEP ANYTHING DOWN DUE TO NAUSEA AND VOMITING. PATIENT TESTED POSITIVE FOR COVID AT [facility] ON 05/15/21. PATIENT WAS GIVEN DECADRON PO [...] Feels Threatened In a Relationship: No - [place]/Gender ID What is your current Gender Identity? Choose all that Apply: Male Define your Sexual Orientation?: Straight/Heterosexual - [place]-Suicide Severity Rating Scale 1) Wish to be :: No 2) Suicidal Thoughts:: No 6) Suicidal Behavior Question (A): LIFETIME: No 6) Suicidal Behavior Question (B): PAST 3 MONTHS: No General Exam - General Limitations: Complains of: no limitations Constitutional: Present: see HPI, Well developed, Well nourished, Non-toxic, malaise, weakness. Absent: chills, sridevi (more content not included)... Normal [facility] Lipaseon 05-17-2021 Lipase [Catalytic activity/Vol] 75 U/L Normal 65-230 [facility] Comment on above: Performed By: #### C MP #### [address] [address] PTTon 05-17-2021 aPTT Coag (Bld) [Time] 27.2 s Normal 19.5-32.1 [facility] Comment on above: Result Comment: New Reference Ranges effective 2018. Performed By: #### C MP #### [place] [address] Prothrombin Timeon INR Coag (PPP) [Relative time] 0.94 {INR} Normal [facility] Comment on above: Result Comment: 2.0 - 3.0 Group A 2.5 - 3.5 Group B Group A indications: Prophylaxis and treatment of venous thrombosis. Treatment of pulmonary embolism. Prevention of systemic embolism. Tissue heart valves. Acute myocardial infarction. Valvular heart disease. Atrial fibrillation. Group B indications: Mechanical prosthetic valves. . Performed By: #### C BCS #### [address] [address] PT Coag (PPP) [Time] 9.5 s Normal 8.9-12.2 [facility] Comment on above: Result Comment: New Reference Ranges effective 2018. Performed By: #### C BCS #### [place] [address] [place] [address] PHYSICIAN NOTEon 03-04-2021 [place] [address] HEALTH INFORMATION MANAGEMENT PHYSICIAN NOTE : [phone] Signed Patient: SOLOMON LAURA Acct:[id number] MRUN: [id number] : 1995 Sex: M Loc: 4TH FLOOR [...] Generated By: ADELITA WOODS MD Generated Date/Time: 03/04/2141 Electronically Signed By: ADELITA WOODS MD Signed Date/Time 03/04/21 0944 Co Signed Electronically By: Co Signed Date/Time: CC: Normal [facility] 2018 Novel Coronavirus (CoVI D-19), NAAon 03-03-2021 SARS-CoV-2 (COVID-19) RNA MILES+probe Ql (Unsp spec) Not detected Normal Not Detected [facility] Comment on above: Result Comment: This nucleic acid amplification test was developed and its performance characteristics determined by [employer]. Nucleic acid amplification tests include RT-PCR and [...] detected) result in this assay. Performed at: [address] [id number] Plasterer Helper: Tono Jiang PhD, Phone: [phone] Performed By: #### C BCS #### [place] [address] [place] [address] Bilirubin Confirmationon Bilirubin Confirmation Negative Normal Negative [facility] Comment on above: Performed By: #### C BCS #### [address] [address] CBC No Differentialon 2020 Erythrocyte distribution width (RBC) [Ratio] 13.4 % Normal 11.5-14.5 [facility] Comment on above: Performed By: #### C P #### [place] [address] [place] [address] Hematocrit (Bld) [Volume fraction] 38.5 % Normal 36.7-50.6 [facility] Comment on above: Performed By: #### C P #### [place] [address] [place] [id number] Hemoglobin (Bld) [Mass/Vol] 13.2 g/dL Normal 12.4-17.3 [facility] Comment on above: Performed By: #### C P #### [address] [address] MCH (RBC) [Entitic mass] 31.1 pg High 27.0-31.0 [facility] Comment on above: Performed By: #### C P #### [facility] [address] [place] [address] MCHC (RBC) [Mass/Vol] 34.3 g/dL Normal 33.0-37.0 [facility] Comment on above: Performed By: #### C P #### [facility] [address] [place] [address] MCV (RBC) [Entitic vol] 90.6 fL Normal 80.0-94.0 [facility] Comment on above: Performed By: #### C P #### [facility] [address] [place] [address] Platelet mean volume (Bld) [Entitic vol] 9.9 fL Normal 7.4-10.4 [facility] Comment on above: Performed By: #### C P #### [facility] [address] [place] [address] Platelets (Bld) [#/Vol] 206 10*3/uL Normal 148-402 [facility] Comment on above: Performed By: #### C P #### [facility] [address] [place] [address] RBC (Bld) [#/Vol] 4.25 10*6/uL Normal 4.13-5.69 [facility] Comment on above: Performed By: #### C P #### [facility] [address] [place] [address] WBC (Bld) [#/Vol] 9.5 10*3/uL Normal 3.6-10.8 [facility] Comment on above: Performed By: #### C P #### [facility] [address] [place] [address] CT ABD/PELVIS Won 03-03-2021 CT ABD/PELVIS W [...] urinalysis. Nonspecific small bilateral scrotal hydroceles. Normal [facility] EMERGENCY DEPARTMENTon 03-03 EMERGENCY DEPARTMENT [facility] [address] [place] [id number] HEALTH INFORMATION MANAGEMENT EMERGENCY DEPARTMENT : [phone] Signed Patient: SOLOMON LAURA Acct:[id number] MRUN: [id number] : 1995 Sex: M Loc: ED ADM Date: Room/Bed: DISC Date: History of Present Illness - General Chief Complaint: Abdominal/GI Complaints Stated Complaint: ABD PAIN Symptom onset: 0900 HPI: PT HAS A FEW BEERS LAST NIGHT AND HITS GROIN AREA ON [employer] OF [employer], PT WAKES UP THIS MORNING WITH [...] PO Q6H 3 Days #12 tablet 12/30/20 [[place] 5/325 mg Tablet] Allergies Allergy/AdvReac Type Severity [...] Abuse: No Hx Suspected Abuse: No - [place]/Gender ID What is your current Gender Identity? Choose all that Apply: Male - [place]-Suicide Severity Rating Scale 1) Wish to be [...] Present: PERRL (more content not included)... 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 Family Hx: Father with possible abdominal [...] Electronically By: Co Signed Date/Time: CC: Normal [facility] SARS Antigen (Rapid)on 03-03 SARS Antigen Negative Normal Negative [facility] Comment on above: Result Comment: The Mulu 2 SARS Antigen SHAMA is a lateral flow immunofluorescent sandwich assay that is used with the Mulu 2 instrument intended for the qualitative detection of the nucleocapsid protein antigen from SARS-CoV-2 in nasopharyngeal (DIE EQUIPMENT OPERATOR) and nasal (NS) swab specimens directly or [...] COVID-19. Performed By: #### C BCS #### [facility] [address] [place] [address] UA w/reflex microscopic exam inationon 03-03-2021 Appearance (U) CLEAR Normal Clear [facility] Comment on above: Performed By: #### C MP #### [facility] [address] [place] [address] Bilirubin Ql (U) 1 Abnormal Negative [facility] Comment on above: Performed By: #### C MP #### [facility] [address] [place] [address] Color (U) rylee Normal Yellow [facility] Comment on above: Performed By: #### C MP #### [facility] [address] [place] [address] Glucose Ql (U) NORMAL Normal Negative [facility] Comment on above: Performed By: #### C MP #### [facility] [place] [address] [place] [address] Hemoglobin Ql (U) Negative Normal Negative [facility] Comment on above: Performed By: #### C MP #### [facility] [place] [address] [place] [address] Ketones Ql (U) 3+ Abnormal Negative [facility] Comment on above: Performed By: #### C MP #### [facility] [place] [address] [place] [address] Leukocytes Esterase TRACE Abnormal Negative [facility] Comment on above: Performed By: #### C MP #### [facility] [place] [address] [place] [address] Nitrite Ql (U) Negative Normal Negative [facility] Comment on above: Performed By: #### C MP #### [facility] [place] [address] [place] [address] pH (U) 5 [pH] Normal [facility] Comment on above: Performed By: #### C MP #### [facility] [place] [address] [place] [address] Protein Ql (U) 75 Normal Negative [facility] Comment on above: Performed By: #### C MP #### [facility] [place] [address] [place] [address] Specific gravity (U) [Rel density] 1.010 Low 1.015-1.025 [facility] Comment on above: Performed By: #### C MP #### [facility] [place] [address] [place] [address] Urobilinogen NORMAL Normal Normal-1.0 [facility] Comment on above: Performed By: #### C MP #### [facility] [place] [address] [place] [address] Urine Microscopicon 03-03-20 21 Bacteria DIE EQUIPMENT OPERATOR Normal 0 - 1+ [facility] Comment on above: Performed By: #### C BCS #### [facility] [place] [address] [place] [address] Casts DIE EQUIPMENT OPERATOR Normal [facility] Comment on above: Performed By: #### C BCS #### [facility] [place] [address] [place] [address] Casts. DIE EQUIPMENT OPERATOR Normal [facility] Comment on above: Performed By: #### C BCS #### [facility] [place] [address] [place] [address] Crystals LM Nom (Urine sed) DIE EQUIPMENT OPERATOR Normal [facility] Comment on above: Performed By: #### C BCS #### [facility] [place] [address] [place] [address] Crystals. DIE EQUIPMENT OPERATOR Normal [facility] Comment on above: Performed By: #### C BCS #### [facility] [place] [address] [place] [address] Epithelial cells LM Ql (Urine sed) 0-2 Normal 0 - 6 [facility] Comment on above: Performed By: #### C BCS #### [facility] [place] [address] [place] [address] Mucus Ql (Urine sed) 1+ /lpf Normal [facility] Comment on above: Performed By: #### C BCS #### [facility] [place] [address] [place] [address] RBC None Seen Normal 0 - 2 [facility] Comment on above: Performed By: #### C BCS #### [facility] [place] [address] [place] [address] Trichomonas DIE EQUIPMENT OPERATOR Normal [facility] Comment on above: Performed By: #### C BCS #### [facility] [place] [address] [facility] [facility] [place] [address] WBC None Seen Normal 0 - 6 [facility] Comment on above: Performed By: #### C BCS #### [facility] [place] [address] [facility] [place] [address] Yeast DIE EQUIPMENT OPERATOR Normal [facility] Comment on above: Performed By: #### C BCS #### [facility] [place] [address] [facility] [place] [address] Other DIE EQUIPMENT OPERATOR Normal [facility] Comment on above: Performed By: #### C BCS #### [facility] [place] [address] [place] [address] CBC w/Auto Differentialon Basophils Abs. # 0.00 K/uL Normal 0.00-0.10 [facility] Comment on above: Result Comment: CO RRECTED REPORT: Previous result was 0.03 at 22:24 on 03/02/21 Performed By: #### C BCS #### [facility] [place] [address] [place] [address] Basophils/100 WBC (Bld) 0.0 % Low 0.2-1.0 [facility] Comment on above: Result Comment: CO RRECTED REPORT: Previous result was 0.1 at 20:04 on 03/02/21 Performed By: #### C BCS #### [facility] [place] [address] [place] [address] Eosinophils (Bld) [#/Vol] 0.00 10*3/uL Normal 0.00-0.20 [facility] Comment on above: Performed By: #### C BCS #### [facility] [address] [place] [address] Eosinophils/100 WBC (Bld) 0.0 % Low 0.9-2.9 [facility] Comment on above: Performed By: #### C BCS #### [facility] [address] [place] [address] Erythrocyte distribution width (RBC) [Ratio] 13.0 % Normal 11.5-14.5 [facility] Comment on above: Performed By: #### C BCS #### [facility] [address] [place] [address] Hematocrit (Bld) [Volume fraction] 48.2 % Normal 36.7-50.6 [facility] Comment on above: Performed By: #### C BCS #### [facility] [address] [place] [address] Hemoglobin (Bld) [Mass/Vol] 16.5 g/dL Normal 12.4-17.3 [facility] [facility] Comment on above: Performed By: #### C BCS #### [facility] [address] [place] [address] Imm Grans % 0.00 % Normal 0.00-1.00 [facility] Comment on above: Result Comment: CO RRECTED REPORT: Previous result was 0.20 at 22:24 on 03/02/21 Performed By: #### C BCS #### [facility] [address] [place] [address] Imm Grans Absolute # 0.00 K/uL Normal 0.00-0.10 [facility] Comment on above: Result Comment: CO RRECTED REPORT: Previous result was 0.05 at 22:24 on 03/02/21 Performed By: #### C BCS #### [facility] [address] [place] [address] Lymphocytes (Bld) [#/Vol] 1.30 10*3/uL Normal 1.30-2.90 [facility] Comment on above: Result Comment: CO RRECTED REPORT: Previous result was 0.50 at 22:24 on 03/02/21 Performed By: #### C BCS #### [place] [address] [place] [address] Lymphocytes/100 WBC (Bld) 6.0 % Low 17.0-45.5 [facility] Comment on above: Result Comment: CO RRECTED REPORT: Previous result was 2.2 at 20:04 on 03/02/21 Performed By: #### C BCS #### [address] [place] [address] MCH (RBC) [Entitic mass] 30.6 pg Normal 27.0-31.0 [facility] Comment on above: Performed By: #### C BCS #### [address] [place] [address] MCHC (RBC) [Mass/Vol] 34.2 g/dL Normal 33.0-37.0 [facility] Comment on above: Performed By: #### C BCS #### [address] [place] [address] MCV (RBC) [Entitic vol] 89.4 fL Normal 80.0-94.0 [facility] Comment on above: Performed By: #### C BCS #### [address] [place] [address] Monocytes (Bld) [#/Vol] 0.00 10*3/uL Low 0.30-0.80 [facility] Comment on above: Result Comment: CO RRECTED REPORT: Previous result was 1.00 at 20:04 on 03/02/21 Performed By: #### C BCS #### [facility] [place] [address] [facility] [place] [address] Monocytes/100 WBC (Bld) 0.0 % Low 5.5-11.7 [facility] Comment on above: Result Comment: CO RRECTED REPORT: Previous result was 4.6 at 20:04 on 03/02/21 Performed By: #### C BCS #### [facility] [address] [facility] [place] [address] Neutrophils Abs. # 20.40 K/uL High 2.20-4.80 [facility] Comment on above: Result Comment: CO RRECTED REPORT: Previous result was 20.14 at 22:24 on 03/02/21 Performed By: #### C BCS #### [facility] [address] [place] [address] Neutrophils/100 WBC (Bld) 94.0 % High 43.0-65.0 [facility] Comment on above: Result Comment: CO RRECTED REPORT: Previous result was 92.9 at 20:04 on 03/02/21 Performed By: #### C BCS #### [facility] [place] [address] [place] [address] Platelet mean volume (Bld) [Entitic vol] 9.7 fL Normal 7.4-10.4 [facility] Comment on above: Performed By: #### C BCS #### [facility] [place] [address] [facility] [facility] [place] [address] Platelets (Bld) [#/Vol] 308 10*3/uL Normal 148-402 [facility] Comment on above: Performed By: #### C BCS #### [facility] [place] [address] [facility] [place] [address] RBC (Bld) [#/Vol] 5.39 10*6/uL Normal 4.13-5.69 [facility] Comment on above: Performed By: #### C BCS #### [facility] [address] [place] [address] WBC (Bld) [#/Vol] 21.7 10*3/uL High 3.6-10.8 [facility] Comment on above: Performed By: #### C BCS #### [facility] [address] [place] [address] Comprehensive Metabolic Pane bessy 03-02-2021 Albumin [Mass/Vol] 5.5 g/dL High 3.4-5.0 [facility] Comment on above: Performed By: #### C MP #### [facility] [address] [place] [address] Albumin/Globulin [Mass ratio] 1.4 {ratio} Normal 1.1-2.5 [facility] Comment on above: Performed By: #### C MP #### [facility] [address] [place] [address] ALP [Catalytic activity/Vol] 119 U/L High 54-112 [facility] Comment on above: Performed By: #### C MP #### [facility] [address] [place] [address] ALT [Catalytic activity/Vol] 28 U/L Normal 13-66 [facility] Comment on above: Performed By: #### C MP #### [facility] [address] [place] [address] Anion gap [Moles/Vol] 16.3 mmol/L High 8.0-16.0 [facility] Comment on above: Performed By: #### C MP #### [address] [place] [address] AST [Catalytic activity/Vol] 18 U/L Normal 3-39 [facility] Comment on above: Performed By: #### C MP #### [facility] [address] [place] [address] Bilirubin [Mass/Vol] 2.68 mg/dL High 0.00-0.99 [facility] Comment on above: Performed By: #### C MP #### [facility] [address] [place] [address] Calcium [Mass/Vol] 9.8 mg/dL Normal 8.2-10.0 [facility] Comment on above: Performed By: #### C MP #### [facility] [address] [place] [address] Chloride [Moles/Vol] 99 mmol/L Normal 94-110 [facility] Comment on above: Performed By: #### C MP #### [facility] [address] [place] [address] CO2 [Moles/Vol] 29 mmol/L Normal 21-34 [facility] Comment on above: Performed By: #### C MP #### [facility] [address] [place] [address] Creatinine [Mass/Vol] 1.11 mg/dL Normal 0.50-1.17 [facility] Comment on above: Performed By: #### C MP #### [facility] [address] [place] [address] EGFR Other Races >60 Normal >60 [facility] Comment on above: Performed By: #### C MP #### [facility] [address] [place] [address] GFR/1.73 sq M.predicted among blacks MDRD (S/P/Bld) [Vol rate/Area] mL/min/{1.73_m2} Normal >60 [facility] Comment on above: Result Comment: Habilitation Assistant danika Kidney Disease less than 60 mL/min/1.73 m2 Kidney Failure less than 15 mL/min/1.73 m2 Average estimated GFR by age: 20-29 years 116 mL/min/1.73 m2 Performed By: #### C MP #### [facility] [address] [place] [address] Globulin (S) [Mass/Vol] 3.8 g/dL Normal 1.5-4.5 [facility] Comment on above: Performed By: #### C MP #### [facility] [address] [place] [address] Glucose [Mass/Vol] 163 mg/dL High 65-100 [facility] Comment on above: Performed By: #### C MP #### [facility] [address] [place] [address] Potassium [Moles/Vol] 4.3 mmol/L Normal 3.3-5.1 [facility] Comment on above: Performed By: #### C MP #### [facility] [address] [place] [address] Protein [Mass/Vol] 9.3 g/dL High 6.1-8.2 [facility] Comment on above: Performed By: #### C MP #### [facility] [address] [place] [address] Sodium [Moles/Vol] 140 mmol/L Normal 132-145 [facility] Comment on above: Performed By: #### C MP #### [facility] [address] [place] [address] Urea nitrogen [Mass/Vol] 17.1 mg/dL Normal 3.2-26.9 [facility] Comment on above: Performed By: #### C MP #### [facility] [place] [address] [place] [address] Urea nitrogen/Creatinine [Mass ratio] 15 mg/mg Normal 6-20 [facility] Comment on above: Performed By: #### C MP #### [facility] [place] [address] [place] [address] Differential Manualon 2020 Anisocytosis DIE EQUIPMENT OPERATOR Normal [facility] Comment on above: Performed By: #### L IPAS #### [facility] [address] [place] [address] Basophilic Stippling DIE EQUIPMENT OPERATOR Normal [facility] Comment on above: Performed By: #### L IPAS #### [facility] [place] [address] [place] [address] Basophils 0 % Normal 0-1 [facility] Comment on above: Performed By: #### L IPAS #### [facility] [place] [address] [place] [address] Blast. DIE EQUIPMENT OPERATOR Normal 0-0 [facility] Comment on above: Performed By: #### L IPAS #### [facility] [address] [place] [address] Jeffrey Cell DIE EQUIPMENT OPERATOR Normal [facility] Comment on above: Performed By: #### L IPAS #### [facility] [place] [address] [place] [address] Rosedale Rings DIE EQUIPMENT OPERATOR Normal [facility] Comment on above: Performed By: #### L IPAS #### [facility] [address] [place] [address] Crenated Cells DIE EQUIPMENT OPERATOR [facility] Comment on above: Performed By: #### L IPAS #### [facility] [place] [address] [place] [address] Dohle Bodies DIE EQUIPMENT OPERATOR [facility] Comment on above: Performed By: #### L IPAS #### [facility] [place] [address] [place] [address] Eosinophils 0 % Low 1-3 [facility] Comment on above: Performed By: #### L IPAS #### [facility] [place] [address] [place] [address] Fragmented Cells DIE EQUIPMENT OPERATOR [facility] Comment on above: Performed By: #### L IPAS #### [facility] [place] [address] [place] [address] Cruz Bodies DIE EQUIPMENT OPERATOR [facility] Comment on above: Performed By: #### L IPAS #### [facility] [place] [address] [place] [address] [place] Bodies DIE EQUIPMENT OPERATOR [facility] Comment on above: Performed By: #### L IPAS #### [facility] [place] [address] [place] [address] Hyperchromia DIE EQUIPMENT OPERATOR [facility] Comment on above: Performed By: #### L IPAS #### [facility] [place] [address] [place] [address] Hypochromia DIE EQUIPMENT OPERATOR [facility] Comment on above: Performed By: #### L IPAS #### [facility] [place] [address] [place] [address] Immature Cells DIE EQUIPMENT OPERATOR [facility] Comment on above: Performed By: #### L IPAS #### [facility] [place] [address] [place] [address] Lymphocytes 6 % Low 17-46 [facility] Comment on above: Performed By: #### L IPAS #### [facility] [place] [address] [place] [address] Lymphocytes Atypical DIE EQUIPMENT OPERATOR Normal [facility] Comment on above: Performed By: #### L IPAS #### [facility] [place] [address] [place] [address] Lymphocytes Reactive DIE EQUIPMENT OPERATOR Normal [facility] Comment on above: Performed By: #### L IPAS #### [facility] [place] [address] [facility] [place] [address] Macrocytosis DIE EQUIPMENT OPERATOR Normal [facility] Comment on above: Performed By: #### L IPAS #### [facility] [address] [facility] [place] [address] Metamyelocytes DIE EQUIPMENT OPERATOR Normal 0-0 [facility] Comment on above: Performed By: #### L IPAS #### [facility] [address] [facility] [place] [address] Microcytic DIE EQUIPMENT OPERATOR Normal [facility] Comment on above: Performed By: #### L IPAS #### [facility] [place] [address] [place] [address] Monoblasts DIE EQUIPMENT OPERATOR Normal [facility] Comment on above: Performed By: #### L IPAS #### [facility] [address] [facility] [place] [address] Monocytes 0 % Low 6-12 [facility] Comment on above: Performed By: #### L IPAS #### [facility] [place] [address] [place] [address] Myeloblasts DIE EQUIPMENT OPERATOR Normal [facility] Comment on above: Performed By: #### L IPAS #### [facility] [place] [address] [place] [address] Myelocytes DIE EQUIPMENT OPERATOR Normal 0-0 [facility] Comment on above: Performed By: #### L IPAS #### [facility] [place] [address] [place] [address] Neutrophils 94 % High 43-65 [facility] Comment on above: Performed By: #### L IPAS #### [facility] [place] [address] [place] [address] Nucleated RBC DIE EQUIPMENT OPERATOR Normal 0-0 [facility] Comment on above: Performed By: #### L IPAS #### [facility] [place] [address] [place] [address] Ovalocytes DIE EQUIPMENT OPERATOR Normal [facility] Comment on above: Performed By: #### L IPAS #### [facility] [place] [address] [place] [address] Platelet Slide Review DIE EQUIPMENT OPERATOR Normal [facility] Comment on above: Performed By: #### L IPAS #### [facility] [place] [address] [place] [address] Poikilocytosis DIE EQUIPMENT OPERATOR Normal [facility] Comment on above: Performed By: #### L IPAS #### [facility] [place] [address] [place] [address] Polychromasia DIE EQUIPMENT OPERATOR Normal [facility] Comment on above: Performed By: #### L IPAS #### [facility] [place] [address] [place] [address] Promyelocyte DIE EQUIPMENT OPERATOR Normal 0-0 [facility] Comment on above: Performed By: #### L IPAS #### [facility] [place] [address] [place] [address] Schistocytes DIE EQUIPMENT OPERATOR Normal [facility] Comment on above: Performed By: #### L IPAS #### [facility] [place] [address] [facility] [place] [address] Sickle Cells DIE EQUIPMENT OPERATOR Normal [facility] Comment on above: Performed By: #### L IPAS #### [facility] [place] [address] [facility] [place] [address] Smudge Cells DIE EQUIPMENT OPERATOR Normal [facility] Comment on above: Performed By: #### L IPAS #### [facility] [place] [address] [facility] [place] [address] Spherocytes DIE EQUIPMENT OPERATOR Normal [facility] Comment on above: Performed By: #### L IPAS #### [facility] [place] [address] [facility] [place] [address] Target Cells DIE EQUIPMENT OPERATOR Normal [facility] Comment on above: Performed By: #### L IPAS #### [facility] [place] [address] [facility] [place] [address] Tear Drop Cells DIE EQUIPMENT OPERATOR Normal [facility] Comment on above: Performed By: #### L IPAS #### [facility] [place] [address] [facility] [place] [address] Toxic Granulation DIE EQUIPMENT OPERATOR Normal [facility] Comment on above: Performed By: #### L IPAS #### [facility] [place] [address] [facility] [place] [address] Vital Signs Date Time Vital Sign Value Performing Clinician Facility 12-03-2024 09:12-0400 Body height 180.34 cm Out [facility] 12-03-2024 09:12-0400 Body mass index (BMI) [Ratio] 31.3 kg/m2 Out [facility] 12-03-2024 09:12-0400 Body weight 101.83 kg Out [facility] 12-03-2024 09:12-0400 Diastolic blood pressure 65 mm[Hg] Out [facility] 12-03-2024 09:12-0400 Heart rate 66 /min Out [facility] 12-03-2024 09:12-0400 SaO2% (BldA) [Mass fraction] 95 % Out [facility] 12-03-2024 09:12-0400 Systolic blood pressure 118 mm[Hg] [facility] 05-14-2024 10:10-0400 Body height 172.7 cm Donna Us PA-C Work Phone: [facility] 05-14-2024 10:10-0400 Body mass index (BMI) [Ratio] 33.74 kg/m2 Donna Us PA-C Work Phone: [facility] 05-14-2024 10:10-0400 Body temperature 98.4 [degF] Donna Us PA-C Work Phone: [facility] 05-14-2024 10:10-0400 Body weight 100.65 kg Donna Us PA-C Work Phone: [facility] 05-14-2024 10:10-0400 Diastolic blood pressure 80 mm[Hg] Donna Us PA-C Work Phone: [facility] Comment on above: manual 05-14-2024 10:10-0400 Heart rate 94 /min Donna Us PA-C Work Phone: [facility] 05-14-2024 10:10-0400 Respiratory rate 16 /min Donna Us PA-C Work Phone: [facility] 05-14-2024 10:10-0400 SaO2% (BldA) [Mass fraction] 97 % Donna Us PA-C Work Phone: [facility] 05-14-2024 10:10-0400 Systolic blood pressure 122 mm[Hg] Donna Us PA-C Work Phone: [facility] Comment on above: manual 11-12-2023 08:59-0400 Body height 172.7 cm Ella Gisel CERTIFIED NOVELL ENGINEER.GRISTMILLER Work Phone: [facility] 11-12-2023 08:59-0400 Body weight 99.34 kg Ella Gisel CERTIFIED NOVELL ENGINEER.GRISTMILLER Work Phone: [facility] 11-12-2023 08:59-0400 Diastolic blood pressure 81 mm[Hg] Ella Gisel CERTIFIED NOVELL ENGINEER.GRISTMILLER Work Phone: [facility] 11-12-2023 08:59-0400 Heart rate 76 /min Ella Gisel CERTIFIED NOVELL ENGINEER.GRISTMILLER Work Phone: [facility] 11-12-2023 08:59-0400 SaO2% (BldA) [Mass fraction] 97 % Ella Gisel CERTIFIED NOVELL ENGINEER.GRISTMILLER Work Phone: [facility] 11-12-2023 08:59-0400 Systolic blood pressure 127 mm[Hg] Ella Gisel CERTIFIED NOVELL ENGINEER.GRISTMILLER Work Phone: [facility] 10-18-2022 10:05-0500 Body height 172.7 cm Jorge Luis tSout CERTIFIED NOVELL ENGINEER.GRISTMILLER Work Phone: [facility] 10-18-2022 10:05-0500 Body weight 95.25 kg Jorge Luis Stout CERTIFIED NOVELL ENGINEER.GRISTMILLER Work Phone: [facility] 10-18-2022 10:05-0500 Diastolic blood pressure 72 mm[Hg] Jorge Luis Stout CERTIFIED NOVELL ENGINEER.GRISTMILLER Work Phone: [facility] 10-18-2022 10:05-0500 Heart rate 82 /min Jorge Luis Stout CERTIFIED NOVELL ENGINEER.GRISTMILLER Work Phone: [facility] 10-18-2022 10:05-0500 SaO2% (BldA) [Mass fraction] 98 % Jorge Luis Stout CERTIFIED NOVELL ENGINEER.GRISTMILLER Work Phone: [facility] 10-18-2022 10:05-0500 Systolic blood pressure 135 mm[Hg] Jorge Luis Stout APRN.GRISTMILLER Work Phone: [facility] 08-09-2022 10:29-0500 Body temperature 98.6 [degF] Jorge Luis Stout APRN.GRISTMILLER Work Phone: [facility] 08-09-2022 10:29-0500 Body weight 99.34 kg Jorge Luis Stout APRN.GRISTMILLER Work Phone: [facility] 08-09-2022 10:29-0500 Diastolic blood pressure 88 mm[Hg] Jorge Luis Stout APRN.GRISTMILLER Work Phone: [facility] 08-09-2022 10:29-0500 Heart rate 83 /min Jorge Luis Stout APRN.GRISTMILLER Work Phone: [facility] 08-09-2022 10:29-0500 SaO2% (BldA) [Mass fraction] 97 % Jorge Luis Stout APRN.GRISTMILLER Work Phone: [facility] 08-09-2022 10:29-0500 Systolic blood pressure 138 mm[Hg] Jorge Luis Stout APRN.GRISTMILLER Work Phone: [facility] Encounters Encounter Date Encounter Type Care Provider Facility Start: 02-12-2025 End: 02-12-[address] Salvatore Mcgrath MD -Laboratory Work Phone: Start: 02-12-2025 End: 02-12-2025 ambulatory Ed Physician Provider Facility:[facility] Start: 02-12-2025 End: 02-12-2025 ambulatory Donna Us Facility:[facility] Start: 02-10-2025 End: 02-10-2025 Telephone encounter Donna Us PA-C [facility] Comment on above: Appointment Start: 02-09-2025 End: 02-09-2025 Emergency department patient visit DONNA US Facility:[id number] Start: 01-31-2025 End: 02-01-2025 Refill Donna Us PA-C Work Phone: [facility] Comment on above: Refill Request Start: 01-24-2025 End: 03-16-2025 Transcribe Orders Salvatore Mcgrath MD Work Phone: [facility] Comment on above: Pretibial myxedema ( Primary Dx) Hyperthyroidism (Yojana jim Dx) Thyrotoxicosis witho ut thyroid storm, unspecified thyrotoxicosis type (Primary Dx); Pretibial myxedema Start: 01-11-2025 End: 01-11-2025 ambulatory NONE [facility] Start: 01-03-2025 End: 01-03-2025 Refill Donna Us PA-C Work Phone: [facility] Comment on above: Refill Request Start: 01-02-2025 End: 01-02-2025 Emergency department patient visit DONNA US Facility:[id number] Start: 12-11-2024 End: 12-11-2024 Emergency department patient visit DONNA US Facility:[id number] Start: 12-03-2024 End: 12-03-[address] Salvatore Mcgrath MD -[facility] Work Phone: Start: 12-03-2024 End: 12-03-2024 ambulatory Salvatore Mcgrath Facility:[facility] Start: 11-22-2024 End: 11-22-2024 Refill Donna Us PA-C Work Phone: [facility] Comment on above: Refill Request Start: 11-16-2024 ambulatory DONNA US Facility: [id number] Start: 11-16-2024 End: 11-16-2024 Subsequent hospital visit by physician Holter/Event Monitor [facility] Comment on above: Arrived Start: 11-12-2024 End: 11-12-2024 Follow-up encounter Donna Us PA-C Work Phone: [facility] Start: 11-11-2024 End: 11-11-2024 ambulatory DONNA US Facility:[id number] Start: 11-04-2024 End: 11-04-2024 Nursing evaluation of patient and report Nurse Julian Lu Work Phone: [facility] Comment on above: Fatigue, unspecified type Start: 11-04-2024 End: 11-04-2024 ambulatory DONNA US Facility:[id number] Start: 05-14-2024 End: 05-14-2024 Patient encounter procedure Donna Us PA-C Work Phone: [facility] Comment on above: Wellness examination (Primary Dx); Depression, unspecified depression type; Hypertension, essential; Fatigue, unspecified type Start: 05-14-2024 End: 05-14-2024 Patient encounter status Donna Us PA-C Work Phone: [facility] Start: 05-14-2024 End: 05-14-2024 ambulatory DONNA Love US Facility:[id number] Start: 12-09-2023 Telephone encounter Jorge Luis Stout APRN.CNP [facility] Comment on above: Appointment Start: 12-03-2023 Telephone encounter Jorge Luis Stout APRN.CNP [facility] Comment on above: Results Start: 12-03-2023 End: 12-03-2023 Nursing evaluation of patient and report Nurse Julian Lu Work Phone: [facility] Comment on above: Palpitations (Primar y Dx) Start: 11-18-2023 Telephone encounter Ella salas APRN.CNP Work Phone: [facility] Comment on above: Results Start: 11-12-2023 End: 11-12-2023 Office outpatient visit 15 minutes Ella Barragan APRN.CNP Work Phone: [facility] Comment on above: Hypertension, essent ial (Primary Dx); Palpitations; Depression, unspecified depression type; GERD without esophagitis; Screening for lipid disorders Start: 11-11-2023 Refill Jorge Luis Orellana But kristi CERTIFIED NOVELL ENGINEER.SANTI Work Phone: [facility] Comment on above: Refill Request Start: 06-13-2023 Refill Jorge Luis Orellana But ler CERTIFIED NOVELL ENGINEER.SANTI Work Phone: [facility] Start: 06-03-2023 Refill Jorge Luis Orellana But ler CERTIFIED NOVELL ENGINEER.GRISTMILLER Work Phone: [facility] Comment on above: Refill Request Start: 05-16-2023 Telephone encounter Jorge Luis Stout APRN.GRISTMILLER Work Phone: [facility] Comment on above: Missed Appointment ( 05/16/23) Start: 03-19-2023 Refill Jorge Luis Barnesn But ler CERTIFIED NOVELL ENGINEER.GRISTMILLER Work Phone: [facility] Comment on above: Refill Request Start: 02-15-2023 Refill Jorge Luis Barnesn But ler CERTIFIED NOVELL ENGINEER.GRISTMILLER Work Phone: [facility] Comment on above: Refill Request Start: 01-24-2023 End: 01-24-2023 ambulatory JORGE LUIS STOUT Facility:[facility] Start: 12-30-2022 Orders Only Jorge Luis Reyna But ler CERTIFIED NOVELL ENGINEER.GRISTMILLER Work Phone: [facility] Comment on above: Chronic insomnia (Pr imary Dx) Start: 12-09-2022 Refill Jorge Luis Barnesn But ler CERTIFIED NOVELL ENGINEER.GRISTMILLER Work Phone: [facility] Start: 11-08-2022 Refill Jorge Luis Barnesn But ler CERTIFIED NOVELL ENGINEER.GRISTMILLER Work Phone: [facility] Start: 10-18-2022 End: 10-18-2022 ambulatory JORGE LUIS STOUT Facility:[facility] Start: 10-18-2022 End: 10-18-2022 Patient encounter procedure Jorge Luis Stout CERTIFIED NOVELL ENGINEER.GRISTMILLER Work Phone: [facility] Comment on above: Chronic insomnia (Pr imary Dx) Start: 09-20-2022 End: 09-20-2022 ambulatory JORGE LUIS STOUT Facility:[facility] Start: 08-09-2022 End: 08-09-2022 ambulatory JORGE LUIS STOUT Facility:[facility] Start: 08-09-2022 Encounter for genera l adult medical examination without abnormal findings JORGE LUIS STOUT [facility] Start: 08-09-2022 End: 08-09-2022 Subsequent hospital visit by physician Provider [facility] Start: 08-09-2022 End: 08-09-2022 Patient encounter procedure Jorge Luis Reyna Stout CERTIFIED NOVELL ENGINEER.GRISTMILLER Work Phone: [facility] Comment on above: Wellness examination (Primary Dx); GERD without esophagitis; Chronic insomnia; Encounter for immunization; Weight gain; Depression, unspecified depression type; Fatigue, unspecified type; Obesity, Class I, BMI 30-34.9; BMI 33.0-33.9,adult; Need for influenza vaccination Start: 08-09-2022 End: 08-09-2022 Patient encounter status Jorge Luis Reyna Stout APRN.GRISTMILLER Work Phone: [facility] Start: 07-11-2022 Refill Jorge Luis Barnesn But ler CERTIFIED NOVELL ENGINEER.GRISTMILLER Work Phone: [facility] Comment on above: Refill Request Start: 07-08-2022 Refill Gege Warneres CERTIFIED NOVELL ENGINEER.GRISTMILLER Work Phone: [facility] Comment on above: Refill Request (Omep razole ) Start: 04-09-2022 Refill Jorge Luis Barnesn But ler CERTIFIED NOVELL ENGINEER.GRISTMILLER Work Phone: [facility] Comment on above: Refill Request Start: 04-06-2022 Refill Jorge Luis Reyna But ler CERTIFIED NOVELL ENGINEER.GRISTMILLER Work Phone: [facility] Comment on above: Refill Request Start: 02-06-2022 Refill Gege A Judith CERTIFIED NOVELL ENGINEER.GRISTMILLER Work Phone: [facility] Comment on above: Refill Request Start: 01-03-2022 Refill Jorge Luis Barnesn But ler CERTIFIED NOVELL ENGINEER.GRISTMILLER Work Phone: [facility] Comment on above: Refill Request Start: 07-18-2021 End: 07-18-2021 Subsequent hospital visit by physician Provider [facility] Comment on above: VOMITING Procedures Date Procedure Procedure Detail Performing Clinician Start: 01-24-2025 Assay of triiodothyr onine t3 free Salvatore Mcgrath MD Work Phone: Start: 01-24-2025 Microsomal antibodies each Salvatore Mcgrath MD Work Phone: Start: 11-04-2024 Basic metabolic pane l calcium total Donna Magen PA-C Work Phone: Start: 11-04-2024 Lipid panel Donna love PA-C Work Phone: Start: 12-03-2023 Ecg routine ecg w/le ast 12 lds i&r only Ella Barragan CERTIFIED NOVELL ENGINEER.GRISTMILLER Work Phone: Start: 11-12-2023 Blood count complete auto&auto difrntl wbc Ella Barragan CERTIFIED NOVELL ENGINEER.GRISTMILLER Work Phone: Start: 11-12-2023 Lipid panel Ella salas CERTIFIED NOVELL ENGINEER.GRISTMILLER Work Phone: Start: 08-09-2022 C-reactive protein Sean Stout APRN.GRISTMILLER Work Phone: Start: 08-09-2022 CBC + DIFF Jorge Luis Stout APRN.GRISTMILLER Work Phone: Start: 08-09-2022 Comprehensive metabo lic 2000 panel - Serum or Plasma Jorge Luis Stout APRN.GRISTMILLER Work Phone: Start: 08-09-2022 HCV ANTIBODY RFX TO QUANT PCR Jorge Luis Stout APRN.GRISTMILLER Work Phone: Start: 08-09-2022 HIV RAPID (UNION) Jorge Luis Stout APRN.GRISTMILLER Work Phone: Start: 08-09-2022 LIPID PANEL BASIC Jorge Luis Stout APRN.GRISTMILLER Work Phone: Start: 08-09-2022 Nuclear Ab [Presence ] in Serum Jorge Luis Stout APRN.GRISTMILLER Work Phone: Start: 08-09-2022 SED RATE WESTERGREN Rey Stout APRN.GRISTMILLER Work Phone: Start: 08-09-2022 T3 FREE BLD Jorge Luis Stout APRN.GRISTMILLER Work Phone: Start: 08-09-2022 T4 FREE/FREE THYROX Rey Stout CERTIFIED NOVELL ENGINEER.GRISTMILLER Work Phone: Start: 08-09-2022 Testosterone [Mass/v olume] in Serum or Plasma Jorge Luis Stout CERTIFIED NOVELL ENGINEER.GRISTMILLER Work Phone: Start: 08-09-2022 TSH BLD Jorge Luiskodi Stout CERTIFIED NOVELL ENGINEER.GRISTMILLER Work Phone: Start: 08-09-2022 VITAMIN B12 BLOOD Jorge Luis Stout CERTIFIED NOVELL ENGINEER.GRISTMILLER Work Phone: Start: 08-09-2022 VITAMIN D 25 HYDROXY Ja justinwild Stout CERTIFIED NOVELL ENGINEER.GRISTMILLER Work Phone: Start: 08-09-2022 INFLUENZA VAC 4 DORY NT PSRV FREE 6 MO-64 YRS IM Jorge Luis Stout CERTIFIED NOVELL ENGINEER.GRISTMILLER Work Phone: Start: 07-26-2021 Adult depression scr eening assessment Jorge Luis Stout CERTIFIED NOVELL ENGINEER.GRISTMILLER Work Phone: Start: 07-18-2021 Ct abdomen & pelvis w/o contrast material Etta Mcgregor CERTIFIED NOVELL ENGINEER.GRISTMILLER Work Phone: Start: 07-18-2021 UA WITH CULTURE IF INDICATED Etta Mcgregor CERTIFIED NOVELL ENGINEER.GRISTMILLER Work Phone: Start: 07-18-2021 URINALYSIS, WITH MICROSCOPIC Etta Mcgregor CERTIFIED NOVELL ENGINEER.GRISTMILLER Work Phone: Start: 07-18-2021 CBC + DIFF Etta nazario CERTIFIED NOVELL ENGINEER.GRISTMILLER Work Phone: Start: 07-18-2021 Comprehensive metabo lic 2000 panel - Serum or Plasma Etta Mcgregor CERTIFIED NOVELL ENGINEER.GRISTMILLER Work Phone: Start: 07-18-2021 LIPASE BLD Etta Luis Alfredo nazario CERTIFIED NOVELL ENGINEER.GRISTMILLER Work Phone: Plan of Treatment Date Care Activity Detail Author Start: 01-02-2035 Urine microalbumin profile DTa P,Tdap,Td Vaccine (7 - Td or Tdap) [facility] Start: 11-11-2025 Annual PCP Team Habilitation Assistant danika Disease Visit Annual PCP Team Chronic Disease Visit [facility] Start: 05-20-2025 End: 05-20-2025 Patient encounter procedure 05/20/2025 8:00 AM EDT Office Visit [facility] [address] [place], [place] [id number] Donna Us PA-C [address] [place] [address] 6 month follow up [facility] Comment on above: 6 month follow up Start: 05-14-2025 Annual PCP Team Habilitation Assistant danika Disease Visit Annual PCP Team Chronic Disease Visit [facility] Start: 05-14-2025 Covid-19 Vaccine () Covid-19 Vaccine () [facility] Comment on above: Postponed from 04/18 (Declined at this time) Start: 04-18-2025 Influenza vaccination C [facility] Start: 03-03-2025 Urine microalbumin profile [facility] Start: 02-14-2025 Influenza vaccination Influenza Vacc ine (#1) [facility] Comment on above: Postponed from 04/18 (Declined at this time) Start: 01-24-2025 End: 04-25-[address]IBODY [facility] Work Phone: Comment on above: Expected: 01/24/2025 , Expires: 04/25/2025 Start: 11-16-2024 End: 11-16-2024 Patient encounter procedure 11/16/2024 1:00 PM EDT Appointment [facility] [address] [place] [address] 14 days duration [facility] Comment on above: 14 days duration Start: 11-11-2024 End: 02-10-2025 25-hydroxyvitamin D3 [Mass/volume] in Serum or Plasma VITAMIN D 25 HYDROXY Lab Routine Fatigue, unspecified type Expected: 11/11/2024 (Approximate), Expires: 02/10/2025 [facility] Comment on above: Expected: 11/11/2024 (Approximate), Expires: 02/10/2025 Start: 11-11-2024 Annual PCP Team Habilitation Assistant danika Disease Visit Annual PCP Team Chronic Disease Visit [facility] Start: 11-11-2024 End: 02-10-2025 Basic metabolic 2000 panel - Serum or Plasma BASIC METABOLIC PANEL Lab Routine Fatigue, unspecified type Expected: 11/11/2024 (Approximate), Expires: 02/10/2025 [facility] Comment on above: Expected: 11/11/2024 (Approximate), Expires: 02/10/2025 Start: 11-11-2024 End: 02-10-2025 CBC panel - Blood by Automated count COMPLETE BLOOD COUNT Lab Routine Fatigue, unspecified type Expected: 11/11/2024 (Approximate), Expires: 02/10/[address] [facility] Work Phone: Comment on above: Expected: 11/11/2024 (Approximate), Expires: 02/10/2025 Start: 11-11-2024 End: 02-10-2025 Cobalamin (Vitamin B12) [Mass/volume] in Serum or Plasma VITAMIN B12 Lab Routine Fatigue, unspecified type Expected: 11/11/2024 (Approximate), Expires: 02/10/2025 [facility] Comment on above: Expected: 11/11/2024 (Approximate), Expires: 02/10/2025 Start: 11-11-2024 Covid-19 Vaccine () Covid-19 Vaccine () [facility] Comment on above: Postponed from 04/18 (Declined at this time) Start: 11-11-2024 End: 02-10-2025 Ferritin [Mass/volume] in Serum or Plasma FERRITIN Lab Routine Fatigue, unspecified type Expected: 11/11/2024 (Approximate), Expires: 02/10/2025 [facility] Comment on above: Expected: 11/11/2024 (Approximate), Expires: 02/10/2025 Start: 11-11-2024 End: 02-10-2025 Iron and Iron binding capacity panel - Serum or Plasma IRON AND TIBC Lab Routine Fatigue, unspecified type Expected: 11/11/2024 (Approximate), Expires: 02/10/2025 [facility] Comment on above: Expected: 11/11/2024 (Approximate), Expires: 02/10/2025 Start: 11-11-2024 End: 02-10-2025 Lipid 1996 panel - Serum or Plasma LIPID PANEL BASIC Lab Routine Fatigue, unspecified type Expected: 11/11/2024 (Approximate), Expires: 02/10/2025 [facility] Comment on above: Expected: 11/11/2024 (Approximate), Expires: 02/10/2025 Start: 11-11-2024 End: 02-10-2025 Testosterone [Mass/volume] in Serum or Plasma TESTOSTERONE, TOTAL Lab Routine Fatigue, unspecified type Expected: 11/11/2024 (Approximate), Expires: 02/10/2025 [facility] Comment on above: Expected: 11/11/2024 (Approximate), Expires: 02/10/2025 Start: 11-11-2024 End: 02-10-2025 Thyrotropin [Units/volume] in Serum or Plasma THYROID STIMULATING HORMONE Lab Routine Fatigue, unspecified type Expected: 11/11/2024 (Approximate), Expires: 02/10/2025 [facility] Comment on above: Expected: 11/11/2024 (Approximate), Expires: 02/10/2025 Start: 11-11-2024 End: 11-11-2024 Patient encounter procedure [facility] Comment on above: 6 month follow up Start: 11-04-2024 End: 11-04-2024 Nursing evaluation of patient and report 11/04/2024 9:20 AM EDT Nurse Visit [facility] [address] [place], [place] [id number] [facility] [address] [place], [place] [address] labs [facility] Comment on above: labs Start: 05-14-2024 End: 05-14-2024 Patient encounter procedure 05/14/2024 10:00 AM EDT Office Visit [facility] [address] [place], [place] [id number] Donna Us PA-C [address] [place] [address] 6 month follow up [facility] Comment on above: 6 month follow up Start: 04-18-2024 Influenza vaccination C [facility] Start: 02-15-2024 Influenza vaccination Influenza Vacc ine (#1) [facility] Comment on above: Postponed from 04/18 (Declined at this time) Start: 01-25-2024 ANNUAL PCP TEAM JEWEL BEARING TURNER DANIKA DISEASE VISIT ANNUAL PCP TEAM CHRONIC DISEASE VISIT [facility] Start: 08-09-2023 COVID-19 VACCINE (#1) COVID-19 VACCI NE (#1) [facility] Comment on above: Postponed from 10/02 (Declined at this time) Start: 04-18-2023 Covid-19 Vaccine () Covid-19 Vaccine () [facility] Start: 04-18-2023 Influenza vaccination C [facility] Start: 02-07-2023 End: 04-09-2023 HIV-1/0/2 AG/AB 4TH GEN ([facility]) HIV-1/0/2 AG/AB 4TH GEN ([facility]) Lab Routine Wellness examination Expected: 02/07/2023, Expires: 04/09/[address] [facility] Work Phone: Comment on above: Expected: 02/07/2023 , Expires: 04/09/2023 Start: 08-09-2022 End: 10-09-2022 25-hydroxyvitamin D3 [Mass/volume] in Serum or Plasma VITAMIN D 25 HYDROXY Lab Routine Wellness examination Expected: 08/09/2022, Expires: 10/09/[address] [facility] Work Phone: Comment on above: Expected: 08/09/2022 , Expires: 10/09/2022 Start: 08-09-2022 End: 10-09-2022 C reactive protein [Mass/volume] in Serum or Plasma C-REACTIVE PROTEIN (CRP) Lab Routine Fatigue, unspecified type Expected: 08/09/2022, Expires: 10/09/[address] [facility] Work Phone: Comment on above: Expected: 08/09/2022 , Expires: 10/09/2022 Start: 08-09-2022 End: 10-09-2022 CBC W Auto Differential panel - Blood CBC + DIFF Lab Routine Wellness examination Expected: 08/09/2022, Expires: 10/09/[address] [facility] Work Phone: Comment on above: Expected: 08/09/2022 , Expires: 10/09/2022 Start: 08-09-2022 End: 10-09-2022 Cobalamin (Vitamin B12) [Mass/volume] in Serum or Plasma VITAMIN B12 BLOOD Lab Routine Wellness examination Expected: 08/09/2022, Expires: 10/09/[address] [facility] Work Phone: Comment on above: Expected: 08/09/2022 , Expires: 10/09/2022 Start: 08-09-2022 End: 10-09-2022 Comprehensive metabolic 2000 panel - Serum or Plasma COMP METABOLIC PANEL Lab Routine Wellness examination Expected: 08/09/2022, Expires: 10/09/[address] [facility] Work Phone: Comment on above: Expected: 08/09/2022 , Expires: 10/09/2022 Start: 08-09-2022 End: 10-09-2022 Erythrocyte sedimentation rate SED RATE WESTERGREN Lab Routine Fatigue, unspecified type Expected: 08/09/2022, Expires: 10/09/[address] [facility] Work Phone: Comment on above: Expected: 08/09/2022 , Expires: 10/09/2022 Start: 08-09-2022 End: 10-09-2022 Hepatitis C virus Ab [Presence] in Serum HEP C AB IA W/CONF SCRN Lab Routine Wellness examination Expected: 08/09/2022, Expires: 10/09/[address] [facility] Work Phone: Comment on above: Expected: 08/09/2022 , Expires: 10/09/2022 Start: 08-09-2022 End: 10-09-2022 Lipid 1996 panel - Serum or Plasma LIPID PANEL BASIC Lab Routine Wellness examination Expected: 08/09/2022, Expires: 10/09/[address] [facility] Work Phone: Comment on above: Expected: 08/09/2022 , Expires: 10/09/2022 Start: 08-09-2022 End: 10-09-2022 Nuclear Ab [Presence] in Serum by Immunoassay NATALIE BLOOD Lab Routine Fatigue, unspecified type Expected: 08/09/2022, Expires: 10/09/[address] [facility] Work Phone: Comment on above: Expected: 08/09/2022 , Expires: 10/09/2022 Start: 08-09-2022 End: 10-09-2022 Testosterone [Mass/volume] in Serum or Plasma TESTOSTERONE TOTAL Lab Routine Wellness examination Weight gain Fatigue, unspecified type Expected: 08/09/2022, Expires: 10/09/[address] [facility] Work Phone: Comment on above: Expected: 08/09/2022 , Expires: 10/09/2022 Start: 08-09-2022 End: 10-09-2022 Thyrotropin [Units/volume] in Serum or Plasma TSH BLD Lab Routine Wellness examination Expected: 08/09/2022, Expires: 10/09/[address] [facility] Work Phone: Comment on above: Expected: 08/09/2022 , Expires: 10/09/2022 Start: 08-09-2022 End: 10-09-2022 Thyroxine (T4) free [Mass/volume] in Serum or Plasma T4 FREE/FREE THYROX Lab Routine Wellness examination Expected: 08/09/2022, Expires: 10/09/[address] [facility] Work Phone: Comment on above: Expected: 08/09/2022 , Expires: 10/09/2022 Start: 08-09-2022 End: 10-09-2022 Triiodothyronine (T3) Free [Mass/volume] in Serum or Plasma T3 FREE BLD Lab Routine Wellness examination Expected: 08/09/2022, Expires: 10/09/[address] [facility] Work Phone: Comment on above: Expected: 08/09/2022 , Expires: 10/09/2022 Start: 07-26-2022 [facility] Start: 07-26-2022 COVID-19 VACCINE (#1) COVID-19 VACCI NE (#1) [facility] Comment on above: Postponed from 04/01 (Declined at this time) Postponed from 10/02 (Declined at this time) Start: 04-18-2022 Influenza vaccination C [facility] Start: 08-18-2021 DEPRESSION ASSESSMENT DEPRESSION ASS ESSMENT [facility] Start: 2011 BP CONTROLLED (<130/80) BP CON TROLLED (<130/80) [facility] Start: 2011 HEPATITIS C SCREENING HEPATITIS C SC REENING [facility] Start: 2011 HIV SCREENING HIV SCREENING [facility] 25-hydroxyvitamin D3 [Mass/volume] in Serum or Plasma VITAMIN D 25 HYDROXY Lab Routine Fatigue, unspecified type 11/04/2024 9:19 AM EDT [facility] ECG COMPLETE ECG COMPLETE ECG Routine Palpitations Ordered: 11/18/[address] [facility] Work Phone: Comment on above: Ordered: 11/18/2023 ECG COMPLETE ECG COMPLETE ECG Routine Palpitations 12/03/2023 11:[address] [facility] Work Phone: Iron and Iron bindin g capacity panel - Serum or Plasma IRON AND TIBC Lab Routine Fatigue, unspecified type 11/04/2024 9:19 AM [facility] Work Phone: Testosterone [Mass/v olume] in Serum or Plasma TESTOSTERONE, TOTAL Lab Routine Fatigue, unspecified type 11/04/2024 9:19 AM EDT [facility] Immunizations Immunization Date Immunization Notes Care Provider Fa reinaldo 01-02-2025 tetanus toxoid, redu sandro diphtheria toxoid, and acellular pertussis vaccine, adsorbed Donna Us PA-C Work Phone: [facility] 08-09-2022 influenza, injectabl e, quadrivalent, preservative free Jorge Luis Stout APRN.GRISTMILLER Work Phone: [facility] 08-09-2022 influenza virus vacc ine, unspecified formulation Jorge Luis Stout APRN.CNP Work Phone: [facility] 09-20-2019 Influenza, injectabl e, Madin Jackie Canine Kidney, preservative free, quadrivalent Jorge Luis Stout APRN.GRISTMILLER Work Phone: [facility] 03-03-2015 tetanus toxoid, redu sandro diphtheria toxoid, and acellular pertussis vaccine, adsorbed Jorge Luis Stout APRN.GRISTMILLER Work Phone: [facility] 08-13-2000 TD(adult) unspecifie d formulation Jorge Luis Stout APRN.GRISTMILLER Work Phone: [facility] 05-29-1999 diphtheria, tetanus toxoids and acellular pertussis vaccine, unspecified formulation Jorge Luis Stout APRN.GRISTMILLER Work Phone: [facility] 05-29-1999 measles, mumps and rubella virus vaccine Jorge Luis Stout APRN.GRISTMILLER Work Phone: [facility] 05-29-1999 trivalent poliovirus vaccine, live, oral Jorge Luis Stout APRN.GRISTMILLER Work Phone: [facility] 06-26-1998 diphtheria, tetanus toxoids and acellular pertussis vaccine, unspecified formulation Jorge Luis Stout APRN.GRISTMILLER Work Phone: [facility] 06-26-1998 trivalent poliovirus vaccine, live, oral Jorge Luis Stout APRN.GRISTMILLER Work Phone: [facility] 06-26-1998 varicella virus vaccine Dasha Stout APRN.GRISTMILLER Work Phone: [facility] 06-24-1996 DTP-Haemophilus influenzae type b conjugate vaccine Jorge Luis Stout APRN.GRISTMILLER Work Phone: [facility] 06-24-1996 hepatitis B vaccine, pediatric or pediatric/adolescent dosage Jorge Luis Stout APRN.GRISTMILLER Work Phone: [facility] 06-24-1996 measles, mumps and rubella virus vaccine Jorge Luis Stout APRN.GRISTMILLER Work Phone: [facility] 06-24-1996 trivalent poliovirus vaccine, live, oral Jorge Luis Stout CERTIFIED NOVELL ENGINEER.GRISTMILLER Work Phone: [facility] 1993 hepatitis B vaccine, pediatric or pediatric/adolescent dosage Jorge Luis Stout CERTIFIED NOVELL ENGINEER.GRISTMILLER Work Phone: [facility] 1993 hepatitis B vaccine, pediatric or pediatric/adolescent dosage Jorge Luis Stout CERTIFIED NOVELL ENGINEER.GRISTMILLER Work Phone: [facility] Payers Date Payer Category Payer Self-pay 2022 Unknown [id number] 2020 Medicaid [facility] MEDICAID [id number] 2020-Present [phone] [address] [place] [address] Medicaid [id number] 2020 Medicaid [id number] 2020 Unknown [id number] 1993 Unknown [id number] Unknown [id number] Unknown [id number] Unknown [id number] Social History Date Type Detail Facility Tobacco smoking stat us NVIS Tobacco smoking consumption unknown [facility] Start: 1995 Sex Assigned At Not on file C [facility] Start: 08-02-2021 End: 08-09-2022 Tobacco smoking status NVIS Never smoked tobacco [facility] Start: 08-02-2021 End: 08-09-2022 Tobacco use and exposure Smokeless tobacco non-user [facility] Start: 10-17-2021 Alcohol intake Ex-drinker (finding) [facility] Start: 08-09-2022 End: 01-02-2025 Alcohol intake Current drinker of alcohol (finding) [facility] Start: 08-09-2022 Alcohol Comment [facility] Start: 01-24-2023 End: 12-03-2023 History of Social function [facility] Work Phone: Start: 01-24-2023 End: 12-03-2023 Tobacco use panel [facility] Work Phone: Adult Depression Screening Assessment 0 [facility] Work Phone: Has the [employer], or [employer] threatened to shut off services in your home in past 12Mo No [facility] How often to you hav e a drink containing alcohol? Monthly or less [facility] How many standard drinks containing alcohol do you have on a typical day? 1 or 2 [facility] How often do you hav e 6 or more drinks on 1 occasion? Less than monthly [facility] How hard is it for y ou to pay for the very basics like food, housing, medical care, and heating Not very hard [facility] (I/We) worried wheth er (my/our) food would run out before (I/we) got money to buy more. Never true [facility] Start: 1995 Sex Assigned At Male [facility] Goals Date Patient Goal Desired Activity /State Personal health goal Clinical Notes 01-03-2022 to 02-10-2025 Telephone Encounter - Darlin Beck MA - 02/10/2025 8:59 AM EDTTelephone Encounter - Darlin Beck MA - 02/10/2025 8:59 AM EDTTelephone Encounter - Zohra Solares MA - 02/01/2025 6:50 AM EDT Note Date & Type Note Facility 02-10-2025 Telephone encount er Note Appt with Donna on 05/20 needs r/s to Zuleika's schedule. Left message for patient to call the office, number provided. Please transfer call to office. Darlin Beck MA [facility] 02-10-2025 Miscellaneous Notes Formattin g of this note might be different from the original. Appt with Donna on 05/20 needs r/s to Zuleika's schedule. Left message for patient to call the office, number provided. Please transfer call to office. Darlin Beck MA documented in this encounter [facility] 02-09-2025 Note HNO ID: [id number] Author: JURGEN CARDENAS, STACIA Service: ? Author Type: Clinical Manager Programs Type: Progress Notes Filed: 02/09/2025 20:01 Note [...] PATIENT PRESENTS WITH AN IMPLANTABLE OR ATTACHED MONEY MARKET CLERK: No ALLERGIES: Reviewed and unchanged CONTRAST ALLERGY: [...] DATE: February 09, 2025 TIME: 8:00 PM [facility] 02-01-2025 Miscellaneous Notes Formattin g of this note is different from the original. Prescription Refill Information The patient has been [...] 2025 6:50 AM documented in this encounter [facility] 02-01-2025 Telephone encount er Note Prescription Refill Information The patient has [...] Solares MA February 01, 2025 6:50 AM [facility] 01-24-2025 Note HNO ID: [id number] Author: LOREN MENDEZ MA Service: ? Author Type: Retort Fireman Type: Progress Notes Filed: 01/24/2025 10:46 Note Text: Venipuncture performed to right antecubital. Number of tubes collected: 1 gold and 1 mint. [facility] 01-24-2025 History of Presen t illness Narrative Venipuncture performed to right antecubital. Number of tubes collected: 1 gold and 1 mint. documented in this encounter [facility] 01-03-2025 Telephone encount er Note Prescription Refill Information The patient has [...] Solares MA January 03, 2025 8:19 AM [facility] 01-03-2025 Miscellaneous Notes Formattin g of this note is different from the original. Prescription Refill Information The patient has been [...] 1 tablet by mouth every afternoon. Zohra Sloares MA January 03, 2025 8:19 AM documented in this encounter [facility] 12-24-2024 Note HNO ID: [id number] Author: VANCE EDWARDS, ? Service: ? 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 Roby Wright DO December 24, 2024 [facility] 12-11-2024 Note HNO ID: [id number] Author: NITESH ARCE RT(R) Service: ? Author [...] PATIENT PRESENTS WITH AN IMPLANTABLE OR ATTACHED MONEY MARKET CLERK: No RADIOLOGY DEPARTMENT: General X-ray: Exam(s) Completed: Chest X-Ray PERIPHERAL IV DATA: Not applicable SIGNED BY: RT Rasheed(Kate) December 11, 2024 1:56 PM [facility] 12-11-2024 Note SARS-COV-2 (AGENT OF COVID-19) RNA: Detected INFLUENZA A RNA: Not detected INFLUENZA B RNA: Not detected RESPIRATORY SYNCYTIAL VIRUS (RSV) RNA: Not detected [facility] Comment on above: Performed By: #### 3 024-7, 3016-3 #### [facility] CLIA [id number] [address] [place] [address] [place] 12-03-2024 Evaluation note Diagnosis Onset Date Resolution Thyrotoxicosis acute November 9:09am [facility] Work Phone: [phone] Telephone encounter Note* Telephone Encounter - Xochitl Quigley MA - 11/22/2024 1:41 PM EDT Prescription Refill Information The patient has been [...] Quigley MA November 22, 2024 1:42 PM [facility]04-07-2025 Miscellaneous Notes* Telephone Encounter - Xochitl Quigley MA - 11/22/2024 1:41 PM EDT Prescription Refill Information The patient has been [...] 22, 2024 1:42 PM [facility] of Present illness Narrative* Vance Edwards - 11/16/2024 1:00 PM EDT EVENT MONITOR DISPOSABLE PATCH INSTRUCTIONS Patient Name: Solomon Mackenzie [facility] Number: [id number] Skin prepped and cleansed Patch secured to prepped area Monitor Activated Serial #: [id number] Patient Instructed: Prescribed order timeframe Bathing guidelines Usage of event button and diary documentation Return of monitor at the end of prescribed order Call Marqui with problems Patient expresses a good understanding of instructions Vance Edwards [facility] NoteHNO ID: [id number] Author: VANCE EDWARDS, Eleni Service: Cardiovascular Testing Author Type: Technologist Type: Progress Notes Filed: 11/16/2024 13:25 Note Text: EVENT MONITOR DISPOSABLE PATCH INSTRUCTIONS Patient Name: Solomon Laura [facility] Number: [id number] Skin prepped and cleansed Patch secured to prepped area Monitor Activated Serial #: [id number] Patient Instructed: Prescribed order timeframe Bathing guidelines Usage of event button and diary documentation Return of monitor at the end of prescribed order Call Marqui with problems Patient expresses a good understanding of instructions [facility]03-28-2025 Telephone encounter Note* Telephone Encounter - Xochitl Quigley MA - 11/12/2024 11:29 AM EDT Left message for patient to call. Phone number was provided [facility]03-28-2025 Miscellaneous Notes* Telephone Encounter - Xochitl Quigley MA - 11/12/2024 11:29 AM EDT Left message for patient to call. Phone number was provided * Telephone Encounter - Donna Us PA-C - 11/12/2024 8:50 AM EDT Please notify the patient that his T3 and T4 were both elevated, which indicates hyperthyroidism. Iwould like for him to see an prison officer for further treatment and evaluation as we discussed yesterday. Consult placed, please schedule. [facility]25 Telephone encounter Note * Telephone Encounter - Donna Us PA-C - 11/12/2024 8:50 AM EDT Please notify the patient that his T3 and T4 were both elevated, which indicates hyperthyroidism. Iwould like for him to see an prison officer for further treatment and evaluation as we discussed yesterday. Consult placed, please schedule. [facility]03-27-2025 NoteHNO ID: [id number] Author: DONNA US PA-C Service: ? Author Type: Physician Heavy Forger Type: Progress Notes Filed: 11/11/2024 11:32 Note [...] are elevated, will refer to endocrinology in [place] for further management. - Educated on potential [...] and head throbbing. - Ordered a 2-week trolley coach driver to evaluate heart rhythm during symptomatic episodes. [...] referral based on follo (more content not included)...[facility]qu03-22-9410 NoteHNO ID: [id number] Author: LOREN MENDEZ MA Service: ? Author Type: Retort Fireman Type: Progress Notes Filed: 11/11/2024 11:32 Note Text: Venipuncture performed to right antecubital. Number of tubes collected: 2 mint. [id number] NoteHNO ID: [id number] Author: LOREN MENDEZ MA Service: ? Author Type: Retort Fireman Type: Progress Notes Filed: 11/04/2024 09:22 Note Text: Venipuncture performed to right antecubital. Number of tubes collected: 1 gold, 1 lavender, and 2 mint.[facility] HospitalBbkiypmm28-60-7500 History of Present illness Narrative* Loren Mendez MA - 11/04/2024 9:13 AM EDT Venipuncture performed to right antecubital. Number of tubes collected: 1 gold, 1 lavender, and 2 mint. [facility]09-27-2024 NoteHNO ID: [id number] Author: DONNA US PA-C Service: ? Author Type: Physician Heavy Forger Type: Progress Notes Filed: 05/14/2024 11:51 Note [...] and benefit of weight (more content not included)...[facility] [id number] History of Present illness Narrative* Donna Us PA-C - 05/14/2024 10:43 AM EDT Solomon Laura is a 29 year old male here today for an annual physical. I reviewed his past medical, surgical, social, and family histories today and updated chart. Allergies, chronic medications,and supplements were also reviewed and his list in the chart is now up to date. Concern(s) today include: Hypertension - BP 122/80 in clinic today. On metoprolol 25mg. Does not do home BP checks. States hegets short of breath and feels like his [...] this works well for him. States he feelshis mood is where it needs to be. [...] encounter with this patient. [facility]04-[facility] Telephone encounter Note * Telephone Encounter - Keyla Barriga - 12/09/2023 9:44 AM EDT Scheduled [facility]04-23-2024 Miscellaneous Notes* Telephone Encounter - Keyla Barriga - 12/09/2023 9:44 AM EDT Scheduled * Telephone Encounter - Keyla Barriga - 12/09/2023 9:40 AM EDT Voicemail left with number to return call Jorge Luis Stout's replacement Donna Us is here and his schedule is open, patient is due for a 6 month follow up end of Apr, please schedule and change PCP [facility]04-[facility]-2024 Telephone encounter Note * Telephone Encounter - Keyla Barriga - 12/09/2023 9:40 AM EDT Voicemail left with number to return call Jorge Luis Stout's replacement Donna Us is here and his schedule is open, patient is due for a 6 month follow up end of Apr, please schedule and change PCP [facility]04-17-2024 Miscellaneous Notes* Telephone Encounter - Ella Barragan APRN.CNP - 12/03/2023 8:48 PM EDT Please let patient know his EKG came back normal and was normal sinus rhythm. ThanksElla APRN.GRISTMILLER * Telephone Encounter - Loren Mendez MA - 12/03/2023 11:51 AM EDT Pt came in for EKG per earlier message. See results in chart. documented in this encounterGreen [facility]04-02-2024 Miscellaneous Notes* Telephone Encounter - Zohra Solares MA - 11/18/2023 2:39 PM EDT Patient scheduled to do the EKG in the office. * Telephone Encounter - Ella Barragan APRN.CNP - 11/18/2023 2:01 PM EDT I have ordered one. Is patient able to come into office to get this done or do I need to order it adifferent way? Let me know, thanks, Ella Barragan APRN.CNP * Telephone Encounter - Chcia Rodriguez - 11/18/2023 9:48 AM EDT Patient had called in and was notified of your message. He is agreeable to having the EKG, he says that his palpitations seem to ''be okay so far. Please Advise Thank you * Telephone Encounter - Darlin Beck MA - 11/18/2023 9:34 AM EDT Called number multiple times, states call could not be completed. Will attempt to call later. Sent my chart message for patient to call the office. Darlin Beck MA * Telephone Encounter - Ella Barragan APRN.CNP - 11/18/2023 8:53 AM EDT Please let Solomon know overall his labwork looks good. Fasting blood sugar is up a tiny bit but notdiagnostic of diabetes. How is his palpitations? Any more thought to an EKG or holter monitor? Thanks, Ella Barragan APRN.CNP documented in this encounterGreen [facility] Hospital03-27-2024 Miscellaneous Notes* Addendum Note - Ella Barragan APRN.CNP - 11/12/2023 10:25 AM EDTAddended by: ELLA BARRAGAN on: 11/12/2023 10:25 AM Modules accepted: Level of Service documented in this encounterGreen [facility] Hospital03-27-2024 Nurse Note* Palmira Magana - 11/12/2023 9:33 AM EDT Venipuncture performed to right antecubital. Number of tubes collected: 1 lavender and 1 mint. documented in this encounterGreen [facility] Hospital03-27-2024 History of Present illness Narrative* Ella Barragan APRN.CNP - 11/12/2023 9:14 AM EDT November 12, 2023 Subjective Chief Complaint: No [...] when he is more active, not at rest.States he is unsure if this is just because he has gained some weight and is out of shape. States he is not currently working out and used to be more active. Reports he will get little twinges of chest pain randomly for a second but it is not associated with activity, prolonged, or located to hisleft side exclusively. No family hx of sudden [...] found for this encounter. documented in this encounterGreen [facility] Hospital03-26-2024 Miscellaneous Notes* Telephone Encounter - Renu Hernandez MA - 11/11/2023 4:58 PM EDT Pt scheduled for 11/12/2023 with Hugo at 9am * Telephone Encounter - Barbara Strange - 11/11/2023 9:26 AM EDT Patient calls requesting refill: Requested Prescriptions Pending [...] to schedule with new provider Phone #: [phone] (home) [phone] (cell) The patients preferred pharmacy has been captured for this encounter? yes documented in this encounterGreen [facility] Hospital10-17-2023 Miscellaneous Notes* Telephone Encounter - Yanni Luna MA - 06/03/2023 7:30 AM EDT Pharmacy faxes requesting refill: Requested Prescriptions Pending Prescriptions Disp Refills naproxen (NAPROSYN) 500 mg tablet [Pharmacy Med Name: NAPROXEN 500 MG TABLET] 28 tablet 0 Sig: TAKE 1 TABLET BY MOUTH TWICE DAILY WITH MEALS FOR 14 DAYS. FOR PAIN Date of last visit:01/24/2023 Phone #: [phone] (home) [phone] (cell) The patients preferred pharmacy has been captured for this encounter? yes documented in this encounterGreen [facility] Hospital09-29-2023 Miscellaneous Notes* Telephone Encounter - Tomeka Gonzalez - 05/16/2023 2:04 PM EDT Tried to call patient regarding missed appointment but unable to complete call. No show letter #1 mailed. documented in this encounterGreen Cross Hospital08-02-2023 Miscellaneous Notes* Telephone Encounter - Zohra Heaton MA - 03/19/2023 7:44 AM EDT Pharmacy faxes requesting refill: Requested Prescriptions Pending Prescriptions Disp Refills metoprolol succinate ER (TOPROL XL) 25 mg 24 hr tablet [Pharmacy Med Name: METOPROLOL SUCC ER 25 MGTAB] 30 tablet 1 Sig: TAKE 1 TABLET BY MOUTH EVERY DAY Date of last visit 01/24/2023 Phone #: [phone] (home) [phone] (cell) The patients preferred pharmacy has been captured for this encounter? yes documented in this encounterGreen [facility] Hospital07-06-2023 Miscellaneous Notes* Telephone Encounter - Eloise Werner - 02/20/2023 4:41 PM EDT Patient advised. Thanks * Telephone Encounter - Maureen Munson MA - 02/20/2023 4:38 PM EDT Left vm for pt to cb phone number provided. Maureen Munson MA * Telephone Encounter - Jorge Luis Stout APRN.SANTI - 02/20/2023 1:33 PM EDT Wellbutrin increased to 300mg * Telephone Encounter - Dai Keane - 02/20/2023 1:23 PM EDT Patient calls back stating he does take the medication daily and would like it to be increased * Telephone Encounter - Chastity Agee MA - 02/20/2023 1:08 PM EDT Left message on patients voicemail for patient to call our office. Phone number has been provided. * Telephone Encounter - Maureen Munson MA - 02/17/2023 2:40 PM EDT Left vm for pt to cb phone number provided. Maureen Munson MA * Telephone Encounter - Holly Snider MD - 02/17/2023 12:08 PM EDT See if patient needs the wellbutrin. Looks like discontinued by Jorge Luis, but pharmacy faxing refill request. Is patient taking the medicine and does he needs a refill? * Telephone Encounter - Zohra Heaton MA - 02/17/2023 7:52 AM EDT Pharmacy faxes requesting refill: Requested Prescriptions Pending Prescriptions Disp Refills buPROPion XL (WELLBUTRIN XL) 150 mg 24 hr tablet [Pharmacy Med Name: BUPROPION HCL XL 150 MG TABLET] 30 tablet 5 Sig: TAKE 1 TABLET BY MOUTH ONCE DAILY. WEEK 1 JUST TAKE 1/2 TABLET. STARTING WEEK 2 TAKE A WHOLE TABLET Date of last visit:01/24/2023 Phone #: [phone] (home) [phone] (cell) The patients preferred pharmacy has been captured for this encounter? yes documented in this encounterGreen Cross Hospital06-09-2023 NoteHNO ID: [id number] Author: Jorge Luis Stout APRN.[facility] Service: ? Author Type: Nurse Practitioner Type: [...] was identified. 01/24/2023 by Jorge Luis Stout APRN.GRISTMILLER Discussed the risk of long-term benzodiazepine use [...] up to date. Health maintenance has been discussed.[facility]03-03-2023 NoteHNO ID: [id number] Author: Jorge Luis Stout APRN.GRISTMILLER Service: ? Author Type: Nurse Practitioner Type: [...] was identified. 10/18/2022 by Jorge Luis Stout APRN.GRISTMILLER - ESZOPICLONE 2 MG TABLET Jorge Luis Stout I reviewed his past medical, surgical, social, and family histories today and updated chart. Allergies, chronic medications, and supplements were also reviewed and the list is now up to date. Health maintenance has been discussed.[facility]03-03-2023 History of Present illness Narrative* Jorge Luis Stout APRN.SANTI - 10/18/2022 10:00 AM EST Solomon Laura is a 27 year old [...] All prescriptions have been APPROPRIATELY filled. No suspiciousactivity was identified. 10/18/2022 by Jorge Luis Stout APRN.SANTI - ESZOPICLONE 2 MG TABLET Jorge Luis Stout I reviewed his past medical, surgical, social, and family histories today and updated chart. Allergies, chronic medications, and supplements were also reviewed and the list is now up to date. Health maintenance has been discussed. documented in this encounterGreen Cross Hospital02-03-2023 NoteHNO ID: [id number] Author: Jorge Luis Stout APRN.SANTI Service: ? [...] was identified. 09/20/2022 by Jorge Luis Stout APRN.GRISTMILLER - ESZOPICLONE 2 MG TABLET 3. Weight [...] up to date. Health maintenance has been discussed.[facility]12-23-2022 NoteHNO ID: [id number] Author: Jorge Luis Stout APRN.GRISTMILLER Service: ? Author Type: Nurse Practitioner Type: [...] bed elevation - FAMOTIDIN (more content not included)...[facility]12-23-2022 Nurse Note* Loren Mendez MA - 08/09/2022 11:31 AM EST Patient received flu shot at 1120 Explained to patient he will need to wait here for 15 minuets for us to monitor to make sure he is not going to have an adverse reaction. Seated in lobby at 1120 Patient left at 1135 with no complications. Loren Mendez MA * Loren Mendze MA - 08/09/2022 11:24 AM EST Venipuncture performed to left antecubital. Number of tubes collected: 2 gold, 2 lavender, and 1 tiger. documented in this encounterGreen Cross Hospital12-23-2022 History of Present illness Narrative* Jorge Luis Stout APRN.GRISTMILLER - 08/09/2022 10:40 AM EST Solomon Laura is a 27 year old [...] intolerance, excessive sweating, excessive thirst, excessive urination, hairchanges BP 138/88 (BP Site: Right Arm, BP [...] movements intact. Pupils round, equal, reactive to light,and accomodation. Patellar reflexes 2+ bilaterally. ASSESSMENT/PLAN: 1. [...] now up to date. documented in this encounterCleveland [id number] Miscellaneous Notes* Telephone Encounter - Ivon Graff - 07/12/2022 9:32 AM EST Patient called back and I informed and scheduled for 08/09. * Telephone Encounter - Zohra Alvarez - 07/12/2022 9:21 AM EST Attempted to call pt and left message to call the office back. * Telephone Encounter - Gege Wong APRN.CNP - 07/12/2022 7:22 AM EST 30 day and needs appointment * Telephone Encounter - Chastity Agee MA - 07/12/2022 6:33 AM EST Pharmacy faxes requesting refill: Requested Prescriptions Pending Prescriptions Disp Refills traZODone (DESYREL) 100 mg tablet [Pharmacy Med Name: TRAZODONE 100 MG TABLET] 30 tablet 2 Sig: TAKE 1 TABLET BY MOUTH EVERYDAY AT BEDTIME Date of last visit:08/07/2021 Phone #: [phone] (home) The patients preferred pharmacy has been captured for this encounter? yes documented in this encounterGreen [facility] Hospital11-21-2022 Miscellaneous Notes* Telephone Encounter - Yanni Luna MA - 07/08/2022 7:48 AM EST Pharmacy faxes requesting refill: Requested Prescriptions Pending Prescriptions Disp Refills omeprazole (PRILOSEC) 20 mg capsule [Pharmacy Med Name: OMEPRAZOLE DR 20 MG CAPSULE] 30 capsule 2 Sig: TAKE 1 CAPSULE BY MOUTH ONCE DAILY Date of last visit:07/26/2021 Phone #: [phone] (home) The patients preferred pharmacy has been captured for this encounter? yes documented in this encounterGreen Cross Hospital08-23-2022 Miscellaneous Notes* Telephone Encounter - Zohra Heaton MA - 04/09/2022 10:51 AM EDT Pharmacy faxes requesting refill: Requested Prescriptions Pending Prescriptions Disp Refills traZODone (DESYREL) 100 mg tablet [Pharmacy Med Name: TRAZODONE 100 MG TABLET] 30 tablet 2 Sig: TAKE 1 TABLET BY MOUTH EVERYDAY AT BEDTIME Date of last visit: 07/26/2021 Phone #: [phone] (home) The patients preferred pharmacy has been captured for this encounter? yes documented in this encounterGreen [facility] Hospital08-22-2022 Miscellaneous Notes* Telephone Encounter - Zohra Heaton MA - 04/08/2022 11:04 AM EDT Pharmacy faxes requesting refill: Requested Prescriptions Pending Prescriptions Disp Refills omeprazole (PRILOSEC) 20 mg capsule [Pharmacy Med Name: OMEPRAZOLE DR 20 MG CAPSULE] 30 capsule 2 Sig: TAKE 1 CAPSULE BY MOUTH ONCE DAILY Date of last visit: 07/26/2021 Phone #: [phone] (home) The patients preferred pharmacy has been captured for this encounter? yes documented in this encounterGreen [facility] Hospital06-22-2022 Miscellaneous Notes* Telephone Encounter - Sandy Boyce MA - 02/06/2022 9:26 AM EDT Pharmacy faxes requesting refill: Pending Prescriptions Disp Refills TRAZODONE 100 MG TABLET 30 tablet 2 Sig: TAKE 1 TABLET BY MOUTH EVERYDAY AT BEDTIME CONNIE: Yes Date of last visit:07/26/2021 Phone #: [phone] (home) The patients preferred pharmacy has been captured for this encounter? yes documented in this encounterGreen Cross Hospital05-19-2022 Miscellaneous Notes* Telephone Encounter - Sandy Boyce MA - 01/03/2022 3:11 PM EDT Pharmacy faxes requesting refill: Pending Prescriptions Disp Refills OMEPRAZOLE 20 MG CAPSULE,DELAYED RELEASE 30 capsule 2 Sig: TAKE 1 CAPSULE BY MOUTH ONCE DAILY CONNIE: Yes Date of last visit:07/26/2021 Phone #: [phone] (home) The patients preferred pharmacy has been captured for this encounter? yes [facility] Diagnosis GERD without esophagitis Esophageal reflux documented in this encounter [facility] note* Diagnosis RUQ abdominal pain Abdominal pain, right upper quadrant Nausea and vomiting Nausea with vomiting documented in this encounter [facility] note* Diagnosis GERD without esophagitis Esophageal reflux documented in this encounter [facility] note* Diagnosis RUQ abdominal pain Abdominal pain, right upper quadrant Nausea and vomiting Nausea with vomiting documented in this encounter [facility] note* Diagnosis RUQ abdominal pain Abdominal pain, right upper quadrant Nausea and vomiting Nausea with vomiting documented in this encounter [facility] note* Diagnosis Wellness examination- Primary GERD without [...] inoculation against influenza documented in this encounter [facility] note* Diagnosis Chronic insomnia- Primary Insomnia, unspecified documented in this encounter [facility] note* Diagnosis Depression, unspecified depression type documented in this encounter [facility] note* Diagnosis Chronic insomnia- Primary Insomnia, unspecified documented in this encounter [facility] note* Diagnosis Depression, unspecified depression type Chronic insomnia- Primary Insomnia, unspecified Anxiety with depression Hypertension, essential Unspecified essential hypertension documented in this encounter [facility] note* Diagnosis Hypertension, essential Unspecified essential hypertension documented in this encounter [facility] note* Diagnosis GERD without esophagitis Esophageal reflux documented in this encounter [facility] note* Diagnosis GERD without esophagitis Esophageal reflux Hypertension, essential Unspecified essential hypertension Depression, unspecified depression type documented in this encounter [facility] note* Diagnosis Hypertension, essential- Primary Unspecified essential hypertension Palpitations Depression, unspecified depression type GERD without esophagitis Esophageal reflux Screening for lipid disorders documented in this encounter [facility] note* Diagnosis Palpitations- Primary documented in this encounter [facility] note* Diagnosis Palpitations- Primary documented in this encounter [facility] note* Diagnosis Wellness examination- Primary Depression, unspecified depression type Hypertension, essential Unspecified essential hypertension Fatigue, unspecified type documented in this encounter [facility] note* Diagnosis Fatigue, unspecified type documented in this encounter [facility] note* Diagnosis Hyperthyroidism- Primary Thyrotoxicosis without mention of goiter or other cause, without mention of thyrotoxic crisis or storm documented in this encounter [facility] note* 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, without mention of thyrotoxic crisis or storm documented in this encounter [facility] note* Diagnosis Hyperthyroidism- Primary Thyrotoxicosis without mention of goiter or other cause, without mention of thyrotoxic crisis or storm documented in this encounter [facility] note* Diagnosis Thyrotoxicosis without thyroid storm, 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, without mention of thyrotoxic crisis or storm documented in this encounter [facility] for referral (narrative)* Outpatient Procedure (Routine) - Pending Review Specialty Diagnoses / Procedures Referred By Contdanette t [facility]erred [facility] Diagnoses Palpitations Procedures ECG COMPLETE ECG ROUTINE ECG W/LEAST 12 LDS W/I&R Ella Barragan, MIREILLE.GRISTMILLER [address] [place] [address] [facility] [place] [address] [place] [address] Referral ID Status Reason Start Date Expiration Date Visits Requested Visits Authorized [id number] Pending Review Auto-Generat ed Referral 11/18/2023 11/17/2024 1 1 [facility] for referral (narrative)* Outpatient Procedure (Routine) - Pending Review Specialty Diagnoses / Procedures Referred By Amber t Referred To [facility] Diagnoses Palpitations Procedures ECG COMPLETE ECG ROUTINE ECG W/LEAST 12 LDS W/I&R Ella Barragan APRN.CNP [address] [place] [address] [facility] [place] [address] [place] [address] Referral ID Status Reason Start Date Expiration Date Visits Requested Visits Authorized [id number] Pending Review Auto-Generat ed Referral 12/02/2023 12/01/2024 1 1 [facility] for referral (narrative)No reason for referral information availableWACMC [facility] Work Phone: Summary Purpose Family History Relationship Condition Age at Onset Recorded Date/T brennon father Aneurysm Unknown mother Liver failure Unknown Malignant neoplasm Unknown Advance Directives No Advanced Directives Records FoundNo Advanced Directives Records FoundNo Advanced Directives Records FoundNo Advanced Directives Records FoundNo Advanced Directives Records FoundNo Advanced Directives Records FoundNo Advanced Directives Records FoundNo Advanced Directives Records Found Chief Complaint and Reason for Visit Chief Complaint Admit Date Thyroid December 03, 2024 9:0 9am Thyrotoxicosis February 12, 2025 9:19 pm Reason for Visit Admit Date Thyrotoxicosis December 03, 2024 9:0 9am Additional Source Comments Source Comments (unrecognize d section and content) In the event this informatio n is protected by the Federal Confidentiality of Alcohol and Drug Abuse Patient Records regulations: The Federal rules restrict any use of the information to criminally investigate or prosecute any alcohol or drug abuse patient.[facility] the event this information is protected by the Federal Confidentiality of Alcohol and Drug Abuse Patient Records regulations: The Federal rules restrict any use of the information to criminally investigate or prosecute any alcohol or drug abuse patient.[facility] the event this information is protected by the Federal Confidentiality of Alcohol and Drug Abuse Patient Records regulations: The Federal rules restrict any use of the information to criminally investigate or prosecute any alcohol or drug abuse patient.[facility] the event this information is protected by the Federal Confidentiality of Alcohol and Drug Abuse Patient Records regulations: The Federal rules restrict any use of the information to criminally investigate or prosecute any alcohol or drug abuse patient.[facility]In the event this information is protected by the Federal Confidentiality of Alcohol and Drug Abuse Patient Records regulations: The Federal rules restrict any use of the information to criminally investigate or prosecute any alcohol or drug abuse patient.[facility]In the event this information is protected by the Federal Confidentiality of Alcohol and Drug Abuse Patient Records regulations: The Federal rules restrict any use of the information to criminally investigate or prosecute any alcohol or drug abuse patient.[facility] the event this information is protected by the Federal Confidentiality of Alcohol and Drug Abuse Patient Records regulations: The Federal rules restrict any use of the information to criminally investigate or prosecute any alcohol or drug abuse patient.[facility] the event this information is protected by the Federal Confidentiality of Alcohol and Drug Abuse Patient Records regulations: The Federal rules restrict any use of the information to criminally investigate or prosecute any alcohol or drug abuse patient.[facility] the event this information is protected by the Federal Confidentiality of Alcohol and Drug Abuse Patient Records regulations: The Federal rules restrict any use of the information to criminally investigate or prosecute any alcohol or drug abuse patient.[facility] the event this information is protected by the Federal Confidentiality of Alcohol and Drug Abuse Patient Records regulations: The Federal rules restrict any use of the information to criminally investigate or prosecute any alcohol or drug abuse patient.[facility] the event this information is protected by the Federal Confidentiality of Alcohol and Drug Abuse Patient Records regulations: The Federal rules restrict any use of the information to criminally investigate or prosecute any alcohol or drug abuse patient.[facility]In the event this information is protected by the Federal Confidentiality of Alcohol and Drug Abuse Patient Records regulations: The Federal rules restrict any use of the information to criminally investigate or prosecute any alcohol or drug abuse patient.[facility]In the event this information is protected by the Federal Confidentiality of Alcohol and Drug Abuse Patient Records regulations: The Federal rules restrict any use of the information to criminally investigate or prosecute any alcohol or drug abuse patient.[facility] HospitalIn the event this information is protected by the Federal Confidentiality of Alcohol and Drug Abuse Patient Records regulations: The Federal rules restrict any use of the information to criminally investigate or prosecute any alcohol or drug abuse patient.[facility] the event this information is protected by the Federal Confidentiality of Alcohol and Drug Abuse Patient Records regulations: The Federal rules restrict any use of the information to criminally investigate or prosecute any alcohol or drug abuse patient.[facility]In the event this information is protected by the Federal Confidentiality of Alcohol and Drug Abuse Patient Records regulations: The Federal rules restrict any use of the information to criminally investigate or prosecute any alcohol or drug abuse patient.[facility] the event this information is protected by the Federal Confidentiality of Alcohol and Drug Abuse Patient Records regulations: The Federal rules restrict any use of the information to criminally investigate or prosecute any alcohol or drug abuse patient.[facility] HospitalIn the event this information is protected by the Federal Confidentiality of Alcohol and Drug Abuse Patient Records regulations: The Federal rules restrict any use of the information to criminally investigate or prosecute any alcohol or drug abuse patient.[facility] HospitalIn the event this information is protected by the Federal Confidentiality of Alcohol and Drug Abuse Patient Records regulations: The Federal rules restrict any use of the information to criminally investigate or prosecute any alcohol or drug abuse patient.[facility] HospitalIn the event this information is protected by the Federal Confidentiality of Alcohol and Drug Abuse Patient Records regulations: The Federal rules restrict any use of the information to criminally investigate or prosecute any alcohol or drug abuse patient.[facility] HospitalIn the event this information is protected by the Federal Confidentiality of Alcohol and Drug Abuse Patient Records regulations: The Federal rules restrict any use of the information to criminally investigate or prosecute any alcohol or drug abuse patient.[facility] HospitalIn the event this information is protected by the Federal Confidentiality of Alcohol and Drug Abuse Patient Records regulations: The Federal rules restrict any use of the information to criminally investigate or prosecute any alcohol or drug abuse patient.[facility] HospitalIn the event this information is protected by the Federal Confidentiality of Alcohol and Drug Abuse Patient Records regulations: The Federal rules restrict any use of the information to criminally investigate or prosecute any alcohol or drug abuse patient.[facility] HospitalIn the event this information is protected by the Federal Confidentiality of Alcohol and Drug Abuse Patient Records regulations: The Federal rules restrict any use of the information to criminally investigate or prosecute any alcohol or drug abuse patient.[facility]In the event this information is protected by the Federal Confidentiality of Alcohol and Drug Abuse Patient Records regulations: The Federal rules restrict any use of the information to criminally investigate or prosecute any alcohol or drug abuse patient.[facility]In the event this information is protected by the Federal Confidentiality of Alcohol and Drug Abuse Patient Records regulations: The Federal rules restrict any use of the information to criminally investigate or prosecute any alcohol or drug abuse patient.[facility] HospitalIn the event this information is protected by the Federal Confidentiality of Alcohol and Drug Abuse Patient Records regulations: The Federal rules restrict any use of the information to criminally investigate or prosecute any alcohol or drug abuse patient.[facility] HospitalIn the event this information is protected by the Federal Confidentiality of Alcohol and Drug Abuse Patient Records regulations: The Federal rules restrict any use of the information to criminally investigate or prosecute any alcohol or drug abuse patient.[facility]In the event this information is protected by the Federal Confidentiality of Alcohol and Drug Abuse Patient Records regulations: The Federal rules restrict any use of the information to criminally investigate or prosecute any alcohol or drug abuse patient.[facility]In the event this information is protected by the Federal Confidentiality of Alcohol and Drug Abuse Patient Records regulations: The Federal rules restrict any use of the information to criminally investigate or prosecute any alcohol or drug abuse patient.[facility]In the event this information is protected by the Federal Confidentiality of Alcohol and Drug Abuse Patient Records regulations: The Federal rules restrict any use of the information to criminally investigate or prosecute any alcohol or drug abuse patient.[facility] HospitalIn the event this information is protected by the Federal Confidentiality of Alcohol and Drug Abuse Patient Records regulations: The Federal rules restrict any use of the information to criminally investigate or prosecute any alcohol or drug abuse patient.[facility] HospitalIn the event this information is protected by the Federal Confidentiality of Alcohol and Drug Abuse Patient Records regulations: The Federal rules restrict any use of the information to criminally investigate or prosecute any alcohol or drug abuse patient.[facility] HospitalIn the event this information is protected by the Federal Confidentiality of Alcohol and Drug Abuse Patient Records regulations: The Federal rules restrict any use of the information to criminally investigate or prosecute any alcohol or drug abuse patient.[facility] HospitalIn the event this information is protected by the Federal Confidentiality of Alcohol and Drug Abuse Patient Records regulations: The Federal rules restrict any use of the information to criminally investigate or prosecute any alcohol or drug abuse patient.[facility] (unrecognized sect ion and content) No Status Records FoundNo Status Records FoundNo Status Records FoundNo Status Records FoundNo Status Records FoundNo Status Records FoundNo Status Records FoundNo Status Records Found INFORMATION SOURCE (unrecogn ized section and content) DATE CREATED AUTHOR 09/10/2021 [facility] DATE CREATED AUTHOR AUTHOR'S ORGANIZ ATION 10/13/2021 [facility] DATE CREATED AUTHOR AUTHOR'S ORGANIZ ATION 08/27/2022 [facility] DATE CREATED AUTHOR AUTHOR'S ORGANIZ ATION 01/27/2023 [facility] DATE CREATED AUTHOR AUTHOR'S ORGANIZ ATION 01/14/2025 [facility] DATE CREATED AUTHOR AUTHOR'S ORGANIZ ATION 02/12/2025 [facility] DATE CREATED AUTHOR AUTHOR'S ORGANIZ ATION 02/13/2025 [facility] DATE CREATED AUTHOR AUTHOR'S ORGANIZ ATION 02/18/2025 [facility] Reason for Visit (unrecogniz ed section [...] Care Teams (unrecognized sec tion and content) Workforce Development Assistant Relationship Specialty Start Date End Date Jorge Luis Stout, CERTIFIED NOVELL ENGINEER.GRISTMILLER [address] [place] [address] PCP - General Family Practice 07/24/21 Workforce Development Assistant Relationship Specialty Start Date End Date Jorge Luis Stout, CERTIFIED NOVELL ENGINEER.GRISTMILLER [address] [place], [place] [address] PCP - General Family Practice 07/24/21 Workforce Development Assistant Relationship Specialty Start Date End Date Jorge Luis Stout, CERTIFIED NOVELL ENGINEER.GRISTMILLER [address] [place], [place] [address] PCP - General Family Practice 07/24/21 Workforce Development Assistant Relationship Specialty Start Date End Date Jorge Luis Stout, CERTIFIED NOVELL ENGINEER.GRISTMILLER [address] [place], [place] [address] PCP - General Family Practice 07/24/21 Workforce Development Assistant Relationship Specialty Start Date End Date Jorge Luis Stout, CERTIFIED NOVELL ENGINEER.GRISTMILLER [address] [place], [place] [address] PCP - General Family Medicine 07/24/21 Workforce Development Assistant Relationship Specialty Start Date End Date Jorge Luis Stout, CERTIFIED NOVELL ENGINEER.GRISTMILLER [address] [place], [place] [address] PCP - General Family Medicine 07/24/21 Workforce Development Assistant Relationship Specialty Start Date End Date Jorge Luis Stout, CERTIFIED NOVELL ENGINEER.GRISTMILLER [address] [place], [place] [address] PCP - General Family Medicine 07/24/21 Workforce Development Assistant Relationship Specialty Start Date End Date Jorge Luis Stout, CERTIFIED NOVELL ENGINEER.GRISTMILLER [address] [place], [place] [address] PCP - General Family Medicine 07/24/21 Workforce Development Assistant Relationship Specialty Start Date End Date Jorge Luis Stout, CERTIFIED NOVELL ENGINEER.GRISTMILLER [address] [place] [address] PCP - General Family Medicine 07/24/21 Workforce Development Assistant Relationship Specialty Start Date End Date Jorge Luis Stout, CERTIFIED NOVELL ENGINEER.GRISTMILLER [address] [place], [place] [id number] PCP - [facility] 07/24/21 Workforce Development Assistant Relationship Specialty Start Date End Date Jorge Luis Stout, CERTIFIED NOVELL ENGINEER.GRISTMILLER [address] [place], [place] [address] PCP - General Family Medicine 07/24/21 Workforce Development Assistant Relationship Specialty Start Date End Date Jorge Luis Stout, CERTIFIED NOVELL ENGINEER.GRISTMILLER [address] [place] [address] PCP - [facility] Medicine 07/24/21 Workforce Development Assistant Relationship Specialty Start Date End Date Jorge Luis Stout, CERTIFIED NOVELL ENGINEER.GRISTMILLER [address] [place] [address] PCP - [facility] Medicine 07/24/21 Workforce Development Assistant Relationship Specialty Start Date End Date Jorge Luis Stout, CERTIFIED NOVELL ENGINEER.GRISTMILLER [address] [place], [place] [address] PCP - [facility] Medicine 07/24/21 Workforce Development Assistant Relationship Specialty Start Date End Date Jorge Luis Stout, CERTIFIED NOVELL ENGINEER.GRISTMILLER [address] [place], [place] [address] PCP - [facility] Family Medicine 07/24/21 Workforce Development Assistant Relationship Specialty Start Date End Date Jorge Luis Stout, CERTIFIED NOVELL ENGINEER.GRISTMILLER [address] [place], [place] [address] PCP - [facility] Medicine 07/24/21 Workforce Development Assistant Relationship Specialty Start Date End Date Jorge Luis Stout, CERTIFIED NOVELL ENGINEER.GRISTMILLER [address] [place], [place] [address] PCP - General Family Medicine 07/24/21 Workforce Development Assistant Relationship Specialty Start Date End Date Jorge Luis Stout, CERTIFIED NOVELL ENGINEER.GRISTMILLER [address] [place] [address] PCP - General Family Medicine 07/24/21 Workforce Development Assistant Relationship Specialty Start Date End Date Jorge Luis Stout, CERTIFIED NOVELL ENGINEER.GRISTMILLER PCP - General Family Medicine 07/24/21 Workforce Development Assistant Relationship Specialty Start Date End Date Jorge Luis Stout, CERTIFIED NOVELL ENGINEER.GRISTMILLER PCP - General Family Medicine 07/24/21 Workforce Development Assistant Relationship Specialty Start Date End Date Jorge Luis Stout, CERTIFIED NOVELL ENGINEER.GRISTMILLER PCP - General Family Medicine 07/24/21 Workforce Development Assistant Relationship Specialty Start Date End Date Donna Us PA-C [address] [place] [address] PCP - General Family Medicine 12/09/23 Workforce Development Assistant Relationship Specialty Start Date End Date Donna Us PA-C [address] [place] [address] PCP - General Family Medicine 12/09/23 Workforce Development Assistant Relationship Specialty Start Date End Date Donna Us PA-C [address] [place] [address] PCP - General Family Medicine 12/09/23 Workforce Development Assistant Relationship Specialty Start Date End Date Donna Us PA-C [address] [place], [place] [id number] PCP - General Family Medicine 12/09/23 Workforce Development Assistant Relationship Specialty Start Date End Date Donna Us PA-C [address] [place], [place] [id number] PCP - General Family Medicine 12/09/23 Workforce Development Assistant Relationship Specialty Start Date End Date Donna Us PA-C [address] [place], [place] [id number] PCP - General Family Medicine 12/09/23 Workforce Development Assistant Relationship Specialty Start Date End Date Donna Us PA-C [address] [place] [address] PCP - General Family Medicine 12/09/23 Workforce Development Assistant Relationship Specialty Start Date End Date Donna Us PA-C [address] [place] [address] PCP - General Family Medicine 12/09/23 Workforce Development Assistant Relationship Specialty Start Date End Date Donna Us PA-C [address] [place] [address] PCP - General Family Medicine 12/09/23 Workforce Development Assistant Relationship Specialty Start Date End Date Donna Us PA-C PCP - General Family Medicine 12/09/23 Team Status: Active Member Role/Relationship Status Dates Donna Us PA-C Primary Care Provider Active Team Status: Inactive Member Role/Relationship Status Dates Out [facility] Doctor Referring Provider Active Sta rt: December 03, 2024 End: December 03, 2024 Dr. Salvatore Mcgrath MD Attending Provider Active Sta rt: December 03, 2024 End: December 03, 2024 Team Status: Inactive Member Role/Relationship Status Dates Dr. Salvatore Mcgrath MD Attending Provider Active Sta rt: February 12, 2025 End: February 12, 2025 Donna Us PA-C Primary Care Provider Active Start: February 12, 2025 End: February 12, 2025 Workforce Development Assistant Relationship Specialty Start Date End Date Donna Us PA-C PCP - General Family Medicine 12/09/23 Goals (unrecognized section and content) Goals may be documented in a n alternate section FOR RECORDS PERTAINING TO PATIENTS WHO ARE [...] BE BASED ON THE PRIMARY CLINICAL RECORDS. [facility]. provides no warranty or guarantee of the accuracy or completeness of information in this document.
== END | disposition home or self-care (01) ==
LOC: PAVLAB 16:38
PROVIDERS: PCP Student in an Organized Health Care Education/Training Program; Referring Provider Internal Medicine Endocrinology, Diabetes & Metabolism; Visit Provider Internal Medicine Endocrinology, Diabetes & Metabolism
DX: E06.3 Autoimmune thyroiditis (principal)
CPT/HCPCS: 36415; 84439; 84443